=== PATIENT | female | born 1950 | race Caucasian/White ===

== ENCOUNTER 2019-09-27 16:48 | Inpatient (IN) | payer MEDICARE ==
[2019-09-27] MEDS ORDERED: LORazepam 2 MG/ML INJ IV STA (17:37)
[2019-09-27] MEDS ORDERED: SODIUM CHLORIDE 0.9% 1,000 ML IV STA ×2 (17:38)
[2019-09-27] MEDS ORDERED: SODIUM CHLORIDE 0.9% 500 ML 500 ML IV STA (17:38)
--- NOTE | 2019-09-27 17:38 | ED ---
Psych HPI - General Chief Complaint: Psychiatric Symptoms Stated Complaint: Mental health Time Seen by Provider: 09/27/19 17:14 Source: patient, RN notes reviewed, old records reviewed Mode of arrival: ambulatory - History of Present Illness Initial Comments: This is a 69-year-old female to the ER today she presents today for evaluation regards to psychiatric illness. Family concerned about patient's ability to care for self increased weight loss decreased appetite. Patient no medical history takes no medications. No drugs or alcohol abuse per family. Patient is very paranoid feelings believes that was coming to get her at all times. MD Complaint: altered mental status -: week(s) Associated Psychiatric Symptoms: racing thoughts, auditory hallucinations, visual hallucinations, delusions Quality: constant Improves With: none Worsens With: none Associated Symptoms: denies other symptoms Treatments Prior to Arrival: placed on mental health hold - Related Data Allergies Allergy/AdvReac Type Severity Reaction Status Date / Time No Known Allergies Allergy Verified 09/27/19 18:10 Review of Systems ROS Statement: Those systems with pertinent positive or pertinent negative responses have been documented in the HPI. ROS Other: All systems not noted in ROS Statement are negative. Past Medical History Past Medical History: No Reported History History of Any Multi-Drug Resistant Organisms: None Reported Additional Past Surgical History / Comment(s): head surgery Past Psychological History: Unable to Obtain Smoking Status: Former smoker Past Alcohol Use History: None Reported Past Drug Use History: None Reported General Exam Limitations: altered mental status General appearance: alert, in no apparent distress Head exam: Present: atraumatic, normocephalic, normal inspection Eye exam: Present: normal appearance, PERRL, EOMI. Absent: scleral icterus, conjunctival injection, periorbital swelling ENT exam: Present: normal exam, mucous membranes moist Neck exam: Present: normal inspection. Absent: tenderness, meningismus, lymphadenopathy Respiratory exam: Present: normal lung sounds bilaterally. Absent: respiratory distress, wheezes, rales, rhonchi, stridor Cardiovascular Exam: Present: normal rhythm, tachycardia, normal heart sounds. Absent: systolic murmur, diastolic murmur, rubs, gallop, clicks GI/Abdominal exam: Present: soft, normal bowel sounds. Absent: distended, tenderness, guarding, rebound, rigid Extremities exam: Present: normal inspection, full ROM, normal capillary refill. Absent: tenderness, pedal edema, joint swelling, calf tenderness Back exam: Present: normal inspection Neurological exam: Present: alert, oriented X3, CN II-XII intact Psychiatric exam: Present: normal affect, normal mood Skin exam: Present: warm, dry, intact, normal color. Absent: rash Course Vital Signs 09/27/19 09/27/19 09/27/19 16:59 18:00 21:35 Temperature 98.9 F 98.1 F Pulse Rate 126 H 83 Respiratory 18 18 Rate Blood Pressure 146/97 169/82 O2 Sat by Pulse 97 95 Oximetry - Reevaluation(s) Reevaluation #1: 09/27/19 17:37 Medical records reviewed Reevaluation #2: 09/27/19 21:41 She was made medically clear for psychiatric evaluation Medical Decision Making - Medical Decision Making 69-year-old female DF for evaluation patient with significant delusions and paranoia will admit for psychiatric evaluation and management - Lab Data Result diagrams: 09/27/19 18:03 09/27/19 18:03 Lab Results 09/27/19 09/27/19 09/27/19 Range/Units 18:03 18:03 18:03 WBC 9.6 (3.8-10.6) k/uL RBC 4.54 (3.80-5.40) m/uL Hgb 13.4 (11.4-16.0) gm/dL Hct 40.5 (34.0-46.0) % MCV 89.3 (80.0-100.0) fL MCH 29.4 (25.0-35.0) pg MCHC 33.0 (31.0-37.0) g/dL RDW 13.0 (11.5-15.5) % Plt Count 293 (150-450) k/uL Neutrophils % 80 % Lymphocytes % 14 % Monocytes % 4 % Eosinophils % 0 % Basophils % 1 % Neutrophils # 7.7 (1.3-7.7) k/uL Lymphocytes # 1.3 (1.0-4.8) k/uL Monocytes # 0.4 (0-1.0) k/uL Eosinophils # 0.0 (0-0.7) k/uL Basophils # 0.1 (0-0.2) k/uL Sodium 136 L (137-145) mmol/L Potassium 4.5 (3.5-5.1) mmol/L Chloride 103 (98-107) mmol/L Carbon Dioxide 22 (22-30) mmol/L Anion Gap 11 mmol/L BUN 10 (7-17) mg/dL Creatinine 0.85 (0.52-1.04) mg/dL Est GFR (CKD-EPI)AfAm 81 (>60 ml/min/1.73 sqM) Est GFR (CKD-EPI)NonAf 70 (>60 ml/min/1.73 sqM) Glucose 113 H (74-99) mg/dL Calcium 9.5 (8.4-10.2) mg/dL Phosphorus 3.1 (2.5-4.5) mg/dL Magnesium 1.9 (1.6-2.3) mg/dL Total Bilirubin 0.5 (0.2-1.3) mg/dL AST 26 (14-36) U/L ALT 19 (4-34) U/L Alkaline Phosphatase 85 (38-126) U/L Total Protein 6.9 (6.3-8.2) g/dL Albumin 4.0 (3.5-5.0) g/dL TSH 1.140 (0.465-4.680) mIU/L Urine Color Urine Appearance (Clear) Urine pH (5.0-8.0) Ur Specific [place] (1.001-1.035) Urine Protein (Negative) Urine Glucose (UA) (Negative) Urine Ketones (Negative) Urine Blood (Negative) Urine Nitrite (Negative) Urine Bilirubin (Negative) Urine Urobilinogen (<2.0) mg/dL Ur Leukocyte Esterase (Negative) Urine RBC (0-5) /hpf Urine WBC (0-5) /hpf Ur Squamous Epith Cells (0-4) /hpf Hyaline Casts (0-2) /lpf Urine Mucus (None) /hpf Salicylates <1.0 mg/dL Urine Opiates Screen (NotDetected) Ur Oxycodone Screen (NotDetected) Urine Methadone Screen (NotDetected) Ur Propoxyphene Screen (NotDetected) Acetaminophen <10.0 ug/mL Ur Barbiturates Screen (NotDetected) U Tricyclic Antidepress (NotDetected) Ur Phencyclidine Scrn (NotDetected) Ur Amphetamines Screen (NotDetected) U Methamphetamines Scrn (NotDetected) U Benzodiazepines Scrn (NotDetected) Urine Cocaine Screen (NotDetected) U Marijuana (THC) Screen (NotDetected) Serum Alcohol <10 mg/dL 09/27/19 Range/Units 19:40 WBC (3.8-10.6) k/uL RBC (3.80-5.40) m/uL Hgb (11.4-16.0) gm/dL Hct (34.0-46.0) % MCV (80.0-100.0) fL MCH (25.0-35.0) pg MCHC (31.0-37.0) g/dL RDW (11.5-15.5) % Plt Count (150-450) k/uL Neutrophils % % Lymphocytes % % Monocytes % % Eosinophils % % Basophils % % Neutrophils # (1.3-7.7) k/uL Lymphocytes # (1.0-4.8) k/uL Monocytes # (0-1.0) k/uL Eosinophils # (0-0.7) k/uL Basophils # (0-0.2) k/uL Sodium (137-145) mmol/L Potassium (3.5-5.1) mmol/L Chloride (98-107) mmol/L Carbon Dioxide (22-30) mmol/L Anion Gap mmol/L BUN (7-17) mg/dL Creatinine (0.52-1.04) mg/dL Est GFR (CKD-EPI)AfAm (>60 ml/min/1.73 sqM) Est GFR (CKD-EPI)NonAf (>60 ml/min/1.73 sqM) Glucose (74-99) mg/dL Calcium (8.4-10.2) mg/dL Phosphorus (2.5-4.5) mg/dL Magnesium (1.6-2.3) mg/dL Total Bilirubin (0.2-1.3) mg/dL AST (14-36) U/L ALT (4-34) U/L Alkaline Phosphatase (38-126) U/L Total Protein (6.3-8.2) g/dL Albumin (3.5-5.0) g/dL TSH (0.465-4.680) mIU/L Urine Color Light Yellow Urine Appearance Clear (Clear) Urine pH 6.0 (5.0-8.0) Ur Specific [place] 1.007 (1.001-1.035) Urine Protein Negative (Negative) Urine Glucose (UA) Negative (Negative) Urine Ketones 1+ H (Negative) Urine Blood Trace H (Negative) Urine Nitrite Negative (Negative) Urine Bilirubin Negative (Negative) Urine Urobilinogen <2.0 (<2.0) mg/dL Ur Leukocyte Esterase Small H (Negative) Urine RBC 2 (0-5) /hpf Urine WBC 2 (0-5) /hpf Ur Squamous Epith Cells 2 (0-4) /hpf Hyaline Casts 3 H (0-2) /lpf Urine Mucus Few H (None) /hpf Salicylates mg/dL Urine Opiates Screen Not Detected (NotDetected) Ur Oxycodone Screen Not Detected (NotDetected) Urine Methadone Screen Not Detected (NotDetected) Ur Propoxyphene Screen Not Detected (NotDetected) Acetaminophen ug/mL Ur Barbiturates Screen Not Detected (NotDetected) U Tricyclic Antidepress Not Detected (NotDetected) Ur Phencyclidine Scrn Not Detected (NotDetected) Ur Amphetamines Screen Not Detected (NotDetected) U Methamphetamines Scrn Not Detected (NotDetected) U Benzodiazepines Scrn Not Detected (NotDetected) Urine Cocaine Screen Not Detected (NotDetected) U Marijuana (THC) Screen Not Detected (NotDetected) Serum Alcohol mg/dL Disposition Clinical Impression: Psychosis, Acute psychosis Disposition: TRANSFER TO PSYCH HOSP/UNIT Condition: Fair Is patient prescribed a controlled substance at d/c from ED?: No Referrals: None,Stated [Primary Care Provider] - 1-2 days
[2019-09-27 18:18] LABS: Basophils # (A) 0.1 k/uL (0-0.2); Basophils % (A) 1 %; Eosinophils % (A) 0 %; HCT 40.5 % (34.0-46.0); HGB 13.4 gm/dL (11.4-16.0); Lymphocytes # (A) 1.3 k/uL (1.0-4.8); Lymphocytes % (A) 14 %; MCH 29.4 pg (25.0-35.0); MCV 89.3 fL (80.0-100.0); Mean Platelet Volume 7.9; Monocytes # (A) 0.4 k/uL (0-1.0); Monocytes % (A) 4 %; Neutrophils # (A) 7.7 k/uL (1.3-7.7); Neutrophils % (A) 80 %; Platelet Count 293 k/uL (150-450); RBC 4.54 m/uL (3.80-5.40); WBC 9.6 k/uL (3.8-10.6)
[2019-09-27 18:23] LABS: Acetaminophen <10.0 ug/mL; Alcohol <10 mg/dL; Magnesium 1.9 mg/dL (1.6-2.3); Phosphorus 3.1 mg/dL (2.5-4.5); Salicylate <1.0 mg/dL
[2019-09-27 20:04] LABS: Appearance,Urine Clear (Clear); Bilirubin,Urine Negative (Negative); Blood,Urine Trace (Negative); Color,Urine Light Yellow; Glucose,Urine (UA) Negative (Negative); Hyaline Casts,Urine 3 /lpf (0-2); Ketones,Urine 1+ (Negative); Leukocyte Esterase,Urine Small (Negative); Mucus,Urine Few /hpf; Nitrite,Urine Negative (Negative); Protein,Urine Negative (Negative); RBC,Urine 2 /hpf (0-5); Specific Gravity,Urine 1.007 (1.001-1.035); Squamous Epithelial Cell,Urine 2 /hpf (0-4); Urobilinogen,Urine <2.0 mg/dL (<2.0); WBC,Urine 2 /hpf (0-5)
[2019-09-27 20:14] LABS: Amphetamine Screen,Urine Not Detected (NotDetected); Barbiturate Screen,Urine Not Detected (NotDetected); Benzodiazepines Screen,Urine Not Detected (NotDetected); Cocaine Screen,Urine Not Detected (NotDetected); Methadone Screen, Urine Not Detected (NotDetected); Opiate Screen,Urine Not Detected (NotDetected); Oxycodone Screen, Urine Not Detected (NotDetected); Phencyclidine Screen,Urine Not Detected (NotDetected); Tricyclic Antidepressant,Urine Not Detected (NotDetected); Urn Cannabinoid Scrn Not Detected (NotDetected)
[2019-09-27 21:18] LABS: Calcium 9.5 mg/dL (8.4-10.2); Potassium 4.5 mmol/L (3.5-5.1); Total Bilirubin 0.5 mg/dL (0.2-1.3); Total Protein 6.9 g/dL (6.3-8.2)
[2019-09-27] MEDS ORDERED: LORazepam 1 MG TAB PO PRN (22:00)
[2019-09-27] MEDS ORDERED: ZIPRASIDONE 20 MG VIAL IM PRN (23:00)
[2019-09-28] MEDS ORDERED: MAG HYDROX/AL HYDROX/SIMETH 30 ML CUP PO PRN
[2019-09-28] MEDS ORDERED: ACETAMINOPHEN TAB 325 MG TAB PO PRN
[2019-09-28 04:50] LABS: Cholesterol 215 mg/dL (<200); HDL Cholesterol 51 mg/dL (40-60); LDL Cholesterol,Calculated 137 mg/dL (0-99); Triglycerides 137 mg/dL (<150)
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
[2019-09-28] MEDS ORDERED: MAGNESIUM HYDROXIDE 2,400 MG/10 ML CUP PO PRN (09:00)
[2019-09-28] MEDS ORDERED: LORazepam 2 MG/ML INJ IM PRN (11:52)
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
[2019-09-28] MEDS: MELATONIN 5 MG TABLET PO SCH (21:29)
--- NOTE | 2019-09-29 11:51 | P.PN ---
Progress Note - Text Progress Note Date: 09/29/19 Interval History: Patient was seen wandering the hallways and was agreeable and directable to sp felisa to record the office. Patient continues to have some improving paranoia/suspiciousness towards typewriter repairer and was fairly guarded due to during conversation. She appeared to be somewhat tired this morning and states that she did not sleep well last night. She states that she is continuing to feel "bad" when she was asked about her mood. She denies having any suicidal thoughts at this time however. She states he slept around 1 hour last night. Patient does claim that the medications have helped her "think better". Patient states that she is had a poor appetite however did attempt to eat some breakfast this morning. Patient was rather concrete and had poverty of content in her speech. At this time patient denies any suicidal or homical ideations, intent or plan. Patient denies visual hallucinations however does endorse hearing "a bus this morning" when asked about auditory hallucinations and denies hearing hat copyist cars anymore. Patient denies any side effects from the medications and has been compliant with meds. Mental Status Exam: General Appearance: Patient appears to be stated age is alert, mildly less suspicious/guarded. Patient appears to have poor hygiene and grooming. Wearing hospital gown. Behavior: Patient is seated without any agitated behavior. Guarded/paranoid, mildly improving. Speech: Patient's speech is fluent and nonpressured. Mood/Affect: Patient reports their mood is "bad", affect is congruent and constricted. Suicidality/Homicidality: Patient denies having any homicidal or suicidal ideation intent or plan Perceptions: Patient denies any visual hallucinations, admits to mild auditory hallucinations of "hearing a bus" Though content/process: Poverty of content/speech, guarded/evasive which is mildly improving. Memory and concentration: AOX3, grossly intact for the purposes of this session Judgment and insight: Poor Assessment Schizoaffective disorder, depressive type Plan: -Patient continues to meet criteria for inpatient psychiatric admission for symptom stabilization and safety. Patient has not signed adult voluntary form and medication consent. Awaiting for court date, patient did not defer this morning to treatment. -Medications: Increased Prolixin to 2.5 mg twice a day for psychosis. Continue with melatonin 5 mg nightly for sleep. Started Remeron 15 mg daily at bedtime for sleep/mood/appetite. -When necessary Ativan and Geodon for agitation/aggression. -Internal Medicine following. Gonorrhea/chlamydia and Trichomonas labs ordered and pending. will review EKG today. -NRT - not needed as patient does not smoke -SW on board for discharge planning. Encourage patient to participate in groups to work on coping skills. Daughter currently has guardianship hearing which is pending. awaiting court date for inpatient/outpatient treatment.
[2019-09-29] MEDS: MIRTAZAPINE 15 MG TAB PO SCH (21:14)
[2019-09-29] MEDS: MELATONIN 5 MG TABLET PO SCH (21:14)
--- NOTE | 2019-09-30 15:20 | P.PN ---
Progress Note - Text Progress Note Date: 09/30/19 Clinical Problems: Schizoaffective disorder depressed type Interim history: Reviewed the medical record and interviewed the patient. We reviewed the circumstances that led to this hospitalization. She now acknowledges that she was "confused". She denies feeling paranoid, suspicious or experiencing auditory hallucinations. She feels depressed but denied suicidal ideation, plan or intent. She perseverated about her teeth expressing concern that she may have her lower teeth extracted and will "not being able to chew." She denied side effects to Prolixin. Mental status exam: She presented as a casually groomed elderly woman with very poor dentition. She had multiple missing lower teeth. She made eye contact and appeared to attend to the interview. She had no prominent physical modalities. She had a flat facial expression. She is alert and oriented to person, place and time. She showed psychomotor retardation but no abnormal movements. Her speech was spontaneous, slow and slightly dysarthric. Her affect was flat and not reactive. She denied suicidal ideation, wishes or homicidal ideation. She feels depressed but not hopeless, helpless or worthless. She ruminated about her teeth but did not express ideas reference clear paranoid ideation or delusional thoughts. Her thinking was concrete and associations were goal- directed. She denied current hallucinations did not appear to be responding to internal stimuli. We completed the [facility] Orientation Memory and Concentration test. Her total weighted error score was 6; total weighted error score greater than 10 is consistent with dementia. She knew the month and the year. She is able to register the memory phrase "Erwin Jennings, [address] [place] [address]." She estimates that time correctly (within 1 hour actual time). She is able to count backwards 21 but made several errors when attempting to name the months of the year backwards (beginning with July). She missed one element of the memory phrase. Assessment: She showed positive and negative symptoms of her illness. Plan: Continue current treatment and treatment plan. Encourage participation in therapeutic groups and activities.
[2019-09-30] MEDS: MIRTAZAPINE 15 MG TAB PO SCH (21:15)
[2019-09-30] MEDS: MELATONIN 5 MG TABLET PO SCH (21:15)
[2019-10-01 14:27] LABS: C. trachomatis,PCR Negative (Neg,Equiv); Chlamydia trachomatis Source Urine; N. gonorrhoeae,PCR Negative (Neg,Equiv); Neisseria Source Urine
--- NOTE | 2019-10-01 16:45 | P.PN ---
Progress Note - Text Progress Note Date: 10/01/19 Clinical Problems: Schizoaffective disorder depressed type Interim history: She complained of not sleeping "at all" last night despite taking both Remeron and melatonin. Her complaint is not consistent with report by nursing that she slept 6 hours last night. She alleged "noises" keep her from sleeping similar to the noise of the furnace that kept her from sleeping at home. She denied experiencing auditory hallucinations. She denied feeling depressed or having thoughts of or suicide. According to nursing record she slept 6 hours last night. Mental status exam: She was casually dressed and groomed. She made eye contact and attended to the interview. She had a blunted but bright facial expression. Her thinking was concrete. She denied hallucinations and did not appear to be responding to internal stimuli. Assessment: She is moderately improve from admission. Plan: Continue treatment planning. Encourage participation in therapeutic groups and activities.
[2019-10-01] MEDS: MELATONIN 5 MG TABLET PO SCH (21:44)
[2019-10-01] MEDS: MIRTAZAPINE 15 MG TAB PO SCH (21:44)
--- NOTE | 2019-10-02 16:43 | PN ---
PROGRESS NOTE DATE OF SERVICE: 10/02/2019 CHIEF COMPLAINT: The patient was paranoid. She was hearing voices and noises in her head. She was drinking peroxide. She had not been eating or drinking fluids. INTERVAL HISTORY: The patient has been doing fair. She continues to have significant problems. She had a quiet evening last night. She had not been attending many groups, though yesterday she attended two groups and today she has attended two groups already. She said she slept poorly last night, though staff observed her to be sleeping a reasonable amount of the night. She says that she gets bothered by noises she hears, it is not clear whether or not some of the noises may be the hallucinations that she has been experiencing. In regards to her history, she notes that symptoms first started up for her around age 44. At that point, she was living in [place]. She had a psychiatric hospitalization in 1994 and another one in 2007. She said that going back to 1994, the thing that bothered her the most was feeling that people berated her. She said it is something she has struggled with her whole life. She states that she does not identify any periods in the past of having hallucinations or delusional thoughts prior to age of 44. In regards to her current situation, she said that she was under stress around the holiday, in part related to grandchildren visiting from [place], they are young adults. She said their visit seemed to have set off a lot of stress and she was aware that she was yelling at them. Since then, she continued to have experience of hearing noises, one noise that is persistent is hearing a "copy editor car." She has experiences where she believes someone is looking in the window of her house. She said that when she would use the telephone, she had the experience that someone was able to listen in on the phone calls. She can acknowledge that much of this is internal stimuli and not reality. 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 She said she worked at [employer] for about ten years in the [facility]. She says one of her limitations is problems she has with weakness in her legs and pain in her back. She says that limits her as far as doing physical activity. She does not feel that the medications have been helping her, though she does not report any clear side effects or problems. MENTAL STATUS EXAMINATION: The patient sat without restlessness. Eye contact was fair. Psychomotor activity was slowed. She answered questions with brief responses. She talked in a monotone voice. Her answers were short one or two-word responses. There were a few times that she described some things in more detail. Her affect was flat. Her mood depressed. She seemed moderately distressed. She continues to report auditory hallucinations. Cognition was clear. ASSESSMENT: I will continue the current diagnosis and treatment plan. Will continue to engage the patient in individual and group therapeutic activities. I will increase the patient's Prolixin to 10 mg at bedtime. She will continue Remeron 15 mg at bedtime. It is noted that there was a suggestion she has had a history of a diagnosis of schizophrenia; however, the best I am able to tell from her history is that she had not had any acute psychiatric issues prior to age 44, which would generally be beyond the age of onset for schizophrenia. I encouraged the patient to get involved in some physical activity, namely encouraged her to walk from her room to the dining area and back one time every hour. We will continue to focus on stabilization and discharge planning. MMODL / IJN: [id number] /
[2019-10-02] MEDS: MELATONIN 5 MG TABLET PO SCH (21:25)
[2019-10-02] MEDS: MIRTAZAPINE 15 MG TAB PO SCH (21:25)
--- NOTE | 2019-10-03 11:50 | PN ---
PROGRESS NOTE DATE OF SERVICE: 10/03/2019 CHIEF COMPLAINT: The patient was paranoid. She was hearing voices and noises in her head. She was drinking peroxide. She had not been eating or drinking fluids. INTERVAL HISTORY: Patient has been doing fair. She had a quiet evening last night. She has been attending groups though mostly she sits quietly and does not say anything at all. Staff noted last evening that at times she seemed a little more responsive and would initiate saying hi to staff and might show a slight smile. The patient said she slept fairly well last night, which was a plus for her. She said one issue she had was that there was not any noise she was hearing which seemed to be unusual because she had gotten adjusted to hearing noise quite a bit, which may be environmental or may be more related to internal stimuli. Today, she has been up she comes out in the day area. She continues to go to groups. She mostly has a quiet manner. She walks slowly around the unit. She will respond appropriately to staff. When I talked to her she did answer some questions appropriately. When I asked her about groups, she said that she does not talk in group because she does not know what to say. I encouraged her to try to make some comments in group, even if it was that she did know what to say and that if she voiced that she might find that staff or other patients help her communicate a little bit more. She tolerates her psychotropic medications. MENTAL STATUS: Patient sat with a little bit a restlessness. She answered questions with brief responses. Her thoughts were clear. Her affect was blunted. Her mood was reserved. She seems somewhat distressed though overall perhaps a little calmer than yesterday and showing a little more positive emotional response. ASSESSMENT: I will continue the current diagnosis and treatment plan. I will increase Prolixin to 5 mg in the morning, 10 mg at bedtime the increased dose may be helping her both in terms of some of her mood issues as well as sleep. She may be little less anxious overall. She may have underlying distress that is more significant than is easily seen on the outside. I encouraged the patient to talk in groups even if it is to ask help with what to talk about. We will continue to focus on stabilization and discharge planning. MMODL / IJN: [id number] /
[2019-10-03] MEDS: MELATONIN 5 MG TABLET PO SCH (21:40)
[2019-10-03] MEDS: MIRTAZAPINE 15 MG TAB PO SCH (21:40)
--- NOTE | 2019-10-04 10:04 | P.PN ---
Progress Note - Text Progress Note Date: 10/04/19 Interval History: Patient was seen sitting in on group this morning and was agreeable and direct able to speak to law writer in the office. Patient continues to be improving with regards to paranoia towards others and appears to have improved hygiene. Patient states that she just showered us morning. She states that she has been eating more regularly. She states that she slept about 6 hours last night and 12 hours the night before. Patient claims that she feels as last night she didn't get enough sleep. Patient claims that she does feel that the Prolixin is helping her with her thoughts and also the voices and sounds. She states that she does feel some stiffness in her muscles in her legs and admitted to a mild tremor. Patient does claim that the medications have helped her "think better" and spoke about wanting to be discharged and was agreeable to sign a deferment with her respiratory care faculty as she does not want to go to court. Patient was rather concrete and had poverty of content in her speech which appears to be chronic. At this time patient denies any suicidal or homical ideations, intent or plan. Patient denies visual or auditory hallucinations however. Mental Status Exam: General Appearance: Patient appears to be stated age is alert, less suspicious/guarded. Patient appears to have improving hygiene and grooming. Wearing hospital gown. Behavior: Patient is seated without any agitated behavior. More cooperative. Speech: Patient's speech is fluent and nonpressured. Mood/Affect: Patient reports their mood is "ok", affect is congruent and constricted. Suicidality/Homicidality: Patient denies having any homicidal or suicidal ideation intent or plan Perceptions: Patient denies any visual hallucinations or auditory hallucinations. Though content/process: Poverty of content/speech, which appears to be chronic. Patient is logical and non-bizarre. Memory and concentration: AOX3, grossly intact for the purposes of this session Judgment and insight: Mildly improving. Assessment: Schizoaffective disorder, depressive type Plan: -Patient continues to meet criteria for inpatient psychiatric admission for symptom stabilization and safety. Patient has not signed adult voluntary form and medication consent. Court hearing is on 10/11/2019. -Medications: Decreased Prolixin to 7.5 mg nightly +5 mg daily for psychosis as patient may be having signs of mild EPS, we'll continue to monitor. Continue with melatonin 5 mg nightly for sleep. Increased Remeron 30 mg daily at bedtime for sleep/mood/appetite. -When necessary Ativan and Geodon for agitation/aggression. -Internal Medicine following -NRT - not needed as patient does not smoke -SW on board for discharge planning. Encourage patient to participate in groups to work on coping skills. Patient is willing to sign a deferment for treatment and may be suitable for discharge tomorrow. formula room worker to follow-up with daughter for further discharge planning/coordination.
[2019-10-04] MEDS ORDERED: MIRTAZAPINE 15 MG TAB PO SCH (21:00)
[2019-10-04] MEDS: MELATONIN 5 MG TABLET PO SCH (22:06)
[2019-10-05 07:25] VITALS: BP 136/67; PULSE 86; RESP 14; TEMP 98.1
--- NOTE | 2019-10-05 10:10 | P.DS ---
Providers Date of admission: 09/27/19 21:45 Expected date of discharge: 10/05/19 Attending physician: Ozzy Chacon MD Consults: 09/27/19 21:57 Consult Physician Routine Consulting Provider: Adams Fernandez Consult Reason/Comments: H & P and medical care Do you want consulting provider notified?: Yes Primary care physician: Stated None - Discharge Diagnosis(es) (1) Schizoaffective disorder, depressive type Current Visit: Yes Status: Acute Priority: High Hospital Course: Admission HPI: Patient is a 69-year-old female currently lives with her daughter in a house and has 3 kids and collects Social Security disability. Patient presented to the hospital as she was brought in by her family for psychiatric concerns. As per petition stated by daughter "paranoid, hearing voices, drinking peroxide, not eating or drinking". Patient has apparently a history of schizophrenia and has previous psychiatric hospitalizations. Patient was admitted to mental health for psychosis. Patient was seen by group underwriter today in the office and patient appears to be suspicious/paranoid and has significant thought blocking and disorganized thoughts. She spoke about running down the street thinking that concrete spreader were out to get her. She did not explain why she believes the concrete spreader were after her. She claims that she does not hear voices however does hear cop examiner cars. She states that she has been having difficulties at home and states that she is feeling overwhelmed and "tired" when asked about her mood. She states that she drank peroxide yesterday claims that she was having suicidal thoughts. She states that she has poor sleep and poor appetite. She claims that she has been having these symptoms since 1996 and states that they have been "on and off". Patient denies any homicidal ideations intent or plan however does state that she has some suicidal ideations with no plan. At this time patient denies any visual hallucinations and states that she has auditory hallucinations of hearing cop examiner cars. Patient denies any flight of ideas racing thoughts and inc reased in goal directed behavior. Patient admits to not using any drugs or substances and states that she quit cigarettes in 2018 and denies any alcohol use. Hospital course: Upon admission to the unit patient was initially paranoid, psychotic and depressed. Patient was however directable to commence treatment including taking her medications however refused to sign voluntary or [address] however patient improved gradually and became less paranoid and more organized/less psychotic and agreed to sign deferral today. Patient got along well with other patients on the unit and followed unit protocol. Patient was compliant with the medications and denied any side effects throughout hospital course. Patient was started on Prolixin and titrated up to a dose of 5 mg every morning +7.5 mg daily at bedtime for psychosis. Patient was also started on Remeron and titrated up to a dose of 30 mg daily at bedtime for sleep/mood/appetite. Melatonin 5 mg nightly for sleep was also added. Patient spoke of her stressors and engaged in therapy both group and individual as best as she could. Patient was also seen by medical team for history and physical exam. Throughout the course of the hospitalization patient gradually improved with regards to mood, psychosis, paranoia, sleep and improved with regards to insight and judgment. On the day of discharge patient denied any suicidal or homicidal ideations intent or plan denied any auditory or visual hallucinations. Patient endorsed wanting to live for her health and family. The patient denied any access to guns or weapons. Patient denied any paranoia and did not endorse any delusions. Patient does not have a significant history of substance abuse however was counseled on abstaining from all substances including alcohol and marijuana. Patient was also counseled on the medications and need for regular compliance and was encouraged to follow-up with their outpatient appointment for mental health and also for primary care. Prior to discharge a family meeting will be arranged by social work instructor to answer any questions and ensure safety upon discharge. Mental status exam: General Appearance: Patient appears to be stated age is alert, directable, and cooperative. Patient is in no acute distress and has improved hygiene and grooming Behavior: Patient is calmly seated without any agitated behavior. Speech: Patient's speech is fluent and nonpressured. Mood/Affect: Patient reports their mood is "good", affect is congruent and constricted. Suicidality/Homicidality: Patient denies having any suicidal or homicidal ideation intent or plan. Perceptions: Patient denies any auditory or visual hallucinations. Though content/process: There is no evidence of any delusional thought content and thought process is concrete, and logical. Memory and concentration: AOX3, grossly intact for the purposes of this session. Can spell "WORLD" backwards correctly. Judgment and insight: improved, with guarded prognosis. Impression: Schizoaffective disorder, depressive type Plan: -Continue with discharge today as patient has improved and stabilized psychiatrically and is not currently an imminent threat to herself and/or others. -Continue medications: Prolixin 5 mg every morning +7.5 mg daily at bedtime for psychosis. Continue with Remeron 30 mg nightly for sleep/mood/appetite. Continue with melatonin 5 mg nightly for sleep. -Patient was counseled on the need for medication compliance and appropriate follow-up at mental health and also primary care for medical issues. Patient verbalized understanding and agreed. -Social work to arrange for and conduct family meeting to ensure safety upon discharge and answer any questions/concerns. Social work also to arrange for patients follow up appointments for psychiatric care along with follow up with primary care provider. -Patient counseled on abstaining from recreational drugs and marijuana and alcohol. Was informed/educated on the adverse effects on their physical and mental health. Patient verbally agreed and understood. -Patient was instructed to return to the hospital or seek immediate medical care if their psychiatric or medical symptoms do worsen or reoccur. Allergies Allergy/AdvReac Type Severity Reaction Status Date / Time No Known Allergies Allergy Verified 09/27/19 23:06 Laboratory Results WBC 9.6 k/uL (3.8-10.6) 09/27/19 18: RBC 4.54 m/uL (3.80-5.40) 09/27/19 18:03 Hgb 13.4 gm/dL (11.4-16.0) 09/27/19 18:03 Hct 40.5 % (34.0-46.0) 09/27/19 18:03 MCV 89.3 fL (80.0-100.0) 09/27/19 18:03 MCH 29.4 pg (25.0-35.0) 09/27/19 18: MCHC 33.0 g/dL (31.0-37.0) 09/27/19 18:03 RDW 13.0 % (11.5-15.5) 09/27/19 18:03 Plt Count 293 k/uL (150-450) 09/27/19 18:03 Neutrophils % 80 % 09/27/19 18:03 Lymphocytes % 14 % 09/27/19 18:03 Monocytes % 4 % 09/27/19 18:03 Eosinophils % 0 % 09/27/19 18:03 Basophils % 1 % 09/27/19 18:03 Neutrophils # 7.7 k/uL (1.3-7.7) 09/27/19 18:03 Lymphocytes # 1.3 k/uL (1.0-4.8) 09/27/19 18:03 Monocytes # 0.4 k/uL (0-1.0) 09/27/19 18:03 Eosinophils # 0.0 k/uL (0-0.7) 09/27/19 18:03 Basophils # 0.1 k/uL (0-0.2) 09/27/19 18:03 Sodium 136 mmol/L (137-145) L 09/27/19 18:03 Potassium 4.5 mmol/L (3.5-5.1) 09/27/19 18:03 Chloride 103 mmol/L (98-107) 09/27/19 18:03 Carbon Dioxide 22 mmol/L (22-30) 09/27/19 18:03 Anion Gap 11 mmol/L 09/27/19 18:03 BUN 10 mg/dL (7-17) 09/27/19 18:03 Creatinine 0.85 mg/dL (0.52-1.04) 09/27/19 18:03 Est GFR (CKD-EPI)AfAm 81 (>60 ml/min/1.73 sqM) 09/27/19 18:03 Est GFR (CKD-EPI)NonAf 70 (>60 ml/min/1.73 sqM) 09/27/19 18:03 Glucose 113 mg/dL (74-99) H 09/27/19 18:[address] Glu mg/dL 126 09/27/19 18:03 Hemoglobin A1c 6.0 % (4.0-6.0) 09/27/19 18:03 Calcium 9.5 mg/dL (8.4-10.2) 09/27/19 18:03 Phosphorus 3.1 mg/dL (2.5-4.5) 09/27/19 18:03 Magnesium 1.9 mg/dL (1.6-2.3) 09/27/19 18:03 Total Bilirubin 0.5 mg/dL (0.2-1.3) 09/27/19 18:03 AST 26 U/L (14-36) 09/27/19 18:03 ALT 19 U/L (4-34) 09/27/19 18:03 Alkaline Phosphatase 85 U/L (38-126) 09/27/19 18:03 Total Protein 6.9 g/dL (6.3-8.2) 09/27/19 18:03 Albumin 4.0 g/dL (3.5-5.0) 09/27/19 18:03 Triglycerides 137 mg/dL (<150) 09/27/19 18:03 Cholesterol 215 mg/dL (<200) H 09/27/19 18:03 LDL Cholesterol, Calc 137 mg/dL (0-99) H 09/27/19 18:03 HDL Cholesterol 51 mg/dL (40-60) 09/27/19 18:03 TSH 1.140 mIU/L (0.465-4.680) 09/27/19 18:03 Urine Color Light Yellow 09/27/19 19:40 Urine Appearance Clear (Clear) 09/27/19 19:40 Urine pH 6.0 (5.0-8.0) 09/27/19 19:40 Ur Specific [place] 1.007 (1.001-1.035) 09/27/19 19:40 Urine Protein Negative (Negative) 09/27/19 19:40 Urine Glucose (UA) Negative (Negative) 09/27/19 19:40 Urine Ketones 1+ (Negative) H 09/27/19 19:40 Urine Blood Trace (Negative) H 09/27/19 19:40 Urine Nitrite Negative (Negative) 09/27/19 19:40 Urine Bilirubin Negative (Negative) 09/27/19 19:40 Urine Urobilinogen <2.0 mg/dL (<2.0) 09/27/19 19:40 Ur Leukocyte Esterase Small (Negative) H 09/27/19 19:40 Urine RBC 2 /hpf (0-5) 09/27/19 19:40 Urine WBC 2 /hpf (0-5) 09/27/19 19:40 Ur Squamous Epith Cells 2 /hpf (0-4) 09/27/19 19:40 Hyaline Casts 3 /lpf (0-2) H 09/27/19 19:40 Urine Mucus Few /hpf (None) H 09/27/19 19:40 Salicylates <1.0 mg/dL 09/27/19 18:03 Urine Opiates Screen Not Detected (NotDetected) 09/27/19 19:40 Ur Oxycodone Screen Not Detected (NotDetected) 09/27/19 19:40 Urine Methadone Screen Not Detected (NotDetected) 09/27/19 19:40 Ur Propoxyphene Screen Not Detected (NotDetected) 09/27/19 19:40 Acetaminophen <10.0 ug/mL 09/27/19 18:03 Ur Barbiturates Screen Not Detected (NotDetected) 09/27/19 19:40 U Tricyclic Antidepress Not Detected (NotDetected) 09/27/19 19:40 Ur Phencyclidine Scrn Not Detected (NotDetected) 09/27/19 19:40 Ur Amphetamines Screen Not Detected (NotDetected) 09/27/19 19:40 U Methamphetamines Scrn Not Detected (NotDetected) 09/27/19 19:40 U Benzodiazepines Scrn Not Detected (NotDetected) 09/27/19 19:40 Urine Cocaine Screen Not Detected (NotDetected) 09/27/19 19:40 U Marijuana (THC) Screen Not Detected (NotDetected) 09/27/19 19:40 Serum Alcohol <10 mg/dL 09/27/19 18:03 Chlamydia Source Urine 09/30/19 13:36 Chlamydia DNA (PCR) Negative (Neg,Equiv) 09/30/19 13:36 N. gonorrhoeae Source Urine 09/30/19 13:36 N.gonorrhoeae DNA Probe Negative (Neg,Equiv) 09/30/19 13:36 Vital Signs Temp 98.1 F 10/05/19 07:24 Pulse 86 10/05/19 07:24 Resp 14 10/05/19 07:24 BP 136/67 10/05/19 07:24 Pulse Ox 94 L 10/02/19 06:48 Patient Condition at Discharge: Stable Plan - Discharge Summary Discharge Rx Participant: No New Discharge Prescriptions: New Melatonin 5 mg PO HS 28 Days tablet fluPHENAZine [Prolixin] 5 mg PO DAILY 28 Days tab fluPHENAZine [Prolixin 5MG] 7.5 mg PO HS 28 Days tablet Mirtazapine [Remeron] 30 mg PO HS 28 Days tab Discharge Medication List Melatonin 5 mg PO HS 28 Days tablet 10/05/19 [Rx] Mirtazapine [Remeron] 30 mg PO HS 28 Days tab 10/05/19 [Rx] fluPHENAZine [Prolixin 5MG] 7.5 mg PO HS 28 Days tablet 10/05/19 [Rx] fluPHENAZine [Prolixin] 5 mg PO DAILY 28 Days tab 10/05/19 [Rx] Follow up Appointment(s)/Referral(s): [facility] [NON-STAFF] - 1 Week Patient Instructions/Handouts: Schizoaffective Disorder (DC) Activity/Diet/Wound Care/Special Instructions: Activity and diet as tolerated. Avoid the use of street drugs and alcohol. Take all medications as prescribed. When you are in need of refills on your medications please contact your medical provider and/or outpatient psychiatrist to have this done. Please go to scheduled outpatient appointment for aftercare treatment. If symptoms return or become worse, call the crisis line at and/or go to the nearest emergency room for evaluation. Discharge Disposition: HOME SELF-CARE
[2019-10-05 14:17] VITALS: BMI 27.3
== END 2019-10-05 16:16 | disposition home or self-care (01) | DRG 885 ==
LOC: EC 16:48 → 3MHU 21:45
PROVIDERS: ADMIT Psychiatry & Neurology Psychiatry; ATTEND Psychiatry & Neurology Psychiatry
DX: F25.1 Schizoaffective disorder, depressive type (principal); R45.851 Suicidal ideations; M54.9 Dorsalgia, unspecified; R53.1 Weakness; R25.1 Tremor, unspecified; Z87.891 Personal history of nicotine dependence; Z91.5 Personal history of self-harm
CPT/HCPCS: 36415; 80053; 80061; 80306; 80320; 80329; 81001; 82075; 83036; 83520; 83735; 84100; 84443; 85025; 87491; 87591; 93005; 96361; 96374; 99285

== ENCOUNTER 2019-10-17 11:15 | Emergency (ER) | payer MEDICARE ==
[2019-10-17 11:39] VITALS: TEMP 98.1
[2019-10-17 12:47] LABS: Appearance,Urine Cloudy (Clear); Bacteria,Urine Rare /hpf; Bilirubin,Urine Negative (Negative); Blood,Urine Small (Negative); Color,Urine Yellow; Glucose,Urine (UA) Negative (Negative); Ketones,Urine Negative (Negative); Leukocyte Esterase,Urine Large (Negative); Mucus,Urine Rare /hpf; Nitrite,Urine Negative (Negative); PH, Urine 5.5 (5.0-8.0); Protein,Urine Negative (Negative); RBC,Urine 5 /hpf (0-5); Specific Gravity,Urine 1.015 (1.001-1.035); Squamous Epithelial Cell,Urine 6 /hpf (0-4); Urobilinogen,Urine <2.0 mg/dL (<2.0); WBC,Urine 23 /hpf (0-5)
--- NOTE | 2019-10-17 13:29 | ED ---
General Adult HPI - General Chief complaint: Recheck/Abnormal Lab/Rx Stated complaint: Medication evaluation Time Seen by Provider: 10/17/19 11:35 Source: patient, family, RN notes reviewed, old records reviewed Mode of arrival: ambulatory Limitations: no limitations - History of Present Illness Initial comments: This is a 69-year-old female who is brought into the emergency department because she feels extremely tired and sleepy all day long. Patient states she also was walking really slow since she started her new medications. Patient states the new medications are Remeron melatonin and Prolixin. Patient states ever since then she sleeps all day and has a very slow walk. Patient denies any other symptoms. Patient denies any delusions or hallucinations. Patient states all of her psychiatric issues in the past have resolved. Patient denies any chest pain difficulty breathing shortness of breath. Patient denies any abdominal pain. Patient has any nausea vomiting. Patient was concerned about a urinary tract infection because she felt like she was going often. - Related Data Home Medications Medication Instructions Recorded Confirmed fluPHENAZine HCl 2.5 mg PO HS 10/17/19 10/17/19 fluPHENAZine [Prolixin] 5 mg PO BID 10/17/19 10/17/19 Previous Rx's Medication Instructions Recorded Melatonin 5 mg PO HS 28 Days tablet 10/05/19 Mirtazapine [Remeron] 30 mg PO HS 28 Days tab 10/05/19 Allergies Allergy/AdvReac Type Severity Reaction Status Date / Time No Known Allergies Allergy Verified 10/17/19 11:39 Review of Systems ROS Statement: Those systems with pertinent positive or pertinent negative responses have been documented in the HPI. ROS Other: All systems not noted in ROS Statement are negative. Past Medical History Past Medical History: No Reported History History of Any Multi-Drug Resistant Organisms: None Reported Past Surgical History: Tubal Ligation Additional Past Surgical History / Comment(s): head surgery-tumor removed, Past Psychological History: Depression, Schizoaffective Disorder Smoking Status: Former smoker Past Alcohol Use History: None Reported Past Drug Use History: None Reported - Past Family History Mother History Unknown: Yes General Exam - General Exam Comments Initial Comments: GENERAL: Patient is well-developed and well-nourished. Patient is nontoxic and well- hydrated and is in no acute distress. ENT: Neck is soft and supple. No significant lymphadenopathy is noted. Oropharynx is clear. Moist mucous membranes. Neck has full range of motion without eliciting any pain. EYES: The sclera were anicteric and conjunctiva were pink and moist. Extraocular movements were intact and pupils were equal round and reactive to light. Eyelids were unremarkable. PULMONARY: Unlabored respirations. Good breath sounds bilaterally. No audible rales rhonchi or wheezing was noted. CARDIOVASCULAR: There is a regular rate and rhythm without any murmurs gallops or rubs. ABDOMEN: Soft and nontender with normal bowel sounds. SKIN: Skin is clear with no lesions or rashes and otherwise unremarkable. NEUROLOGIC: Patient is alert and oriented x3. Cranial nerves II through XII are grossly intact. Motor and sensory are also intact. Normal speech, volume and content. Symmetrical smile. MUSCULOSKELETAL: Normal extremities with adequate strength and full range of motion. LYMPHATICS: No significant lymphadenopathy is noted PSYCHIATRIC: Normal psychiatric evaluation. Limitations: no limitations Course Vital Signs 10/17/19 11:31 Temperature 98.1 F Pulse Rate 84 Respiratory 20 Rate Blood Pressure 159/90 O2 Sat by Pulse 97 Oximetry Medical Decision Making - Lab Data Lab Results 10/17/19 10/17/19 Range/Units 12:37 13:20 Urine Color Yellow Light Yellow Urine Appearance Cloudy H Cloudy H (Clear) Urine pH 5.5 5.5 (5.0-8.0) Ur Specific [place] 1.015 1.015 (1.001-1.035) Urine Protein Negative Negative (Negative) Urine Glucose (UA) Negative Negative (Negative) Urine Ketones Negative Trace H (Negative) Urine Blood Small H Small H (Negative) Urine Nitrite Negative Negative (Negative) Urine Bilirubin Negative Negative (Negative) Urine Urobilinogen <2.0 <2.0 (<2.0) mg/dL Ur Leukocyte Esterase Large H Large H (Negative) Urine RBC 5 6 H (0-5) /hpf Urine WBC 23 H 35 H (0-5) /hpf Ur Squamous Epith Cells 6 H 10 H (0-4) /hpf Urine Bacteria Rare H Rare H (None) /hpf Urine Mucus Rare H Many H (None) /hpf Disposition Clinical Impression: Side effect of drug Disposition: HOME SELF-CARE Additional Instructions: Patient stopped taking her Remeron per the psychiatrist. Is patient prescribed a controlled substance at d/c from ED?: No Referrals: None,Stated [Primary Care Provider] - 1-2 days Time of Disposition: 14:11
[2019-10-17 14:01] LABS: Appearance,Urine Cloudy (Clear); Bacteria,Urine Rare /hpf; Bilirubin,Urine Negative (Negative); Blood,Urine Small (Negative); Color,Urine Light Yellow; Glucose,Urine (UA) Negative (Negative); Ketones,Urine Trace (Negative); Leukocyte Esterase,Urine Large (Negative); Mucus,Urine Many /hpf; Nitrite,Urine Negative (Negative); PH, Urine 5.5 (5.0-8.0); Protein,Urine Negative (Negative); RBC,Urine 6 /hpf (0-5); Specific Gravity,Urine 1.015 (1.001-1.035); Squamous Epithelial Cell,Urine 10 /hpf (0-4); Urobilinogen,Urine <2.0 mg/dL (<2.0); WBC,Urine 35 /hpf (0-5)
[2019-10-17 14:21] VITALS: BP 148/80; PULSE 80; RESP 18
== END 2019-10-17 14:15 | disposition home or self-care (01) ==
LOC: EC 11:15
DX: R53.83 Other fatigue (principal); T50.905A Adverse effect of unspecified drugs, medicaments and biological substances, initial encounter; F32.9 Major depressive disorder, single episode, unspecified; F25.9 Schizoaffective disorder, unspecified; Z79.899 Other long term (current) drug therapy; Z87.891 Personal history of nicotine dependence
CPT/HCPCS: 81001; 87086; 99283

== ENCOUNTER → 2020-12-25 | Outpatient (CLI) | payer MEDICARE ==
--- NOTE | 2020-12-25 14:57 | XR ---
EXAMINATION TYPE: XR chest 2V DATE OF EXAM: 12/25/2020 COMPARISON: NONE HISTORY: Shortness of breath TECHNIQUE: Frontal and lateral views of the chest are obtained. FINDINGS: Scattered senescent parenchymal changes noted. Hyperinflation compatible with COPD. No evidence for infiltrate. No evidence for atelectasis. Heart size is stable. Mediastinal structures are stable and grossly unremarkable. No evidence for hilar prominence. Degenerative changes dorsal spine. IMPRESSION: 1. No evidence for acute pulmonary disease.
== END | disposition home or self-care (01) ==
LOC: RADXRMAIN 12:41
PROVIDERS: ATTEND Nurse Practitioner Family
DX: R06.02 Shortness of breath (principal)
CPT/HCPCS: 71046

== ENCOUNTER 2021-02-15 05:53 | Inpatient (IN) | payer MEDICARE ==
--- NOTE | 2021-02-15 06:51 | ED ---
Female Urogenital HPI <Rohan Nagel - Last Filed: 02/15/21 09:51> - General Source: patient, family Mode of arrival: ambulatory Limitations: no limitations - History of Present Illness MD Complaint: dysuria -: days(s) (7) Radiation: non-radiating, LLQ, RLQ Quality: dull Consistency: constant Improves with: none Worsens with: movement Associated Symptoms: loss of appetite, dysuria, weakness <Damaris Goff - Last Filed: 02/15/21 10:05> - General Chief complaint: Urogenital Stated complaint: UTI Time Seen by Provider: 02/15/21 06:28 - History of Present Illness Initial comments: 70-year-old female brought in by her daughter for acute mental status changes that occurred earlier today. Patient states her mother walked out of their house with her pajamas on not knowing where she was going stating that someone was going to harm her. Daughter states she was put on an antibiotic earlier this week for UTI Macrobid from her primary care physician. Patient still having some abdominal discomfort and painful urination. Daughter states she is not eating or drinking well. No recorded fevers. Daughter states she had this 15 years ago and was admitted for UTI in the past. Patient was put on Lexapro and trazodone about [address] Patient [address] Dr[address] Sanders psychiatrist. Patient denies any shortness breath or chest pain no headache. Daughter are patient denies any injury. Patient has history of acute psychosis in the past. (Damaris Goff) - Related Data Home Medications Medication Instructions Recorded Confirmed fluPHENAZine HCl 2.5 mg PO HS 10/17/19 10/17/19 fluPHENAZine [Prolixin] 5 mg PO BID 10/17/19 10/17/19 Previous Rx's Medication Instructions Recorded Melatonin 5 mg PO HS 28 Days tablet 10/05/19 Mirtazapine [Remeron] 30 mg PO HS 28 Days tab 10/05/19 Allergies Allergy/AdvReac Type Severity Reaction Status Date / Time No Known Allergies Allergy Verified 02/15/21 06:01 Review of Systems ROS Other: All systems not noted in ROS Statement are negative. <Rohan Nagel - Last Filed: 02/15/21 09:51> ROS Other: All systems not noted in ROS Statement are negative. Constitutional: Reports: weakness. Denies: fever, chills Cardiovascular: Denies: chest pain, palpitations Endocrine: Reports: fatigue Genitourinary: Reports: urgency, dysuria, frequency Neurological: Reports: weakness, confusion Psychiatric: Reports: depression, visual hallucinations (in past), suicidal thoughts <Damaris Goff - Last Filed: 02/15/21 10:05> ROS Statement: Those systems with pertinent positive or pertinent negative responses have been documented in the HPI. Past Medical History Past Medical History: Hyperlipidemia, Hypertension History of Any Multi-Drug Resistant Organisms: None Reported Past Surgical History: Tubal Ligation Additional Past Surgical History / Comment(s): head surgery-tumor removed, Past Psychological History: Anxiety, Depression Smoking Status: Former smoker Past Alcohol Use History: None Reported Past Drug Use History: None Reported - Past Family History Mother History Unknown: Yes <Damaris Goff - Last Filed: 02/15/21 10:05> General Exam Limitations: no limitations, altered mental status General appearance: alert, lethargic Head exam: Present: atraumatic, normocephalic, normal inspection Eye exam: Present: normal appearance, PERRL, EOMI. Absent: scleral icterus, conjunctival injection, periorbital swelling ENT exam: Present: normal exam. Absent: mucous membranes moist (dry mouth) Neck exam: Present: normal inspection. Absent: tenderness, meningismus, lymphadenopathy Respiratory exam: Present: normal lung sounds bilaterally. Absent: respiratory distress, wheezes, rales, rhonchi, stridor Cardiovascular Exam: Present: regular rate, normal rhythm, normal heart sounds. Absent: systolic murmur, diastolic murmur, rubs, gallop, clicks GI/Abdominal exam: Present: soft, tenderness (suprapubic, b/l lower), normal bowel sounds. Absent: distended, guarding, rebound, rigid Back exam: Present: normal inspection Neurological exam: Present: alert, CN II-XII intact. Absent: oriented X3 (pt not sure where she is or time), normal gait Psychiatric exam: Present: other (sleepy). Absent: normal affect, normal mood Skin exam: Present: warm, dry, intact, normal color. Absent: rash <Damaris Goff - Last Filed: 02/15/21 10:05> Course Vital Signs 02/15/21 02/15/2102/15/21 06:01 06:19 07:08 Temperature 98.4 F 98.4 F 100.2 F H Pulse Rate 93 91 Respiratory 16 18 Rate Blood Pressure 135/69 120/79 O2 Sat by Pulse 94 L 94 L Oximetry 02/15/21 08:00 Temperature 98 F Pulse Rate 81 Respiratory 18 Rate Blood Pressure 129/86 O2 Sat by Pulse 100 Oximetry Medical Decision Making - Lab Data Result diagrams: 02/15/21 07:11 02/15/21 07:11 <Rohan Nagel - Last Filed: 02/15/21 09:51> - Lab Data Result diagrams: 02/15/21 07:11 02/15/21 07:11 <Damaris Goff - Last Filed: 02/15/21 10:05> - Medical Decision Making Patient reevaluated by myself, Dr. Nagel. Patient resting comfortably in bed. Family states patient has been progressively altered over the past week. Patient had outpatient urinalysis concerning for infection and was started on Macrobid. Patient has had some hallucinations. Patient did have similar symptoms just over a year ago also associated with urinary tract infection. Patient and family updated. Case was discussed with Dr. Ragsdale, [facility], who will [facility]. He does request adding azithromycin. (Rohan Nagel) reviewed chest xray: possible develping infiltrate with wbc count 12.3, will order ceftrixaone, lactic acid, blood cultures pt more alert after rechecking on her, pt will be admitted to dr. ragsdale (Damaris Goff) - Lab Data Lab Results 02/15/21 02/15/21 02/15/21 Range/Units 06:33 06:46 07:11 WBC 12.8 H (3.8-10.6) k/uL RBC 4.29 (3.80-5.40) m/uL Hgb 13.0 (11.4-16.0) gm/dL Hct 36.8 (34.0-46.0) % MCV 85.6 (80.0-100.0) fL MCH 30.2 (25.0-35.0) pg MCHC 35.3 (31.0-37.0) g/dL RDW 13.1 (11.5-15.5) % Plt Count 285 (150-450) k/uL MPV 7.4 Neutrophils % 84 % Lymphocytes % 11 % Monocytes % 4 % Eosinophils % 0 % Basophils % 0 % Neutrophils # 10.7 H (1.3-7.7) k/uL Lymphocytes # 1.4 (1.0-4.8) k/uL Monocytes # 0.6 (0-1.0) k/uL Eosinophils # 0.0 (0-0.7) k/uL Basophils # 0.0 (0-0.2) k/uL Sodium (137-145) mmol/L Potassium (3.5-5.1) mmol/L Chloride (98-107) mmol/L Carbon Dioxide (22-30) mmol/L Anion Gap mmol/L BUN (7-17) mg/dL Creatinine (0.52-1.04) mg/dL Est GFR (CKD-EPI)AfAm (>60 ml/min/1.73 sqM) Est GFR (CKD-EPI)NonAf (>60 ml/min/1.73 sqM) Glucose (74-99) mg/dL Plasma Lactic Acid Luis [place]ipe (0.7-2.0) mmol/L Calcium (8.4-10.2) mg/dL Total Bilirubin (0.2-1.3) mg/dL AST (14-36) U/L ALT (4-34) U/L Alkaline Phosphatase (38-126) U/L NT-Pro-B Natriuret Pep pg/mL Total Protein (6.3-8.2) g/dL Albumin (3.5-5.0) g/dL Urine Color Yellow Urine Appearance Cloudy H (Clear) Urine pH 6.0 (5.0-8.0) Ur Specific [place] 1.019 (1.001-1.035) Urine Protein Negative (Negative) Urine Glucose (UA) Negative (Negative) Urine Ketones Negative (Negative) Urine Blood Small H (Negative) Urine Nitrite Negative (Negative) Urine Bilirubin Negative (Negative) Urine Urobilinogen <2.0 (<2.0) mg/dL Ur Leukocyte Esterase Moderate H (Negative) Urine RBC 3 (0-5) /hpf Urine WBC 17 H (0-5) /hpf Ur Squamous Epith Cells 6 H (0-4) /hpf Urine Bacteria Rare H (None) /hpf Urine Mucus Rare H (None) /hpf Salicylates mg/dL Urine Opiates Screen Not Detected (NotDetected) Ur Oxycodone Screen Not Detected (NotDetected) Urine Methadone Screen Not Detected (NotDetected) Ur Propoxyphene Screen Not Detected (NotDetected) Acetaminophen ug/mL Ur Barbiturates Screen Not Detected (NotDetected) U Tricyclic Antidepress Not Detected (NotDetected) Ur Phencyclidine Scrn Not Detected (NotDetected) Ur Amphetamines Screen Not Detected (NotDetected) U Methamphetamines Scrn Not Detected (NotDetected) U Benzodiazepines Scrn Not Detected (NotDetected) Urine Cocaine Screen Not Detected (NotDetected) U Marijuana (THC) Screen Not Detected (NotDetected) Coronavirus (PCR) (Not Detectd) 02/15/21 02/15/21 02/15/21 Range/Units 07:11 07:11 08:03 WBC (3.8-10.6) k/uL RBC (3.80-5.40) m/uL Hgb (11.4-16.0) gm/dL Hct (34.0-46.0) % MCV (80.0-100.0) fL MCH (25.0-35.0) pg MCHC (31.0-37.0) g/dL RDW (11.5-15.5) % Plt Count (150-450) k/uL MPV Neutrophils % % Lymphocytes % % Monocytes % % Eosinophils % % Basophils % % Neutrophils # (1.3-7.7) k/uL Lymphocytes # (1.0-4.8) k/uL Monocytes # (0-1.0) k/uL Eosinophils # (0-0.7) k/uL Basophils # (0-0.2) k/uL Sodium 139 (137-145) mmol/L Potassium 3.3 L (3.5-5.1) mmol/L Chloride 98 (98-107) mmol/L Carbon Dioxide 30 (22-30) mmol/L Anion Gap 11 mmol/L BUN 26 H (7-17) mg/dL Creatinine 1.05 H (0.52-1.04) mg/dL Est GFR (CKD-EPI)AfAm 62 (>60 ml/min/1.73 sqM) Est GFR (CKD-EPI)NonAf 54 (>60 ml/min/1.73 sqM) Glucose 143 H (74-99) mg/dL Plasma Lactic Acid [place] (0.7-2.0) mmol/L Calcium 9.9 (8.4-10.2) mg/dL Total Bilirubin 0.6 (0.2-1.3) mg/dL AST 34 (14-36) U/L ALT 21 (4-34) U/L Alkaline Phosphatase 73 (38-126) U/L NT-Pro-B Natriuret Pep 110 pg/mL Total Protein 7.2 (6.3-8.2) g/dL Albumin 4.4 (3.5-5.0) g/dL Urine Color Urine Appearance (Clear) Urine pH (5.0-8.0) Ur Specific [place] (1.001-1.035) Urine Protein (Negative) Urine Glucose (UA) (Negative) Urine Ketones (Negative) Urine Blood (Negative) Urine Nitrite (Negative) Urine Bilirubin (Negative) Urine Urobilinogen (<2.0) mg/dL Ur Leukocyte Esterase (Negative) Urine RBC (0-5) /hpf Urine WBC (0-5) /hpf Ur Squamous Epith Cells (0-4) /hpf Urine Bacteria (None) /hpf Urine Mucus (None) /hpf Salicylates <1.0 mg/dL Urine Opiates Screen (NotDetected) Ur Oxycodone Screen (NotDetected) Urine Methadone Screen (NotDetected) Ur Propoxyphene Screen (NotDetected) Acetaminophen <10.0 ug/mL Ur Barbiturates Screen (NotDetected) U Tricyclic Antidepress (NotDetected) Ur Phencyclidine Scrn (NotDetected) Ur Amphetamines Screen (NotDetected) U Methamphetamines Scrn (NotDetected) U Benzodiazepines Scrn (NotDetected) Urine Cocaine Screen (NotDetected) U Marijuana (THC) Screen (NotDetected) Coronavirus (PCR) Not Detected (Not Detectd) 02/15/21 Range/Units 08:03 WBC (3.8-10.6) k/uL RBC (3.80-5.40) m/uL Hgb (11.4-16.0) gm/dL Hct (34.0-46.0) % MCV (80.0-100.0) fL MCH (25.0-35.0) pg MCHC (31.0-37.0) g/dL RDW (11.5-15.5) % Plt Count (150-450) k/uL MPV Neutrophils % % Lymphocytes % % Monocytes % % Eosinophils % % Basophils % % Neutrophils # (1.3-7.7) k/uL Lymphocytes # (1.0-4.8) k/uL Monocytes # (0-1.0) k/uL Eosinophils # (0-0.7) k/uL Basophils # (0-0.2) k/uL Sodium (137-145) mmol/L Potassium (3.5-5.1) mmol/L Chloride (98-107) mmol/L Carbon Dioxide (22-30) mmol/L Anion Gap mmol/L BUN (7-17) mg/dL Creatinine (0.52-1.04) mg/dL Est GFR (CKD-EPI)AfAm (>60 ml/min/1.73 sqM) Est GFR (CKD-EPI)NonAf (>60 ml/min/1.73 sqM) Glucose (74-99) mg/dL Plasma Lactic Acid [place] 2.7 H* (0.7-2.0) mmol/L Calcium (8.4-10.2) mg/dL Total Bilirubin (0.2-1.3) mg/dL AST (14-36) U/L ALT (4-34) U/L Alkaline Phosphatase (38-126) U/L NT-Pro-B Natriuret Pep pg/mL Total Protein (6.3-8.2) g/dL Albumin (3.5-5.0) g/dL Urine Color Urine Appearance (Clear) Urine pH (5.0-8.0) Ur Specific [place] (1.001-1.035) Urine Protein (Negative) Urine Glucose (UA) (Negative) Urine Ketones (Negative) Urine Blood (Negative) Urine Nitrite (Negative) Urine Bilirubin (Negative) Urine Urobilinogen (<2.0) mg/dL Ur Leukocyte Esterase (Negative) Urine RBC (0-5) /hpf Urine WBC (0-5) /hpf Ur Squamous Epith Cells (0-4) /hpf Urine Bacteria (None) /hpf Urine Mucus (None) /hpf Salicylates mg/dL Urine Opiates Screen (NotDetected) Ur Oxycodone Screen (NotDetected) Urine Methadone Screen (NotDetected) Ur Propoxyphene Screen (NotDetected) Acetaminophen ug/mL Ur Barbiturates Screen (NotDetected) U Tricyclic Antidepress (NotDetected) Ur Phencyclidine Scrn (NotDetected) Ur Amphetamines Screen (NotDetected) U Methamphetamines Scrn (NotDetected) U Benzodiazepines Scrn (NotDetected) Urine Cocaine Screen (NotDetected) U Marijuana (THC) Screen (NotDetected) Coronavirus (PCR) (Not Detectd) Disposition <Rohan Nagel - Last Filed: 02/15/21 09:51> Is patient prescribed a controlled substance at d/c from ED?: No When asked, does pt state using other controlled substances?: No Time of Disposition: 10:04 <Damaris Goff - Last Filed: 02/15/21 10:05> Clinical Impression: Pneumonia, UTI (urinary tract infection), Mental status alteration Disposition: ADMITTED IP TO THIS HOSP Condition: Fair Instructions (If sedation given, give patient instructions): Urinary Tract Infection in Women (ED), Pneumonia (ED) Referrals: [facility] [Primary Care Provider] - 1-2 days
[2021-02-15] MEDS: SODIUM CHLORIDE 0.9% 1,000 ML IV SCH ×2 (07:07→20:03)
[2021-02-15] MEDS ORDERED: ACETAMINOPHEN TAB 325 MG TAB PO STA (07:11)
[2021-02-15 07:22] LABS: Basophils % (A) 0 %; Eosinophils % (A) 0 %; HCT 36.8 % (34.0-46.0); Lymphocytes # (A) 1.4 k/uL (1.0-4.8); Lymphocytes % (A) 11 %; MCH 30.2 pg (25.0-35.0); MCHC 35.3 g/dL (31.0-37.0); MCV 85.6 fL (80.0-100.0); Mean Platelet Volume 7.4; Monocytes # (A) 0.6 k/uL (0-1.0); Monocytes % (A) 4 %; Neutrophils # (A) 10.7 k/uL (1.3-7.7); Neutrophils % (A) 84 %; Platelet Count 285 k/uL (150-450); RBC 4.29 m/uL (3.80-5.40); RDW 13.1 % (11.5-15.5); WBC 12.8 k/uL (3.8-10.6)
--- NOTE | 2021-02-15 07:27 | XR ---
EXAMINATION TYPE: XR chest 1V portable DATE OF EXAM: 02/15/2021 HISTORY: Shortness of breath. COMPARISON: 12/25/2020 TECHNIQUE: Single view of the chest is submitted. FINDINGS: Demonstrated are scattered senescent parenchymal change. Increased density right infrahilar region may reflect developing infiltrate. Correlate clinically. The heart is stable. Hilar and mediastinal structures are within normal limits. Degenerative changes are seen of the dorsal spine. IMPRESSION: 1. Increased density right infrahilar region may reflect developing infiltrate. Correlate clinically .
[2021-02-15 07:38] LABS: ALT 21 U/L (4-34); AST 34 U/L (14-36); Acetaminophen <10.0 ug/mL; African American GFR (CKD) 62 (>60 ml/min/1.73 sqM); Albumin 4.4 g/dL (3.5-5.0); Alkaline Phosphatase 73 U/L (38-126); Anion Gap 11 mmol/L; Blood Urea Nitrogen 26 mg/dL (7-17); Calcium 9.9 mg/dL (8.4-10.2); Carbon Dioxide 30 mmol/L (22-30); Chloride 98 mmol/L (98-107); Glucose 143 mg/dL (74-99); Non-African American GFR(CKD) 54 (>60 ml/min/1.73 sqM); Potassium 3.3 mmol/L (3.5-5.1); Salicylate <1.0 mg/dL; Sodium 139 mmol/L (137-145); Total Bilirubin 0.6 mg/dL (0.2-1.3); Total Protein 7.2 g/dL (6.3-8.2)
[2021-02-15 07:45] LABS: Appearance,Urine Cloudy (Clear); Bacteria,Urine Rare /hpf; Bilirubin,Urine Negative (Negative); Blood,Urine Small (Negative); Color,Urine Yellow; Glucose,Urine (UA) Negative (Negative); Ketones,Urine Negative (Negative); Leukocyte Esterase,Urine Moderate (Negative); Mucus,Urine Rare /hpf; Nitrite,Urine Negative (Negative); Protein,Urine Negative (Negative); RBC,Urine 3 /hpf (0-5); Specific Gravity,Urine 1.019 (1.001-1.035); Squamous Epithelial Cell,Urine 6 /hpf (0-4); Urobilinogen,Urine <2.0 mg/dL (<2.0); WBC,Urine 17 /hpf (0-5)
[2021-02-15 07:46] LABS: Amphetamine Screen,Urine Not Detected (NotDetected); Barbiturate Screen,Urine Not Detected (NotDetected); Benzodiazepines Screen,Urine Not Detected (NotDetected); Cocaine Screen,Urine Not Detected (NotDetected); Methadone Screen, Urine Not Detected (NotDetected); Opiate Screen,Urine Not Detected (NotDetected); Oxycodone Screen, Urine Not Detected (NotDetected); Phencyclidine Screen,Urine Not Detected (NotDetected); Tricyclic Antidepressant,Urine Not Detected (NotDetected); Urn Cannabinoid Scrn Not Detected (NotDetected)
--- NOTE | 2021-02-15 08:13 | CT ---
EXAMINATION TYPE: CT brain wo con DATE OF EXAM: 02/15/2021 COMPARISON: None HISTORY: UTI, Mental status changes CT DLP: 1106.[address] of the brain was performed. The ventricles, basal cisterns and sulci overlying the cerebral convexities demonstrate mild enlargem ent. There is no evidence for intracranial hemorrhage or sulcal effacement. There is decreased attenuation about the periventricular white matter and deep white matter of both c erebral hemispheres, compatible with chronic small vessel ischemia. Differential diagnosis does inclu de demyelination. No mass effects are seen.No midline shift. Osseous calvarium is intact. Opacification left sphenoid sinus. If symptoms persist consider MRI. IMPRESSION: 1. Age related atrophic and chronic small vessel ischemic change without acute intracranial process s een at this time.
[2021-02-15] MEDS ORDERED: ALBUTEROL NEBULIZED 2.5 MG/3 ML INHALATION PRN (10:44)
[2021-02-15] MEDS ORDERED: PNEUMONIA PROTOCOL UTILIZED 1 EACH MISC PO PRN (10:44)
[2021-02-15] MEDS ORDERED: AZITHROMYCIN 500 MG in SODIUM CHLORIDE 0.9% 250 ML IVPB STA (10:44)
[2021-02-15] MEDS ORDERED: ALBUTEROL HFA INHALER INHALATION PRN (11:46)
--- NOTE | 2021-02-15 11:59 | P.HPIM ---
History of Present Illness H&P Date: 02/15/21 Chief Complaint: Change in mental status History of present illness This is a 70-year-old female patient of the [facility] with past medical history of hyperlipidemia, hypertension, anxiety, depression, previously seen due to acute psychosis related to UTI in September 2019. Patient was brought in by her daughter related to acute mental status change that occurred earlier this morning. Patient was found to be walking outside in her pajamas and not knowing where she was. When attempted to return to the home patient states that the home was going to blow up. Patient was recently treated for a urinary tract infection on Wednesday with Macrobid. Patient has history of acute psychosis related to UTI in the past. Patient does report some abdominal discomfort and painful urination. states that she has not been eating or drinking well. Documented fevers. Patient sees Dr. Murphy psychiatrist in outpatient setting. At this time patient is found resting comfortably in bed and able to answer minimal questions appropriately. Daughter is at the bedside and answered majority of the questions. Patient denies any pain or discomfort at this time. He is not in any acute distress. Patient denies any shortness breath or chest pain. Reports that over the past week patient has been withdrawn related to the of the peds. She was most recently seen by psychiatry where they changed her medications due to weight gain. Review Of Systems: Unable to obtain due to mental status. Patient able to answer minimal questions appropriately. Alert to self and place only. Social history: Patient lives with daughter. She is , she quit smoking 3 years ago she was a one half to a pack day smoker for 35 years. Denies EtOH and illicit or recreational drug use. Denies uses a CPAP machine, O2, came and her walker. Family history: she has one daughter who is healthy and a son who committed suicide, she is one of 9 children her sisters related to brain CA and liver CA, one related to Medications of dementia, remaining 6 siblings healthy except for one with prostate CA. Mother passed 369 from pancreatic CA, father from MVA at 66. Physical examination General Appearance: This is a 70-year-old patient alert to self Alert, cooperative, no distress, appears stated age. Neck HEENT: Supple, no lymphadenopathy, no thyroid enlargement, no carotid bruits. Lungs: Clear to auscultation without crackles or wheezes no rhonchi, no deformity. Chest Wall: Chest wall normal expansion with deep inspiration no tenderness and no deformity was found on exam, no costochondral pain or discomfort. Heart: Regular rate and rhythm, S1, S2 normal, no murmur, rub or gallop. Back: Symmetric, no curvature, ROM normal, no CVA tenderness. Abdomen: Soft, non-tender, no rebound or rigidity, no hepatosplenomegaly. Extremities: Extremities normal, atraumatic, no cyanosis or edema. Pulses: 2+ and symmetric. Skin: Skin color, texture, tugor normal, no rashes or lesions. Neurologic: Alert oriented x2 cranial nerves II through XII intact, no motor deficit, no abnormal balance or gait Assessment and plan 1. Sepsis related to UTI, bronchitis probable pneumonia. Continue with hydration, repeat CBC and lactate acid, Rocephin 2 g daily, azithromycin 500 mg by mouth daily 2. Acute psychosis related to urinary tract infection. Recent change to medications. Patient was changed from Prozac to Lexapro and fluoxetine to trazodone. As noted above. Consult psychiatric 3. Hyperlipidemia atorvastatin 20 mg by mouth at bedtime 4. Hypertension, stable. 5. Depression and anxiety. Continue with Lexapro and trazodone. Dose will be decreased to 50 mg 6. DVT prophylaxis, heparin subcu 5000 units every 12 hours 7. GI prophylaxis, Protonix 40 mg by mouth CODE STATUS: Full code Patient will be admitted and minimal 2 nights day Impression and plan of care have been directed as dictated by the signing physician. Helena Emery nurse practitioner acting as scribe for signing physician. Past Medical History Past Medical History: Hyperlipidemia, Hypertension History of Any Multi-Drug Resistant Organisms: None Reported Past Surgical History: Tubal Ligation Additional Past Surgical History / Comment(s): head surgery-tumor removed, Past Psychological History: Anxiety, Depression Smoking Status: Former smoker Past Alcohol Use History: None Reported Past Drug Use History: None Reported - Past Family History Mother History Unknown: Yes Medications and Allergies Home Medications Medication Instructions Recorded Confirmed Type Acetaminophen [Tylenol Arthritis] 650 mg PO Q8H PRN 02/15/21 02/15/21 History Albuterol Inhaler [Ventolin Hfa 1 puff INHALATION RT-Q4H PRN 02/15/21 02/15/21 History Inhaler] Atorvastatin Calcium [Lipitor] 20 mg PO HS 02/15/21 02/15/21 History Escitalopram [Lexapro] 10 mg PO HS 02/15/21 02/15/21 History Nitrofurantoin Monohyd/M-Cryst 100 mg PO BID 02/15/21 02/15/21 History [Macrobid] traZODone HCL 100 mg PO HS 02/15/21 02/15/21 History Allergies Allergy/AdvReac Type Severity Reaction Status Date / Time No Known Allergies Allergy Verified 02/15/21 11:05 Physical Exam Vitals: Vital Signs Temp Pulse Resp BP Pulse Ox 02/15/21 11:00 99.2 F 78 18 136/69 100 02/15/21 08:00 98 F 81 18 129/86 100 02/15/21 07:08 100.2 F H 02/15/21 06:19 98.4 F 91 18 120/79 94 L 02/15/21 06:01 98.4 F 93 16 135/69 94 L Intake and Output 02/14/21 02/15/21 02/15/21 22:59 06:59 14:59 Other: Weight 85.275 kg Results CBC & Chem 7: 02/15/21 07:11 02/15/21 07:11 Labs: Abnormal Lab Results - Last 24 Hours (Table) 02/15/21 02/15/21 02/15/21 Range/Units 06:33 07:11 07:11 WBC 12.8 H (3.8-10.6) k/uL Neutrophils # 10.7 H (1.3-7.7) k/uL Potassium 3.3 L (3.5-5.1) mmol/L BUN 26 H (7-17) mg/dL Creatinine 1.05 H (0.52-1.04) mg/dL Glucose 143 H (74-99) mg/dL Plasma Lactic Acid [place] (0.7-2.0) mmol/L Urine Appearance Cloudy H (Clear) Urine Blood Small H (Negative) Ur Leukocyte Esterase Moderate H (Negative) Urine WBC 17 H (0-5) /hpf Ur Squamous Epith Cells 6 H (0-4) /hpf Urine Bacteria Rare H (None) /hpf Urine Mucus Rare H (None) /hpf 02/15/21 Range/Units 08:03 WBC (3.8-10.6) k/uL Neutrophils # (1.3-7.7) k/uL Potassium (3.5-5.1) mmol/L BUN (7-17) mg/dL Creatinine (0.52-1.04) mg/dL Glucose (74-99) mg/dL Plasma Lactic Acid [place] 2.7 H* (0.7-2.0) mmol/L Urine Appearance (Clear) Urine Blood (Negative) Ur Leukocyte Esterase (Negative) Urine WBC (0-5) /hpf Ur Squamous Epith Cells (0-4) /hpf Urine Bacteria (None) /hpf Urine Mucus (None) /hpf
[2021-02-15] MEDS: traZODone HCL 50 MG TAB PO SCH (20:02)
[2021-02-15] MEDS: HEPARIN SODIUM,PORCINE/PF 5,000 UNIT/0.5 ML SYRINGE SQ SCH (20:03)
[2021-02-15] MEDS: ATORVASTATIN 20 MG TAB PO SCH (20:03)
[2021-02-15] MEDS: ESCITALOPRAM 10 MG TAB PO SCH (20:03)
[2021-02-16] MEDS: SODIUM CHLORIDE 0.9% 1,000 ML IV SCH ×2 (07:20→22:34)
[2021-02-16] MEDS: HEPARIN SODIUM,PORCINE/PF 5,000 UNIT/0.5 ML SYRINGE SQ SCH ×2 (07:20→20:38)
[2021-02-16] MEDS ORDERED: PANTOPRAZOLE 40 MG TABLET PO SCH (07:30)
[2021-02-16] MEDS ORDERED: AZITHROMYCIN 500 MG TAB PO SCH (09:00)
[2021-02-16] MEDS ORDERED: AZITHROMYCIN 500 MG in SODIUM CHLORIDE 0.9% 250 ML IVPB SCH (09:15)
--- NOTE | 2021-02-16 10:52 | P.PN ---
Subjective Progress Note Date: 02/16/21 History of present illness This is a 70-year-old female patient of the the [facility] with past medical history of hyperlipidemia, hypertension, anxiety, depression, previously seen due to acute psychosis related to UTI in September 2019. Patient was brought in by her daughter related to acute mental status change that occurred earlier this morning. Patient was found to be walking outside in her pajamas and not knowing where she was. When attempted to return to the home patient states that the home was going to blow up. Patient was recently treated for a urinary tract inf ection on Wednesday with Macrobid. Patient has history of acute psychosis related to UTI in the past. Patient does report some abdominal discomfort and painful urination. states that she has not been eating or drinking well. Documented fevers. Patient sees Dr. Murphy psychiatrist in outpatient setting. At this time patient is found resting comfortably in bed and able to answer minimal questions appropriately. Daughter is at the bedside and answered majority of the questions. Patient denies any pain or discomfort at this time. He is not in any acute distress. Patient denies any shortness breath or chest pain. Reports that over the past week patient has been withdrawn related to the of the peds. She was most recently seen by psychiatry where they changed her medications due to weight gain. 02/16: Continues to have increased confusion and combativeness. she is yelling and threatening staff. Patient is refusing oral medications. Patient is showing signs of paranoia. Unable to answer questions appropriately. Continues to have pain and tenderness to the abdomen. A bladder scan will be ordered. Patient has not been seen by psych at this time. Patient remains afebrile. Pulse rate 100, respirations 19, blood pressure 136/95, pulse ox 96% on room air. Review Of Systems: Unable to obtain due to mental status. Patient able to answer minimal questions appropriately. Alert to self and place only. Physical examination General Appearance: This is a 70-year-old patient alert to self disoriented, combative, paranoid, mild distress, appears stated age. Neck HEENT: Supple, no lymphadenopathy, no thyroid enlargement, no carotid bruits. Lungs: Clear to auscultation without crackles or wheezes no rhonchi, no def ormity. Chest Wall: Chest wall normal expansion with deep inspiration no tenderness and no deformity was found on exam, no costochondral pain or discomfort. Heart: Regular rate and rhythm, S1, S2 normal, no murmur, rub or gallop. Back: Symmetric, no curvature, ROM normal, no CVA tenderness. Abdomen: Soft, non-tender, no rebound or rigidity, no hepatosplenomegaly. Extremities: Extremities normal, atraumatic, no cyanosis or edema. Pulses: 2+ and symmetric. Skin: Skin color, texture, tugor normal, no rashes or lesions. Neurologic: Alert oriented x1 cranial nerves II through XII intact, no motor d eficit, no abnormal balance or gait Assessment and plan 1. Sepsis related to UTI, bronchitis probable pneumonia. Continue with hydration, repeat CBC and lactate acid, Rocephin 2 g daily, azithromycin 500 mg IV push. Patient is refusing oral medications was changed to IV push. 2. Acute psychosis related to urinary tract infection. Recent change to medications. Patient was changed from Prozac to Lexapro and fluoxetine to trazodone. As noted above. Consult psychiatric 3. Hyperlipidemia atorvastatin 20 mg by mouth at bedtime 4. Hypertension, stable. 5. Depression and anxiety. Continue with Lexapro and trazodone. Dose will be decreased to 50 mg 6. DVT prophylaxis, heparin subcu 5000 units every 12 hours 7. GI prophylaxis, Protonix 40 mg IV CODE STATUS: Full code Patient will be admitted and minimal 2 nights day Impression and plan of care have been directed as dictated by the signing physician. Helena Emery nurse practitioner acting as scribe for signing physician. Objective - Vital Signs Vital signs: Vital Signs Temp 98.2 F 02/16/21 10:05 Pulse 101 H 02/16/21 10:05 Resp 19 02/16/21 10:05 BP 136/95 02/16/21 10:05 Pulse Ox 96 02/16/21 10:05 Intake & Output 02/15/21 02/16/21 02/16/21 18:59 06:59 18:59 Intake Total 240 Balance 240 Weight 85.275 kg Intake: Oral 240 Other: # Voids 1 4 # Bowel Movements 0 - Labs CBC & Chem 7: 02/15/21 07:11 02/15/21 07:11 Labs: Microbiology - Last 24 Hours (Table) 02/15/21 08:03 Blood Culture - Preliminary Blood No Growth after 24 hours 02/15/21 06:33 Urine Culture - Preliminary Urine,Voided
[2021-02-16] MEDS ORDERED: OLANZapine 5 MG TAB PO PRN (16:05)
[2021-02-16] MEDS ORDERED: OLANZapine 10 MG VIAL IM PRN (16:05)
[2021-02-16] MEDS ORDERED: LORazepam 1 MG TAB PO PRN (16:05)
[2021-02-16] MEDS ORDERED: LORazepam 2 MG/ML INJ IM PRN (16:05)
[2021-02-16] MEDS: ESCITALOPRAM 10 MG TAB PO SCH (20:38)
[2021-02-16] MEDS: traZODone HCL 50 MG TAB PO SCH (20:38)
[2021-02-16] MEDS: ATORVASTATIN 20 MG TAB PO SCH (20:38)
[2021-02-17] MEDS ORDERED: ENALAPRILAT 1.25 MG/ML 1 ML VIAL IVP PRN (08:04)
[2021-02-17] MEDS: HEPARIN SODIUM,PORCINE/PF 5,000 UNIT/0.5 ML SYRINGE SQ SCH ×2 (08:16→20:30)
[2021-02-17] MEDS: PANTOPRAZOLE 40 MG/10 ML VIAL IVP SCH (08:16)
[2021-02-17] MEDS ORDERED: AZITHROMYCIN 500 MG in SODIUM CHLORIDE 0.9% 250 ML IVPB SCH (09:00)
[2021-02-17 10:25] LABS: ALT 22 U/L (4-34); AST 39 U/L (14-36); African American GFR (CKD) >90 (>60 ml/min/1.73 sqM); Albumin 3.5 g/dL (3.5-5.0); Albumin/Globulin Ratio 1.3; Alkaline Phosphatase 74 U/L (38-126); Anion Gap 8 mmol/L; Blood Urea Nitrogen 12 mg/dL (7-17); Calcium 8.4 mg/dL (8.4-10.2); Carbon Dioxide 30 mmol/L (22-30); Chloride 103 mmol/L (98-107); Globulin 2.6 g/dL; Glucose 94 mg/dL (74-99); Non-African American GFR(CKD) 81 (>60 ml/min/1.73 sqM); Potassium 2.9 mmol/L (3.5-5.1); Sodium 141 mmol/L (137-145); Total Bilirubin 0.4 mg/dL (0.2-1.3); Total Protein 6.1 g/dL (6.3-8.2)
[2021-02-17 10:26] LABS: Basophils % (A) 0 %; Eosinophils % (A) 0 %; HCT 33.8 % (34.0-46.0); HGB 11.5 gm/dL (11.4-16.0); Lymphocytes # (A) 1.6 k/uL (1.0-4.8); Lymphocytes % (A) 19 %; MCH 29.6 pg (25.0-35.0); MCV 87.1 fL (80.0-100.0); Mean Platelet Volume 7.4; Monocytes # (A) 0.5 k/uL (0-1.0); Monocytes % (A) 6 %; Neutrophils # (A) 6.3 k/uL (1.3-7.7); Neutrophils % (A) 74 %; Platelet Count 214 k/uL (150-450); RBC 3.88 m/uL (3.80-5.40); RDW 13.5 % (11.5-15.5); WBC 8.6 k/uL (3.8-10.6)
[2021-02-17] MEDS ORDERED: Potassium Replacement Protocol 1 EACH MISC MISCELLANE PRN (10:37)
--- NOTE | 2021-02-17 10:47 | P.PN ---
Subjective Progress Note Date: 02/17/21 History of present illness This is a 70-year-old female patient of the [facility] with past medical history of hyperlipidemia, hypertension, anxiety, depression, previously seen due to acute psychosis related to UTI in September 2019. Patient was brought in by her daughter related to acute mental status change that occurred earlier this morning. Patient was found to be walking outside in her pajamas and not knowing where she was. When attempted to return to the home patient states that the home was going to blow up. Patient was recently treated for a urinary tract in counts include [facility] beds at the [facility] on Wednesday with Macrobid. Patient has history of acute psychosis related to UTI in the past. Patient does report some abdominal discomfort and painful urination. states that she has not been eating or drinking well. Documented fevers. Patient sees Dr. Murphy psychiatrist in outpatient setting. At this time patient is found resting comfortably in bed and able to answer minimal questions appropriately. Daughter is at the bedside and answered majority of the questions. Patient denies any pain or discomfort at this time. He is not in any acute distress. Patient denies any shortness breath or chest pain. Reports that over the past week patient has been withdrawn related to the of the peds. She was most recently seen by psychiatry where they changed her medications due to weight gain. 02/16: Continues to have increased confusion and combativeness. she is yelling and threatening staff. Patient is refusing oral medications. Patient is showing signs of paranoia. Unable to answer questions appropriately. Continues to have pain and tenderness to the abdomen. A bladder scan will be ordered. Patient has not been seen by psych at this time. Patient remains afebrile. Pulse rate 100, respirations 19, blood pressure 136/95, pulse ox 96% on room air. 02/17: Patient is refusing to eat and refusing to take medications. Patient has been afebrile, heart rate 102, blood pressure 177/70, pulse ox 97% on room air. IV Vasotec added for blood pressure control. Urine culture was finalized with skin or genital naif. Patient was previously on Macrodantin. Azithromycin will be discontinued. Patient will be continued on ceftriaxone only. Blood culture no growth after 24 hours. Repeat blood work reveals Sodium 141, potassium 2.9, chloride 103, CO2 30, BUN 12, Creatinine 0.75. WBC 8.6, hgb 11.5, platelet count 214. Potassium will be replaced by IV 60 mEq as patient will not take oral medications. Psychiatry has added Zyprexa, lorazepam IM or by mouth for agitation. Patient's daughter has stayed over night at the bedside. No improvement of mental status. Patient is argumentative and not cooperating with staff. Daughter gives history the patient had a brain tumor many years ago and was recently to have a follow-up which she did not do. She is in agreement to have neurology consult regarding this. Anticipate need for IP psychiatric service. Review Of Systems: Unable to obtain due to mental status. Patient able to answer minimal questions appropriately. Alert to self and place only. Physical examination General Appearance: This is a 70-year-old patient alert to self disoriented, combative, paranoid, mild distress, appears stated age. Neck HEENT: Supple, no lymphadenopathy, no thyroid enlargement, no carotid bruits. Lungs: Clear to auscultation without crackles or wheezes no rhonchi, no deformity. Chest Wall: Chest wall normal expansion with deep inspiration no tenderness and no deformity was found on exam, no costochondral pain or discomfort. Heart: Regular rate and rhythm, S1, S2 normal, no murmur, rub or gallop. Back: Symmetric, no curvature, ROM normal, no CVA tenderness. Abdomen: Soft, non-tender, no rebound or rigidity, no hepatosplenomegaly. Flowers catheter in place draining dark alexander urine. Extremities: Extremities normal, atraumatic, no cyanosis or edema. Pulses: 2+ and symmetric. Skin: Skin color, texture, tugor normal, no rashes or lesions. Neurologic: Alert oriented x1 cranial nerves II through XII intact, no motor deficit, no abnormal balance or gait Assessment and plan 1. Sepsis related to UTI, bronchitis probable pneumonia. Continue with hydration, Rocephin 2 g daily. Patient is refusing oral medications was changed to IV push. 2. Acute psychosis related to most likely change in psychiatric medications. Doubt that behavior is related to urinary tract infection. Recent change to psychiatric medications by her psychiatrist, Dr. Deleon. Patient was changed from Prozac to Lexapro and fluoxetine to trazodone. As noted above. Consult psychiatric. Zyprexa and Ativan as needed for agitation been added by psychiatry. Daughter is staying at the bedside. 3. Hyperlipidemia atorvastatin 20 mg by mouth at bedtime 4. Hypertension, stable. Add Vasotec 1.25 mg IV push every 6 hours as needed for systolic blood pressure greater than 160. 5. Depression and anxiety. Continue with Lexapro and trazodone. Dose will be decreased to 50 mg 6. DVT prophylaxis, heparin subcu 5000 units every 12 hours 7. GI prophylaxis, Protonix 40 mg IV 8. History of brain tumor. Daughter states the patient was to follow up recently but did not do this. Neurology consult added. 9. Hypokalemia. Potassium 60 mEq IV piggyback. CODE STATUS: NO code Discharge Plan TBD. Patient will require inpatient psychiatric services. Impression and plan of care have been directed as dictated by the signing physician. Marlen Flores nurse practitioner acting as scribe for signing physician. Objective - Vital Signs Vital signs: Vital Signs Temp 98.6 F 02/17/21 05:18 Pulse 102 H 02/17/21 05:18 Resp 15 02/17/21 05:18 BP 177/70 02/17/21 05:18 Pulse Ox 97 02/17/21 05:18 Intake & Output 02/16/21 02/17/21 02/17/21 18:59 06:59 18:59 Intake Total 650 240 Output Total 900 600 Balance -250 -360 Intake: Intake, IV Titration 650 Amount Sodium Chloride 0.9% 1, 600 000 ml @ 75 mls/hr IV . [id number] JEFRY Rx#:[id number] cefTRIAXone 2 gm In 50 Sodium Chloride 0.9% 50 ml @ 100 mls/hr IVPB Q24HR JEFRY Rx#:[id number] Oral 240 Output: Urine 900 600 - Labs CBC & Chem 7: 02/17/21 09:54 02/17/21 09:54 Labs: Microbiology - Last 24 Hours (Table) 02/15/21 06:33 Urine Culture - Final Urine,Voided 02/15/21 10:59 Blood Culture - Preliminary Blood No Growth after 24 hours 02/15/21 08:03 Blood Culture - Preliminary Blood No Growth after 24 hours
[2021-02-17] MEDS: POTASSIUM CHLORIDE 10 MEQ in WATER FOR INJECTION 1 100ML.BAG IVPB SCH ×5 (10:59→23:33)
--- NOTE | 2021-02-17 13:30 | P.CNNES ---
History of Present Illness Consult date: 02/17/21 Requesting physician: Marlen Flores Reason for Consult: encephalopathy/psychosis. Hx of brain mass History of Present Illness: This is a 70-year-old woman with medical history of recent UTI, hypertension, hyperlipidemia, anxiety, depression who presented emergency department on 02/15/2021 by the daughter for altered mental status. Some of the history is obtained by the patient's daughter (Fartun) who is at bedside. She stated that the the patient had recent urinary tract infection about a week ago and was started on antibiotic (Macrobid) by her PCP. She said this past Wednesday morning the patient was acting confused. She stated that she let the dog out and the front which is usually that is not the way they do it. Then she walked out of her house wearing her B [place] was stated the house is going to explode. The daughter went in her call and brought her back. She called 911 and from there she brought her to the hospital. Since being in the hospital the patient has been having fluctuation of agitation and psychosis. She denies of focal weakness, difficulty getting her words out. Daughter denies of patient having any seizure like activity. She denies history of seizure in the past. She denies of alcohol use, tobacco use or illicit drug use. Currently the patient is having her lunch. per the ED note, patient continues to have abdominal pain and painful urination. Patient's home medications per EMR: Lexapro, Lipitor 20 mg daily at bedtime, trazodone 100 mg daily at bedtime, Macrobid, albuterol. Of note in the past she was told by her Primary care physician that she has a ?growth over the middle/right frontal s/p resection in and was told she had another grown over the left parietal and needed resected but has not. This was not described as a tumor or was on external surface to brain. It was described as "goose egg". She was not seen by neurosurgeon or neurologist for t his. She does not have seizures. Some other workup in the hospital consisted of: Initial vital signs: Blood pressure of 135/69, heart rate of 93, respiratory of 16, temperature of 98.4 Fahrenheit oral and pulse ox of 94% at room air. A shunt had a T-max of 100.2 on presentation but that has resolved and she's been afebrile. CT of the head is reported as age-related atrophic and chronic small vessel ischemic changes without acute intracranial process seen at this time. Initial white blood cell 12.8 and it's the slightly neutrophilic but the repeated white blood cell is 8.6 thousand which is considered within normal limits otherwise the rest of the CBC with differential is within normal limits. Initial potassium 3.3 which is a mildly low but then the repeat is 2.9 which is lower at. Initial creatinine is 1.057 elevated but the repeated is 0.75 which is within normal limits at. Serum glucose is 143 which is unremarkable. Plasma lactic acid venous 2.7 which is elevated that. AST is 34, ALTs 21, sodium is 139, calcium is 9.9 which are within normal limits. Urinalysis is cloudy, the nitrite was negative, leukocyte esterase was moderate, urine white blood cells 17 and urine bacteria is rare which seems suggestive of urinary tract infection. Review of Systems Review of system: The 12 point system was reviewed and apparent positive and negative per HPI. Past Medical History Past Medical History: Hyperlipidemia, Hypertension History of Any Multi-Drug Resistant Organisms: None Reported Past Surgical History: Tubal Ligation Additional Past Surgical History / Comment(s): head surgery-tumor removed, Past Psychological History: Anxiety, Depression Smoking Status: Former smoker Past Alcohol Use History: None Reported Past Drug Use History: None Reported - Past Family History Mother History Unknown: Yes Family Medical History: Cancer Medications and Allergies Home Medications Medication Instructions Recorded Confirmed Type Acetaminophen [Tylenol Arthritis] 650 mg PO Q8H PRN 02/15/21 02/15/21 History Albuterol Inhaler [Ventolin Hfa 1 puff INHALATION RT-Q4H PRN 02/15/21 02/15/21 History Inhaler] Atorvastatin Calcium [Lipitor] 20 mg PO HS 02/15/21 02/15/21 History Escitalopram [Lexapro] 10 mg PO HS 02/15/21 02/15/21 History Nitrofurantoin Monohyd/M-Cryst 100 mg PO BID 02/15/21 02/15/21 History [Macrobid] traZODone HCL 100 mg PO HS 02/15/21 02/15/21 History hydroCHLOROthiazide 25 mg PO DAILY 02/17/21 02/17/21 History Allergies Allergy/AdvReac Type Severity Reaction Status Date / Time No Known Allergies Allergy Verified 02/15/21 11:05 Physical Examination - Vital Signs Vital Signs: Vital Signs Temp Pulse Resp BP Pulse Ox 02/17/21 05:18 98.6 F 102 H 15 177/70 97 02/16/21 14:00 116 H 20 176/83 95 Intake and Output 02/16/21 02/17/21 02/17/21 22:59 06:59 14:59 Intake Total 240 Output Total 600 Balance 240 -600 Intake: Oral 240 Output: Urine 600 Other: Voiding Method Indwelling Catheter GENERAL: The patient is lying in bed and is not in acute distress. HENT: Normocephalic, atraumatic. No growth felt on palpation of head. Could not appreciate any scar on her head. CHEST: The heart rate is regular rate rhythm. No murmurs to auscultation. No carotid bruit bilaterally. LUNG: Clear to auscultation bilaterally no wheezing noted throughout. Not labored breathing. ABDOMEN/GI: Bowel sounds present in all 4 quadrants. No tenderness to palpation throughout. NEUROLOGICAL: Higher mental function: The patient is slighlty drowsy but awakeable to voice. Oriented to self. She stated she is in the hospital but did not know name. She stated the year is 2000 but upon correcting her and repeating again she correctly stated the year. She stated the month is July. She is able to name objects (pen, watch and cup). She is folllowing commands. No aphasia and no neglect. Cranial nerves: The pupils are round, equal and reactive to light. Visual killian are full to confrontation throughout. Extraocular movement is intact no nystagmus is noted. Facial sensation is normal to touch throughout. The facial strength is normal throughout. Hearing is mildly decreased l bilaterally to hand rub. Tongue is midline and moved [id number] without any difficulty. No dysarthria is noted. Shoulder shrug is normal bilaterally. Motor: Gait is deferred. The strength is moving all extremities above gravity (upper > lower --having pain in lowers because of her lying position). Normal tone and bulk. Cerebellum: Normal finger to nose bilaterally. Sensation: Sensation is normal to touch throughout. Reflexes (right/left): 2+ throughout. Plantars is downgoing over the right but baseline left is upgoing (not sure if she had surgery to her toe). Results Urine toxicology screen is nondetected that. Acetaminophen is less than 10.0, salicylates is less than 1.0 Cox virus PCR was not detected - Laboratory Findings CBC and BMP: 02/17/21 09:54 02/17/21 09:54 Abnormal Lab Findings: Abnormal Labs 02/15/21 02/15/21 02/15/21 06:33 07:11 07:11 WBC 12.8 H Hct Neutrophils # 10.7 H Potassium 3.3 L BUN 26 H Creatinine 1.05 H Glucose 143 H Plasma Lactic Acid Luis Felipe AST Total Protein Urine Appearance Cloudy H Urine Blood Small H Ur Leukocyte Esterase Moderate H Urine WBC 17 H Ur Squamous Epith Cells 6 H Urine Bacteria Rare H Urine Mucus Rare H 02/15/21 02/17/21 02/17/21 08:03 09:54 09:54 WBC Hct 33.8 L Neutrophils # Potassium 2.9 L BUN Creatinine Glucose Plasma Lactic Acid Luis Felipe 2.7 H* AST 39 H Total Protein 6.1 L Urine Appearance Urine Blood Ur Leukocyte Esterase Urine WBC Ur Squamous Epith Cells Urine Bacteria Urine Mucus Assessment and Plan Assessment: * Delerium Seems septic encephalopathy (UTI). Also component of metabolic encephalopathy (KAREN) * Altered mental status: due to above---mentation improving. * ?growth over the exterior middle/right frontal s/p resection in and another grown over the left parietal and needed resected but has not followed up (this was performed by PCP and not neurosurgeon) She was not told she has brain tumor. * Acute urinary tract infection * Acute Hypokalemia * Acute kidney injury--resolved * History of hypertension * Hyperlipidemia * Anxiety and depression Plan: CT of the head is reported as age-related atrophic and chronic small vessel ischemic changes without acute intracranial process seen at this time. AST is 34, ALTs 21, sodium is 139, calcium is 9.9 which are within normal limits. I ordered MRI of the brain with and without. Ordered a routine EEG. Will not start the patient on antiepileptic drug unless there is epileptiform discharges or seizure on the EEG. Ordered TSH, vitamin B12, folate. Alcohol level was ordered and is pending. Patient is on Ativan 2 mg every you as 6 hours when necessary for agitation ordered by the primary team. Rather recommend Seroquel 25mg qhs and if needed can go up to 1 tab bid. Recommend avoiding benzos/opiates or narcotic that would affect the patient's neurological exam if possible. Psychiatry team is consulted. The plan is discussed with the patient's daughter (Fartun) who is at bedside. Thank you for the consultation. Dr. Portillo will take over neurology service tomorrow AM. Yousif Roberson M.D. Neuro-hospitalist Time with Patient: Greater than 30
--- NOTE | 2021-02-17 13:36 | P.CN ---
Psychiatric Consult - . Consult date: 02/17/21 Consult:: 02/17/21 13:11 IDENTIFYING DATA: Patient is a 70-year-old female currently lives with her daughter in a house and has 3 kids and collects Social Security disability. HPI: Patient presented to the hospital initially on February 15 for dysuria weakness loss in appetite. According to ER report patient also was having acute mental status changes. Patient was recently put on Macrobid earlier for a UTI. She was also placed on Lexapro and trazodone by her primary psychiatrist. Patient has been increasingly more confused in the hospital and was also noted by nurse to be combative and refusing care and medications and also exhibiting paranoia thinking that people were poisoning her meds. She was seen today eating lunch on her bed and was agreeable to speak to technical writer and editor. She is fairly irritable and initially resistant to speak to technical writer and editor. She complained about the nursing staff how they were telling her that she stinks and that she needs a bath and also to take medications. She claims that she does not trust the staff in the hospital. She claims that she is having poor sleep. She states that she has fair appetite. She claims that her mood is irritable. She is denying any auditory hallucinations or visual hallucinations at this time. Patient denies any flight of ideas racing thoughts and increased in goal directed behavior. Patient admits to not using any drugs or substances and states that she quit cigarettes in 2017 and denies any alcohol use. PAST PSYCHIATRIC HISTORY: Patient states that she has a history of schizoaffective disorder. Patient was last psychiatrically hospitalized on the mental health unit in the hospital on 09/2019 for schizoaffective disorder. Her outpatient psychiatrist is dr. Sanders and she is on lexapro ad trazodone. PMH: Hypertension and hyperlipidemia ALLERGIES: as per EMR CHEMICAL DEPENDENCY HISTORY: as per HPI FAMILY PSYCHIATRIC/SUBSTANCE USE HISTORY: denies SOCIAL HISTORY: Patient was born and raised in states that she was born and raised near [place] and moved to [place] and currently lives with her daughter. She states that she has 3 kids and collects Social Security disability. She states that she has 11th grade education. MENTAL STATUS EXAM: General Appearance: Patient appears to be stated age is alert, suspicious/guarded. Patient appears to have poor hygiene and grooming. Wearing hospital gown. Behavior: Patient is seated without any agitated behavior. Guarded/paranoid. Speech: Patient's speech is fluent and nonpressured. Mood/Affect: Patient reports their mood is "brannon", affect is congruent and irritable Suicidality/Homicidality: Patient denies having any homicidal ideation intent or plan or any suicidal ideations intent or plan. Perceptions: Patient denies any visual hallucinations or auditory hallucinations Though content/process: Endorsing paranoia. Illogical at times. Memory and concentration: AOX2-3, grossly intact for the purposes of this session. Can spell "WORLD" backwards Judgment and insight: Poor IMPRESSIONS: Schizoaffective disorder, depressive type PLAN: -At this time patient DOES NOT meet criteria for inpatient psychiatric admission however will continue following patient and if she is continuing to resist taking medications and resist care and becoming more aggressive than will consider transferring to inpatient psychiatry. -Delirium precautions recommended with patient including - avoiding use of narcotics and DIRECTOR OF DIGITAL MARKETING sedatives, limit anticholinergic medications when possible, frequent re-orientation, minimize use of restraints, open window shades during the day and close them at night -Would recommend the following medication changes/additions: Started Prolixin 2.5 mg twice a day for aggression/psychosis, Remeron 30 mg daily at bedtime for mood/anxiety/insomnia, continue with Lexapro 10 mg daily for mood. zyprexa prn for agitation. d/c ativan -Cannot leave AMA at this time. Patient will need a petition and certification if attempting to leave AMA. -Communicated plan to patient's nurse -Will continue to follow along -Please contact with any questions. 02/17/21 13:38
[2021-02-17] MEDS: SODIUM CHLORIDE 0.9% 1,000 ML IV SCH (13:44)
[2021-02-17] MEDS: ATORVASTATIN 20 MG TAB PO SCH (20:22)
[2021-02-17] MEDS: ESCITALOPRAM 10 MG TAB PO SCH (20:23)
[2021-02-17] MEDS ORDERED: MIRTAZAPINE 15 MG TAB PO SCH (21:00)
--- NOTE | 2021-02-17 23:52 | MR ---
EXAMINATION TYPE: MR brain wo/w con DATE OF EXAM: 02/17/2021 COMPARISON: None HISTORY: Confusion, mental status changes, evaluate for possible brain mass. CONTRAST: Standard multiplanar, multisequence MRI departmental protocol utilizing 8.5 mL intravenous Gadavist g adolinium contrast. There is cerebral atrophy. There is no mass effect nor midline shift. There is no sign of intracrania l hemorrhage. Diffusion images show no evidence of an acute infarct. There is mild thinning of the co rpus callosum. The T2 and FLAIR images show no evidence of any significant white matter disease. Ther e are a few tiny scattered white matter high signal foci measuring up to 3 mm at the mcgovern-white matte r junction of both parietal and temporal lobes. Total number is less than 10. Sella turcica is normal. The contrast images show normal enhancement of the venous sinuses. There is significant enhancement s een in the left side sphenoid sinus consistent with inflammatory disease. There is no pathologic enha ncement within the brain. IMPRESSION: Mild cerebral atrophy. Minimal white matter changes could relate to some microvascular ischemia. No e vidence of cortical infarct. Left side sphenoid sinusitis.
[2021-02-18] MEDS: POTASSIUM CHLORIDE 10 MEQ in WATER FOR INJECTION 1 100ML.BAG IVPB SCH (08:00)
[2021-02-18] MEDS: PANTOPRAZOLE 40 MG/10 ML VIAL IVP SCH (08:29)
[2021-02-18] MEDS: HEPARIN SODIUM,PORCINE/PF 5,000 UNIT/0.5 ML SYRINGE SQ SCH ×2 (08:29→21:56)
[2021-02-18] MEDS: SODIUM CHLORIDE 0.9% 1,000 ML IV SCH ×2 (08:31→15:31)
[2021-02-18 12:32] LABS: Folate, Serum 11.6 ng/mL
--- NOTE | 2021-02-18 12:54 | P.PN ---
Progress Note - Text Progress Note Date: 02/18/21 Interval History: Patient was seen today for psychiatric follow-up. Patients nurse claims that sarahi martin is more cooperative however has been lethargic. Patient was initially apparently refusing her medications however took her medications this morning. She was started on Prolixin and Remeron last night. She appears to be less irritable and is denying any depression or anxiety today. Her daughter was at her side and was concerned about patient's lethargy. Patient did appear to be mildly diaphoretic however was able to answer all questions. She did also appeared to be fairly sleepy during the interview. She was alert and oriented 2 however did not know today's date. She claims that she did not sleep well last night however the nurse taking care of her states that she slept fairly. At this time patient denies any suicidal or homical ideations, intent or plan. Patient denies any auditory, visual hallucinations and denies any paranoia or delusions. Patient denies any side effects from the medications and has been compliant with meds. Mental Status Exam: General Appearance: Patient appears to be stated age is more directable and lethargic today. Patient appears to have improving hygiene and grooming. Wearing hospital gown. Behavior: Patient is seated without any agitated behavior. Speech: Patient's speech is fluent and nonpressured. Mood/Affect: Patient reports their mood is "ok", affect is congruent Suicidality/Homicidality: Patient denies having any homicidal ideation intent or plan or any suicidal ideations intent or plan. Perceptions: Patient denies any visual hallucinations or auditory hallucinations Though content/process: Not endorsing any paranoia today. Logical. Sheridan. Memory and concentration: AOX2-3, grossly intact for the purposes of this session Judgment and insight: Poor IMPRESSIONS: Schizoaffective disorder, depressive type PLAN: -At this time patient DOES NOT meet criteria for inpatient psychiatric admission however will continue following patient and if she is continuing to resist taking medications and resist care and becoming more aggressive than will consider transferring to inpatient psychiatry. -Possible that patient is sedated due to infection or medical illness vs. medications. -Delirium precautions recommended with patient including - avoiding use of narcotics and CABINETMAKER HELPER sedatives, limit anticholinergic medications when possible, frequent re-orientation, minimize use of restraints, open window shades during the day and close them at night -Would recommend the following medication changes/additions: decreased Prolixin 2 mg twice a day for aggression/psychosis, d/c remeron and replaced with melatonin 5mg qhs, continue with Lexapro 10 mg daily for mood. zyprexa prn for agitation. -Cannot leave AMA at this time. Patient will need a petition and certification if attempting to leave AMA. -Communicated plan to patient's nurse -Will continue to follow along -Please contact with any questions.
[2021-02-18] MEDS ORDERED: OLANZapine 10 MG VIAL IM PRN (13:44)
--- NOTE | 2021-02-18 13:57 | P.PN ---
Subjective Progress Note Date: 02/18/21 History of present illness This is a 70-year-old female patient of [facility] with past medical history of hyperlipidemia, hypertension, anxiety, depression, previously seen due to acute psychosis related to UTI in September 2019. Patient was brought in by her daughter related to acute mental status change that occurred earlier this morning. Patient was found to be walking outside in her pajamas and not knowing where she was. When attempted to return to the home patient states that the home was going to blow up. Patient was recently treated for a urinary tract in [facility] on Wednesday with Macrobid. Patient has history of acute psychosis related to UTI in the past. Patient does report some abdominal discomfort and painful urination. states that she has not been eating or drinking well. Documented fevers. Patient sees Dr. Murphy psychiatrist in outpatient setting. At this time patient is found resting comfortably in bed and able to answer minimal questions appropriately. Daughter is at the bedside and answered majority of the questions. Patient denies any pain or discomfort at this time. He is not in any acute distress. Patient denies any shortness breath or chest pain. Reports that over the past week patient has been withdrawn related to the of the peds. She was most recently seen by psychiatry where they changed her medications due to weight gain. 02/16: Continues to have increased confusion and combativeness. she is yelling and threatening staff. Patient is refusing oral medications. Patient is showing signs of paranoia. Unable to answer questions appropriately. Continues to have pain and tenderness to the abdomen. A bladder scan will be ordered. Patient has not been seen by psych at this time. Patient remains afebrile. Pulse rate 100, respirations 19, blood pressure 136/95, pulse ox 96% on room air. 02/17: Patient is refusing to eat and refusing to take medications. Patient has been afebrile, heart rate 102, blood pressure 177/70, pulse ox 97% on room air. IV Vasotec added for blood pressure control. Urine culture was finalized with skin or genital naif. Patient was previously on Macrodantin. Azithromycin will be discontinued. Patient will be continued on ceftriaxone only. Blood culture no growth after 24 hours. Repeat blood work reveals Sodium 141, potassium 2.9, chloride 103, CO2 30, BUN 12, Creatinine 0.75. WBC 8.6, hgb 11.5, platelet count 214. Potassium will be replaced by IV 60 mEq as patient will not take oral medications. Psychiatry has added Zyprexa, lorazepam IM or by mouth for agitation. Patient's daughter has stayed over night at the bedside. No improvement of mental status. Patient is argumentative and not cooperating with staff. Daughter gives history the patient had a brain tumor many years ago and was recently to have a follow-up which she did not do. She is in agreement to have neurology consult regarding this. Anticipate need for IP psychiatric service. 02/18: MRI of the brain reveals mild cerebral atrophy. Minimal white matter c hanges could relate to some microvascular ischemia. No evidence of cortical infarct. Left side sphenoid sinusitis. Patient has been seen by neurology. Patient has been seen by psychiatry and she does not meet criteria for inpatient psychiatric admission but will continue to follow. The following medication changes were made: Started Prolixin 2.5 mg twice a day for aggression/psychosis, Remeron 30 mg daily at bedtime for mood/anxiety/insomnia, continue with Lexapro 10 mg daily for mood. zyprexa prn for agitation. d/c ativan. Patient cannot leave AMA. According to the patient's nurse, patient was able to take her morning medications with quite a bit of coaxing. She refused subcu heparin. She is receiving IV medications as well. She is refusing all food and oral intake. Patient has been afebrile, heart rate 85, blood pressure 171/92 before medications and 158/87 following morning medications. Pulse ox 97% on room air. Repeat potassium 3.5. Blood culture no growth at 72 hours 2 specimens. Review Of Systems: Unable to obtain due to mental status. Physical examination General Appearance: This is a 70-year-old patient alert to self disoriented, no acute distress. Neck HEENT: Supple, no lymphadenopathy, no thyroid enlargement, no carotid bruits. Lungs: Clear to auscultation without crackles or wheezes no rhonchi, no deformity. Chest Wall: Chest wall normal expansion with deep inspiration no tenderness and no deformity was found on exam, no costochondral pain or discomfort. Heart: Regular rate and rhythm, S1, S2 normal, no murmur, rub or gallop. Back: Symmetric, no curvature, ROM normal, no CVA tenderness. Abdomen: Soft, non-tender, no rebound or rigidity, no hepatosplenomegaly. Flowers catheter in place draining pale alexander urine. Extremities: Extremities normal, atraumatic, no cyanosis or edema. Pulses: 2+ and symmetric. Skin: Skin color, texture, tugor normal, no rashes or lesions. Neurologic: Alert oriented to person and place cranial nerves II through XII intact, no motor deficit, no abnormal balance or gait Assessment and plan 1. Sepsis related to UTI, bronchitis probable pneumonia. Continue with hydration, Rocephin 2 g daily. 2. Acute psychosis related to most likely change in psychiatric medications. Doubt that behavior is related to urinary tract infection. Recent change to psychiatric medications by her psychiatrist, Dr. Deleon. Patient was changed from Prozac to Lexapro and fluoxetine to trazodone. As noted above. Consultation with psychiatry appreciated. Started Prolixin 2.5 mg twice a day for aggression/psychosis, Remeron 30 mg daily at bedtime for mood/anxiety/insomnia, continue with Lexapro 10 mg daily for mood. zyprexa prn for agitation. d/c ativan. 3. Hyperlipidemia atorvastatin 20 mg by mouth at bedtime 4. Hypertension, stable. Add Vasotec 1.25 mg IV push every 6 hours as needed for systolic blood pressure greater than 160. 5. Recurrent depression and generalized anxiety disorder. Continue as in #2 6. DVT prophylaxis, heparin subcu 5000 units every 12 hours 7. GI prophylaxis, Protonix 40 mg IV 8. History of brain tumor. Neurology consult appreciated 9. Hypokalemia. Stable. CODE STATUS: NO code Discharge Plan TBD. Patient will require inpatient psychiatric services. Impression and plan of care have been directed as dictated by the signing physician. Marlen Flores nurse practitioner acting as scribe for signing physician. Objective - Vital Signs Vital signs: Vital Signs Temp 98.5 F 02/17/21 18:59 Pulse 85 02/18/21 08:35 Resp 20 02/18/21 08:35 BP 171/92 02/18/21 08:35 Pulse Ox 97 02/18/21 08:35 Intake & Output 02/17/21 02/18/21 02/18/21 18:59 06:59 18:59 Intake Total 850 Output Total 600 550 Balance 250 -550 Intake: Intake, IV Titration 850 Amount Azithromycin 500 mg In 250 Sodium Chloride 0.9% 250 ml @ 250 mls/hr IVPB DAILY [facility] Rx#:[id number] Potassium Chloride 10 meq 300 In Water For Injection 1 100ml.bag @ 100 mls/hr IVPB Q1HR [facility] Rx#: [id number] Sodium Chloride 0.9% 1, 300 000 ml @ 75 mls/hr IV . [id number] [facility] Rx#:[id number] Output: Urine 600 550 Other: Voiding Method Indwelling Catheter Indwelling Catheter # Bowel Movements 1 - Labs CBC & Chem 7: 02/17/21 09:54 02/18/21 08:29 Labs: Abnormal Lab Results - Last 24 Hours (Table) 02/17/21 02/17/21 Range/Units 09:54 09:54 Hct 33.8 L (34.0-46.0) % Potassium 2.9 L (3.5-5.1) mmol/L AST 39 H (14-36) U/L Total Protein 6.1 L (6.3-8.2) g/dL Microbiology - Last 24 Hours (Table) 02/15/21 08:03 Blood Culture - Preliminary Blood No Growth after 72 hours 02/15/21 10:59 Blood Culture - Preliminary Blood No Growth after 48 hours
--- NOTE | 2021-02-18 15:38 | EEG ---
ELECTROENCEPHALOGRAM REPORT DATE OF SERVICE: 02/18/2021 PREAMBLE: This is a 70-year-old female with mental status changes, UTI. Patient has history of psychosis and is uncooperative. EEG FINDINGS: This is a 21 channel routine EEG recorded in a patient utilizing 10/20 international system with referential and bipolar montages. The background consists of moderately well-developed and regulated mixed frequencies of low frequency in 6-7 hertz theta, intermixed with some low-voltage fast frequency beta and some alpha activity. The background noise seems to be minimally reactive to eye opening and closing. Photic stimulation was not performed due to agitation. Hyperventilation was also not performed because of noncooperation. Different stages of sleep were not seen. No focal or generalized epileptiform activity was seen. IMPRESSION: This is an abnormal EEG due to background slowing and disorganization, and also due to presence of mixed slow and fast frequency activity. This is suggestive of mild generalized cerebral dysfunction as can be seen with encephalopathy of vascular, metabolic, or degenerative causes, or may be related to medication effect. Clinical correlation is recommended. No epileptiform activity was seen. MMODL / IJN: [id number] / [facility] CENTERDarron
[2021-02-18] MEDS: ESCITALOPRAM 10 MG TAB PO SCH (21:54)
[2021-02-18] MEDS: MELATONIN 5 MG TABLET PO SCH (21:55)
[2021-02-18] MEDS: ATORVASTATIN 20 MG TAB PO SCH (21:58)
[2021-02-18] MEDS ORDERED: CYANOCOBALAMIN 1,000 MCG/ML 1 ML VIAL IM ONE (22:00)
--- NOTE | 2021-02-18 22:04 | P.PN ---
Subjective Progress Note Date: 02/18/21 Patient was seen for a follow-up. Patient initially seen by Dr. Yousif Roberson. Please refer to his note for details. Patient is a 70-year-old female admitted with altered mental status. Patient has reported history of questionable brain tumor diagnosed in . For further clarification, MRI and EEG were performed, which was recommended to follow up. Patient at this time laying in the bed, moaning "back is killing". Patient states her arms or swollen and has a "burning ass". Objective - Vital Signs Vital signs: Vital Signs Temp 98.6 F 02/18/21 18:42 Pulse 91 02/18/21 18:42 Resp 16 02/18/21 18:42 BP 148/84 02/18/21 18:42 Pulse Ox 93 L 02/18/21 18:42 Intake & Output 02/18/21 02/18/21 02/19/21 06:59 18:59 06:59 Output Total 550 650 Balance -550 -650 Output: Urine 550 650 Other: Voiding Method Indwelling Catheter Indwelling Catheter # Bowel Movements 1 - Exam On examination patient is alert and awake, but appears to be in pain, morning. Patient did not cooperate with examination. Her speech and language functions appears normal. Detailed cognitive function testing deferred. Her pupils are round and reacting, visual killian appears full. Face is symmetric. Hearing is mildly decreased. Patient is moving upper extremities, has diffusely decreased effort and giveaway weakness in her arms. Patient did wiggle her feet. Patient is complaining of significant pain, therefore did not cooperate. Normal tone and bulk. Reflexes are symmetric. - Labs CBC & Chem 7: 02/17/21 09:54 02/18/21 08:29 Labs: Microbiology - Last 24 Hours (Table) 02/15/21 10:59 Blood Culture - Preliminary Blood No Growth after 72 hours 02/15/21 08:03 Blood Culture - Preliminary Blood No Growth after 72 hours Assessment and Plan Assessment: * Possible Delerium, possibly septic encephalopathy (UTI). Also component of metabolic encephalopathy (KAREN). * Altered mental status: due to above--- with possible psychiatric diagnosis superimposed. * Reported history of ?growth over the exterior middle/right frontal s/p resection in and another grown over the left parietal and needed resected but has not followed up (this was performed by PCP and not neurosurgeon) She was not told she has brain tumor. MRI of the brain negative. * Acute urinary tract infection * Acute Hypokalemia * Acute kidney injury--resolved * History of hypertension * Hyperlipidemia * Anxiety and depression Plan: MRI of the brain with and without contrast revealed mild cerebral atrophy. Minimal white matter changes, could relate to some microvascular ischemia. No evidence of cortical infarct. Left sphenoid sinusitis. EEG was performed today, which was abnormal due to background slowing and disorganization, with presence of mixed slow and fast frequency activity. This is suggestive of mild generalized cerebral dysfunction as can be seen with encephalopathy of vascular, metabolic or degenerative causes, or medication effect. No epileptiform activity was seen. No indication for antiepileptic medication based upon above test results. CT of the head is reported as age-related atrophic and chronic small vessel ischemic changes without acute intracranial process seen at this time. AST is 34, ALTs 21, sodium is 139, calcium is 9.9 which are within normal limits. TSH 1.2, vitamin B12 440, folate 11.6. We will give B12 injection x1, and start folic acid 1 mg daily. Patient is on Ativan 2 mg every you as 6 hours when necessary for agitation ordered by the primary team. Rather recommend Seroquel 25mg qhs and if needed can go up to 1 tab bid. Psychiatry also has seen the patient, diagnosed with schizoaffective disorder, depressive type. Psychiatry have decreased Prolixin 2 mg twice a day, discontinued Remeron and started melatonin 5 mg. Patient will be continued on Lexapro 10 mg for mood and Zyprexa as needed for agitation. If the back pain continues, consider x-ray of the lumbar spine, or perhaps orthopedic spine eval. we will follow patient sporadically.
[2021-02-19] MEDS: SODIUM CHLORIDE 0.9% 1,000 ML IV SCH ×2 (05:37→16:09)
[2021-02-19] MEDS: HEPARIN SODIUM,PORCINE/PF 5,000 UNIT/0.5 ML SYRINGE SQ SCH ×2 (09:13→22:41)
[2021-02-19] MEDS: PANTOPRAZOLE 40 MG TABLET PO SCH (09:13)
[2021-02-19] MEDS: FOLIC ACID 1 MG TAB PO SCH (09:13)
[2021-02-19] MEDS: ACETAMINOPHEN TAB 325 MG TAB PO PRN (09:35)
[2021-02-19] MEDS: hydroCHLOROthiazide 25 MG TAB PO SCH (11:59)
--- NOTE | 2021-02-19 12:25 | P.PN ---
Subjective Progress Note Date: 02/19/21 History of present illness This is a 70-year-old female patient of the [facility] with past medical history of hyperlipidemia, hypertension, anxiety, depression, previously seen due to acute psychosis related to UTI in September 2019. Patient was brought in by her daughter related to acute mental status change that occurred earlier this morning. Patient was found to be walking outside in her pajamas and not knowing where she was. When attempted to return to the home patient states that the home was going to blow up. Patient was recently treated for a urinary tract in [facility] on Wednesday with Macrobid. Patient has history of acute psychosis related to UTI in the past. Patient does report some abdominal discomfort and painful urination. states that she has not been eating or drinking well. Documented fevers. Patient sees Dr. Murphy psychiatrist in outpatient setting. At this time patient is found resting comfortably in bed and able to answer minimal questions appropriately. Daughter is at the bedside and answered majority of the questions. Patient denies any pain or discomfort at this time. He is not in any acute distress. Patient denies any shortness breath or chest pain. Reports that over the past week patient has been withdrawn related to the of the peds. She was most recently seen by psychiatry where they changed her medications due to weight gain. 02/16: Continues to have increased confusion and combativeness. she is yelling and threatening staff. Patient is refusing oral medications. Patient is showing signs of paranoia. Unable to answer questions appropriately. Continues to have pain and tenderness to the abdomen. A bladder scan will be ordered. Patient has not been seen by psych at this time. Patient remains afebrile. Pulse rate 100, respirations 19, blood pressure 136/95, pulse ox 96% on room air. 02/17: Patient is refusing to eat and refusing to take medications. Patient has been afebrile, heart rate 102, blood pressure 177/70, pulse ox 97% on room air. IV Vasotec added for blood pressure control. Urine culture was finalized with skin or genital naif. Patient was previously on Macrodantin. Azithromycin will be discontinued. Patient will be continued on ceftriaxone only. Blood culture no growth after 24 hours. Repeat blood work reveals Sodium 141, potassium 2.9, chloride 103, CO2 30, BUN 12, Creatinine 0.75. WBC 8.6, hgb 11.5, platelet count 214. Potassium will be replaced by IV 60 mEq as patient will not take oral medications. Psychiatry has added Zyprexa, lorazepam IM or by mouth for agitation. Patient's daughter has stayed over night at the bedside. No improvement of mental status. Patient is argumentative and not cooperating with staff. Daughter gives history the patient had a brain tumor many years ago and was recently to have a follow-up which she did not do. She is in agreement to have neurology consult regarding this. Anticipate need for IP psychiatric service. 02/18: MRI of the brain reveals mild cerebral atrophy. Minimal white matter c hanges could relate to some microvascular ischemia. No evidence of cortical infarct. Left side sphenoid sinusitis. Patient has been seen by neurology. Patient has been seen by psychiatry and she does not meet criteria for inpatient psychiatric admission but will continue to follow. The following medication changes were made: Started Prolixin 2.5 mg twice a day for aggression/psychosis, Remeron 30 mg daily at bedtime for mood/anxiety/insomnia, continue with Lexapro 10 mg daily for mood. zyprexa prn for agitation. d/c ativan. Patient cannot leave AMA. According to the patient's nurse, patient was able to take her morning medications with quite a bit of coaxing. She refused subcu heparin. She is receiving IV medications as well. She is refusing all food and oral intake. Patient has been afebrile, heart rate 85, blood pressure 171/92 before medications and 158/87 following morning medications. Pulse ox 97% on room air. Repeat potassium 3.5. Blood culture no growth at 72 hours 2 specimens. 02/19: EEG was abnormal due to background slowing and disorganization with presence of mixed slow and fast frequency activity, suggestive mild generalized cerebral dysfunction seen in encephalopathy of vascular, metabolic or degenerative causes her medication effect. No epileptiform activity was seen. Neurology is recommended that lumbar spine x-ray orthopedic evaluation of back pain continues. Dr. Portillo is ordered a B12 injection and started folate acid 1 mg daily. Patient's behavior is more appropriate today. She did a pudding with her medications this morning. Blood pressure is on the high side and hydrochlorothiazide will be resumed. Patient was up and pivoted to the commode chair this morning with physical therapy. She still has Flowers catheter in place which we will discontinue tomorrow. Patient has been afebrile, heart rate 89, blood pressure 171/84, pulse ox 93% on room air. CK level from yesterday is 504. Review Of Systems: Constitutional: No fever, no chills, no night sweats. No weight change. Noted weakness, Noted fatigue Noted lethargy. Noted daytime sleepiness. EENT: No headache. No blurred vision or double vision, no loss of vision. No loss of Hearing, no ringing in the ears, no dizziness. No nasal drainage or congestion. No epistaxis. No sore throat. Lungs: No shortness of breath, cough, no sputum production. No wheezing. Cardiovascular: No chest pain, no lower extremity edema. No palpitations. No p aroxysmal nocturnal dyspnea. No orthopnea. No lightheadedness or dizziness. No syncopal episodes. Abdominal: No abdominal pain. No nausea, vomiting. No diarrhea. No constipation. No bloody or tarry stools.. No loss of appetite. Genitourinary: No dysuria, increased frequency, urgency. Noted urinary retention. Musculoskeletal: No myalgias. Noted muscle weakness, Noted gait dysfunction, no frequent falls. No back pain. No neck pain. Integumentary: No wounds, no lesions. No rash or pruritus. Neurologic: No aphasia. No facial droop. Noted change in mentation. No head injury. No headache. No paralysis. No paresthesia. Psychiatric: No depression. No anxiety. Noted mood swings. Endocrine: No abnormal blood sugars. . Physical examination General Appearance: This is a 70-year-old patient no acute distress. Neck HEENT: Supple, no lymphadenopathy, no thyroid enlargement, no carotid bruits. Lungs: Clear to auscultation without crackles or wheezes no rhonchi, no deformity. Chest Wall: Chest wall normal expansion with deep inspiration no tenderness and no deformity was found on exam, no costochondral pain or discomfort. Heart: Regular rate and rhythm, S1, S2 normal, no murmur, rub or gallop. Back: Symmetric, no curvature, ROM normal, no CVA tenderness. Abdomen: Soft, non-tender, no rebound or rigidity, no hepatosplenomegaly. Flowers catheter in place draining pale alexander urine. Extremities: Extremities normal, atraumatic, no cyanosis or edema. Pulses: 2+ and symmetric. Skin: Skin color, texture, tugor normal, no rashes or lesions. Neurologic: Alert oriented to person and place cranial nerves II through XII intact, no motor deficit Assessment and plan 1. Sepsis related to UTI, bronchitis probable pneumonia. Continue with hydration, Rocephin 2 g daily. 2. Acute psychosis related to most likely change in psychiatric medications. Doubt that behavior is related to urinary tract infection. Recent change to psy chiatric medications by her psychiatrist, Dr. Deleon. Patient was changed from Prozac to Lexapro and fluoxetine to trazodone. As noted above. Consultation with psychiatry appreciated. Started Prolixin 2.5 mg twice a day for aggression/psychosis, Remeron 30 mg daily at bedtime for mood/anxiety/insomnia, continue with Lexapro 10 mg daily for mood. zyprexa prn for agitation. d/c ativan. 3. Hyperlipidemia atorvastatin 20 mg by mouth at bedtime 4. Hypertension, stable. Add Vasotec 1.25 mg IV push every 6 hours as needed for systolic blood pressure greater than 160. 5. Recurrent depression and generalized anxiety disorder. Continue as in #2 6. DVT prophylaxis, heparin subcu 5000 units every 12 hours 7. GI prophylaxis, Protonix 40 mg IV 8. History of brain tumor. Neurology consult appreciated 9. Hypokalemia. Stable. CODE STATUS: NO code Discharge Plan TBD. Patient will require inpatient psychiatric services. Social work is following. Impression and plan of care have been directed as dictated by the signing physician. Marlen Flores nurse practitioner acting as scribe for signing physician. Objective - Vital Signs Vital signs: Vital Signs Temp 98.9 F 02/19/21 08:00 Pulse 89 02/19/21 08:00 Resp 16 02/19/21 08:00 BP 171/84 02/19/21 08:00 Pulse Ox 93 L 02/19/21 08:00 Intake & Output 02/18/21 02/19/21 02/19/21 18:59 06:59 18:59 Intake Total 50 Output Total 650 625 Balance -650 -575 Intake: Intake, IV Titration 50 Amount cefTRIAXone 2 gm In 50 Sodium Chloride 0.9% 50 ml @ 100 mls/hr IVPB Q24HR [facility] Rx#:[id number] Output: Urine 650 625 Other: Voiding Method Indwelling Catheter Indwelling Catheter # Bowel Movements 1 1 - Labs CBC & Chem 7: 02/17/21 09:54 02/18/21 08:29 Labs: Abnormal Lab Results - Last 24 Hours (Table) 02/18/21 Range/Units 08:29 Creatine Kinase 504 H (26-186) U/L Microbiology - Last 24 Hours (Table) 02/15/21 10:59 Blood Culture - Preliminary Blood No Growth after 72 hours 02/15/21 08:03 Blood Culture - Preliminary Blood No Growth after 72 hours
--- NOTE | 2021-02-19 14:11 | P.PN ---
Progress Note - Text Progress Note Date: 02/19/21 Interval History: Patient was seen today for psychiatric follow-up. Patients nurse claims that sarahi martin is more awake today and more cooperative and has been taking her medications. Patient was seen at the bedside and appeared to be more awake and less sedated today. She continues to complain of ongoing pain in her arms and her legs. She appears to be somewhat feeling weak and complained of not getting sufficient care. She is denying any depression today or any anxiety. She was not noted to have any behavioral disturbances last night. She claims that she did not sleep well last night however patient nurse states that she did. She was alert and oriented 3 today. At this time patient denies any suicidal or homical ideations, intent or plan. Patient denies any auditory, visual hallucinations and denies any paranoia or delusions. Patient denies any side effects from the medications and has been compliant with meds. Mental Status Exam: General Appearance: Patient appears to be stated age is more directable and appears to be more awake today. Patient appears to have improving hygiene and grooming. Wearing hospital gown. Behavior: Patient is seated without any agitated behavior. Speech: Patient's speech is fluent and nonpressured. Mood/Affect: Patient reports their mood is "ok", affect is congruent and constricted Suicidality/Homicidality: Patient denies having any homicidal ideation intent or plan or any suicidal ideations intent or plan. Perceptions: Patient denies any visual hallucinations or auditory hallucinations Though content/process: Not endorsing any paranoia today. Logical. [place]. Memory and concentration: AOX3, grossly intact for the purposes of this session Judgment and insight: Poor, improving mildly IMPRESSIONS: Schizoaffective disorder, depressive type PLAN: -At this time patient DOES NOT meet criteria for inpatient psychiatric admission. -Possible that patient is sedated due to infection or medical illness and unlikely from psychotropic medications. -Delirium precautions recommended with patient including - avoiding use of narcotics and [employer] sedatives, limit anticholinergic medications when possible, frequent re-orientation, minimize use of restraints, open window shades during the day and close them at night -Would recommend the following medication changes/additions: Prolixin 2 mg twice a day for aggression/psychosis, increase melatonin 10 mg qhs, continue with Lexapro 10 mg daily for mood. zyprexa prn for agitation. -Communicated plan to patient's nurse and social service assistant -At this time psychiatry will sign off -Please contact with any questions.
[2021-02-19] MEDS: ESCITALOPRAM 10 MG TAB PO SCH (22:42)
[2021-02-19] MEDS: ATORVASTATIN 20 MG TAB PO SCH (22:42)
[2021-02-19] MEDS: MELATONIN 5 MG TABLET PO SCH (22:42)
[2021-02-20] MEDS: HEPARIN SODIUM,PORCINE/PF 5,000 UNIT/0.5 ML SYRINGE SQ SCH ×2 (10:01→22:00)
[2021-02-20] MEDS: FOLIC ACID 1 MG TAB PO SCH (10:01)
[2021-02-20] MEDS: hydroCHLOROthiazide 25 MG TAB PO SCH (10:01)
[2021-02-20] MEDS: PANTOPRAZOLE 40 MG TABLET PO SCH (10:01)
[2021-02-20] MEDS: SODIUM CHLORIDE 0.9% 1,000 ML IV SCH ×2 (12:33→22:24)
--- NOTE | 2021-02-20 12:56 | P.PN ---
Subjective Progress Note Date: 02/20/21 History of present illness This is a 70-year-old female patient of the [facility] with past medical history of hyperlipidemia, hypertension, anxiety, depression, previously seen due to acute psychosis related to UTI in September 2019. Patient was brought in by her daughter related to acute mental status change that occurred earlier this morning. Patient was found to be walking outside in her pajamas and not knowing where she was. When attempted to return to the home patient states that the home was going to blow up. Patient was recently treated for a urinary tract in [facility] on Wednesday with Macrobid. Patient has history of acute psychosis related to UTI in the past. Patient does report some abdominal discomfort and painful urination. states that she has not been eating or drinking well. Documented fevers. Patient sees Dr. Murphy psychiatrist in outpatient setting. At this time patient is found resting comfortably in bed and able to answer minimal questions appropriately. Daughter is at the bedside and answered majority of the questions. Patient denies any pain or discomfort at this time. He is not in any acute distress. Patient denies any shortness breath or chest pain. Reports that over the past week patient has been withdrawn related to the of the peds. She was most recently seen by psychiatry where they changed her medications due to weight gain. 02/16: Continues to have increased confusion and combativeness. she is yelling and threatening staff. Patient is refusing oral medications. Patient is showing signs of paranoia. Unable to answer questions appropriately. Continues to have pain and tenderness to the abdomen. A bladder scan will be ordered. Patient has not been seen by psych at this time. Patient remains afebrile. Pulse rate 100, respirations 19, blood pressure 136/95, pulse ox 96% on room air. 02/17: Patient is refusing to eat and refusing to take medications. Patient has been afebrile, heart rate 102, blood pressure 177/70, pulse ox 97% on room air. IV Vasotec added for blood pressure control. Urine culture was finalized with skin or genital naif. Patient was previously on Macrodantin. Azithromycin will be discontinued. Patient will be continued on ceftriaxone only. Blood culture no growth after 24 hours. Repeat blood work reveals Sodium 141, potassium 2.9, chloride 103, CO2 30, BUN 12, Creatinine 0.75. WBC 8.6, hgb 11.5, platelet count 214. Potassium will be replaced by IV 60 mEq as patient will not take oral medications. Psychiatry has added Zyprexa, lorazepam IM or by mouth for agitation. Patient's daughter has stayed over night at the bedside. No improvement of mental status. Patient is argumentative and not cooperating with staff. Daughter gives history the patient had a brain tumor many years ago and was recently to have a follow-up which she did not do. She is in agreement to have neurology consult regarding this. Anticipate need for IP psychiatric service. 02/18: MRI of the brain reveals mild cerebral atrophy. Minimal white matter c hanges could relate to some microvascular ischemia. No evidence of cortical infarct. Left side sphenoid sinusitis. Patient has been seen by neurology. Patient has been seen by psychiatry and she does not meet criteria for inpatient psychiatric admission but will continue to follow. The following medication changes were made: Started Prolixin 2.5 mg twice a day for aggression/psychosis, Remeron 30 mg daily at bedtime for mood/anxiety/insomnia, continue with Lexapro 10 mg daily for mood. zyprexa prn for agitation. d/c ativan. Patient cannot leave AMA. According to the patient's nurse, patient was able to take her morning medications with quite a bit of coaxing. She refused subcu heparin. She is receiving IV medications as well. She is refusing all food and oral intake. Patient has been afebrile, heart rate 85, blood pressure 171/92 before medications and 158/87 following morning medications. Pulse ox 97% on room air. Repeat potassium 3.5. Blood culture no growth at 72 hours 2 specimens. 02/19: EEG was abnormal due to background slowing and disorganization with presence of mixed slow and fast frequency activity, suggestive mild generalized cerebral dysfunction seen in encephalopathy of vascular, metabolic or degenerative causes her medication effect. No epileptiform activity was seen. Neurology is recommended that lumbar spine x-ray orthopedic evaluation of back pain continues. Dr. Portillo is ordered a B12 injection and started folate acid 1 mg daily. Patient's behavior is more appropriate today. She did a pudding with her medications this morning. Blood pressure is on the high side and hydrochlorothiazide will be resumed. Patient was up and pivoted to the commode chair this morning with physical therapy. She still has Flowers catheter in place which we will discontinue tomorrow. Patient has been afebrile, heart rate 89, blood pressure 171/84, pulse ox 93% on room air. CK level from yesterday is 504. 02/20: Patient is more interactive now from yesterday but is refusing to take her medications this morning. She is continued on IV fluids at 75 mL/h and IV antibiotics. Flowers catheter will be discontinued today. Await further recommendations from psychiatry. Social work is following for discharge planning most likely to subacute rehab tomorrow. Review Of Systems: Constitutional: No fever, no chills, no night sweats. No weight change. Noted weakness, Noted fatigue Noted lethargy. Noted daytime sleepiness. EENT: No headache. No blurred vision or double vision, no loss of vision. No loss of Hearing, no ringing in the ears, no dizziness. No nasal drainage or congestion. No epistaxis. No sore throat. Lungs: No shortness of breath, cough, no sputum production. No wheezing. Cardiovascular: No chest pain, no lower extremity edema. No palpitations. No paroxysmal nocturnal dyspnea. No orthopnea. No lightheadedness or dizziness. No syncopal episodes. Abdominal: No abdominal pain. No nausea, vomiting. No diarrhea. No constipation. No bloody or tarry stools.. No loss of appetite. Genitourinary: No dysuria, increased frequency, urgency. Noted urinary retention. Musculoskeletal: No myalgias. Noted muscle weakness, Noted gait dysfunction, no frequent falls. No back pain. No neck pain. Integumentary: No wounds, no lesions. No rash or pruritus. Neurologic: No aphasia. No facial droop. Noted change in mentation. No head injury. No headache. No paralysis. No paresthesia. Psychiatric: No depression. No anxiety. Noted mood swings. Endocrine: No abnormal blood sugars. Physical examination General Appearance: This is a 70-year-old patient no acute distress. Neck HEENT: Supple, no lymphadenopathy, no thyroid enlargement, no carotid bruits. Lungs: Clear to auscultation without crackles or wheezes no rhonchi, no deformity. Chest Wall: Chest wall normal expansion with deep inspiration no tenderness and no deformity was found on exam, no costochondral pain or discomfort. Heart: Regular rate and rhythm, S1, S2 normal, no murmur, rub or gallop. Back: Symmetric, no curvature, ROM normal, no CVA tenderness. Abdomen: Soft, non-tender, no rebound or rigidity, no hepatosplenomegaly. Flowers catheter in place draining pale alexander urine. Extremities: Extremities normal, atraumatic, no cyanosis or edema. Pulses: 2+ and symmetric. Skin: Skin color, texture, tugor normal, no rashes or lesions. Neurologic: Alert oriented 3 cranial nerves II through XII intact, no motor deficit Assessment and plan 1. Sepsis related to UTI, bronchitis probable pneumonia. Continue with hydration, Rocephin 2 g daily completed. 2. Acute psychosis related to most likely change in psychiatric medications. Doubt that behavior is related to urinary tract infection. Recent change to psychiatric medications by her psychiatrist, Dr. Deleon. Patient was changed from Prozac to Lexapro and fluoxetine to trazodone. As noted above. Consultation with psychiatry appreciated. Continue Prolixin 2 mg twice a day for aggression/psychosis, Lexapro 10 mg at bedtime, melatonin 5 mg at bedtime, Zyprexa 2.5 mg IM 3 times daily as needed. 3. Hyperlipidemia atorvastatin 20 mg by mouth at bedtime 4. Hypertension, stable. Add Vasotec 1.25 mg IV push every 6 hours as needed for systolic blood pressure greater than 160. 5. Recurrent depression and generalized anxiety disorder. Continue as in #2 6. DVT prophylaxis, heparin subcu 5000 units every 12 hours 7. GI prophylaxis, Protonix 40 mg IV 8. History of brain tumor. Neurology consult appreciated 9. Hypokalemia. Stable. 10. Urinary retention requiring Flowers catheter. Discontinue Flowers catheter today. CODE STATUS: NO code Discharge Plan [facility] on Wednesday. Social work is following. Impression and plan of care have been directed as dictated by the signing physician. Marlen Flores nurse practitioner acting as scribe for signing physician. Objective - Vital Signs Vital signs: Vital Signs Temp 98.7 F 02/20/21 07:54 Pulse 83 02/20/21 07:54 Resp 16 02/20/21 07:54 BP 161/89 02/20/21 07:54 Pulse Ox 96 02/20/21 07:54 Intake & Output 02/19/21 02/20/21 02/20/21 18:59 06:59 18:59 Intake Total 900 Output Total 1000 800 Balance -1000 100 Intake: Intake, IV Titration 900 Amount Sodium Chloride 0.9% 1, 900 000 ml @ 75 mls/hr IV . [id number] [facility] Rx#:[id number] Output: Urine 1000 800 Other: Voiding Method Indwelling Catheter Indwelling Catheter # Bowel Movements 1 - Labs CBC & Chem 7: 02/17/21 09:54 02/18/21 08:29 Labs: Abnormal Lab Results - Last 24 Hours (Table) 02/17/21 Range/Units 09:54 RBC Folate 877 H (280 - 791) ng/mL Microbiology - Last 24 Hours (Table) 02/15/21 10:59 Blood Culture - Preliminary Blood No Growth after 96 hours 02/15/21 08:03 Blood Culture - Preliminary Blood No Growth after 96 hours
[2021-02-20] MEDS ORDERED: ESCITALOPRAM 10 MG TAB PO STA (13:17)
[2021-02-20 14:18] LABS: Anion Gap 7.5 mmol/L (4.00-12.00); BUN/Creat Ratio 12.5 Ratio (12.00-20.00); Calcium 8.8 mg/dL (8.7-10.3); Carbon Dioxide 29.5 mmol/L (21.6-31.8); Non-African American GFR(CKD) 74.2 (60.0-200.0); Potassium 3.7 mmol/L (3.5-5.5)
--- NOTE | 2021-02-20 15:26 | P.PN ---
Progress Note - Text Progress Note Date: 02/20/21 Interval History: Patient was seen today for psychiatric follow-up. Patients nurse claims that sarahi martin was endorsing passive suicidal thoughts earlier today to the [facility] staff member who is screening patient for admission. Patient was seen by check writer salesperson today sitting in her chair beside her bed and continues to appear to be drowsy and have a depressed affect. She claims that she is having suicidal thoughts today and did not describe a plan. She claims that she has no reason to live any longer" wish I wouldn't wake up". She was complaining of her medical illness and being in the hospital and also pain. She claims that she is still having difficulties with sleep. She states that her appetite has improved. She was not noted to have any behavioral disturbances last night. She was alert and oriented 3 today. At this time patient denies any homical ideations, intent or plan. Patient denies any auditory, visual hallucinations and denies any paranoia or delusions. Patient denies any side effects from the medications and has been compliant with meds. Mental Status Exam: General Appearance: Patient appears to be stated age is lethargic, directable. concrete and constricted. Patient appears to have improving hygiene and grooming. Wearing hospital gown. Behavior: Patient is seated without any agitated behavior. Speech: Patient's speech is fluent and nonpressured. Monotone. Mood/Affect: Patient reports their mood is "depressed", affect is congruent and constricted Suicidality/Homicidality: Patient denies having any homicidal ideation intent. She claims that she does have suicidal thoughts however no plan. Perceptions: Patient denies any visual hallucinations or auditory hallucinations Though content/process: Not endorsing any paranoia today. Logical. Coulter. Memory and concentration: AOX3, grossly intact for the purposes of this session Judgment and insight: Poor IMPRESSIONS: Schizoaffective disorder, depressive type PLAN: -At this time patient DOES meet criteria for inpatient geriatric psych admission. -Start 1:1 sitter. Suicide precautions initiated. -Delirium precautions recommended with patient including - avoiding use of narcotics and COMBO WELDER sedatives, limit anticholinergic medications when possible, frequent re-orientation, minimize use of restraints, open window shades during the day and close them at night -Would recommend the following medication changes/additions: Discontinue Prolixin and replaced with Abilify 2.5 mg daily for mood adjunct/psychosis, increase melatonin 10 mg qhs, increase Lexapro 20 mg daily for mood. zyprexa prn for agitation. -Communicated plan to patient's nurse -Psychiatry will continue to follow along -Please contact with any questions.
[2021-02-20] MEDS: ARIPiprazole 5 MG TAB PO SCH (16:33)
[2021-02-20] MEDS: MELATONIN 5 MG TABLET PO SCH (22:02)
[2021-02-20] MEDS: ATORVASTATIN 20 MG TAB PO SCH (22:03)
[2021-02-21] MEDS: NITROFURANTOIN MONOHYD/M-CRYST 100 MG CAP PO SCH ×3 (08:15→20:25)
[2021-02-21] MEDS: PANTOPRAZOLE 40 MG TABLET PO SCH (08:41)
[2021-02-21] MEDS: FOLIC ACID 1 MG TAB PO SCH (08:41)
[2021-02-21] MEDS: hydroCHLOROthiazide 25 MG TAB PO SCH (08:41)
[2021-02-21] MEDS: ARIPiprazole 5 MG TAB PO SCH (08:41)
[2021-02-21] MEDS: ESCITALOPRAM 20 MG TAB PO SCH (08:41)
[2021-02-21] MEDS: HEPARIN SODIUM,PORCINE/PF 5,000 UNIT/0.5 ML SYRINGE SQ SCH ×2 (08:42→20:26)
[2021-02-21] MEDS: SODIUM CHLORIDE 0.9% 1,000 ML IV SCH ×2 (08:42→20:26)
--- NOTE | 2021-02-21 12:20 | P.DS ---
Providers Date of admission: 02/15/21 09:50 Expected date of discharge: 02/25/21 Attending physician: Erwin Bowman Consults: 02/16/21 09:09 Consult Physician Urgent Consulting Provider: Ozzy Chacon Consult Reason/Comments: aggressive pyschosis Do you want consulting provider notified?: Already Contacted 02/17/21 10:41 Consult Physician Routine Consulting Provider: Alejandro Portillo Consult Reason/Comments: encephalopathy/psychosis, hx brain tumor, Do you want consulting provider notified?: Yes Primary care physician: [facility] Course: History of present illness This is a 70-year-old female [facility] with past medical history of hyperlipidemia, hypertension, anxiety, depression, previously seen d ue to acute psychosis related to UTI in September 2019. Patient was brought in by her daughter related to acute mental status change that occurred earlier this morning. Patient was found to be walking outside in her pajamas and not knowing where she was. When attempted to return to the home patient states that the home was going to blow up. Patient was recently treated for a urinary tract infection on Wednesday with Macrobid. Patient has history of acute psychosis related to UTI in the past. Patient does report some abdominal discomfort and painful urination. states that she has not been eating or drinking well. Documented fevers. Patient sees Dr. Murphy psychiatrist in outpatient setting. At this time patient is found resting comfortably in bed and able to answer minimal questions appropriately. Daughter is at the bedside and answered majority of the questions. Patient denies any pain or discomfort at this time. He is not in any acute distress. Patient denies any shortness breath or chest pain. Reports that over the past week patient has been withdrawn related to the of the peds. She was most recently seen by psychiatry where they changed her medications due to weight gain. 02/16: Continues to have increased confusion and combativeness. she is yelling and threatening staff. Patient is refusing oral medications. Patient is showing signs of paranoia. Unable to answer questions appropriately. Continues to have pain and tenderness to the abdomen. A bladder scan will be ordered. Patient has not been seen by psych at this time. Patient remains afebrile. Pulse rate 100, respirations 19, blood pressure 136/95, pulse ox 96% on room air. 02/17: Patient is refusing to eat and refusing to take medications. Patient has been afebrile, heart rate 102, blood pressure 177/70, pulse ox 97% on room air. IV Vasotec added for blood pressure control. Urine culture was finalized with skin or genital naif. Patient was previously on Macrodantin. Azithromycin will be discontinued. Patient will be continued on ceftriaxone only. Blood culture no growth after 24 hours. Repeat blood work reveals Sodium 141, potassium 2.9, chloride 103, CO2 30, BUN 12, Creatinine 0.75. WBC 8.6, hgb 11.5, platelet count 214. Potassium will be replaced by IV 60 mEq as patient will not take oral medications. Psychiatry has added Zyprexa, lorazepam IM or by mouth for a gitation. Patient's daughter has stayed over night at the bedside. No improvement of mental status. Patient is argumentative and not cooperating with staff. Daughter gives history the patient had a brain tumor many years ago and was recently to have a follow-up which she did not do. She is in agreement to have neurology consult regarding this. Anticipate need for IP psychiatric service. 02/18: MRI of the brain reveals mild cerebral atrophy. Minimal white matter changes could relate to some microvascular ischemia. No evidence of cortical infarct. Left side sphenoid sinusitis. Patient has been seen by neurology. Patient has been seen by psychiatry and she does not meet criteria for inpatient psychiatric admission but will continue to follow. The following medication changes were made: Started Prolixin 2.5 mg twice a day for aggression/psychosis, Remeron 30 mg daily at bedtime for mood/anxiety/insomnia, continue with Lexapro 10 mg daily for mood. zyprexa prn for agitation. d/c ativan. Patient cannot leave AMA. According to the patient's nurse, patient was able to take her morning medications with quite a bit of coaxing. She refused subcu heparin. She is receiving IV medications as well. She is refusing all food and oral intake. Patient has been afebrile, heart rate 85, blood pressure 171/92 before medications and 158/87 following morning medications. Pulse ox 97% on room air. Repeat potassium 3.5. Blood culture no growth at 72 hours 2 specimens. 02/19: EEG was abnormal due to background slowing and disorganization with presence of mixed slow and fast frequency activity, suggestive mild generalized cerebral dysfunction seen in encephalopathy of vascular, metabolic or degenerative causes her medication effect. No epileptiform activity was seen. Neurology is recommended that lumbar spine x-ray orthopedic evaluation of back pain continues. Dr. Portillo is ordered a B12 injection and started folate acid 1 mg daily. Patient's behavior is more appropriate today. She did a pudding with her medications this morning. Blood pressure is on the high side and hydrochlorothiazide will be resumed. Patient was up and pivoted to the commode chair this morning with physical therapy. She still has Flowers catheter in place which we will discontinue tomorrow. Patient has been afebrile, heart rate 89, blood pressure 171/84, pulse ox 93% on room air. CK level from yesterday is 504. 02/20: Patient is more interactive now from yesterday but is refusing to take her medications this morning. She is continued on IV fluids at 75 mL/h and IV antibiotics. Flowers catheter will be discontinued today. Await further recommendations from psychiatry. Social work is following for discharge planning most likely to subacute rehab tomorrow. 02/21: Yesterday, with patient was being assessed for subacute rehab, patient started saying that she was suicidal and psychiatric services came back to see the patient and deemed that she is now requiring inpatient geriatric psych services. Social work is working closely for discharge planning with her daughter will complete the addition. Dr. Bowman completed physician certification. Patient has voided yesterday after Flowers was removed but this morning she is retaining again a Flowers will be replaced. Patient has been afebrile, heart rate 85, blood pressure 162/92, pulse ox 92% on room air. Chemistry panel from yesterday revealed normal electrolytes, BUN 10 and creatinine 0.8. Blood sugar 133. CK 376. Patient will be discharge to inpatient psych service once arrangements are completed. 02/22, slow waiting for inpatient psych services, for final discharge disposition, sitter at 60 sitter at bedside, patient complaining off muscle aches all over, no fever no chills, patient has not slept either, we have started her on cyclobenzaprine 10 mg at bedtime, and ibuprofen 600 mg now with 400 mg every 6 hours when necessary she maintains on methylphenidate 10 mg twice a day for psychomotor sluggishness, and Abilify 2.5 mg daily, Lexapro 20 mg as per psych recommendation. 02/23, patient is still no medical floor, awaiting still final disposition, patient still has a 60 sitter at bedside, she is still not sleeping, has muscle aches all over, CPK slightly to be elevated, she has buttock pain no back pain, she does not get out of bed either, has psychomotor retardation, from severe depression, nothing makes her happy, she also complains of burning pain towards her feet, we will start 300 mg of gabapentin at at bedtime, and melatonin 10 mg at bedtime in conjunction with cyclobenzaprine 02/24: Patient still has a withdrawn like personality, still sad, still not sleeping, gabapentin was started for neuropathic pain in the feet, serum copper to be added for eval, as well as heavy metals, if able, to be done. Patient is still waiting for psychiatric bed, 60 sitter one-on-one is still maintained, psychiatry has increased Abilify to 5 mg, Cymbalta started at 30 mg, Lexapro was discontinued. 02/25: Patient has a sitter at the bedside. Psychiatry continues to recommend inpatient psychiatric services. Patient to continue Abilify 5 mg daily, melatonin 10 mg at bedtime, increase Cymbalta to 60 mg daily, continue Zyprexa for agitation. Patient was started on Ritalin which is being discontinued. Patient has been afebrile, heart rate 47-93, blood pressure 152/84, pulse ox 93% on room air. Social work is working on discharge planning. DISCHARGE DIAGNOSES 1. Sepsis related to UTI, bronchitis probable pneumonia. 2. Acute psychosis related to most likely change in psychiatric medications with schizoaffective disorder. 3. Hyperlipidemia 4. Hypertension, stable. 5. Recurrent depression and generalized anxiety disorder. 6. DVT prophylaxis. 7. GI prophylaxis. 8. History of brain tumor, no acute tumor. 9. Hypokalemia. Stable. 10. Urinary retention requiring Flowers catheter. Discharge Plan Inpatient psychiatric service once arrangements are completed. Social work is following. Impression and plan of care have been directed as dictated by the signing physician. Marlen Flores nurse practitioner acting as scribe for signing physician. Patient Condition at Discharge: Stable Plan - Discharge Summary Discharge Rx Participant: Yes New Discharge Prescriptions: New ARIPiprazole [Abilify] 2.5 mg PO DAILY tab Folic Acid 1 mg PO DAILY tab Escitalopram [Lexapro] 20 mg PO DAILY tab Melatonin 10 mg PO HS tablet Continue Atorvastatin Calcium [Lipitor] 20 mg PO HS Albuterol Inhaler [Ventolin Hfa Inhaler] 1 puff INHALATION RT-Q4H PRN PRN Reason: Shortness Of Breath hydroCHLOROthiazide 25 mg PO DAILY Acetaminophen [Tylenol Arthritis] 650 mg PO Q8H PRN PRN Reason: Pain Discontinued traZODone HCL 100 mg PO HS Escitalopram [Lexapro] 10 mg PO HS Nitrofurantoin Monohyd/M-Cryst [Macrobid] 100 mg PO BID Discharge Medication List Acetaminophen [Tylenol Arthritis] 650 mg PO Q8H PRN 02/15/21 [History] Albuterol Inhaler [Ventolin Hfa Inhaler] 1 puff INHALATION RT-Q4H PRN 02/15/21 [History] Atorvastatin Calcium [Lipitor] 20 mg PO HS 02/15/21 [History] hydroCHLOROthiazide 25 mg PO DAILY 02/17/21 [History] ARIPiprazole [Abilify] 2.5 mg PO DAILY tab 02/21/21 [Rx] Escitalopram [Lexapro] 20 mg PO DAILY tab 02/21/21 [Rx] Folic Acid 1 mg PO DAILY tab 02/21/21 [Rx] Melatonin 10 mg PO HS tablet 02/21/21 [Rx] Follow up Appointment(s)/Ref[facility] - 1 Week (after discharge from psych facility) Patient Instructions/Handouts: Urinary Tract Infection in Women (ED), Pneumonia (ED) Discharge/Stand Alone Forms: Help In The Home Discharge Disposition: TRANSFER TO PSYCH HOSP/UNIT
--- NOTE | 2021-02-21 12:27 | P.PN ---
Subjective Progress Note Date: 02/21/21 History of present illness This is a 70-year-old female patient of the [facility] with past medical history of hyperlipidemia, hypertension, anxiety, depression, previously seen due to acute psychosis related to UTI in September 2019. Patient was brought in by her daughter related to acute mental status change that occurred earlier this morning. Patient was found to be walking outside in her pajamas and not knowing where she was. When attempted to return to the home patient states that the home was going to blow up. Patient was recently treated for a urinary tract in [facility] on Wednesday with Macrobid. Patient has history of acute psychosis related to UTI in the past. Patient does report some abdominal discomfort and painful urination. states that she has not been eating or drinking well. Documented fevers. Patient sees Dr. Murphy psychiatrist in outpatient setting. At this time patient is found resting comfortably in bed and able to answer minimal questions appropriately. Daughter is at the bedside and answered majority of the questions. Patient denies any pain or discomfort at this time. He is not in any acute distress. Patient denies any shortness breath or chest pain. Reports that over the past week patient has been withdrawn related to the of the peds. She was most recently seen by psychiatry where they changed her medications due to weight gain. 02/16: Continues to have increased confusion and combativeness. she is yelling and threatening staff. Patient is refusing oral medications. Patient is showing signs of paranoia. Unable to answer questions appropriately. Continues to have pain and tenderness to the abdomen. A bladder scan will be ordered. Patient has not been seen by psych at this time. Patient remains afebrile. Pulse rate 100, respirations 19, blood pressure 136/95, pulse ox 96% on room air. 02/17: Patient is refusing to eat and refusing to take medications. Patient has been afebrile, heart rate 102, blood pressure 177/70, pulse ox 97% on room air. IV Vasotec added for blood pressure control. Urine culture was finalized with skin or genital naif. Patient was previously on Macrodantin. Azithromycin will be discontinued. Patient will be continued on ceftriaxone only. Blood culture no growth after 24 hours. Repeat blood work reveals Sodium 141, potassium 2.9, chloride 103, CO2 30, BUN 12, Creatinine 0.75. WBC 8.6, hgb 11.5, platelet count 214. Potassium will be replaced by IV 60 mEq as patient will not take oral medications. Psychiatry has added Zyprexa, lorazepam IM or by mouth for agitation. Patient's daughter has stayed over night at the bedside. No improvement of mental status. Patient is argumentative and not cooperating with staff. Daughter gives history the patient had a brain tumor many years ago and was recently to have a follow-up which she did not do. She is in agreement to have neurology consult regarding this. Anticipate need for IP psychiatric service. 02/18: MRI of the brain reveals mild cerebral atrophy. Minimal white matter c hanges could relate to some microvascular ischemia. No evidence of cortical infarct. Left side sphenoid sinusitis. Patient has been seen by neurology. Patient has been seen by psychiatry and she does not meet criteria for inpatient psychiatric admission but will continue to follow. The following medication changes were made: Started Prolixin 2.5 mg twice a day for aggression/psychosis, Remeron 30 mg daily at bedtime for mood/anxiety/insomnia, continue with Lexapro 10 mg daily for mood. zyprexa prn for agitation. d/c ativan. Patient cannot leave AMA. According to the patient's nurse, patient was able to take her morning medications with quite a bit of coaxing. She refused subcu heparin. She is receiving IV medications as well. She is refusing all food and oral intake. Patient has been afebrile, heart rate 85, blood pressure 171/92 before medications and 158/87 following morning medications. Pulse ox 97% on room air. Repeat potassium 3.5. Blood culture no growth at 72 hours 2 specimens. 02/19: EEG was abnormal due to background slowing and disorganization with presence of mixed slow and fast frequency activity, suggestive mild generalized cerebral dysfunction seen in encephalopathy of vascular, metabolic or degenerative causes her medication effect. No epileptiform activity was seen. Neurology is recommended that lumbar spine x-ray orthopedic evaluation of back pain continues. Dr. Portillo is ordered a B12 injection and started folate acid 1 mg daily. Patient's behavior is more appropriate today. She did a pudding with her medications this morning. Blood pressure is on the high side and hydrochlorothiazide will be resumed. Patient was up and pivoted to the commode chair this morning with physical therapy. She still has Fontanez catheter in place which we will discontinue tomorrow. Patient has been afebrile, heart rate 89, blood pressure 171/84, pulse ox 93% on room air. CK level from yesterday is 504. 02/20: Patient is more interactive now from yesterday but is refusing to take her medications this morning. She is continued on IV fluids at 75 mL/h and IV antibiotics. Fontanez catheter will be discontinued today. Await further recommendations from psychiatry. Social work is following for discharge planning most likely to subacute rehab tomorrow. 02/21: Yesterday, with patient was being assessed for subacute rehab, patient started saying that she was suicidal and psychiatric services came back to see the patient and deemed that she is now requiring inpatient geriatric psych services. Social work is working closely for discharge planning with her daughter will complete the addition. Dr. Bowman completed physician certification. Patient has voided yesterday after Fontanez was removed but this morning she is retaining again a Fontanez will be replaced. Patient has been afebrile, heart rate 85, blood pressure 162/92, pulse ox 92% on room air. Chemistry panel from yesterday revealed normal electrolytes, BUN 10 and creatinine 0.8. Blood sugar 133. CK 376. Patient will be discharge to inpatient psych service once arrangements are completed. Review Of Systems: Constitutional: No fever, no chills, no night sweats. No weight change. Noted weakness, Noted fatigue Noted lethargy. Noted daytime sleepiness. EENT: No headache. No blurred vision or double vision, no loss of vision. No loss of Hearing, no ringing in the ears, no dizziness. No nasal drainage or congestion. No epistaxis. No sore throat. Lungs: No shortness of breath, cough, no sputum production. No wheezing. Cardiovascular: No chest pain, no lower extremity edema. No palpitations. No paroxysmal nocturnal dyspnea. No orthopnea. No lightheadedness or dizziness. No syncopal episodes. Abdominal: No abdominal pain. No nausea, vomiting. No diarrhea. No constipation. No bloody or tarry stools.. No loss of appetite. Genitourinary: No dysuria, increased frequency, urgency. Noted urinary retention. Musculoskeletal: No myalgias. Noted muscle weakness, Noted gait dysfunction, no frequent falls. No back pain. No neck pain. Integumentary: No wounds, no lesions. No rash or pruritus. Neurologic: No aphasia. No facial droop. Noted change in mentation. No head injury. No headache. No paralysis. No paresthesia. Psychiatric: No depression. No anxiety. Noted mood swings. Endocrine: No abnormal blood sugars. Physical examination General Appearance: This is a 70-year-old patient no acute distress. Neck HEENT: Supple, no lymphadenopathy, no thyroid enlargement, no carotid bruits. Lungs: Clear to auscultation without crackles or wheezes no rhonchi, no deformity. Chest Wall: Chest wall normal expansion with deep inspiration no tenderness and no deformity was found on exam, no costochondral pain or discomfort. Heart: Regular rate and rhythm, S1, S2 normal, no murmur, rub or gallop. Back: Symmetric, no curvature, ROM normal, no CVA tenderness. Abdomen: Soft, non-tender, no rebound or rigidity, no hepatosplenomegaly. Fontanez catheter in place draining pale alexander urine. Extremities: Extremities normal, atraumatic, no cyanosis or edema. Pulses: 2+ and symmetric. Skin: Skin color, texture, tugor normal, no rashes or lesions. Neurologic: Alert oriented 3 cranial nerves II through XII intact, no motor deficit Assessment and plan 1. Sepsis related to UTI, bronchitis probable pneumonia. Continue with hydration, Rocephin 2 g daily completed. 2. Acute psychosis related to most likely change in psychiatric medications, now patient having suicidal thoughts. Doubt that behavior is related to urinary tract infection. Recent change to psychiatric medications by her psychiatrist, Dr. Deleon. Patient was changed from Prozac to Lexapro and fluoxetine to trazo done. As noted above. Consultation with psychiatry appreciated. Continue Prolixin 2 mg twice a day for aggression/psychosis, Lexapro 10 mg at bedtime, melatonin 5 mg at bedtime, Zyprexa 2.5 mg IM 3 times daily as needed. She requires inpatient psychiatric services 3. Hyperlipidemia atorvastatin 20 mg by mouth at bedtime 4. Hypertension, stable. Add Vasotec 1.25 mg IV push every 6 hours as needed for systolic blood pressure greater than 160. 5. Recurrent depression and generalized anxiety disorder. Continue as in #2 6. DVT prophylaxis, heparin subcu 5000 units every 12 hours 7. GI prophylaxis, Protonix 40 mg IV 8. History of brain tumor. Neurology consult appreciated 9. Hypokalemia. Stable. 10. Urinary retention requiring Fontanez catheter. Resume fontanez. CODE STATUS: NO code Discharge Plan Inpatient psychiatric services. Impression and plan of care have been directed as dictated by the signing physician. Marlen Flores nurse practitioner acting as scribe for signing physician. Objective - Vital Signs Vital signs: Vital Signs Temp 99.1 F 02/21/21 08:00 Pulse 85 02/21/21 08:00 Resp 16 02/21/21 08:00 BP 162/92 02/21/21 08:00 Pulse Ox 92 L 02/21/21 08:00 Intake & Output 02/20/21 02/21/21 02/21/21 18:59 06:59 18:59 Intake Total 900 Balance 900 Intake: Intake, IV Titration 900 Amount Sodium Chloride 0.9% 1, 900 000 ml @ 75 mls/hr IV . [id number] [facility] Rx#:[id number] Other: Voiding Method Indwelling Catheter Indwelling Catheter # Voids 1 - Labs CBC & Chem 7: 02/17/21 09:54 02/20/21 05:25 Labs: Abnormal Lab Results - Last 24 Hours (Table) 02/20/21 Range/Units 05:25 Glucose 133 H (70-110) mg/dL Creatine Kinase 376 H (26-186) U/L Microbiology - Last 24 Hours (Table) 02/15/21 10:59 Blood Culture - Preliminary Blood No Growth after 120 hours 02/15/21 08:03 Blood Culture - Preliminary Blood No Growth after 120 hours
[2021-02-21 13:46] VITALS: BMI 34.4
[2021-02-21] MEDS ORDERED: METHYLPHENIDATE HCL 10 MG TAB PO ONE (15:00)
[2021-02-21] MEDS: ACETAMINOPHEN TAB 325 MG TAB PO PRN (16:29)
[2021-02-21] MEDS: ATORVASTATIN 20 MG TAB PO SCH (20:25)
[2021-02-21] MEDS: MELATONIN 5 MG TABLET PO SCH (20:26)
--- NOTE | 2021-02-21 21:22 | CONS ---
CONSULTATION DATE OF SERVICE: 02/21/2021 PURPOSE FOR CONSULTATION: Evaluate for suicidality. INTERVAL HISTORY: I refer the reader to Dr. Chacon consultation note of 02/17 and his followup notes for details. It is noted that the patient had been set up to be referred for subacute rehabilitation, though it was noted that yesterday the patient made statements saying that she was suicidal. She was seen again yesterday by Dr. Chacon who indicated that she requires a petition and certification and apparently would require a referral for psychiatric inpatient care. Dr. Chacon increased Lexapro to 20 mg a day and switched the patient from Prolixin to Abilify 2.5 mg a day. She also has prescribed Zyprexa 2.5 mg 3 times a day p.r.n. When I talked to the patient she was lying in bed and barely got a word out. She was awake. At times she seemed to drift off in her attention. She responded appropriately to questions though she said very little and mostly responded with one-word responses. She did make a comment about her legs being weak and then she lifted her legs up a little while she was lying in bed apparently to demonstrate the issue she was having. She did not respond directly to questions regarding concerns for her making statements about "I have no reason to live any longer, wish I wouldn't wake up." ASSESSMENT: The patient continues to show depressive symptoms relating to an apparent underlying diagnosis of schizoaffective disorder. One-to-one staffing has been initiated for suicide precautions. I will continue her current medications including Lexapro 20 mg a day and Abilify 2.5 mg a day. I will add Ritalin as an augmentation to her antidepressant therapy. She will receive a 10 mg dose today and then tomorrow will begin 10 mg in the morning and 10 mg after lunch. The indication for Ritalin is to augment her antidepressant. The benefits of Ritalin include that it has few side effects, has a very short half-life if there are any difficulties with the medication and also that patients tend to show fairly rapid response in terms of treatment of depression with Ritalin. The dose may need to be titrated up though I would continue on a 10 mg twice a day dosing for the next two days. I will be out of the hospital during the weekend, though if she continues in the hospital until Wednesday I will follow up. If there are issues needed to be addressed psychiatrically through the weakened, please contact the Psychiatric Unit for further consultation. MMODL / IJN: [id number] /
[2021-02-22] MEDS: HEPARIN SODIUM,PORCINE/PF 5,000 UNIT/0.5 ML SYRINGE SQ SCH ×2 (08:11→20:49)
[2021-02-22] MEDS: METHYLPHENIDATE HCL 10 MG TAB PO SCH ×2 (08:11→13:43)
[2021-02-22] MEDS: PANTOPRAZOLE 40 MG TABLET PO SCH (08:11)
[2021-02-22] MEDS: NITROFURANTOIN MONOHYD/M-CRYST 100 MG CAP PO SCH ×2 (08:11→20:49)
[2021-02-22] MEDS: hydroCHLOROthiazide 25 MG TAB PO SCH (08:11)
[2021-02-22] MEDS: FOLIC ACID 1 MG TAB PO SCH (08:11)
[2021-02-22] MEDS: ESCITALOPRAM 20 MG TAB PO SCH (08:11)
[2021-02-22] MEDS: ARIPiprazole 5 MG TAB PO SCH (09:37)
[2021-02-22] MEDS: SODIUM CHLORIDE 0.9% 1,000 ML IV SCH ×2 (13:14→20:50)
[2021-02-22] MEDS ORDERED: IBUPROFEN 800 MG TAB PO STA (13:17)
--- NOTE | 2021-02-22 14:55 | P.PN ---
Subjective Progress Note Date: 02/22/21 History of present illness This is a 70-year-old female patient of the [facility] with past medical history of hyperlipidemia, hypertension, anxiety, depression, previously seen due to acute psychosis related to UTI in September 2019. Patient was brought in by her daughter related to acute mental status change that occurred earlier this morning. Patient was found to be walking outside in her pajanms and not knowing where she was. When attempted to return to the home patient states that the home was going to blow up. Patient was recently treated for a urinary tract i nfection on Wednesday with Macrobid. Patient has history of acute psychosis related to UTI in the past. Patient does report some abdominal discomfort and painful urination. states that she has not been eating or drinking well. Documented fevers. Patient sees Dr. Murphy psychiatrist in outpatient setting. At this time patient is found resting comfortably in bed and able to answer minimal questions appropriately. Daughter is at the bedside and answered majority of the questions. Patient denies any pain or discomfort at this time. He is not in any acute distress. Patient denies any shortness breath or chest pain. Reports that over the past week patient has been withdrawn related to the of the peds. She was most recently seen by psychiatry where they changed her medications due to weight gain. 02/16: Continues to have increased confusion and combativeness. she is yelling a nd threatening staff. Patient is refusing oral medications. Patient is showing signs of paranoia. Unable to answer questions appropriately. Continues to have pain and tenderness to the abdomen. A bladder scan will be ordered. Patient has not been seen by psych at this time. Patient remains afebrile. Pulse rate 100, respirations 19, blood pressure 136/95, pulse ox 96% on room air. 02/17: Patient is refusing to eat and refusing to take medications. Patient has been afebrile, heart rate 102, blood pressure 177/70, pulse ox 97% on room air. IV Vasotec added for blood pressure control. Urine culture was finalized with skin or genital naif. Patient was previously on Macrodantin. Azithromycin will be discontinued. Patient will be continued on ceftriaxone only. Blood culture no growth after 24 hours. Repeat blood work reveals Sodium 141, potassium 2.9, chloride 103, CO2 30, BUN 12, Creatinine 0.75. WBC 8.6, hgb 11.5, platelet count 214. Potassium will be replaced by IV 60 mEq as patient will not take oral medications. Psychiatry has added Zyprexa, lorazepam IM or by mouth for agitation. Patient's daughter has stayed over night at the bedside. No improvement of mental status. Patient is argumentative and not cooperating with staff. Daughter gives history the patient had a brain tumor many years ago and was recently to have a follow-up which she did not do. She is in agreement to have neurology consult regarding this. Anticipate need for IP psychiatric service. 02/18: MRI of the brain reveals mild cerebral atrophy. Minimal white matter changes could relate to some microvascular ischemia. No evidence of cortical infarct. Left side sphenoid sinusitis. Patient has been seen by neurology. Patient has been seen by psychiatry and she does not meet criteria for inpatient psychiatric admission but will continue to follow. The following medication changes were made: Started Prolixin 2.5 mg twice a day for aggression/psychosis, Remeron 30 mg daily at bedtime for mood/anxiety/insomnia, continue with Lexapro 10 mg daily for mood. zyprexa prn for agitation. d/c ativan. Patient cannot leave AMA. According to the patient's nurse, patient was able to take her morning medications with quite a bit of coaxing. She refused subcu heparin. She is receiving IV medications as well. She is refusing all food and oral intake. Patient has been afebrile, heart rate 85, blood pressure 171/92 before medications and 158/87 following morning medications. Pulse ox 97% on room air. Repeat potassium 3.5. Blood culture no growth at 72 hours 2 specimens. 02/19: EEG was abnormal due to background slowing and disorganization with presence of mixed slow and fast frequency activity, suggestive mild generalized cerebral dysfunction seen in encephalopathy of vascular, metabolic or degenerative causes her medication effect. No epileptiform activity was seen. Neurology is recommended that lumbar spine x-ray orthopedic evaluation of back pain continues. Dr. Portillo is ordered a B12 injection and started folate acid 1 mg daily. Patient's behavior is more appropriate today. She did a pudding with her medications this morning. Blood pressure is on the high side and hydrochlorothiazide will be resumed. Patient was up and pivoted to the commode chair this morning with physical therapy. She still has Fontanez catheter in place which we will discontinue tomorrow. Patient has been afebrile, heart rate 89, blood pressure 171/84, pulse ox 93% on room air. CK level from yesterday is 504. 02/20: Patient is more interactive now from yesterday but is refusing to take her medications this morning. She is continued on IV fluids at 75 mL/h and IV antibiotics. Fontanez catheter will be discontinued today. Await further recommendations from psychiatry. Social work is following for discharge planning most likely to subacute rehab tomorrow. 02/21: Yesterday, with patient was being assessed for subacute rehab, patient started saying that she was suicidal and psychiatric services came back to see the patient and deemed that she is now requiring inpatient geriatric psych services. Social work is working closely for discharge planning with her daughter will complete the addition. Dr. Bowman completed physician certification. Patient has voided yesterday after Fontanez was removed but this morning she is retaining again a Fontanez will be replaced. Patient has been afebrile, heart rate 85, blood pressure 162/92, pulse ox 92% on room air. Chemistry panel from yesterday revealed normal electrolytes, BUN 10 and creatinine 0.8. Blood sugar 133. CK 376. Patient will be discharge to inpatient psych service once arrangements are completed. 02/22, slow waiting for inpatient psych services, for final discharge disposition, sitter at 60 sitter at bedside, patient complaining off muscle aches all over, no fever no chills, patient has not slept either, we have started her on cyclobenzaprine 10 mg at bedtime, and ibuprofen 600 mg now with 400 mg every 6 hours when necessary she maintains on methylphenidate 10 mg twice a day for psy chomotor sluggishness, and Abilify 2.5 mg daily, Lexapro 20 mg as per psych recommendation. Review Of Systems: Constitutional: No fever, no chills, no night sweats. No weight change. Noted weakness, Noted fatigue Noted lethargy. Noted daytime sleepiness. EENT: No headache. No blurred vision or double vision, no loss of vision. No loss of Hearing, no ringing in the ears, no dizziness. No nasal drainage or congestion. No epistaxis. No sore throat. Lungs: No shortness of breath, cough, no sputum production. No wheezing. Cardiovascular: No chest pain, no lower extremity edema. No palpitations. No paroxysmal nocturnal dyspnea. No orthopnea. No lightheadedness or dizziness. No syncopal episodes. Abdominal: No abdominal pain. No nausea, vomiting. No diarrhea. No constipation. No bloody or tarry stools.. No loss of appetite. Genitourinary: No dysuria, increased frequency, urgency. Noted urinary retention. Musculoskeletal: No myalgias. Noted muscle weakness, Noted gait dysfunction, no frequent falls. No back pain. No neck pain. Integumentary: No wounds, no lesions. No rash or pruritus. Neurologic: No aphasia. No facial droop. Noted change in mentation. No head injury. No headache. No paralysis. No paresthesia. Psychiatric: No depression. No anxiety. Noted mood swings. Endocrine: No abnormal blood sugars. Objective - Vital Signs Vital signs: Vital Signs Temp 99.5 F 02/22/21 14:04 Pulse 93 02/22/21 14:04 Resp 18 02/22/21 07:38 BP 128/81 02/22/21 14:04 Pulse Ox 91 L 02/22/21 14:04 Intake & Output 02/21/21 02/22/21 02/22/21 18:59 06:59 18:59 Intake Total 240 Output Total 2600 900 900 Balance -2600 -660 -900 Weight 85.275 kg Intake: Oral 240 Output: Urine 2600 900 900 Uretheral (Fontanez) 800 Other: Voiding Method Indwelling Catheter Indwelling Catheter Indwelling Catheter - Constitutional General appearance: Present: cooperative, no acute distress - EENT Eyes: Present: EOMI, PERRLA, dentition normal, normal appearance ENT: Present: NA/AT, normal oropharynx - Neck Neck: Present: normal ROM - Respiratory Respiratory: bilateral: CTA, negative: diminished, dullness - Cardiovascular Rhythm: regular Heart sounds: normal: S1, S2 Abnormal Heart Sounds: Absent: systolic murmur, diastolic murmur, rub, S3 Ga llop, S4 Gallop, click, other - Gastrointestinal General gastrointestinal: Present: normal bowel sounds - Neurologic Neurologic: Present: CNII-XII intact - Musculoskeletal Musculoskeletal: Present: gait normal - Psychiatric Psychiatric: Present: A&O x's 3, appropriate affect - Labs CBC & Chem 7: 02/17/21 09:54 07/01/21 05:25 Labs: Microbiology - Last 24 Hours (Table) 02/15/21 10:59 Blood Culture - Final Blood No Growth after 144 hours Assessment and Plan Plan: 1. Sepsis related to UTI, bronchitis probable pneumonia. Continue with oral hydration, Rocephin 2 g daily completed. 2. Acute psychosis related to most likely change in psychiatric medications, now patient having suicidal thoughts. Doubt that behavior is related to urinary tract infection. Recent change to psychiatric medications by her psychiatrist, Dr. Deleon. Patient was changed from Prozac to Lexapro and fluoxetine to trazodone. As noted above. Consultation with psychiatry appreciated. Continue Prolixin 2 mg twice a day for aggression/psychosis, Lexapro 10 mg at bedtime, melatonin 5 mg at bedtime, Zyprexa 2.5 mg IM 3 times daily as needed. She requires inpatient psychiatric services 3. Hyperlipidemia atorvastatin 20 mg by mouth at bedtime 4. Hypertension, stable. Add Vasotec 1.25 mg IV push every 6 hours as needed for systolic blood pressure greater than 160. 5. Recurrent depression and generalized anxiety disorder. Continue as in #2 6. DVT prophylaxis, heparin subcu 5000 units every 12 hours 7. GI prophylaxis, Protonix 40 mg IV 8. History of brain tumor. Neurology consult appreciated 9. Hypokalemia. Stable. 10. Urinary retention requiring Fontanez catheter. Resume fontanez. 11. Musculoskeletal pain, suspect fibromyalgia, has insomnia, start melatonin 6 mg no better, we have initiated cyclobenzaprine 10 mg at this time, and ibuprofen 400 mg every 6 hours when necessary CODE STATUS: NO code Discharge Plan Inpatient psychiatric services.
[2021-02-22] MEDS: ATORVASTATIN 20 MG TAB PO SCH (20:49)
[2021-02-22] MEDS: MELATONIN 5 MG TABLET PO SCH (20:49)
[2021-02-22] MEDS: CYCLOBENZAPRINE 10 MG TAB PO SCH (20:49)
[2021-02-23] MEDS: PANTOPRAZOLE 40 MG TABLET PO SCH (08:00)
[2021-02-23] MEDS: ESCITALOPRAM 20 MG TAB PO SCH (08:00)
[2021-02-23] MEDS: METHYLPHENIDATE HCL 10 MG TAB PO SCH ×2 (08:00→12:25)
[2021-02-23] MEDS: NITROFURANTOIN MONOHYD/M-CRYST 100 MG CAP PO SCH ×2 (08:00→20:18)
[2021-02-23] MEDS: hydroCHLOROthiazide 25 MG TAB PO SCH (08:00)
[2021-02-23] MEDS: ARIPiprazole 5 MG TAB PO SCH (08:00)
[2021-02-23] MEDS: FOLIC ACID 1 MG TAB PO SCH (08:00)
[2021-02-23] MEDS: HEPARIN SODIUM,PORCINE/PF 5,000 UNIT/0.5 ML SYRINGE SQ SCH ×2 (08:01→20:18)
--- NOTE | 2021-02-23 15:32 | P.PN ---
Subjective Progress Note Date: 02/23/21 History of present illness This is a 70-year-old female patient of the [facility] with past medical history of hyperlipidemia, hypertension, anxiety, depression, previously seen due to acute psychosis related to UTI in September 2019. Patient was brought in by her daughter related to acute mental status change that occurred earlier this morning. Patient was found to be walking outside in her pajanvs and not knowing where she was. When attempted to return to the home patient states that the home was going to blow up. Patient was recently treated for a urinary tract i nfection on Wednesday with Macrobid. Patient has history of acute psychosis related to UTI in the past. Patient does report some abdominal discomfort and painful urination. states that she has not been eating or drinking well. Documented fevers. Patient sees Dr. Murphy psychiatrist in outpatient setting. At this time patient is found resting comfortably in bed and able to answer minimal questions appropriately. Daughter is at the bedside and answered majority of the questions. Patient denies any pain or discomfort at this time. He is not in any acute distress. Patient denies any shortness breath or chest pain. Reports that over the past week patient has been withdrawn related to the of the peds. She was most recently seen by psychiatry where they changed her medications due to weight gain. 02/16: Continues to have increased confusion and combativeness. she is yelling a nd threatening staff. Patient is refusing oral medications. Patient is showing signs of paranoia. Unable to answer questions appropriately. Continues to have pain and tenderness to the abdomen. A bladder scan will be ordered. Patient has not been seen by psych at this time. Patient remains afebrile. Pulse rate 100, respirations 19, blood pressure 136/95, pulse ox 96% on room air. 02/17: Patient is refusing to eat and refusing to take medications. Patient has been afebrile, heart rate 102, blood pressure 177/70, pulse ox 97% on room air. IV Vasotec added for blood pressure control. Urine culture was finalized with skin or genital naif. Patient was previously on Macrodantin. Azithromycin will be discontinued. Patient will be continued on ceftriaxone only. Blood culture no growth after 24 hours. Repeat blood work reveals Sodium 141, potassium 2.9, chloride 103, CO2 30, BUN 12, Creatinine 0.75. WBC 8.6, hgb 11.5, platelet count 214. Potassium will be replaced by IV 60 mEq as patient will not take oral medications. Psychiatry has added Zyprexa, lorazepam IM or by mouth for agitation. Patient's daughter has stayed over night at the bedside. No improvement of mental status. Patient is argumentative and not cooperating with staff. Daughter gives history the patient had a brain tumor many years ago and was recently to have a follow-up which she did not do. She is in agreement to have neurology consult regarding this. Anticipate need for IP psychiatric service. 02/18: MRI of the brain reveals mild cerebral atrophy. Minimal white matter changes could relate to some microvascular ischemia. No evidence of cortical infarct. Left side sphenoid sinusitis. Patient has been seen by neurology. Patient has been seen by psychiatry and she does not meet criteria for inpatient psychiatric admission but will continue to follow. The following medication changes were made: Started Prolixin 2.5 mg twice a day for aggression/psychosis, Remeron 30 mg daily at bedtime for mood/anxiety/insomnia, continue with Lexapro 10 mg daily for mood. zyprexa prn for agitation. d/c ativan. Patient cannot leave AMA. According to the patient's nurse, patient was able to take her morning medications with quite a bit of coaxing. She refused subcu heparin. She is receiving IV medications as well. She is refusing all food and oral intake. Patient has been afebrile, heart rate 85, blood pressure 171/92 before medications and 158/87 following morning medications. Pulse ox 97% on room air. Repeat potassium 3.5. Blood culture no growth at 72 hours 2 specimens. 02/19: EEG was abnormal due to background slowing and disorganization with presence of mixed slow and fast frequency activity, suggestive mild generalized cerebral dysfunction seen in encephalopathy of vascular, metabolic or degenerative causes her medication effect. No epileptiform activity was seen. Neurology is recommended that lumbar spine x-ray orthopedic evaluation of back pain continues. Dr. Portillo is ordered a B12 injection and started folate acid 1 mg daily. Patient's behavior is more appropriate today. She did a pudding with her medications this morning. Blood pressure is on the high side and hydrochlorothiazide will be resumed. Patient was up and pivoted to the commode chair this morning with physical therapy. She still has Fontanez catheter in place which we will discontinue tomorrow. Patient has been afebrile, heart rate 89, blood pressure 171/84, pulse ox 93% on room air. CK level from yesterday is 504. 02/20: Patient is more interactive now from yesterday but is refusing to take her medications this morning. She is continued on IV fluids at 75 mL/h and IV antibiotics. Fontanez catheter will be discontinued today. Await further recommendations from psychiatry. Social work is following for discharge planning most likely to subacute rehab tomorrow. 02/21: Yesterday, with patient was being assessed for subacute rehab, patient started saying that she was suicidal and psychiatric services came back to see the patient and deemed that she is now requiring inpatient geriatric psych services. Social work is working closely for discharge planning with her daughter will complete the addition. Dr. Bowman completed physician certification. Patient has voided yesterday after Fontanez was removed but this morning she is retaining again a Fontanez will be replaced. Patient has been afebrile, heart rate 85, blood pressure 162/92, pulse ox 92% on room air. Chemistry panel from yesterday revealed normal electrolytes, BUN 10 and creatinine 0.8. Blood sugar 133. CK 376. Patient will be discharge to inpatient psych service once arrangements are completed. 02/22, slow waiting for inpatient psych services, for final discharge disposition, sitter at 60 sitter at bedside, patient complaining off muscle aches all over, no fever no chills, patient has not slept either, we have started her on cyclobenzaprine 10 mg at bedtime, and ibuprofen 600 mg now with 400 mg every 6 hours when necessary she maintains on methylphenidate 10 mg twice a day for psy chomotor sluggishness, and Abilify 2.5 mg daily, Lexapro 20 mg as per psych recommendation. 02/23, patient is still no medical floor, awaiting still final disposition, patient still has a 60 sitter at bedside, she is still not sleeping, has muscle aches all over, CPK slightly to be elevated, she has buttock pain no back pain, she does not get out of bed either, has psychomotor retardation, from severe depression, nothing makes her happy, she also complains of burning pain towards her feet, we will start 300 mg of gabapentin at at bedtime, and melatonin 10 mg at bedtime in conjunction with cyclobenzaprine Review Of Systems: Constitutional: No fever, no chills, no night sweats. No weight change. Noted weakness, Noted fatigue Noted lethargy. Noted daytime sleepiness. EENT: No headache. No blurred vision or double vision, no loss of vision. No loss of Hearing, no ringing in the ears, no dizziness. No nasal drainage or congestion. No epistaxis. No sore throat. Lungs: No shortness of breath, cough, no sputum production. No wheezing. Cardiovascular: No chest pain, no lower extremity edema. No palpitations. No paroxysmal nocturnal dyspnea. No orthopnea. No lightheadedness or dizziness. No syncopal episodes. Abdominal: No abdominal pain. No nausea, vomiting. No diarrhea. No constipation. No bloody or tarry stools.. No loss of appetite. Genitourinary: No dysuria, increased frequency, urgency. Noted urinary retention. Musculoskeletal: No myalgias. Noted muscle weakness, Noted gait dysfunction, no frequent falls. No back pain. No neck pain. Integumentary: No wounds, no lesions. No rash or pruritus. Neurologic: No aphasia. No facial droop. Noted change in mentation. No head injury. No headache. No paralysis. No paresthesia. Psychiatric: No depression. No anxiety. Noted mood swings. Endocrine: No abnormal blood sugars. Objective - Vital Signs Vital signs: Vital Signs Temp 98.9 F 02/23/21 13:35 Pulse 81 02/23/21 13:35 Resp 18 02/23/21 13:35 BP 130/81 02/23/21 13:35 Pulse Ox 92 L 02/23/21 13:35 Intake & Output 02/22/21 02/23/21 02/23/21 18:59 06:59 18:59 Intake Total 1440 Output Total 1250 1075 300 Balance -1250 365 -300 Intake: Intake, IV Titration 900 Amount Sodium Chloride 0.9% 1, 900 000 ml @ 75 mls/hr IV . [id number] [facility] Rx#:[id number] Oral 540 Output: Urine 1250 1075 300 Other: Voiding Method Indwelling Catheter Indwelling Catheter Indwelling Catheter # Voids 3 3 # Bowel Movements 3 3 - Constitutional General appearance: Present: cooperative, no acute distress - EENT Eyes: Present: anicteric sclerae, EOMI - Neck Neck: Present: normal ROM - Respiratory Respiratory: bilateral: CTA, negative: diminished, dullness - Cardiovascular Rhythm: regular Heart sounds: normal: S1, S2 Abnormal Heart Sounds: Absent: systolic murmur, diastolic murmur, rub, S3 Gallop, S4 Gallop, click, other - Gastrointestinal General gastrointestinal: Present: normal bowel sounds, soft - Integumentary Integumentary: Present: normal - Neurologic Neurologic: Present: CNII-XII intact - Musculoskeletal Musculoskeletal: Present: generalized weakness - Psychiatric Psychiatric: Present: A&O x's 3 - Labs CBC & Chem 7: 02/17/21 09:54 02/20/21 05:25 Assessment and Plan Plan: 1. Sepsis related to UTI, bronchitis probable pneumonia. Continue with oral hydration, Rocephin 2 g daily completed. 2. Acute psychosis related to most likely change in psychiatric medications, now patient having suicidal thoughts. Doubt that behavior is related to urinary tract infection. Recent change to psychiatric medications by her psychiatrist, Dr. Deleon. Patient was changed from Prozac to Lexapro and fluoxetine to trazodone. As noted above. Consultation with psychiatry appreciated. Continue Prolixin 2 mg twice a day for aggression/psychosis, Lexapro 10 mg at bedtime, melatonin 5 mg at bedtime, Zyprexa 2.5 mg IM 3 times daily as needed. She requires inpatient psychiatric services 3. Hyperlipidemia atorvastatin 20 mg by mouth at bedtime 4. Hypertension, stable. Add Vasotec 1.25 mg IV push every 6 hours as needed for systolic blood pressure greater than 160. 5. Recurrent depression and generalized anxiety disorder. Continue as in #2 6. DVT prophylaxis, heparin subcu 5000 units every 12 hours 7. GI prophylaxis, Protonix 40 mg IV 8. History of brain tumor. Neurology consult appreciated 9. Hypokalemia. Stable. 10. Urinary retention requiring Fontanez catheter. Resume fontanez. 11. Musculoskeletal pain, suspect fibromyalgia, has insomnia, start melatonin 6 mg no better, cont cyclobenzaprine 10 mg at this time, and ibuprofen 400 mg every 6 hours when necessary started gabapentin 300 mg at bedtime 02/23/2021 12. Anemia noted, check for iron, B12 is not optimized, start B12 CODE STATUS: NO code Discharge Plan Inpatient psychiatric services.
[2021-02-23] MEDS: SODIUM CHLORIDE 0.9% 1,000 ML IV SCH ×2 (15:43→20:20)
[2021-02-23] MEDS: CYANOCOBALAMIN 500 MCG TAB PO SCH (16:53)
[2021-02-23] MEDS: MELATONIN 5 MG TABLET PO SCH (20:18)
[2021-02-23] MEDS: GABAPENTIN 300 MG CAP PO SCH (20:18)
[2021-02-23] MEDS: ATORVASTATIN 20 MG TAB PO SCH (20:18)
[2021-02-23] MEDS: CYCLOBENZAPRINE 10 MG TAB PO SCH (20:18)
[2021-02-24] MEDS: METHYLPHENIDATE HCL 10 MG TAB PO SCH ×2 (08:09→12:28)
[2021-02-24] MEDS: PANTOPRAZOLE 40 MG TABLET PO SCH (08:09)
[2021-02-24] MEDS: CYANOCOBALAMIN 500 MCG TAB PO SCH (08:09)
[2021-02-24] MEDS: hydroCHLOROthiazide 25 MG TAB PO SCH (08:09)
[2021-02-24] MEDS: ESCITALOPRAM 20 MG TAB PO SCH (08:09)
[2021-02-24] MEDS: ARIPiprazole 5 MG TAB PO SCH (08:09)
[2021-02-24] MEDS: FOLIC ACID 1 MG TAB PO SCH (08:09)
[2021-02-24] MEDS: HEPARIN SODIUM,PORCINE/PF 5,000 UNIT/0.5 ML SYRINGE SQ SCH ×3 (08:10→22:08)
[2021-02-24] MEDS: NITROFURANTOIN MONOHYD/M-CRYST 100 MG CAP PO SCH ×2 (08:10→19:40)
[2021-02-24 09:26] LABS: Basophils # (A) 0.07 X 10*3/uL (0.00-0.10); Basophils % (A) 0.6 %; Eosinophils # (A) 0.23 X 10*3/uL (0.04-0.35); HCT 37.2 % (37.2-46.3); HGB 12.1 g/dL (12.0-15.0); Lymphocytes # (A) 2.49 X 10*3/uL (0.90-5.00); Lymphocytes % (A) 21.2 %; MCH 29.2 pg (27.0-32.0); MCHC 32.5 g/dL (32.0-37.0); MCV 89.9 fL (80.0-97.0); Mean Platelet Volume 10.8 fL (9.5-12.2); Monocytes # (A) 0.81 X 10*3/uL (0.20-1.00); Monocytes % (A) 6.9 %; Neutrophils # (A) 7.97 X 10*3/uL (1.80-7.70); Neutrophils % (A) 67.8 %; Platelet Count 308 X 10*3/uL (140-440); RBC 4.14 X 10*6/uL (4.10-5.20); RDW 13.1 % (11.5-14.5); WBC 11.75 X 10*3/uL (4.50-10.00)
[2021-02-24 09:42] LABS: % Iron Saturation 14.98 (12.00-45.00); African American GFR (CKD) 65.6 (60.0-200.0); Anion Gap 13.1 mmol/L (4.00-12.00); Carbon Dioxide 28.9 mmol/L (21.6-31.8); Non-African American GFR(CKD) 56.6 (60.0-200.0); Potassium 4.1 mmol/L (3.5-5.5)
--- NOTE | 2021-02-24 13:42 | P.PN ---
Progress Note - Text Progress Note Date: 02/24/21 Interval History: Patient was seen today for psychiatric follow-up regarding patient's condition. Patient's nurse claims that patient has had a flat affect and continues to require assistance with going to the bathroom and also a lot of encouragement to take her medications. She continues to await a medical psychiatric bed. Patient today had a flat affect and spoke in a soft tone of voice. She continues to claim that she is feeling "terrible" and spoke about her pain in her feet and also depression. She continues to endorse mild passive suicidal thoughts however no intent today. She claims that she has not in sleeping "at all". She appears to have fairly poor insight into her condition and poor judgment. She did know today's date however does not know her location and believes that she is in "minicky". She spoke about her physical illness and also pain in her feet. She states that her appetite has improved. She was not noted to have any behavioral disturbances last night. At this time patient denies any homical ideations, intent or plan. Patient denies any auditory, visu al hallucinations and denies any paranoia or delusions. Patient denies any side effects from the medications and has been compliant with meds. Mental Status Exam: General Appearance: Patient appears to be stated age is lethargic, directable. concrete and constricted. Patient appears to have improving hygiene and grooming. Wearing hospital gown. Behavior: Patient is seated without any agitated behavior. Constricted. Speech: Patient's speech is fluent and nonpressured. Monotone. Mood/Affect: Patient reports their mood is "depressed and terrible", affect is congruent and constricted Suicidality/Homicidality: Patient denies having any homicidal ideation intent. She claims that she does have suicidal thoughts however no plan. Perceptions: Patient denies any visual hallucinations or auditory hallucinations Though content/process: Not endorsing any paranoia today. Logical. [place]. Memory and concentration: AOX3, grossly intact for the purposes of this session Judgment and insight: Poor IMPRESSIONS: Schizoaffective disorder, depressive type likely dementia PLAN: -At this time patient DOES meet criteria for inpatient geriatric/med-psych admission. -cont 1:1 sitter. Suicide precautions initiated. -Delirium precautions recommended with patient including - avoiding use of narcotics and PRINTED [employer] BOAR[employer]DER LEVELER sedatives, limit anticholinergic medications when possible, frequent re-orientation, minimize use of restraints, open window shades during the day and close them at night -Would recommend the following medication changes/additions: increase Abilify 5 mg daily for mood adjunct/psychosis, melatonin 10 mg qhs, discontinued Lexapro and will start Cymbalta today 30 mg daily for mood/anxiety/pain. zyprexa prn for agitation. Discontinued Ritalin. -Communicated plan to patient's nurse -Psychiatry will continue to follow along -Sw attempting to find a med psych bed for patient -Please contact with any questions.
[2021-02-24] MEDS ORDERED: ARIPiprazole 5 MG TAB PO ONE (13:45)
[2021-02-24] MEDS: DULoxetine HCL 30 MG CAPSULE.DR PO SCH (14:13)
[2021-02-24] MEDS: SODIUM CHLORIDE 0.9% 1,000 ML IV SCH (14:15)
--- NOTE | 2021-02-24 17:40 | P.PN ---
Subjective Progress Note Date: 02/24/21 History of present illness This is a 70-year-old female patient of the [facility] with past medical history of hyperlipidemia, hypertension, anxiety, depression, previously seen due to acute psychosis related to UTI in September 2019. Patient was brought in by her daughter related to acute mental status change that occurred earlier this morning. Patient was found to be walking outside in her pajains and not knowing where she was. When attempted to return to the home patient states that the home was going to blow up. Patient was recently treated for a urinary tract i nfection on Wednesday with Macrobid. Patient has history of acute psychosis related to UTI in the past. Patient does report some abdominal discomfort and painful urination. states that she has not been eating or drinking well. Documented fevers. Patient sees Dr. Murphy psychiatrist in outpatient setting. At this time patient is found resting comfortably in bed and able to answer minimal questions appropriately. Daughter is at the bedside and answered majority of the questions. Patient denies any pain or discomfort at this time. He is not in any acute distress. Patient denies any shortness breath or chest pain. Reports that over the past week patient has been withdrawn related to the of the peds. She was most recently seen by psychiatry where they changed her medications due to weight gain. 02/16: Continues to have increased confusion and combativeness. she is yelling a nd threatening staff. Patient is refusing oral medications. Patient is showing signs of paranoia. Unable to answer questions appropriately. Continues to have pain and tenderness to the abdomen. A bladder scan will be ordered. Patient has not been seen by psych at this time. Patient remains afebrile. Pulse rate 100, respirations 19, blood pressure 136/95, pulse ox 96% on room air. 02/17: Patient is refusing to eat and refusing to take medications. Patient has been afebrile, heart rate 102, blood pressure 177/70, pulse ox 97% on room air. IV Vasotec added for blood pressure control. Urine culture was finalized with skin or genital naif. Patient was previously on Macrodantin. Azithromycin will be discontinued. Patient will be continued on ceftriaxone only. Blood culture no growth after 24 hours. Repeat blood work reveals Sodium 141, potassium 2.9, chloride 103, CO2 30, BUN 12, Creatinine 0.75. WBC 8.6, hgb 11.5, platelet count 214. Potassium will be replaced by IV 60 mEq as patient will not take oral medications. Psychiatry has added Zyprexa, lorazepam IM or by mouth for agitation. Patient's daughter has stayed over night at the bedside. No improvement of mental status. Patient is argumentative and not cooperating with staff. Daughter gives history the patient had a brain tumor many years ago and was recently to have a follow-up which she did not do. She is in agreement to have neurology consult regarding this. Anticipate need for IP psychiatric service. 02/18: MRI of the brain reveals mild cerebral atrophy. Minimal white matter changes could relate to some microvascular ischemia. No evidence of cortical infarct. Left side sphenoid sinusitis. Patient has been seen by neurology. Patient has been seen by psychiatry and she does not meet criteria for inpatient psychiatric admission but will continue to follow. The following medication changes were made: Started Prolixin 2.5 mg twice a day for aggression/psychosis, Remeron 30 mg daily at bedtime for mood/anxiety/insomnia, continue with Lexapro 10 mg daily for mood. zyprexa prn for agitation. d/c ativan. Patient cannot leave AMA. According to the patient's nurse, patient was able to take her morning medications with quite a bit of coaxing. She refused subcu heparin. She is receiving IV medications as well. She is refusing all food and oral intake. Patient has been afebrile, heart rate 85, blood pressure 171/92 before medications and 158/87 following morning medications. Pulse ox 97% on room air. Repeat potassium 3.5. Blood culture no growth at 72 hours 2 specimens. 02/19: EEG was abnormal due to background slowing and disorganization with presence of mixed slow and fast frequency activity, suggestive mild generalized cerebral dysfunction seen in encephalopathy of vascular, metabolic or degenerative causes her medication effect. No epileptiform activity was seen. Neurology is recommended that lumbar spine x-ray orthopedic evaluation of back pain continues. Dr. Portillo is ordered a B12 injection and started folate acid 1 mg daily. Patient's behavior is more appropriate today. She did a pudding with her medications this morning. Blood pressure is on the high side and hydrochlorothiazide will be resumed. Patient was up and pivoted to the commode chair this morning with physical therapy. She still has Fontanez catheter in place which we will discontinue tomorrow. Patient has been afebrile, heart rate 89, blood pressure 171/84, pulse ox 93% on room air. CK level from yesterday is 504. 02/20: Patient is more interactive now from yesterday but is refusing to take her medications this morning. She is continued on IV fluids at 75 mL/h and IV antibiotics. Fontanez catheter will be discontinued today. Await further recommendations from psychiatry. Social work is following for discharge planning most likely to subacute rehab tomorrow. 02/21: Yesterday, with patient was being assessed for subacute rehab, patient started saying that she was suicidal and psychiatric services came back to see the patient and deemed that she is now requiring inpatient geriatric psych services. Social work is working closely for discharge planning with her daughter will complete the addition. Dr. Bowman completed physician certification. Patient has voided yesterday after Fontanez was removed but this morning she is retaining again a Fontanez will be replaced. Patient has been afebrile, heart rate 85, blood pressure 162/92, pulse ox 92% on room air. Chemistry panel from yesterday revealed normal electrolytes, BUN 10 and creatinine 0.8. Blood sugar 133. CK 376. Patient will be discharge to inpatient psych service once arrangements are completed. 02/22, slow waiting for inpatient psych services, for final discharge disposition, sitter at 60 sitter at bedside, patient complaining off muscle aches all over, no fever no chills, patient has not slept either, we have started her on cyclobenzaprine 10 mg at bedtime, and ibuprofen 600 mg now with 400 mg every 6 hours when necessary she maintains on methylphenidate 10 mg twice a day for psy chomotor sluggishness, and Abilify 2.5 mg daily, Lexapro 20 mg as per psych recommendation. 02/23, patient is still no medical floor, awaiting still final disposition, patient still has a 60 sitter at bedside, she is still not sleeping, has muscle aches all over, CPK slightly to be elevated, she has buttock pain no back pain, she does not get out of bed either, has psychomotor retardation, from severe depression, nothing makes her happy, she also complains of burning pain towards her feet, we will start 300 mg of gabapentin at at bedtime, and melatonin 10 mg at bedtime in conjunction with cyclobenzaprine 02/24: Patient still has a withdrawn like personality, still sad, still not sleeping, gabapentin was started for neuropathic pain in the feet, serum copper to be added for eval, as well as heavy metals, if able, to be done. Patient is still waiting for psychiatric bed, 60 sitter one-on-one is still maintained, psychiatry has increased Abilify to 5 mg, Cymbalta started at 30 mg, Lexapro was discontinued. Review Of Systems: Constitutional: No fever, no chills, no night sweats. No weight change. Noted weakness, Noted fatigue Noted lethargy. Noted daytime sleepiness. EENT: No headache. No blurred vision or double vision, no loss of vision. No loss of Hearing, no ringing in the ears, no dizziness. No nasal drainage or congestion. No epistaxis. No sore throat. Lungs: No shortness of breath, cough, no sputum production. No wheezing. Cardiovascular: No chest pain, no lower extremity edema. No palpitations. No paroxysmal nocturnal dyspnea. No orthopnea. No lightheadedness or dizziness. No syncopal episodes. Abdominal: No abdominal pain. No nausea, vomiting. No diarrhea. No constipation. No bloody or tarry stools.. No loss of appetite. Genitourinary: No dysuria, increased frequency, urgency. Noted urinary retention. Musculoskeletal: No myalgias. Noted muscle weakness, Noted gait dysfunction, no frequent falls. No back pain. No neck pain. Integumentary: No wounds, no lesions. No rash or pruritus. Neurologic: No aphasia. No facial droop. Noted change in mentation. No head injury. No headache. No paralysis. No paresthesia. Psychiatric: No depression. No anxiety. Noted mood swings. Endocrine: No abnormal blood sugars. Objective - Vital Signs Vital signs: Vital Signs Temp 98.7 F 02/24/21 14:00 Pulse 90 02/24/21 14:00 Resp 16 02/24/21 14:00 BP 136/84 02/24/21 14:00 Pulse Ox 92 L 02/24/21 14:00 Intake & Output 02/23/21 02/24/21 02/24/21 18:59 06:59 18:59 Intake Total 300 Output Total 300 1475 Balance -300 -1175 Intake: Oral 300 Output: Urine 300 1475 Other: Voiding Method Indwelling Catheter Indwelling Catheter Indwelling Catheter # Voids 3 # Bowel Movements 3 - Labs CBC & Chem 7: 02/24/21 05:27 02/24/21 05:27 Labs: Abnormal Lab Results - Last 24 Hours (Table) 02/24/21 02/24/21 Range/Units 05:27 05:27 WBC 11.75 H (4.50-10.00) X 10*3/uL Immature Gran # 0.18 H (0.00-0.04) X 10*3/uL Neutrophils # 7.97 H (1.80-7.70) X 10*3/uL Chloride 95 L (96-109) mmol/L Anion Gap 13.10 H (4.00-12.00) mmol/L Est GFR (CKD-EPI)NonAf 56.6 L (60.0-200.0) BUN/Creatinine Ratio 24.00 H (12.00-20.00) Ratio Glucose 134 H (70-110) mg/dL Iron 43 L (50-170) ug/dL Assessment and Plan Plan: 1. Sepsis related to UTI, urine culture, 50-100,000, genital naif, contamination, has bronchitis probable pneumonia. Continue with oral hydration, Rocephin 2 g daily completed. 2. Acute psychosis related to most likely change in psychiatric medications, now patient having suicidal thoughts. Doubt that behavior is related to urinary tract infection. Recent change to psychiatric medications by her psychiatrist, Dr. Deleon. Patient was changed from Prozac to Lexapro and fluoxetine to trazodone. As noted above. Consultation with psychiatry appreciated. Continue Prolixin 2 mg twice a day for aggression/psychosis, Lexapro 10 mg at bedtime was discontinued Cymbalta started 30 mg per psychiatry, melatonin 5 mg at bedtime, Zyprexa 2.5 mg IM 3 times daily as needed. She requires inpatient psychiatric services await bed transfers 3. Hyperlipidemia atorvastatin 20 mg by mouth at bedtime 4. Hypertension, stable. Add Vasotec 1.25 mg IV push every 6 hours as needed for systolic blood pressure greater than 160. 5. Recurrent depression and generalized anxiety disorder. Continue as in #2 6. DVT prophylaxis, heparin subcu 5000 units every 12 hours 7. GI prophylaxis, Protonix 40 mg IV 8. History of brain tumor. Neurology consult appreciated 9. Hypokalemia. Stable. 10. Urinary retention requiring Fontanez catheter. Resume fontanez. 11. Musculoskeletal pain, suspect fibromyalgia lower extremity neuralgia bilateral feet, has insomnia, start melatonin 6 mg no better, cont cyclobe nzaprine 10 mg at this time, and ibuprofen 400 mg every 6 hours when necessary started gabapentin 300 mg at bedtime 02/23/2021 check for serum copper, and is able, heavy metals screen 12. Anemia noted, check for iron, B12 is not optimized, start B12 CODE STATUS: NO code Discharge Plan Inpatient psychiatric services.
[2021-02-24] MEDS: ATORVASTATIN 20 MG TAB PO SCH (19:39)
[2021-02-24] MEDS: MELATONIN 5 MG TABLET PO SCH (19:39)
[2021-02-24] MEDS: CYCLOBENZAPRINE 10 MG TAB PO SCH (19:40)
[2021-02-24] MEDS: GABAPENTIN 300 MG CAP PO SCH (19:40)
[2021-02-25] MEDS: hydroCHLOROthiazide 25 MG TAB PO SCH (08:54)
[2021-02-25] MEDS: DULoxetine HCL 30 MG CAPSULE.DR PO SCH (08:54)
[2021-02-25] MEDS: FOLIC ACID 1 MG TAB PO SCH (08:54)
[2021-02-25] MEDS: PANTOPRAZOLE 40 MG TABLET PO SCH (08:54)
[2021-02-25] MEDS: METHYLPHENIDATE HCL 10 MG TAB PO SCH (08:54)
[2021-02-25] MEDS: CYANOCOBALAMIN 500 MCG TAB PO SCH (08:54)
[2021-02-25] MEDS: ARIPiprazole 5 MG TAB PO SCH (08:55)
[2021-02-25] MEDS: NITROFURANTOIN MONOHYD/M-CRYST 100 MG CAP PO SCH ×2 (08:55→20:20)
[2021-02-25] MEDS: SODIUM CHLORIDE 0.9% 1,000 ML IV SCH ×2 (08:55→20:23)
[2021-02-25] MEDS: HEPARIN SODIUM,PORCINE/PF 5,000 UNIT/0.5 ML SYRINGE SQ SCH ×2 (08:57→20:18)
[2021-02-25] MEDS: FERROUS SULFATE 325 MG TAB PO SCH (12:05)
--- NOTE | 2021-02-25 13:25 | P.PN ---
Progress Note - Text Progress Note Date: 02/25/21 Interval History: Patient was seen today for psychiatric follow-up regarding patient's condition. Patient's nurse claims that patient has been mildly more cooperative today and has been taking her medications. She also claimed that patient has been more talkative and improvement in her affect. Patient continues to be on a one-to-one sitter and was agreeable to speak to jingle writer today. She appeared to have a fairly constricted affect once again and states that she is still feeling depressed. She claims that she wishes to however did not specify a specific plan. She continues to await a medical psychiatric bed. She complained about various noises in the hospital at nighttime that are not allowing her to sleep. She appears to have fairly poor insight into her condition and poor judgment. She did know today's date and location however had to concentrate hard. She spoke about her physical illness and also pain in her feet once again today. She states that her appetite has improved. She was not noted to have any behavioral disturbances last night. At this time patient denies any homical ideations, intent or plan. Patient denies any auditory, visual hallucinations and denies any paranoia or delusions. Patient denies any side effects from the medications and has been compliant with meds. Mental Status Exam: General Appearance: Patient appears to be stated age is less lethargic, directable. concrete and constricted. Patient appears to have improving hygiene and grooming. Wearing hospital gown. Behavior: Patient is seated without any agitated behavior. Constricted. Speech: Patient's speech is fluent and nonpressured. Monotone. Mood/Affect: Patient reports their mood is "depressed", affect is congruent and constricted Suicidality/Homicidality: Patient denies having any homicidal ideation intent. She claims that she does have suicidal thoughts however no plan. Perceptions: Patient denies any visual hallucinations or auditory hallucinations Though content/process: Not endorsing any paranoia today. Logical. [place]. Memory and concentration: AOX3, grossly intact for the purposes of this session Judgment and insight: Poor IMPRESSIONS: Schizoaffective disorder, depressive type likely dementia PLAN: -At this time patient DOES meet criteria for inpatient geriatric/med-psych admission. -continue 1:1 sitter. Suicide precautions. -Delirium precautions recommended with patient including - avoiding use of narcotics and QUALITY AUDITOR sedatives, limit anticholinergic medications when possible, frequent re-orientation, minimize use of restraints, open window shades during the day and close them at night -Would recommend the following medication changes/additions: Abilify 5 mg daily for mood adjunct/psychosis, melatonin 10 mg qhs, increase Cymbalta 60 mg daily for mood/anxiety/pain. zyprexa prn for agitation. Discontinued Ritalin. -Communicated plan to patient's nurse -Psychiatry will continue to follow along -Sw attempting to find a [facility] psych bed for patient -Please contact with any questions.
--- NOTE | 2021-02-25 13:32 | P.PN ---
Subjective Progress Note Date: 02/25/21 History of present illness This is a 70-year-old female patient of the [facility] with past medical history of hyperlipidemia, hypertension, anxiety, depression, previously seen due to acute psychosis related to UTI in September 2019. Patient was brought in by her daughter related to acute mental status change that occurred earlier this morning. Patient was found to be walking outside in her pajamas and not knowing where she was. When attempted to return to the home patient states that the home was going to blow up. Patient was recently treated for a urinary tract in [facility] on Wednesday with Macrobid. Patient has history of acute psychosis related to UTI in the past. Patient does report some abdominal discomfort and painful urination. states that she has not been eating or drinking well. Documented fevers. Patient sees Dr. Murphy psychiatrist in outpatient setting. At this time patient is found resting comfortably in bed and able to answer minimal questions appropriately. Daughter is at the bedside and answered majority of the questions. Patient denies any pain or discomfort at this time. He is not in any acute distress. Patient denies any shortness breath or chest pain. Reports that over the past week patient has been withdrawn related to the of the peds. She was most recently seen by psychiatry where they changed her medications due to weight gain. 02/16: Continues to have increased confusion and combativeness. she is yelling and threatening staff. Patient is refusing oral medications. Patient is showing signs of paranoia. Unable to answer questions appropriately. Continues to have pain and tenderness to the abdomen. A bladder scan will be ordered. Patient has not been seen by psych at this time. Patient remains afebrile. Pulse rate 100, respirations 19, blood pressure 136/95, pulse ox 96% on room air. 02/17: Patient is refusing to eat and refusing to take medications. Patient has been afebrile, heart rate 102, blood pressure 177/70, pulse ox 97% on room air. IV Vasotec added for blood pressure control. Urine culture was finalized with skin or genital naif. Patient was previously on Macrodantin. Azithromycin will be discontinued. Patient will be continued on ceftriaxone only. Blood culture no growth after 24 hours. Repeat blood work reveals Sodium 141, potassium 2.9, chloride 103, CO2 30, BUN 12, Creatinine 0.75. WBC 8.6, hgb 11.5, platelet count 214. Potassium will be replaced by IV 60 mEq as patient will not take oral medications. Psychiatry has added Zyprexa, lorazepam IM or by mouth for agitation. Patient's daughter has stayed over night at the bedside. No improvement of mental status. Patient is argumentative and not cooperating with staff. Daughter gives history the patient had a brain tumor many years ago and was recently to have a follow-up which she did not do. She is in agreement to have neurology consult regarding this. Anticipate need for IP psychiatric service. 02/18: MRI of the brain reveals mild cerebral atrophy. Minimal white matter c hanges could relate to some microvascular ischemia. No evidence of cortical infarct. Left side sphenoid sinusitis. Patient has been seen by neurology. Patient has been seen by psychiatry and she does not meet criteria for inpatient psychiatric admission but will continue to follow. The following medication changes were made: Started Prolixin 2.5 mg twice a day for aggression/psychosis, Remeron 30 mg daily at bedtime for mood/anxiety/insomnia, continue with Lexapro 10 mg daily for mood. zyprexa prn for agitation. d/c ativan. Patient cannot leave AMA. According to the patient's nurse, patient was able to take her morning medications with quite a bit of coaxing. She refused subcu heparin. She is receiving IV medications as well. She is refusing all food and oral intake. Patient has been afebrile, heart rate 85, blood pressure 171/92 before medications and 158/87 following morning medications. Pulse ox 97% on room air. Repeat potassium 3.5. Blood culture no growth at 72 hours 2 specimens. 02/19: EEG was abnormal due to background slowing and disorganization with presence of mixed slow and fast frequency activity, suggestive mild generalized cerebral dysfunction seen in encephalopathy of vascular, metabolic or degenerative causes her medication effect. No epileptiform activity was seen. Neurology is recommended that lumbar spine x-ray orthopedic evaluation of back pain continues. Dr. Portillo is ordered a B12 injection and started folate acid 1 mg daily. Patient's behavior is more appropriate today. She did a pudding with her medications this morning. Blood pressure is on the high side and hydrochlorothiazide will be resumed. Patient was up and pivoted to the commode chair this morning with physical therapy. She still has Fontanez catheter in place which we will discontinue tomorrow. Patient has been afebrile, heart rate 89, blood pressure 171/84, pulse ox 93% on room air. CK level from yesterday is 504. 02/20: Patient is more interactive now from yesterday but is refusing to take her medications this morning. She is continued on IV fluids at 75 mL/h and IV antibiotics. Fontanez catheter will be discontinued today. Await further recommendations from psychiatry. Social work is following for discharge planning most likely to subacute rehab tomorrow. 02/21: Yesterday, with patient was being assessed for subacute rehab, patient started saying that she was suicidal and psychiatric services came back to see the patient and deemed that she is now requiring inpatient geriatric psych services. Social work is working closely for discharge planning with her daughter will complete the addition. Dr. Bowman completed physician certification. Patient has voided yesterday after Fontanez was removed but this morning she is retaining again a Fontanez will be replaced. Patient has been afebrile, heart rate 85, blood pressure 162/92, pulse ox 92% on room air. Chemistry panel from yesterday revealed normal electrolytes, BUN 10 and creatinine 0.8. Blood sugar 133. CK 376. Patient will be discharge to inpatient psych service once arrangements are completed. 02/22, slow waiting for inpatient psych services, for final discharge disposition, sitter at 60 sitter at bedside, patient complaining off muscle aches all over, no fever no chills, patient has not slept either, we have started her on cyclobenzaprine 10 mg at bedtime, and ibuprofen 600 mg now with 400 mg every 6 hours when necessary she maintains on methylphenidate 10 mg twice a day for psyc homotor sluggishness, and Abilify 2.5 mg daily, Lexapro 20 mg as per psych recommendation. 02/23, patient is still no medical floor, awaiting still final disposition, patient still has a 60 sitter at bedside, she is still not sleeping, has muscle aches all over, CPK slightly to be elevated, she has buttock pain no back pain, she does not get out of bed either, has psychomotor retardation, from severe depression, nothing makes her happy, she also complains of burning pain towards her feet, we will start 300 mg of gabapentin at at bedtime, and melatonin 10 mg at bedtime in conjunction with cyclobenzaprine 02/24: Patient still has a withdrawn like personality, still sad, still not sleeping, gabapentin was started for neuropathic pain in the feet, serum copper to be added for eval, as well as heavy metals, if able, to be done. Patient is still waiting for psychiatric bed, 60 sitter one-on-one is still maintained, psychiatry has increased Abilify to 5 mg, Cymbalta started at 30 mg, Lexapro was discontinued. 02/25: Patient has a sitter at the bedside. Psychiatry continues to recommend inpatient psychiatric services. Patient to continue Abilify 5 mg daily, melatonin 10 mg at bedtime, increase Cymbalta to 60 mg daily, continue Zyprexa for agitation. Patient was started on Ritalin which is being discontinued. Patient has been afebrile, heart rate 47-93, blood pressure 152/84, pulse ox 93% on room air. Social work is working on discharge planning. Review Of Systems: Constitutional: No fever, no chills, no night sweats. No weight change. Noted weakness, Noted fatigue Noted lethargy. Noted daytime sleepiness. EENT: No headache. No blurred vision or double vision, no loss of vision. No loss of Hearing, no ringing in the ears, no dizziness. No nasal drainage or congestion. No epistaxis. No sore throat. Lungs: No shortness of breath, cough, no sputum production. No wheezing. Cardiovascular: No chest pain, no lower extremity edema. No palpitations. No paroxysmal nocturnal dyspnea. No orthopnea. No lightheadedness or dizziness. No syncopal episodes. Abdominal: No abdominal pain. No nausea, vomiting. No diarrhea. No constipation. No bloody or tarry stools.. No loss of appetite. Genitourinary: No dysuria, increased frequency, urgency. Noted urinary retention. Musculoskeletal: No myalgias. Noted muscle weakness, Noted gait dysfunction, no frequent falls. No back pain. No neck pain. Integumentary: No wounds, no lesions. No rash or pruritus. Neurologic: No aphasia. No facial droop. Noted change in mentation. No head injury. No headache. No paralysis. No paresthesia. Psychiatric: Reports depression. Reports anxiety. Noted mood swings. Endocrine: No abnormal blood sugars. Physical examination General Appearance: This is a 70-year-old patient no acute distress. Sitter is at the bedside. Neck HEENT: Supple, no lymphadenopathy, no thyroid enlargement, no carotid bruits. Lungs: Clear to auscultation without crackles or wheezes no rhonchi, no deformity. Chest Wall: Chest wall normal expansion with deep inspiration no tenderness and no deformity was found on exam, no costochondral pain or discomfort. Heart: Regular rate and rhythm, S1, S2 normal, no murmur, rub or gallop. Back: Symmetric, no curvature, ROM normal, no CVA tenderness. Abdomen: Soft, non-tender, no rebound or rigidity, no hepatosplenomegaly. Fontanez catheter in place draining pale alexander urine. Extremities: Extremities normal, atraumatic, no cyanosis or edema. Pulses: 2+ and symmetric. Skin: Skin color, texture, tugor normal, no rashes or lesions. Neurologic: Alert oriented 3 cranial nerves II through XII intact, no motor deficit Assessment and plan 1. Sepsis related to UTI, bronchitis probable pneumonia. Continue with hydration, Rocephin 2 g daily completed. 2. Acute psychosis related to most likely change in psychiatric medications, now patient having suicidal thoughts. Doubt that behavior is related to urinary tract infection. Recent change to psychiatric medications by her psychiatrist, Dr. Deleon. Patient was changed from Prozac to Lexapro and fluoxetine to trazodone. As noted above. Consultation with psychiatry appreciated. Abilify 5 mg daily, melatonin 10 mg at bedtime, increase Cymbalta to 60 mg daily, continue Zyprexa for agitation. Patient was started on Ritalin which is being discontinued. She requires inpatient psychiatric services awaiting arrangements were completed 3. Hyperlipidemia atorvastatin 20 mg by mouth at bedtime 4. Hypertension, stable. Add Vasotec 1.25 mg IV push every 6 hours as needed for systolic blood pressure greater than 160. 5. Recurrent depression and generalized anxiety disorder. Continue as in #2 6. DVT prophylaxis, heparin subcu 5000 units every 12 hours 7. GI prophylaxis, Protonix 40 mg IV 8. History of brain tumor. Neurology consult appreciated 9. Hypokalemia. Stable. 10. Urinary retention requiring Fontanez catheter. Resume fontanez. 11. Musculoskeletal pain, suspect fibromyalgia lower extremity neuralgia bilateral feet, has insomnia, start melatonin 6 mg no better, cont cyclobenzaprine 10 mg at this time, and ibuprofen 400 mg every 6 hours when necessary started gabapentin 300 mg at bedtime 02/23/2021 check for serum copper, and is able, heavy metals screen 12. Anemia noted, check for iron, B12 is not optimized, start B12 CODE STATUS: NO code Discharge Plan Inpatient psychiatric services. Impression and plan of care have been directed as dictated by the signing physician. Marlen Flores nurse practitioner acting as scribe for signing physician. Objective - Vital Signs Vital signs: Vital Signs Temp 98.1 F 02/25/21 07:21 Pulse 93 02/25/21 07:21 Resp 18 02/25/21 07:21 BP 133/83 02/25/21 07:21 Pulse Ox 93 L 02/25/21 07:21 Intake & Output 02/24/21 02/25/21 02/25/21 18:59 06:59 18:59 Output Total 750 450 Balance -750 -450 Output: Urine 750 450 Other: Voiding Method Indwelling Catheter Indwelling Catheter # Bowel Movements 2 - Labs CBC & Chem 7: 02/24/21 05:27 02/24/21 05:27 Labs: Abnormal Lab Results - Last 24 Hours (Table) 02/24/21 Range/Units 05:27 Chloride 95 L (96-109) mmol/L Anion Gap 13.10 H (4.00-12.00) mmol/L Est GFR (CKD-EPI)NonAf 56.6 L (60.0-200.0) BUN/Creatinine Ratio 24.00 H (12.00-20.00) Ratio Glucose 134 H (70-110) mg/dL Iron 43 L (50-170) ug/dL
[2021-02-25] MEDS: MELATONIN 5 MG TABLET PO SCH (20:20)
[2021-02-25] MEDS: ATORVASTATIN 20 MG TAB PO SCH (20:20)
[2021-02-25] MEDS: CYCLOBENZAPRINE 10 MG TAB PO SCH (20:20)
[2021-02-25] MEDS: GABAPENTIN 300 MG CAP PO SCH (20:20)
[2021-02-26] MEDS: HEPARIN SODIUM,PORCINE/PF 5,000 UNIT/0.5 ML SYRINGE SQ SCH ×2 (08:17→21:17)
[2021-02-26] MEDS: DULoxetine HCL 60 MG CAPSULE.DR PO SCH (08:17)
[2021-02-26] MEDS: FOLIC ACID 1 MG TAB PO SCH (08:18)
[2021-02-26] MEDS: SODIUM CHLORIDE 0.9% 1,000 ML IV SCH ×2 (08:18→21:17)
[2021-02-26] MEDS: hydroCHLOROthiazide 25 MG TAB PO SCH (08:18)
[2021-02-26] MEDS: PANTOPRAZOLE 40 MG TABLET PO SCH (08:18)
[2021-02-26] MEDS: FERROUS SULFATE 325 MG TAB PO SCH (08:18)
[2021-02-26] MEDS: CYANOCOBALAMIN 500 MCG TAB PO SCH (08:18)
[2021-02-26] MEDS: ARIPiprazole 5 MG TAB PO SCH (08:19)
[2021-02-26] MEDS: NITROFURANTOIN MONOHYD/M-CRYST 100 MG CAP PO SCH ×2 (08:19→21:17)
[2021-02-26] MEDS: BETHANECHOL 25 MG TAB PO SCH ×3 (12:10→21:17)
[2021-02-26] MEDS: COLCHICINE 0.6 MG EACH PO SCH ×2 (12:10→21:17)
--- NOTE | 2021-02-26 16:18 | P.PN ---
Subjective Progress Note Date: 02/26/21 History of present illness This is a 70-year-old female patient of the [facility] with past medical history of hyperlipidemia, hypertension, anxiety, depression, previously seen due to acute psychosis related to UTI in September 2019. Patient was brought in by her daughter related to acute mental status change that occurred earlier this morning. Patient was found to be walking outside in her pajamas and not knowing where she was. When attempted to return to the home patient states that the home was going to blow up. Patient was recently treated for a urinary tract in [facility] on Wednesday with Macrobid. Patient has history of acute psychosis related to UTI in the past. Patient does report some abdominal discomfort and painful urination. states that she has not been eating or drinking well. Documented fevers. Patient sees Dr. Murphy psychiatrist in outpatient setting. At this time patient is found resting comfortably in bed and able to answer minimal questions appropriately. Daughter is at the bedside and answered majority of the questions. Patient denies any pain or discomfort at this time. He is not in any acute distress. Patient denies any shortness breath or chest pain. Reports that over the past week patient has been withdrawn related to the of the peds. She was most recently seen by psychiatry where they changed her medications due to weight gain. 02/16: Continues to have increased confusion and combativeness. she is yelling and threatening staff. Patient is refusing oral medications. Patient is showing signs of paranoia. Unable to answer questions appropriately. Continues to have pain and tenderness to the abdomen. A bladder scan will be ordered. Patient has not been seen by psych at this time. Patient remains afebrile. Pulse rate 100, respirations 19, blood pressure 136/95, pulse ox 96% on room air. 02/17: Patient is refusing to eat and refusing to take medications. Patient has been afebrile, heart rate 102, blood pressure 177/70, pulse ox 97% on room air. IV Vasotec added for blood pressure control. Urine culture was finalized with skin or genital naif. Patient was previously on Macrodantin. Azithromycin will be discontinued. Patient will be continued on ceftriaxone only. Blood culture no growth after 24 hours. Repeat blood work reveals Sodium 141, potassium 2.9, chloride 103, CO2 30, BUN 12, Creatinine 0.75. WBC 8.6, hgb 11.5, platelet count 214. Potassium will be replaced by IV 60 mEq as patient will not take oral medications. Psychiatry has added Zyprexa, lorazepam IM or by mouth for agitation. Patient's daughter has stayed over night at the bedside. No improvement of mental status. Patient is argumentative and not cooperating with staff. Daughter gives history the patient had a brain tumor many years ago and was recently to have a follow-up which she did not do. She is in agreement to have neurology consult regarding this. Anticipate need for IP psychiatric service. 02/18: MRI of the brain reveals mild cerebral atrophy. Minimal white matter c hanges could relate to some microvascular ischemia. No evidence of cortical infarct. Left side sphenoid sinusitis. Patient has been seen by neurology. Patient has been seen by psychiatry and she does not meet criteria for inpatient psychiatric admission but will continue to follow. The following medication changes were made: Started Prolixin 2.5 mg twice a day for aggression/psychosis, Remeron 30 mg daily at bedtime for mood/anxiety/insomnia, continue with Lexapro 10 mg daily for mood. zyprexa prn for agitation. d/c ativan. Patient cannot leave AMA. According to the patient's nurse, patient was able to take her morning medications with quite a bit of coaxing. She refused subcu heparin. She is receiving IV medications as well. She is refusing all food and oral intake. Patient has been afebrile, heart rate 85, blood pressure 171/92 before medications and 158/87 following morning medications. Pulse ox 97% on room air. Repeat potassium 3.5. Blood culture no growth at 72 hours 2 specimens. 02/19: EEG was abnormal due to background slowing and disorganization with presence of mixed slow and fast frequency activity, suggestive mild generalized cerebral dysfunction seen in encephalopathy of vascular, metabolic or degenerative causes her medication effect. No epileptiform activity was seen. Neurology is recommended that lumbar spine x-ray orthopedic evaluation of back pain continues. Dr. Portillo is ordered a B12 injection and started folate acid 1 mg daily. Patient's behavior is more appropriate today. She did a pudding with her medications this morning. Blood pressure is on the high side and hydrochlorothiazide will be resumed. Patient was up and pivoted to the commode chair this morning with physical therapy. She still has Fontanez catheter in place which we will discontinue tomorrow. Patient has been afebrile, heart rate 89, blood pressure 171/84, pulse ox 93% on room air. CK level from yesterday is 504. 02/20: Patient is more interactive now from yesterday but is refusing to take her medications this morning. She is continued on IV fluids at 75 mL/h and IV antibiotics. Fontanez catheter will be discontinued today. Await further recommendations from psychiatry. Social work is following for discharge planning most likely to subacute rehab tomorrow. 02/21: Yesterday, with patient was being assessed for subacute rehab, patient started saying that she was suicidal and psychiatric services came back to see the patient and deemed that she is now requiring inpatient geriatric psych services. Social work is working closely for discharge planning with her daughter will complete the addition. Dr. Bowman completed physician certification. Patient has voided yesterday after Fontanez was removed but this morning she is retaining again a Fontanez will be replaced. Patient has been afebrile, heart rate 85, blood pressure 162/92, pulse ox 92% on room air. Chemistry panel from yesterday revealed normal electrolytes, BUN 10 and creatinine 0.8. Blood sugar 133. CK 376. Patient will be discharge to inpatient psych service once arrangements are completed. 02/22, slow waiting for inpatient psych services, for final discharge disposition, sitter at 60 sitter at bedside, patient complaining off muscle aches all over, no fever no chills, patient has not slept either, we have started her on cyclobenzaprine 10 mg at bedtime, and ibuprofen 600 mg now with 400 mg every 6 hours when necessary she maintains on methylphenidate 10 mg twice a day for psyc homotor sluggishness, and Abilify 2.5 mg daily, Lexapro 20 mg as per psych recommendation. 02/23, patient is still no medical floor, awaiting still final disposition, patient still has a 60 sitter at bedside, she is still not sleeping, has muscle aches all over, CPK slightly to be elevated, she has buttock pain no back pain, she does not get out of bed either, has psychomotor retardation, from severe depression, nothing makes her happy, she also complains of burning pain towards her feet, we will start 300 mg of gabapentin at at bedtime, and melatonin 10 mg at bedtime in conjunction with cyclobenzaprine 02/24: Patient still has a withdrawn like personality, still sad, still not sleeping, gabapentin was started for neuropathic pain in the feet, serum copper to be added for eval, as well as heavy metals, if able, to be done. Patient is still waiting for psychiatric bed, 60 sitter one-on-one is still maintained, psychiatry has increased Abilify to 5 mg, Cymbalta started at 30 mg, Lexapro was discontinued. 02/25: Patient has a sitter at the bedside. Psychiatry continues to recommend inpatient psychiatric services. Patient to continue Abilify 5 mg daily, melatonin 10 mg at bedtime, increase Cymbalta to 60 mg daily, continue Zyprexa for agitation. Patient was started on Ritalin which is being discontinued. Patient has been afebrile, heart rate 47-93, blood pressure 152/84, pulse ox 93% on room air. Social work is working on discharge planning. 02/26: Patient continues to have sitter at the bedside. Social work is following closely for discharge planning and having difficulty finding a facility that will accept the patient. Fontanez catheter will be discontinued and colchicine and uric acid will be checked. Review Of Systems: Constitutional: No fever, no chills, no night sweats. No weight change. Noted weakness, Noted fatigue Noted lethargy. Noted daytime sleepiness. EENT: No headache. No blurred vision or double vision, no loss of vision. No loss of Hearing, no ringing in the ears, no dizziness. No nasal drainage or congestion. No epistaxis. No sore throat. Lungs: No shortness of breath, cough, no sputum production. No wheezing. Cardiovascular: No chest pain, no lower extremity edema. No palpitations. No paroxysmal nocturnal dyspnea. No orthopnea. No lightheadedness or dizziness. No syncopal episodes. Abdominal: No abdominal pain. No nausea, vomiting. No diarrhea. No constipation. No bloody or tarry stools.. No loss of appetite. Genitourinary: No dysuria, increased frequency, urgency. Noted urinary retention. Musculoskeletal: No myalgias. Noted muscle weakness, Noted gait dysfunction, no frequent falls. No back pain. No neck pain. Integumentary: No wounds, no lesions. No rash or pruritus. Neurologic: No aphasia. No facial droop. Noted change in mentation. No head injury. No headache. No paralysis. No paresthesia. Psychiatric: Reports depression. Reports anxiety. Noted mood swings. Endocrine: No abnormal blood sugars. Physical examination General Appearance: This is a 70-year-old patient no acute distress. Sitter is at the bedside. Neck HEENT: Supple, no lymphadenopathy, no thyroid enlargement, no carotid bruits. Lungs: Clear to auscultation without crackles or wheezes no rhonchi, no deformity. Chest Wall: Chest wall normal expansion with deep inspiration no tenderness and no deformity was found on exam, no costochondral pain or discomfort. Heart: Regular rate and rhythm, S1, S2 normal, no murmur, rub or gallop. Back: Symmetric, no curvature, ROM normal, no CVA tenderness. Abdomen: Soft, non-tender, no rebound or rigidity, no hepatosplenomegaly. Fontanez catheter in place draining pale alexander urine. Extremities: Extremities normal, atraumatic, no cyanosis or edema. Pulses: 2+ and symmetric. Skin: Skin color, texture, tugor normal, no rashes or lesions. Neurologic: Alert oriented 3 cranial nerves II through XII intact, no motor d eficit Assessment and plan 1. Sepsis related to UTI, bronchitis probable pneumonia. Continue with hydration, Rocephin 2 g daily completed. 2. Acute psychosis related to most likely change in psychiatric medications, now patient having suicidal thoughts. Doubt that behavior is related to urinary tract infection. Recent change to psychiatric medications by her psychiatrist, Dr. Deleon. Patient was changed from Prozac to Lexapro and fluoxetine to trazodone. As noted above. Consultation with psychiatry appreciated. Abilify 5 mg daily, melatonin 10 mg at bedtime, increase Cymbalta to 60 mg daily, continue Zyprexa for agitation. Patient was started on Ritalin which is being discontinued. She requires inpatient psychiatric services awaiting arrangements were completed 3. Hyperlipidemia atorvastatin 20 mg by mouth at bedtime 4. Hypertension, stable. Add Vasotec 1.25 mg IV push every 6 hours as needed for systolic blood pressure greater than 160. 5. Recurrent depression and generalized anxiety disorder. Continue as in #2 6. DVT prophylaxis, heparin subcu 5000 units every 12 hours 7. GI prophylaxis, Protonix 40 mg IV 8. History of brain tumor. Neurology consult appreciated 9. Hypokalemia. Stable. 10. Urinary retention requiring Fontanez catheter. Resume fontanez. 11. Musculoskeletal pain, suspect fibromyalgia lower extremity neuralgia bilateral feet, has insomnia, start melatonin 6 mg no better, cont cyclobenzaprine 10 mg at this time, and ibuprofen 400 mg every 6 hours when necessary started gabapentin 300 mg at bedtime 02/23/2021 check for serum copper, and is able, heavy metals screen 12. Anemia noted, check for iron, B12 is not optimized, start B12 13. Gout. Check uric acid, start colchicine 0.6 mg twice daily. CODE STATUS: NO code Discharge Plan Inpatient psychiatric services. Impression and plan of care have been directed as dictated by the signing physician. Marlen Flores nurse practitioner acting as scribe for signing physician. Objective - Vital Signs Vital signs: Vital Signs Temp 98.3 F 02/26/21 07:22 Pulse 98 02/26/21 07:22 Resp 17 02/26/21 07:22 BP 132/82 02/26/21 07:22 Pulse Ox 94 L 02/26/21 07:22 Intake & Output 02/25/21 02/26/21 02/26/21 18:59 06:59 18:59 Output Total 800 1250 Balance -800 -1250 Weight 85.275 kg Output: Urine 800 1250 Other: Voiding Method Indwelling Catheter Indwelling Catheter - Labs CBC & Chem 7: 02/24/21 05:27 02/24/21 05:27
[2021-02-26] MEDS: MELATONIN 5 MG TABLET PO SCH (21:16)
[2021-02-26] MEDS: GABAPENTIN 300 MG CAP PO SCH (21:16)
[2021-02-26] MEDS: CYCLOBENZAPRINE 10 MG TAB PO SCH (21:16)
[2021-02-26] MEDS: ATORVASTATIN 20 MG TAB PO SCH (21:16)
[2021-02-27] MEDS: ARIPiprazole 5 MG TAB PO SCH (08:06)
[2021-02-27] MEDS: COLCHICINE 0.6 MG EACH PO SCH ×2 (08:06→21:48)
[2021-02-27] MEDS: FOLIC ACID 1 MG TAB PO SCH (08:06)
[2021-02-27] MEDS: DULoxetine HCL 60 MG CAPSULE.DR PO SCH (08:06)
[2021-02-27] MEDS: HEPARIN SODIUM,PORCINE/PF 5,000 UNIT/0.5 ML SYRINGE SQ SCH ×2 (08:06→21:48)
[2021-02-27] MEDS: CYANOCOBALAMIN 500 MCG TAB PO SCH (08:06)
[2021-02-27] MEDS: NITROFURANTOIN MONOHYD/M-CRYST 100 MG CAP PO SCH ×2 (08:06→21:47)
[2021-02-27] MEDS: BETHANECHOL 25 MG TAB PO SCH ×3 (08:07→21:47)
[2021-02-27] MEDS: hydroCHLOROthiazide 25 MG TAB PO SCH (08:07)
[2021-02-27] MEDS: FERROUS SULFATE 325 MG TAB PO SCH (08:07)
[2021-02-27] MEDS: PANTOPRAZOLE 40 MG TABLET PO SCH (08:07)
[2021-02-27] MEDS: SENNOSIDES-DOCUSATE SODIUM 1 EACH TAB PO SCH (11:32)
--- NOTE | 2021-02-27 14:43 | P.PN ---
Subjective Progress Note Date: 02/27/21 History of present illness This is a 70-year-old female patient of the [facility] with past medical history of hyperlipidemia, hypertension, anxiety, depression, previously seen due to acute psychosis related to UTI in September 2019. Patient was brought in by her daughter related to acute mental status change that occurred earlier this morning. Patient was found to be walking outside in her pajamas and not knowing where she was. When attempted to return to the home patient states that the home was going to blow up. Patient was recently treated for a urinary tract in [facility] on Wednesday with Macrobid. Patient has history of acute psychosis related to UTI in the past. Patient does report some abdominal discomfort and painful urination. states that she has not been eating or drinking well. Documented fevers. Patient sees Dr. Murpyh psychiatrist in outpatient setting. At this time patient is found resting comfortably in bed and able to answer minimal questions appropriately. Daughter is at the bedside and answered majority of the questions. Patient denies any pain or discomfort at this time. He is not in any acute distress. Patient denies any shortness breath or chest pain. Reports that over the past week patient has been withdrawn related to the of the peds. She was most recently seen by psychiatry where they changed her medications due to weight gain. 02/16: Continues to have increased confusion and combativeness. she is yelling and threatening staff. Patient is refusing oral medications. Patient is showing signs of paranoia. Unable to answer questions appropriately. Continues to have pain and tenderness to the abdomen. A bladder scan will be ordered. Patient has not been seen by psych at this time. Patient remains afebrile. Pulse rate 100, respirations 19, blood pressure 136/95, pulse ox 96% on room air. 02/17: Patient is refusing to eat and refusing to take medications. Patient has been afebrile, heart rate 102, blood pressure 177/70, pulse ox 97% on room air. IV Vasotec added for blood pressure control. Urine culture was finalized with skin or genital naif. Patient was previously on Macrodantin. Azithromycin will be discontinued. Patient will be continued on ceftriaxone only. Blood culture no growth after 24 hours. Repeat blood work reveals Sodium 141, potassium 2.9, chloride 103, CO2 30, BUN 12, Creatinine 0.75. WBC 8.6, hgb 11.5, platelet count 214. Potassium will be replaced by IV 60 mEq as patient will not take oral medications. Psychiatry has added Zyprexa, lorazepam IM or by mouth for agitation. Patient's daughter has stayed over night at the bedside. No improvement of mental status. Patient is argumentative and not cooperating with staff. Daughter gives history the patient had a brain tumor many years ago and was recently to have a follow-up which she did not do. She is in agreement to have neurology consult regarding this. Anticipate need for IP psychiatric service. 02/18: MRI of the brain reveals mild cerebral atrophy. Minimal white matter c hanges could relate to some microvascular ischemia. No evidence of cortical infarct. Left side sphenoid sinusitis. Patient has been seen by neurology. Patient has been seen by psychiatry and she does not meet criteria for inpatient psychiatric admission but will continue to follow. The following medication changes were made: Started Prolixin 2.5 mg twice a day for aggression/psychosis, Remeron 30 mg daily at bedtime for mood/anxiety/insomnia, continue with Lexapro 10 mg daily for mood. zyprexa prn for agitation. d/c ativan. Patient cannot leave AMA. According to the patient's nurse, patient was able to take her morning medications with quite a bit of coaxing. She refused subcu heparin. She is receiving IV medications as well. She is refusing all food and oral intake. Patient has been afebrile, heart rate 85, blood pressure 171/92 before medications and 158/87 following morning medications. Pulse ox 97% on room air. Repeat potassium 3.5. Blood culture no growth at 72 hours 2 specimens. 02/19: EEG was abnormal due to background slowing and disorganization with presence of mixed slow and fast frequency activity, suggestive mild generalized cerebral dysfunction seen in encephalopathy of vascular, metabolic or degenerative causes her medication effect. No epileptiform activity was seen. Neurology is recommended that lumbar spine x-ray orthopedic evaluation of back pain continues. Dr. Portillo is ordered a B12 injection and started folate acid 1 mg daily. Patient's behavior is more appropriate today. She did a pudding with her medications this morning. Blood pressure is on the high side and hydrochlorothiazide will be resumed. Patient was up and pivoted to the commode chair this morning with physical therapy. She still has Fontanez catheter in place which we will discontinue tomorrow. Patient has been afebrile, heart rate 89, blood pressure 171/84, pulse ox 93% on room air. CK level from yesterday is 504. 02/20: Patient is more interactive now from yesterday but is refusing to take her medications this morning. She is continued on IV fluids at 75 mL/h and IV antibiotics. Fontanez catheter will be discontinued today. Await further recommendations from psychiatry. Social work is following for discharge planning most likely to subacute rehab tomorrow. 02/21: Yesterday, with patient was being assessed for subacute rehab, patient started saying that she was suicidal and psychiatric services came back to see the patient and deemed that she is now requiring inpatient geriatric psych services. Social work is working closely for discharge planning with her daughter will complete the addition. Dr. Bowman completed physician certification. Patient has voided yesterday after Fontanez was removed but this morning she is retaining again a Fontanez will be replaced. Patient has been afebrile, heart rate 85, blood pressure 162/92, pulse ox 92% on room air. Chemistry panel from yesterday revealed normal electrolytes, BUN 10 and creatinine 0.8. Blood sugar 133. CK 376. Patient will be discharge to inpatient psych service once arrangements are completed. 02/22, slow waiting for inpatient psych services, for final discharge disposition, sitter at 60 sitter at bedside, patient complaining off muscle aches all over, no fever no chills, patient has not slept either, we have started her on cyclobenzaprine 10 mg at bedtime, and ibuprofen 600 mg now with 400 mg every 6 hours when necessary she maintains on methylphenidate 10 mg twice a day for psyc homotor sluggishness, and Abilify 2.5 mg daily, Lexapro 20 mg as per psych recommendation. 02/23, patient is still no medical floor, awaiting still final disposition, patient still has a 60 sitter at bedside, she is still not sleeping, has muscle aches all over, CPK slightly to be elevated, she has buttock pain no back pain, she does not get out of bed either, has psychomotor retardation, from severe depression, nothing makes her happy, she also complains of burning pain towards her feet, we will start 300 mg of gabapentin at at bedtime, and melatonin 10 mg at bedtime in conjunction with cyclobenzaprine 02/24: Patient still has a withdrawn like personality, still sad, still not sleeping, gabapentin was started for neuropathic pain in the feet, serum copper to be added for eval, as well as heavy metals, if able, to be done. Patient is still waiting for psychiatric bed, 60 sitter one-on-one is still maintained, psychiatry has increased Abilify to 5 mg, Cymbalta started at 30 mg, Lexapro was discontinued. 02/25: Patient has a sitter at the bedside. Psychiatry continues to recommend inpatient psychiatric services. Patient to continue Abilify 5 mg daily, melatonin 10 mg at bedtime, increase Cymbalta to 60 mg daily, continue Zyprexa for agitation. Patient was started on Ritalin which is being discontinued. Patient has been afebrile, heart rate 47-93, blood pressure 152/84, pulse ox 93% on room air. Social work is working on discharge planning. 02/26: Patient continues to have sitter at the bedside. Social work is following closely for discharge planning and having difficulty finding a facility that will accept the patient. Fontanez catheter will be discontinued and colchicine and uric acid will be checked. 02/27: Patient currently verbalizes no suicidal are homicidal ideation. Social work is working with [facility] for also placement. No local areas are available for her. She's been afebrile, heart rate 92, blood pressure 132/85, pulse ox 93%. Left ankle has no pain or tenderness. Uric acid came back normal but we will continue colchicine. Review Of Systems: Constitutional: No fever, no chills, no night sweats. No weight change. Noted weakness, Noted fatigue Noted lethargy. Noted daytime sleepiness. EENT: No headache. No blurred vision or double vision, no loss of vision. No loss of Hearing, no ringing in the ears, no dizziness. No nasal drainage or congestion. No epistaxis. No sore throat. Lungs: No shortness of breath, cough, no sputum production. No wheezing. Cardiovascular: No chest pain, no lower extremity edema. No palpitations. No paroxysmal nocturnal dyspnea. No orthopnea. No lightheadedness or dizziness. No syncopal episodes. Abdominal: No abdominal pain. No nausea, vomiting. No diarrhea. No constipation. No bloody or tarry stools.. No loss of appetite. Genitourinary: No dysuria, increased frequency, urgency. Noted urinary retentio n. Musculoskeletal: No myalgias. Noted muscle weakness, Noted gait dysfunction, no frequent falls. No back pain. No neck pain. Integumentary: No wounds, no lesions. No rash or pruritus. Neurologic: No aphasia. No facial droop. Noted change in mentation. No head injury. No headache. No paralysis. No paresthesia. Psychiatric: Reports depression. Reports anxiety. Noted mood swings. Endocrine: No abnormal blood sugars. Physical examination General Appearance: This is a 70-year-old patient no acute distress. Sitter is at the bedside. Neck HEENT: Supple, no lymphadenopathy, no thyroid enlargement, no carotid bruits. Lungs: Clear to auscultation without crackles or wheezes no rhonchi, no deformity. Chest Wall: Chest wall normal expansion with deep inspiration no tenderness and no deformity was found on exam, no costochondral pain or discomfort. Heart: Regular rate and rhythm, S1, S2 normal, no murmur, rub or gallop. Back: Symmetric, no curvature, ROM normal, no CVA tenderness. Abdomen: Soft, non-tender, no rebound or rigidity, no hepatosplenomegaly. Fontanez catheter in place draining pale alexander urine. Extremities: Extremities normal, atraumatic, no cyanosis or edema. Pulses: 2+ and symmetric. Skin: Skin color, texture, tugor normal, no rashes or lesions. Neurologic: Alert oriented 3 cranial nerves II through XII intact, no motor deficit Assessment and plan 1. Sepsis related to UTI, acute bronchitis probable pneumonia. Continue with hydration, Rocephin 2 g daily completed. 2. Acute psychosis related to most likely change in psychiatric medications, now patient having suicidal thoughts. Doubt that behavior is related to urinary tract infection. Recent change to psychiatric medications by her psychiatrist, Dr. Deleon. Patient was changed from Prozac to Lexapro and fluoxetine to trazodone. As noted above. Consultation with psychiatry appreciated. Abilify 5 mg daily, melatonin 10 mg at bedtime, increase Cymbalta to 60 mg daily, continue Zyprexa for agitation. Patient was started on Ritalin which is being discontinued. She requires inpatient psychiatric services awaiting arrangements were completed 3. Hyperlipidemia atorvastatin 20 mg by mouth at bedtime 4. Hypertension, stable. Add Vasotec 1.25 mg IV push every 6 hours as needed for systolic blood pressure greater than 160. 5. Recurrent depression and generalized anxiety disorder. Continue as in #2 6. DVT prophylaxis, heparin subcu 5000 units every 12 hours 7. GI prophylaxis, Protonix 40 mg IV 8. History of brain tumor. Neurology consult appreciated 9. Hypokalemia. Stable. 10. Urinary retention requiring Fontanez catheter. Resume fontanez. 11. Musculoskeletal pain, suspect fibromyalgia lower extremity neuralgia bilateral feet, has insomnia, start melatonin 6 mg no better, cont cyclobenzaprine 10 mg at this time, and ibuprofen 400 mg every 6 hours when necessary started gabapentin 300 mg at bedtime 02/23/2021 check for serum copper, and is able, heavy metals screen 12. Anemia noted, check for iron, B12 is not optimized, start B12 13. Gout, left ankle. Continue colchicine 0.6 mg twice daily. CODE STATUS: NO code Discharge Plan Inpatient psychiatric services. Impression and plan of care have been directed as dictated by the signing physician. Marlen Flores nurse practitioner acting as scribe for signing physician. Objective - Vital Signs Vital signs: Vital Signs Temp 98.0 F 02/27/21 08:00 Pulse 92 02/27/21 08:00 Resp 17 02/27/21 08:00 BP 132/85 02/27/21 08:00 Pulse Ox 93 L 02/27/21 08:00 Intake & Output 02/26/21 02/27/21 02/27/21 18:59 06:59 18:59 Output Total 400 Balance -400 Output: Urine 400 Other: Voiding Method Indwelling Catheter Toilet # Voids 2 3 - Labs CBC & Chem 7: 02/24/21 05:27 02/24/21 05:27
[2021-02-27] MEDS: CYCLOBENZAPRINE 10 MG TAB PO SCH (21:47)
[2021-02-27] MEDS: ATORVASTATIN 20 MG TAB PO SCH (21:47)
[2021-02-27] MEDS: MELATONIN 5 MG TABLET PO SCH (21:48)
[2021-02-27] MEDS: GABAPENTIN 300 MG CAP PO SCH (21:48)
[2021-02-28] MEDS: ACETAMINOPHEN TAB 325 MG TAB PO PRN (02:09)
[2021-02-28] MEDS: DULoxetine HCL 60 MG CAPSULE.DR PO SCH (08:07)
[2021-02-28] MEDS: hydroCHLOROthiazide 25 MG TAB PO SCH (08:07)
[2021-02-28] MEDS: PANTOPRAZOLE 40 MG TABLET PO SCH (08:07)
[2021-02-28] MEDS: CYANOCOBALAMIN 500 MCG TAB PO SCH (08:07)
[2021-02-28] MEDS: SENNOSIDES-DOCUSATE SODIUM 1 EACH TAB PO SCH (08:07)
[2021-02-28] MEDS: FOLIC ACID 1 MG TAB PO SCH (08:07)
[2021-02-28] MEDS: HEPARIN SODIUM,PORCINE/PF 5,000 UNIT/0.5 ML SYRINGE SQ SCH ×2 (08:07→21:17)
[2021-02-28] MEDS: BETHANECHOL 25 MG TAB PO SCH ×3 (08:08→21:17)
[2021-02-28] MEDS: COLCHICINE 0.6 MG EACH PO SCH ×2 (08:08→21:17)
[2021-02-28] MEDS: ARIPiprazole 5 MG TAB PO SCH (08:08)
[2021-02-28] MEDS: FERROUS SULFATE 325 MG TAB PO SCH (14:12)
--- NOTE | 2021-02-28 15:17 | P.PN ---
Subjective Progress Note Date: 02/28/21 History of present illness This is a 70-year-old female patient of the [facility] with past medical history of hyperlipidemia, hypertension, anxiety, depression, previously seen due to acute psychosis related to UTI in September 2019. Patient was brought in by her daughter related to acute mental status change that occurred earlier this morning. Patient was found to be walking outside in her pajamas and not knowing where she was. When attempted to return to the home patient states that the home was going to blow up. Patient was recently treated for a urinary tract in [facility] on Wednesday with Macrobid. Patient has history of acute psychosis related to UTI in the past. Patient does report some abdominal discomfort and painful urination. states that she has not been eating or drinking well. Documented fevers. Patient sees Dr. Murphy psychiatrist in outpatient setting. At this time patient is found resting comfortably in bed and able to answer minimal questions appropriately. Daughter is at the bedside and answered majority of the questions. Patient denies any pain or discomfort at this time. He is not in any acute distress. Patient denies any shortness breath or chest pain. Reports that over the past week patient has been withdrawn related to the of the peds. She was most recently seen by psychiatry where they changed her medications due to weight gain. 02/16: Continues to have increased confusion and combativeness. she is yelling and threatening staff. Patient is refusing oral medications. Patient is showing signs of paranoia. Unable to answer questions appropriately. Continues to have pain and tenderness to the abdomen. A bladder scan will be ordered. Patient has not been seen by psych at this time. Patient remains afebrile. Pulse rate 100, respirations 19, blood pressure 136/95, pulse ox 96% on room air. 02/17: Patient is refusing to eat and refusing to take medications. Patient has been afebrile, heart rate 102, blood pressure 177/70, pulse ox 97% on room air. IV Vasotec added for blood pressure control. Urine culture was finalized with skin or genital naif. Patient was previously on Macrodantin. Azithromycin will be discontinued. Patient will be continued on ceftriaxone only. Blood culture no growth after 24 hours. Repeat blood work reveals Sodium 141, potassium 2.9, chloride 103, CO2 30, BUN 12, Creatinine 0.75. WBC 8.6, hgb 11.5, platelet count 214. Potassium will be replaced by IV 60 mEq as patient will not take oral medications. Psychiatry has added Zyprexa, lorazepam IM or by mouth for agitation. Patient's daughter has stayed over night at the bedside. No improvement of mental status. Patient is argumentative and not cooperating with staff. Daughter gives history the patient had a brain tumor many years ago and was recently to have a follow-up which she did not do. She is in agreement to have neurology consult regarding this. Anticipate need for IP psychiatric service. 02/18: MRI of the brain reveals mild cerebral atrophy. Minimal white matter c hanges could relate to some microvascular ischemia. No evidence of cortical infarct. Left side sphenoid sinusitis. Patient has been seen by neurology. Patient has been seen by psychiatry and she does not meet criteria for inpatient psychiatric admission but will continue to follow. The following medication changes were made: Started Prolixin 2.5 mg twice a day for aggression/psychosis, Remeron 30 mg daily at bedtime for mood/anxiety/insomnia, continue with Lexapro 10 mg daily for mood. zyprexa prn for agitation. d/c ativan. Patient cannot leave AMA. According to the patient's nurse, patient was able to take her morning medications with quite a bit of coaxing. She refused subcu heparin. She is receiving IV medications as well. She is refusing all food and oral intake. Patient has been afebrile, heart rate 85, blood pressure 171/92 before medications and 158/87 following morning medications. Pulse ox 97% on room air. Repeat potassium 3.5. Blood culture no growth at 72 hours 2 specimens. 02/19: EEG was abnormal due to background slowing and disorganization with presence of mixed slow and fast frequency activity, suggestive mild generalized cerebral dysfunction seen in encephalopathy of vascular, metabolic or degenerative causes her medication effect. No epileptiform activity was seen. Neurology is recommended that lumbar spine x-ray orthopedic evaluation of back pain continues. Dr. Portillo is ordered a B12 injection and started folate acid 1 mg daily. Patient's behavior is more appropriate today. She did a pudding with her medications this morning. Blood pressure is on the high side and hydrochlorothiazide will be resumed. Patient was up and pivoted to the commode chair this morning with physical therapy. She still has Flowers catheter in place which we will discontinue tomorrow. Patient has been afebrile, heart rate 89, blood pressure 171/84, pulse ox 93% on room air. CK level from yesterday is 504. 02/20: Patient is more interactive now from yesterday but is refusing to take her medications this morning. She is continued on IV fluids at 75 mL/h and IV antibiotics. Flowers catheter will be discontinued today. Await further recommendations from psychiatry. Social work is following for discharge planning most likely to subacute rehab tomorrow. 02/21: Yesterday, with patient was being assessed for subacute rehab, patient started saying that she was suicidal and psychiatric services came back to see the patient and deemed that she is now requiring inpatient geriatric psych services. Social work is working closely for discharge planning with her daughter will complete the addition. Dr. Bowman completed physician certification. Patient has voided yesterday after Flowers was removed but this morning she is retaining again a Flowers will be replaced. Patient has been afebrile, heart rate 85, blood pressure 162/92, pulse ox 92% on room air. Chemistry panel from yesterday revealed normal electrolytes, BUN 10 and creatinine 0.8. Blood sugar 133. CK 376. Patient will be discharge to inpatient psych service once arrangements are completed. 02/22, slow waiting for inpatient psych services, for final discharge disposition, sitter at 60 sitter at bedside, patient complaining off muscle aches all over, no fever no chills, patient has not slept either, we have started her on cyclobenzaprine 10 mg at bedtime, and ibuprofen 600 mg now with 400 mg every 6 hours when necessary she maintains on methylphenidate 10 mg twice a day for psyc homotor sluggishness, and Abilify 2.5 mg daily, Lexapro 20 mg as per psych recommendation. 02/23, patient is still no medical floor, awaiting still final disposition, patient still has a 60 sitter at bedside, she is still not sleeping, has muscle aches all over, CPK slightly to be elevated, she has buttock pain no back pain, she does not get out of bed either, has psychomotor retardation, from severe depression, nothing makes her happy, she also complains of burning pain towards her feet, we will start 300 mg of gabapentin at at bedtime, and melatonin 10 mg at bedtime in conjunction with cyclobenzaprine 02/24: Patient still has a withdrawn like personality, still sad, still not sleeping, gabapentin was started for neuropathic pain in the feet, serum copper to be added for eval, as well as heavy metals, if able, to be done. Patient is still waiting for psychiatric bed, 60 sitter one-on-one is still maintained, psychiatry has increased Abilify to 5 mg, Cymbalta started at 30 mg, Lexapro was discontinued. 02/25: Patient has a sitter at the bedside. Psychiatry continues to recommend inpatient psychiatric services. Patient to continue Abilify 5 mg daily, melatonin 10 mg at bedtime, increase Cymbalta to 60 mg daily, continue Zyprexa for agitation. Patient was started on Ritalin which is being discontinued. Patient has been afebrile, heart rate 47-93, blood pressure 152/84, pulse ox 93% on room air. Social work is working on discharge planning. 02/26: Patient continues to have sitter at the bedside. Social work is following closely for discharge planning and having difficulty finding a facility that will accept the patient. Flowers catheter will be discontinued and colchicine and uric acid will be checked. 02/27: Patient currently verbalizes no suicidal are homicidal ideation. Social work is working with [facility] for also placement. No local areas are available for her. She's been afebrile, heart rate 92, blood pressure 132/85, pulse ox 93%. Left ankle has no pain or tenderness. Uric acid came back normal but we will continue colchicine. 02/28: Psychiatry has been reconsulted to evaluate patient for need for inpatient psychiatry services. If patient does not need inpatient psychiatry services, this may open up option for subacute rehab. Flowers catheter has been out and patient is urinating on her own. Patient is working with physical therapy but the findings are rehab but is cooperative. Patient has been afebrile, heart rate 87, blood pressure 118/75, pulse ox 94% on room air. Patient will be discharged once arrangements are completed. Review Of Systems: Constitutional: No fever, no chills, no night sweats. No weight change. Noted weakness, Noted fatigue Noted lethargy. Noted daytime sleepiness. EENT: No headache. No blurred vision or double vision, no loss of vision. No loss of Hearing, no ringing in the ears, no dizziness. No nasal drainage or con gestion. No epistaxis. No sore throat. Lungs: No shortness of breath, cough, no sputum production. No wheezing. Cardiovascular: No chest pain, no lower extremity edema. No palpitations. No paroxysmal nocturnal dyspnea. No orthopnea. No lightheadedness or dizziness. No syncopal episodes. Abdominal: No abdominal pain. No nausea, vomiting. No diarrhea. No constipation. No bloody or tarry stools.. No loss of appetite. Genitourinary: No dysuria, increased frequency, urgency. Noted urinary retention, resolved. Musculoskeletal: No myalgias. Noted muscle weakness, Noted gait dysfunction, no frequent falls. No back pain. No neck pain. Integumentary: No wounds, no lesions. No rash or pruritus. Neurologic: No aphasia. No facial droop. Noted change in mentation. No head injury. No headache. No paralysis. No paresthesia. Psychiatric: Reports depression. Reports anxiety. Noted mood swings. Endocrine: No abnormal blood sugars. Physical examination General Appearance: This is a 70-year-old patient no acute distress. Sitter is at the bedside. Patient is working with physical therapy. Neck HEENT: Supple, no lymphadenopathy, no thyroid enlargement, no carotid bruits. Lungs: Clear to auscultation without crackles or wheezes no rhonchi, no deformity. Chest Wall: Chest wall normal expansion with deep inspiration no tenderness and no deformity was found on exam, no costochondral pain or discomfort. Heart: Regular rate and rhythm, S1, S2 normal, no murmur, rub or gallop. Back: Symmetric, no curvature, ROM normal, no CVA tenderness. Abdomen: Soft, non-tender, no rebound or rigidity, no hepatosplenomegaly. Extremities: Extremities normal, atraumatic, no cyanosis or edema. Pulses: 2+ and symmetric. Skin: Skin color, texture, tugor normal, no rashes or lesions. Neurologic: Alert oriented 3 cranial nerves II through XII intact, no motor deficit Assessment and plan 1. Sepsis related to UTI, acute bronchitis probable pneumonia. Completed course of antibiotics. 2. Acute psychosis related to most likely change in psychiatric medications, patient denies suicidal thoughts. Continue Abilify 5 mg daily, melatonin 10 mg at bedtime, increase Cymbalta to 60 mg daily, continue Zyprexa for agitation. Patient was started on Ritalin which is being discontinued. She requires inpatient psychiatric services awaiting arrangements were completed 3. Hyperlipidemia atorvastatin 20 mg by mouth at bedtime 4. Hypertension, stable. Add Vasotec 1.25 mg IV push every 6 hours as needed for systolic blood pressure greater than 160. 5. Recurrent depression and generalized anxiety disorder. Continue as in #2 6. DVT prophylaxis, heparin subcu 5000 units every 12 hours 7. GI prophylaxis, Protonix 40 mg IV 8. History of brain tumor. Neurology consult appreciated 9. Hypokalemia. Stable. 10. Urinary retention requiring Flowers catheter. Flowers has been discontinued, continue Urecholine 50 mg 3 times daily. 11. Musculoskeletal pain, suspect fibromyalgia lower extremity neuralgia bilateral feet, has insomnia, start melatonin 6 mg no better, cont cyclobenzaprine 10 mg at this time, and ibuprofen 400 mg every 6 hours when necessary started gabapentin 300 mg at bedtime 02/23/2021 check for serum copper , and is able, heavy metals screen 12. Anemia noted, check for iron, B12 is not optimized, start B12 13. Gout, left ankle. Continue colchicine 0.6 mg twice daily. CODE STATUS: NO code Discharge Plan Inpatient psychiatric services or subacute rehab. Awaiting psychiatric reevaluation. Impression and plan of care have been directed as dictated by the signing physician. Marlen Flores nurse practitioner acting as scribe for signing physician. Objective - Vital Signs Vital signs: Vital Signs Temp 98.4 F 02/28/21 07:43 Pulse 87 02/28/21 07:43 Resp 17 02/28/21 07:43 BP 118/75 02/28/21 07:43 Pulse Ox 94 L 02/28/21 07:43 Intake & Output 02/27/21 02/28/21 02/28/21 18:59 06:59 18:59 Other: Voiding Method Toilet # Voids 3 4 # Bowel Movements 2 4 - Labs CBC & Chem 7: 02/24/21 05:27 02/24/21 05:27
[2021-02-28 17:14] LABS: Arsenic Whole Blood <3 mcg/L (< 23); Mercury Whole Blood <2 mcg/L (< 11)
[2021-02-28] MEDS: MELATONIN 5 MG TABLET PO SCH (21:17)
[2021-02-28] MEDS: CYCLOBENZAPRINE 10 MG TAB PO SCH (21:17)
[2021-02-28] MEDS: ATORVASTATIN 20 MG TAB PO SCH (21:17)
[2021-02-28] MEDS: GABAPENTIN 300 MG CAP PO SCH (21:17)
[2021-02-28] MEDS ORDERED: BENZOCAINE 20% HEMORRHOIDAL OINT 28GM RECTAL PRN (23:00)
[2021-03-01] MEDS: DULoxetine HCL 60 MG CAPSULE.DR PO SCH (08:15)
[2021-03-01] MEDS: hydroCHLOROthiazide 25 MG TAB PO SCH (08:15)
[2021-03-01] MEDS: PANTOPRAZOLE 40 MG TABLET PO SCH (08:15)
[2021-03-01] MEDS: FOLIC ACID 1 MG TAB PO SCH (08:15)
[2021-03-01] MEDS: SENNOSIDES-DOCUSATE SODIUM 1 EACH TAB PO SCH (08:15)
[2021-03-01] MEDS: CYANOCOBALAMIN 500 MCG TAB PO SCH (08:15)
[2021-03-01] MEDS: ARIPiprazole 5 MG TAB PO SCH (08:16)
[2021-03-01] MEDS: BETHANECHOL 25 MG TAB PO SCH ×3 (08:16→23:02)
[2021-03-01] MEDS: COLCHICINE 0.6 MG EACH PO SCH ×2 (08:16→23:02)
[2021-03-01] MEDS: HEPARIN SODIUM,PORCINE/PF 5,000 UNIT/0.5 ML SYRINGE SQ SCH ×2 (08:16→22:40)
--- NOTE | 2021-03-01 08:16 | PN ---
PROGRESS NOTE DATE OF SERVICE: 02/28/2021. PURPOSE FOR CONSULTATION: Evaluate for suicidality. INTERVAL HISTORY: The patient has been doing fair. Note that Dr. Chacon had seen her during this past week. She has been started on Cymbalta and Abilify. She has not had problems with the start of medications. When I saw her today, she said that she was in a better mood. She also noted a better outlook. She said that she feels she is gaining some strength and has been up and out of bed. When I saw her on the , she was saying that she could not stand, especially because of weakness in her left leg that seems to be clearing. The patient has been cooperative with care. When I talked to her today, she was not reporting any thoughts of suicide or self-harm. She says that she has a better outlook. I talked about the possibility that she might require a referral for extended care. The patient said that she would be comfortable with that plan if that was what is recommended. She noted that anxiety was less. She says that she has been talking with her daughter who lives in the community. Her daughter does seem to be a positive support for her. She tolerates her psychotropic medications. She did not say a lot today though she did respond to questions appropriately. Her thoughts were clear and coherent. Overall, she was much more responsive in the interview than my previous contacts. She smiled a little. Her affect was still somewhat constricted though quite a bit better than previously. She appears to be making some progress in her treatment. She is not showing any issues of thought disorder. ASSESSMENT: I will continue the diagnosis and treatment plan as recommended by Dr. Chacon, as she does seem to be showing some response to her psychotropic medications. At this point, there is not an indication for any need to change her medications. Typically she would continue on Cymbalta 60 mg a day for 3-4 weeks for early signs of improvement. If she does not make enough progress after that period of time, then it would be appropriate to consider titrating up further. It is reasonable to continue the Abilify at current dosing. TSH is normal. The patient is not showing any indications of thoughts of harm or having any suicidal ideation. She is not needing a sitter. She would be appropriate for a referral to an ECF. Dr. Chacon will be back in the hospital next week and I would suggest re- contacting Psychiatry if there are further issues that need to be addressed. At this point, the patient appears to be stable and receiving adequate treatment in anticipation of discharge and referral for rehabilitation and intervention. [place] / [place]: [id number] /
[2021-03-01] MEDS: FERROUS SULFATE 325 MG TAB PO SCH (12:35)
--- NOTE | 2021-03-01 12:54 | P.PN ---
Subjective Progress Note Date: 03/01/21 History of present illness This is a 70-year-old female patient of the [facility] with past medical history of hyperlipidemia, hypertension, anxiety, depression, previously seen due to acute psychosis related to UTI in September 2019. Patient was brought in by her daughter related to acute mental status change that occurred earlier this morning. Patient was found to be walking outside in her pajamis and not knowing where she was. When attempted to return to the home patient states that the home was going to blow up. Patient was recently treated for a urinary tract inf ection on Wednesday with Macrobid. Patient has history of acute psychosis related to UTI in the past. Patient does report some abdominal discomfort and painful urination. states that she has not been eating or drinking well. Documented fevers. Patient sees Dr. Murphy psychiatrist in outpatient setting. At this time patient is found resting comfortably in bed and able to answer minimal questions appropriately. Daughter is at the bedside and answered majority of the questions. Patient denies any pain or discomfort at this time. He is not in any acute distress. Patient denies any shortness breath or chest pain. Reports that over the past week patient has been withdrawn related to the of the peds. She was most recently seen by psychiatry where they changed her medications due to weight gain. 02/16: Continues to have increased confusion and combativeness. she is yelling and threatening staff. Patient is refusing oral medications. Patient is showing signs of paranoia. Unable to answer questions appropriately. Continues to have pain and tenderness to the abdomen. A bladder scan will be ordered. Patient has not been seen by psych at this time. Patient remains afebrile. Pulse rate 100, respirations 19, blood pressure 136/95, pulse ox 96% on room air. 02/17: Patient is refusing to eat and refusing to take medications. Patient has been afebrile, heart rate 102, blood pressure 177/70, pulse ox 97% on room air. IV Vasotec added for blood pressure control. Urine culture was finalized with skin or genital naif. Patient was previously on Macrodantin. Azithromycin will be discontinued. Patient will be continued on ceftriaxone only. Blood culture no growth after 24 hours. Repeat blood work reveals Sodium 141, potassium 2.9, chloride 103, CO2 30, BUN 12, Creatinine 0.75. WBC 8.6, hgb 11.5, platelet count 214. Potassium will be replaced by IV 60 mEq as patient will not take oral medications. Psychiatry has added Zyprexa, lorazepam IM or by mouth for agitation. Patient's daughter has stayed over night at the bedside. No improvement of mental status. Patient is argumentative and not cooperating with staff. Daughter gives history the patient had a brain tumor many years ago and was recently to have a follow-up which she did not do. She is in agreement to have neurology consult regarding this. Anticipate need for IP psychiatric service. 02/18: MRI of the brain reveals mild cerebral atrophy. Minimal white matter ch anges could relate to some microvascular ischemia. No evidence of cortical infarct. Left side sphenoid sinusitis. Patient has been seen by neurology. Patient has been seen by psychiatry and she does not meet criteria for inpatient psychiatric admission but will continue to follow. The following medication changes were made: Started Prolixin 2.5 mg twice a day for aggression/psychosis, Remeron 30 mg daily at bedtime for mood/anxiety/insomnia, continue with Lexapro 10 mg daily for mood. zyprexa prn for agitation. d/c ativan. Patient cannot leave AMA. According to the patient's nurse, patient was able to take her morning medications with quite a bit of coaxing. She refused subcu heparin. She is receiving IV medications as well. She is refusing all food and oral intake. Patient has been afebrile, heart rate 85, blood pressure 171/92 before medications and 158/87 following morning medications. Pulse ox 97% on room air. Repeat potassium 3.5. Blood culture no growth at 72 hours 2 specimens. 02/19: EEG was abnormal due to background slowing and disorganization with presence of mixed slow and fast frequency activity, suggestive mild generalized cerebral dysfunction seen in encephalopathy of vascular, metabolic or degenerative causes her medication effect. No epileptiform activity was seen. Neurology is recommended that lumbar spine x-ray orthopedic evaluation of back pain continues. Dr. Portillo is ordered a B12 injection and started folate acid 1 mg daily. Patient's behavior is more appropriate today. She did a pudding with her medications this morning. Blood pressure is on the high side and hydrochlorothiazide will be resumed. Patient was up and pivoted to the commode chair this morning with physical therapy. She still has Flowers catheter in place which we will discontinue tomorrow. Patient has been afebrile, heart rate 89, blood pressure 171/84, pulse ox 93% on room air. CK level from yesterday is 504. 02/20: Patient is more interactive now from yesterday but is refusing to take her medications this morning. She is continued on IV fluids at 75 mL/h and IV antibiotics. Flowers catheter will be discontinued today. Await further recommendations from psychiatry. Social work is following for discharge planning most likely to subacute rehab tomorrow. 02/21: Yesterday, with patient was being assessed for subacute rehab, patient started saying that she was suicidal and psychiatric services came back to see the patient and deemed that she is now requiring inpatient geriatric psych services. Social work is working closely for discharge planning with her daughter will complete the addition. Dr. Bowman completed physician certification. Patient has voided yesterday after Flowers was removed but this morning she is retaining again a Flowers will be replaced. Patient has been afebrile, heart rate 85, blood pressure 162/92, pulse ox 92% on room air. Chemistry panel from yesterday revealed normal electrolytes, BUN 10 and creatinine 0.8. Blood sugar 133. CK 376. Patient will be discharge to inpatient psych service once arrangements are completed. 02/22, slow waiting for inpatient psych services, for final discharge disposition, sitter at 60 sitter at bedside, patient complaining off muscle aches all over, no fever no chills, patient has not slept either, we have started her on cyclobenzaprine 10 mg at bedtime, and ibuprofen 600 mg now with 400 mg every 6 hours when necessary she maintains on methylphenidate 10 mg twice a day for psychomotor sluggishness, and Abilify 2.5 mg daily, Lexapro 20 mg as per psych recommendation. 02/23, patient is still no medical floor, awaiting still final disposition, patient still has a 60 sitter at bedside, she is still not sleeping, has muscle aches all over, CPK slightly to be elevated, she has buttock pain no back pain, she does not get out of bed either, has psychomotor retardation, from severe depression, nothing makes her happy, she also complains of burning pain towards her feet, we will start 300 mg of gabapentin at at bedtime, and melatonin 10 mg at bedtime in conjunction with cyclobenzaprine 02/24: Patient still has a withdrawn like personality, still sad, still not sleeping, gabapentin was started for neuropathic pain in the feet, serum copper to be added for eval, as well as heavy metals, if able, to be done. Patient is still waiting for psychiatric bed, 60 sitter one-on-one is still maintained, psychiatry has increased Abilify to 5 mg, Cymbalta started at 30 mg, Lexapro was discontinued. 02/25: Patient has a sitter at the bedside. Psychiatry continues to recommend inpatient psychiatric services. Patient to continue Abilify 5 mg daily, melatonin 10 mg at bedtime, increase Cymbalta to 60 mg daily, continue Zyprexa for agitation. Patient was started on Ritalin which is being discontinued. Patient has been afebrile, heart rate 47-93, blood pressure 152/84, pulse ox 93% on room air. Social work is working on discharge planning. 02/26: Patient continues to have sitter at the bedside. Social work is following closely for discharge planning and having difficulty finding a facility that will accept the patient. Flowers catheter will be discontinued and colchicine and uric acid will be checked. 02/27: Patient currently verbalizes no suicidal are homicidal ideation. Social work is working with [facility] for also placement. No local areas are available for her. She's been afebrile, heart rate 92, blood pressure 132/85, pulse ox 93%. Left ankle has no pain or tenderness. Uric acid came back normal but we will continue colchicine. 02/28: Psychiatry has been reconsulted to evaluate patient for need for inpatient psychiatry services. If patient does not need inpatient psychiatry services, this may open up option for subacute rehab. Flowers catheter has been out and patient is urinating on her own. Patient is working with physical therapy but the findings are rehab but is cooperative. Patient has been afebrile, heart rate 87, blood pressure 118/75, pulse ox 94% on room air. Patient will be discharged once arrangements are completed. 03/01: Psychiatry reconsult stated patient would be able to go to a subacute rehab. Patient is on resting, doing better in no acute distress. Patient did have some shortness of breath with activity and chest x-ray ordered. Patient denies any pain or shortness of breath without activity. Patient has no complaints or concerns at this time. Patient remains afebrile, heart rate 94, respirations 18, blood pressure 117/77 pulse ox 92% on room air. Review Of Systems: Constitutional: No fever, no chills, no night sweats. No weight change. Noted weakness, Noted fatigue Noted lethargy. Noted daytime sleepiness. EENT: No headache. No blurred vision or double vision, no loss of vision. No loss of Hearing, no ringing in the ears, no dizziness. No nasal drainage or congestion. No epistaxis. No sore throat. Lungs: No shortness of breath, cough, no sputum production. No wheezing. Cardiovascular: No chest pain, no lower extremity edema. No palpitations. No paroxysmal nocturnal dyspnea. No orthopnea. No lightheadedness or dizziness. No syncopal episodes. Abdominal: No abdominal pain. No nausea, vomiting. No diarrhea. No constipation. No bloody or tarry stools.. No loss of appetite. Genitourinary: No dysuria, increased frequency, urgency. Noted urinary retention, resolved. Musculoskeletal: No myalgias. Noted muscle weakness, Noted gait dysfunction, no frequent falls. No back pain. No neck pain. Integumentary: No wounds, no lesions. No rash or pruritus. Neurologic: No aphasia. No facial droop. Noted change in mentation. No head injury. No headache. No paralysis. No paresthesia. Psychiatric: Reports depression. Reports anxiety. Noted mood swings. Endocrine: No abnormal blood sugars. Physical examination General Appearance: This is a 70-year-old patient no acute distress. Patient is working with physical therapy. Neck HEENT: Supple, no lymphadenopathy, no thyroid enlargement, no carotid bruits. Lungs: Clear to auscultation without crackles or wheezes no rhonchi, no deformity. Chest Wall: Chest wall normal expansion with deep inspiration no tenderness and no deformity was found on exam, no costochondral pain or discomfort. Heart: Regular rate and rhythm, S1, S2 normal, no murmur, rub or gallop. Back: Symmetric, no curvature, ROM normal, no CVA tenderness. Abdomen: Soft, non-tender, no rebound or rigidity, no hepatosplenomegaly. Extremities: Extremities normal, atraumatic, no cyanosis or edema. Pulses: 2+ and symmetric. Skin: Skin color, texture, tugor normal, no rashes or lesions. Neurologic: Alert oriented 3 cranial nerves II through XII intact, no motor deficit Assessment and plan 1. Sepsis related to UTI, acute bronchitis probable pneumonia. Completed course of antibiotics. 2. Acute psychosis related to most likely change in psychiatric medications, patient denies suicidal thoughts. Continue Abilify 5 mg daily, melatonin 10 mg at bedtime, increase Cymbalta to 60 mg daily, continue Zyprexa for agitation. Patient was started on Ritalin which is being discontinued. She requires inpatient psychiatric services awaiting arrangements were completed 3. Hyperlipidemia atorvastatin 20 mg by mouth at bedtime 4. Hypertension, stable. Add Vasotec 1.25 mg IV push every 6 hours as needed for systolic blood pressure greater than 160. 5. Recurrent depression and generalized anxiety disorder. Continue as in #2 6. DVT prophylaxis, heparin subcu 5000 units every 12 hours 7. GI prophylaxis, Protonix 40 mg IV 8. History of brain tumor. Neurology consult appreciated 9. Hypokalemia. Stable. 10. Urinary retention requiring Flowers catheter. Flowers has been discontinued, continue Urecholine 50 mg 3 times daily. 11. Musculoskeletal pain, suspect fibromyalgia lower extremity neuralgia bilateral feet, has insomnia, start melatonin 6 mg no better, cont cyclobenzaprine 10 mg at this time, and ibuprofen 400 mg every 6 hours when necessary started gabapentin 300 mg at bedtime 02/23/2021 check for serum copper, and is able, heavy metals screen 12. Anemia noted, check for iron, B12 is not optimized, start B12 13. Gout, left ankle. Continue colchicine 0.6 mg twice daily. CODE STATUS: NO code Discharge Plan Inpatient psychiatric services or subacute rehab. Psychiatric reevaluation states patient may go to subacute rehab. Impression and plan of care have been directed as dictated by the signing physician. Helena Emery nurse practitioner acting as scribe for signing physician. Objective - Vital Signs Vital signs: Vital Signs Temp 98.2 F 03/01/21 07:55 Pulse 94 03/01/21 07:55 Resp 18 03/01/21 07:55 BP 117/77 03/01/21 07:55 Pulse Ox 92 L 03/01/21 07:55 Intake & Output 02/28/21 03/01/21 03/01/21 18:59 06:59 18:59 Other: Voiding Method Toilet # Voids 2 3 # Bowel Movements 1 - Labs CBC & Chem 7: 02/24/21 05:27 02/24/21 05:27
--- NOTE | 2021-03-01 13:40 | XR ---
EXAMINATION TYPE: XR chest 2V DATE OF EXAM: 03/01/2021 COMPARISON: 02/15/2021 HISTORY: Shortness of breath TECHNIQUE: Frontal and lateral views of the chest are obtained. FINDINGS AND IMPRESSION: Bibasilar subsegmental atelectasis. No focal airspace disease, pneumothorax or pleural effusion. Mild prominence of the cardiac silhouette. No acute osseous abnormality.
[2021-03-01] MEDS: MELATONIN 5 MG TABLET PO SCH (22:37)
[2021-03-01] MEDS: GABAPENTIN 300 MG CAP PO SCH (22:38)
[2021-03-01] MEDS: IBUPROFEN 400 MG TAB PO PRN (22:38)
[2021-03-01] MEDS: CYCLOBENZAPRINE 10 MG TAB PO SCH (22:38)
[2021-03-01] MEDS: ATORVASTATIN 20 MG TAB PO SCH (22:39)
[2021-03-02] MEDS: HEPARIN SODIUM,PORCINE/PF 5,000 UNIT/0.5 ML SYRINGE SQ SCH ×2 (08:15→22:16)
[2021-03-02] MEDS: COLCHICINE 0.6 MG EACH PO SCH ×2 (08:16→21:40)
[2021-03-02] MEDS: hydroCHLOROthiazide 25 MG TAB PO SCH (08:16)
[2021-03-02] MEDS: BETHANECHOL 25 MG TAB PO SCH ×3 (08:16→21:39)
[2021-03-02] MEDS: SENNOSIDES-DOCUSATE SODIUM 1 EACH TAB PO SCH (08:16)
[2021-03-02] MEDS: FOLIC ACID 1 MG TAB PO SCH (08:16)
[2021-03-02] MEDS: CYANOCOBALAMIN 500 MCG TAB PO SCH (08:16)
[2021-03-02] MEDS: DULoxetine HCL 60 MG CAPSULE.DR PO SCH (08:16)
[2021-03-02] MEDS: PANTOPRAZOLE 40 MG TABLET PO SCH (08:16)
[2021-03-02] MEDS: ARIPiprazole 5 MG TAB PO SCH (08:17)
--- NOTE | 2021-03-02 12:22 | P.PN ---
Subjective Progress Note Date: 03/02/21 History of present illness This is a 70-year-old female patient of [facility] with past medical history of hyperlipidemia, hypertension, anxiety, depression, previously seen due to acute psychosis related to UTI in September 2019. Patient was brought in by her daughter related to acute mental status change that occurred earlier this morning. Patient was found to be walking outside in her pajawis and not knowing where she was. When attempted to return to the home patient states that the home was going to blow up. Patient was recently treated for a urinary tract inf ection on Wednesday with Macrobid. Patient has history of acute psychosis related to UTI in the past. Patient does report some abdominal discomfort and painful urination. states that she has not been eating or drinking well. Documented fevers. Patient sees Dr. Murphy psychiatrist in outpatient setting. At this time patient is found resting comfortably in bed and able to answer minimal questions appropriately. Daughter is at the bedside and answered majority of the questions. Patient denies any pain or discomfort at this time. He is not in any acute distress. Patient denies any shortness breath or chest pain. Reports that over the past week patient has been withdrawn related to the of the peds. She was most recently seen by psychiatry where they changed her medications due to weight gain. 02/16: Continues to have increased confusion and combativeness. she is yelling and threatening staff. Patient is refusing oral medications. Patient is showing signs of paranoia. Unable to answer questions appropriately. Continues to have pain and tenderness to the abdomen. A bladder scan will be ordered. Patient has not been seen by psych at this time. Patient remains afebrile. Pulse rate 100, respirations 19, blood pressure 136/95, pulse ox 96% on room air. 02/17: Patient is refusing to eat and refusing to take medications. Patient has been afebrile, heart rate 102, blood pressure 177/70, pulse ox 97% on room air. IV Vasotec added for blood pressure control. Urine culture was finalized with skin or genital naif. Patient was previously on Macrodantin. Azithromycin will be discontinued. Patient will be continued on ceftriaxone only. Blood culture no growth after 24 hours. Repeat blood work reveals Sodium 141, potassium 2.9, chloride 103, CO2 30, BUN 12, Creatinine 0.75. WBC 8.6, hgb 11.5, platelet count 214. Potassium will be replaced by IV 60 mEq as patient will not take oral medications. Psychiatry has added Zyprexa, lorazepam IM or by mouth for agitation. Patient's daughter has stayed over night at the bedside. No improvement of mental status. Patient is argumentative and not cooperating with staff. Daughter gives history the patient had a brain tumor many years ago and was recently to have a follow-up which she did not do. She is in agreement to have neurology consult regarding this. Anticipate need for IP psychiatric service. 02/18: MRI of the brain reveals mild cerebral atrophy. Minimal white matter ch anges could relate to some microvascular ischemia. No evidence of cortical infarct. Left side sphenoid sinusitis. Patient has been seen by neurology. Patient has been seen by psychiatry and she does not meet criteria for inpatient psychiatric admission but will continue to follow. The following medication changes were made: Started Prolixin 2.5 mg twice a day for aggression/psychosis, Remeron 30 mg daily at bedtime for mood/anxiety/insomnia, continue with Lexapro 10 mg daily for mood. zyprexa prn for agitation. d/c ativan. Patient cannot leave AMA. According to the patient's nurse, patient was able to take her morning medications with quite a bit of coaxing. She refused subcu heparin. She is receiving IV medications as well. She is refusing all food and oral intake. Patient has been afebrile, heart rate 85, blood pressure 171/92 before medications and 158/87 following morning medications. Pulse ox 97% on room air. Repeat potassium 3.5. Blood culture no growth at 72 hours 2 specimens. 02/19: EEG was abnormal due to background slowing and disorganization with presence of mixed slow and fast frequency activity, suggestive mild generalized cerebral dysfunction seen in encephalopathy of vascular, metabolic or degenerative causes her medication effect. No epileptiform activity was seen. Neurology is recommended that lumbar spine x-ray orthopedic evaluation of back pain continues. Dr. Portillo is ordered a B12 injection and started folate acid 1 mg daily. Patient's behavior is more appropriate today. She did a pudding with her medications this morning. Blood pressure is on the high side and hydrochlorothiazide will be resumed. Patient was up and pivoted to the commode chair this morning with physical therapy. She still has Flowers catheter in place which we will discontinue tomorrow. Patient has been afebrile, heart rate 89, blood pressure 171/84, pulse ox 93% on room air. CK level from yesterday is 504. 02/20: Patient is more interactive now from yesterday but is refusing to take her medications this morning. She is continued on IV fluids at 75 mL/h and IV antibiotics. Flowers catheter will be discontinued today. Await further recommendations from psychiatry. Social work is following for discharge planning most likely to subacute rehab tomorrow. 02/21: Yesterday, with patient was being assessed for subacute rehab, patient started saying that she was suicidal and psychiatric services came back to see the patient and deemed that she is now requiring inpatient geriatric psych services. Social work is working closely for discharge planning with her daughter will complete the addition. Dr. Bowman completed physician certification. Patient has voided yesterday after Flowers was removed but this morning she is retaining again a Flowers will be replaced. Patient has been afebrile, heart rate 85, blood pressure 162/92, pulse ox 92% on room air. Chemistry panel from yesterday revealed normal electrolytes, BUN 10 and creatinine 0.8. Blood sugar 133. CK 376. Patient will be discharge to inpatient psych service once arrangements are completed. 02/22, slow waiting for inpatient psych services, for final discharge disposition, sitter at 60 sitter at bedside, patient complaining off muscle aches all over, no fever no chills, patient has not slept either, we have started her on cyclobenzaprine 10 mg at bedtime, and ibuprofen 600 mg now with 400 mg every 6 hours when necessary she maintains on methylphenidate 10 mg twice a day for psychomotor sluggishness, and Abilify 2.5 mg daily, Lexapro 20 mg as per psych recommendation. 02/23, patient is still no medical floor, awaiting still final disposition, patient still has a 60 sitter at bedside, she is still not sleeping, has muscle aches all over, CPK slightly to be elevated, she has buttock pain no back pain, she does not get out of bed either, has psychomotor retardation, from severe depression, nothing makes her happy, she also complains of burning pain towards her feet, we will start 300 mg of gabapentin at at bedtime, and melatonin 10 mg at bedtime in conjunction with cyclobenzaprine 02/24: Patient still has a withdrawn like personality, still sad, still not sleeping, gabapentin was started for neuropathic pain in the feet, serum copper to be added for eval, as well as heavy metals, if able, to be done. Patient is still waiting for psychiatric bed, 60 sitter one-on-one is still maintained, psychiatry has increased Abilify to 5 mg, Cymbalta started at 30 mg, Lexapro was discontinued. 02/25: Patient has a sitter at the bedside. Psychiatry continues to recommend inpatient psychiatric services. Patient to continue Abilify 5 mg daily, melatonin 10 mg at bedtime, increase Cymbalta to 60 mg daily, continue Zyprexa for agitation. Patient was started on Ritalin which is being discontinued. Patient has been afebrile, heart rate 47-93, blood pressure 152/84, pulse ox 93% on room air. Social work is working on discharge planning. 02/26: Patient continues to have sitter at the bedside. Social work is following closely for discharge planning and having difficulty finding a facility that will accept the patient. Flowers catheter will be discontinued and colchicine and uric acid will be checked. 02/27: Patient currently verbalizes no suicidal are homicidal ideation. Social work is working with [facility] for also placement. No local areas are available for her. She's been afebrile, heart rate 92, blood pressure 132/85, pulse ox 93%. Left ankle has no pain or tenderness. Uric acid came back normal but we will continue colchicine. 02/28: Psychiatry has been reconsulted to evaluate patient for need for inpatient psychiatry services. If patient does not need inpatient psychiatry services, this may open up option for subacute rehab. Flowers catheter has been out and patient is urinating on her own. Patient is working with physical therapy but the findings are rehab but is cooperative. Patient has been afebrile, heart rate 87, blood pressure 118/75, pulse ox 94% on room air. Patient will be discharged once arrangements are completed. 03/01: Psychiatry reconsult stated patient would be able to go to a subacute rehab. Patient is on resting, doing better in no acute distress. Patient did have some shortness of breath with activity and chest x-ray ordered. Patient denies any pain or shortness of breath without activity. Patient has no complaints or concerns at this time. Patient remains afebrile, heart rate 94, respirations 18, blood pressure 117/77 pulse ox 92% on room air. 03/02: Patient noted to have urinary retention via bladder scan at 800 mL. Patient will be straight cathed and encouraged to sit up on the commode. We will hold off on a indwelling catheter at this time. Patient continues have a flat affect answered questions appropriately however minimal communication. Patient denies any complaints or concerns at this time. She remains afebrile, heart rate 94, respirations 16, blood pressure 120/72, pulse ox 93% on room air. Review Of Systems: Constitutional: No fever, no chills, no night sweats. No weight change. Noted weakness, Noted fatigue Noted lethargy. Noted daytime sleepiness. EENT: No headache. No blurred vision or double vision, no loss of vision. No loss of Hearing, no ringing in the ears, no dizziness. No nasal drainage or congestion. No epistaxis. No sore throat. Lungs: No shortness of breath, cough, no sputum production. No wheezing. Cardiovascular: No chest pain, no lower extremity edema. No palpitations. No paroxysmal nocturnal dyspnea. No orthopnea. No lightheadedness or dizziness. No syncopal episodes. Abdominal: No abdominal pain. No nausea, vomiting. No diarrhea. No constipation. No bloody or tarry stools.. No loss of appetite. Genitourinary: No dysuria, increased frequency, urgency. Noted urinary retention, resolved. Musculoskeletal: No myalgias. Noted muscle weakness, Noted gait dysfunction, no frequent falls. No back pain. No neck pain. Integumentary: No wounds, no lesions. No rash or pruritus. Neurologic: No aphasia. No facial droop. Noted change in mentation. No head injury. No headache. No paralysis. No paresthesia. Psychiatric: Reports depression. Reports anxiety. Noted mood swings. Endocrine: No abnormal blood sugars. Physical examination General Appearance: This is a 70-year-old patient no acute distress. Patient is working with physical therapy. Neck HEENT: Supple, no lymphadenopathy, no thyroid enlargement, no carotid bruits. Lungs: Clear to auscultation without crackles or wheezes no rhonchi, no deformity. Chest Wall: Chest wall normal expansion with deep inspiration no tenderness and no deformity was found on exam, no costochondral pain or discomfort. Heart: Regular rate and rhythm, S1, S2 normal, no murmur, rub or gallop. Back: Symmetric, no curvature, ROM normal, no CVA tenderness. Abdomen: Soft, non-tender, no rebound or rigidity, no hepatosplenomegaly. Extremities: Extremities normal, atraumatic, no cyanosis or edema. Pulses: 2+ and symmetric. Skin: Skin color, texture, tugor normal, no rashes or lesions. Neurologic: Alert oriented 3 cranial nerves II through XII intact, no motor deficit Assessment and plan 1. Sepsis related to UTI, acute bronchitis probable pneumonia. Completed course of antibiotics. 2. Acute psychosis related to most likely change in psychiatric medications, patient denies suicidal thoughts. Continue Abilify 5 mg daily, melatonin 10 mg at bedtime, increase Cymbalta to 60 mg daily, continue Zyprexa for agitation. Patient was started on Ritalin which is being discontinued. She requires inpatient psychiatric services awaiting arrangements were completed 3. Hyperlipidemia atorvastatin 20 mg by mouth at bedtime 4. Hypertension, stable. Add Vasotec 1.25 mg IV push every 6 hours as needed for systolic blood pressure greater than 160. 5. Recurrent depression and generalized anxiety disorder. Continue as in #2 6. DVT prophylaxis, heparin subcu 5000 units every 12 hours 7. GI prophylaxis, Protonix 40 mg IV 8. History of brain tumor. Neurology consult appreciated 9. Hypokalemia. Stable. 10. Urinary retention requiring Flowers catheter. Flowers has been discontinued, continue Urecholine 50 mg 3 times daily. 11. Musculoskeletal pain, suspect fibromyalgia lower extremity neuralgia bilateral feet, has insomnia, start melatonin 6 mg no better, cont cyclobenzaprine 10 mg at this time, and ibuprofen 400 mg every 6 hours when necessary started gabapentin 300 mg at bedtime 02/23/2021 check for serum copper, and is able, heavy metals screen 12. Anemia noted, check for iron, B12 is not optimized, start B12 13. Gout, left ankle. Continue colchicine 0.6 mg twice daily. 10. Urinary retention, continue to bladder scan straight cath as needed. Encouraged patient to start on commode to help empty bladder. CODE STATUS: NO code Discharge Plan Inpatient psychiatric services or subacute rehab. Psychiatric reevaluation states patient may go to subacute rehab. Impression and plan of care have been directed as dictated by the signing physician. Helena Emery nurse practitioner acting as scribe for signing physician. Objective - Vital Signs Vital signs: Vital Signs Temp 97.5 F L 03/02/21 08:00 Pulse 94 03/02/21 08:00 Resp 16 03/02/21 08:00 BP 120/72 03/02/21 08:00 Pulse Ox 93 L 03/02/21 08:00 Intake & Output 03/01/21 03/02/21 03/02/21 18:59 06:59 18:59 Intake Total 300 Output Total 200 Balance 300 -200 Intake: Oral 300 Output: Urine 200 Other: Voiding Method Diaper # Voids 3 - Labs CBC & Chem 7: 02/24/21 05:27 02/24/21 05:27
[2021-03-02] MEDS: TAMSULOSIN 0.4 MG CAP.ER.24H PO SCH (15:57)
[2021-03-02] MEDS: FERROUS SULFATE 325 MG TAB PO SCH (15:57)
[2021-03-02] MEDS: ATORVASTATIN 20 MG TAB PO SCH (21:38)
[2021-03-02] MEDS: CYCLOBENZAPRINE 10 MG TAB PO SCH (21:38)
[2021-03-02] MEDS: MELATONIN 5 MG TABLET PO SCH (21:39)
[2021-03-02] MEDS: IBUPROFEN 400 MG TAB PO PRN (21:39)
[2021-03-02] MEDS: GABAPENTIN 300 MG CAP PO SCH (21:39)
[2021-03-03] MEDS: SENNOSIDES-DOCUSATE SODIUM 1 EACH TAB PO SCH (09:29)
[2021-03-03] MEDS: DULoxetine HCL 60 MG CAPSULE.DR PO SCH (09:33)
[2021-03-03] MEDS: FOLIC ACID 1 MG TAB PO SCH (09:33)
[2021-03-03] MEDS: COLCHICINE 0.6 MG EACH PO SCH (09:33)
[2021-03-03] MEDS: HEPARIN SODIUM,PORCINE/PF 5,000 UNIT/0.5 ML SYRINGE SQ SCH ×2 (09:33→21:09)
[2021-03-03] MEDS: PANTOPRAZOLE 40 MG TABLET PO SCH (09:33)
[2021-03-03] MEDS: TAMSULOSIN 0.4 MG CAP.ER.24H PO SCH (09:33)
[2021-03-03] MEDS: BETHANECHOL 25 MG TAB PO SCH ×3 (09:34→21:24)
[2021-03-03] MEDS: ARIPiprazole 5 MG TAB PO SCH (09:34)
[2021-03-03] MEDS: CYANOCOBALAMIN 500 MCG TAB PO SCH (09:34)
[2021-03-03] MEDS: hydroCHLOROthiazide 25 MG TAB PO SCH (09:34)
--- NOTE | 2021-03-03 09:52 | P.DS ---
Providers Date of admission: 02/15/21 09:50 Expected date of discharge: 03/04/21 Attending physician: Erwin Bowman Consults: 02/16/21 09:09 Consult Physician Urgent Consulting Provider: Ozzy Chacon Consult Reason/Comments: aggressive pyschosis Do you want consulting provider notified?: Already Contacted 02/17/21 10:41 Consult Physician Routine Consulting Provider: Alejandro Portillo Consult Reason/Comments: encephalopathy/psychosis, hx brain tumor, Do you want consulting provider notified?: Yes 02/28/21 08:14 Consult Physician Routine Consulting Provider: Kishore Dye Consult Reason/Comments: depression Do you want consulting provider notified?: Yes Primary care physician: [facility] Course: History of present illness This is a 70-year-old female [facility] the [facility] with past medical history of hyperlipidemia, hypertension, anxiety, depression, previously seen due to acute psychosis related to UTI in September 2019. Patient was brought in by her daughter related to acute mental status change that occurred earlier this morning. Patient was found to be walking outside in her pajadcs and not knowing where she was. When attempted to return to the home patient states that the home was going to blow up. Patient was recently treated for a urinary tract infection on Wednesday with Macrobid. Patient has history of acute psychosis related to UTI in the past. Patient does report some abdominal discomfort and painful urination. states that she has not been eating or drinking well. Documented fevers. Patient sees Dr. Murphy psychiatrist in outpatient setting. At this time patient is found resting comfortably in bed and able to answer minimal questions appropriately. Daughter is at the bedside and answered majority of the questions. Patient denies any pain or discomfort at this time. He is not in any acute distress. Patient denies any shortness breath or chest pain. Reports that over the past week patient has been withdrawn related to the of the peds. She was most recently seen by psychiatry where they changed her medications due to weight gain. 02/16: Continues to have increased confusion and combativeness. she is yelling and threatening staff. Patient is refusing oral medications. Patient is showing signs of paranoia. Unable to answer questions appropriately. Continues to have pain and tenderness to the abdomen. A bladder scan will be ordered. Patient has not been seen by psych at this time. Patient remains afebrile. Pulse rate 100, respirations 19, blood pressure 136/95, pulse ox 96% on room air. 02/17: Patient is refusing to eat and refusing to take medications. Patient has been afebrile, heart rate 102, blood pressure 177/70, pulse ox 97% on room air. IV Vasotec added for blood pressure control. Urine culture was finalized with skin or genital naif. Patient was previously on Macrodantin. Azithromycin will be discontinued. Patient will be continued on ceftriaxone only. Blood culture no growth after 24 hours. Repeat blood work reveals Sodium 141, potassium 2.9, chloride 103, CO2 30, BUN 12, Creatinine 0.75. WBC 8.6, hgb 11.5, platelet count 214. Potassium will be replaced by IV 60 mEq as patient will not take oral medications. Psychiatry has added Zyprexa, lorazepam IM or by mouth for agitation. Patient's daughter has stayed over night at the bedside. No improvement of mental status. Patient is argumentative and not cooperating with staff. Daughter gives history the patient had a brain tumor many years ago and was recently to have a follow-up which she did not do. She is in agreement to have neurology consult regarding this. Anticipate need for IP psychiatric service. 02/18: MRI of the brain reveals mild cerebral atrophy. Minimal white matter changes could relate to some microvascular ischemia. No evidence of cortical infarct. Left side sphenoid sinusitis. Patient has been seen by neurology. Patient has been seen by psychiatry and she does not meet criteria for inpatient psychiatric admission but will continue to follow. The following medication changes were made: Started Prolixin 2.5 mg twice a day for aggression/psychosis, Remeron 30 mg daily at bedtime for mood/anxiety/insomnia, continue with Lexapro 10 mg daily for mood. zyprexa prn for agitation. d/c ativan. Patient cannot leave AMA. According to the patient's nurse, patient was able to take her morning medications with quite a bit of coaxing. She refused subcu heparin. She is receiving IV medications as well. She is refusing all food and oral intake. Patient has been afebrile, heart rate 85, blood pressure 171/92 before medications and 158/87 following morning medications. Pulse ox 97% on room air. Repeat potassium 3.5. Blood culture no growth at 72 hours 2 specimens. 02/19: EEG was abnormal due to background slowing and disorganization with presence of mixed slow and fast frequency activity, suggestive mild generalized cerebral dysfunction seen in encephalopathy of vascular, metabolic or degenerative causes her medication effect. No epileptiform activity was seen. Neurology is recommended that lumbar spine x-ray orthopedic evaluation of back pain continues. Dr. Portillo is ordered a B12 injection and started folate acid 1 mg daily. Patient's behavior is more appropriate today. She did a pudding with her medications this morning. Blood pressure is on the high side and hydrochlorothiazide will be resumed. Patient was up and pivoted to the commode chair this morning with physical therapy. She still has Flowers catheter in place which we will discontinue tomorrow. Patient has been afebrile, heart rate 89, blood pressure 171/84, pulse ox 93% on room air. CK level from yesterday is 504. 02/20: Patient is more interactive now from yesterday but is refusing to take her medications this morning. She is continued on IV fluids at 75 mL/h and IV antibiotics. Flowers catheter will be discontinued today. Await further recommendations from psychiatry. Social work is following for discharge planning most likely to subacute rehab tomorrow. 02/21: Yesterday, with patient was being assessed for subacute rehab, patient started saying that she was suicidal and psychiatric services came back to see the patient and deemed that she is now requiring inpatient geriatric psych s ervices. Social work is working closely for discharge planning with her daughter will complete the addition. Dr. Bowman completed physician certification. Patient has voided yesterday after Flowers was removed but this morning she is retaining again a Flowers will be replaced. Patient has been afebrile, heart rate 85, blood pressure 162/92, pulse ox 92% on room air. Chemistry panel from yesterday revealed normal electrolytes, BUN 10 and creatinine 0.8. Blood sugar 133. CK 376. Patient will be discharge to inpatient psych service once arrangements are completed. 02/22, slow waiting for inpatient psych services, for final discharge disposition, sitter at 60 sitter at bedside, patient complaining off muscle aches all over, no fever no chills, patient has not slept either, we have started her on cyclobenzaprine 10 mg at bedtime, and ibuprofen 600 mg now with 400 mg every 6 hours when necessary she maintains on methylphenidate 10 mg twice a day for psychomotor sluggishness, and Abilify 2.5 mg daily, Lexapro 20 mg as per psych recommendation. 02/23, patient is still no medical floor, awaiting still final disposition, patient still has a 60 sitter at bedside, she is still not sleeping, has muscle aches all over, CPK slightly to be elevated, she has buttock pain no back pain, she does not get out of bed either, has psychomotor retardation, from severe depression, nothing makes her happy, she also complains of burning pain towards her feet, we will start 300 mg of gabapentin at at bedtime, and melatonin 10 mg at bedtime in conjunction with cyclobenzaprine 02/24: Patient still has a withdrawn like personality, still sad, still not sleeping, gabapentin was started for neuropathic pain in the feet, serum copper to be added for eval, as well as heavy metals, if able, to be done. Patient is still waiting for psychiatric bed, 60 sitter one-on-one is still maintained, psychiatry has increased Abilify to 5 mg, Cymbalta started at 30 mg, Lexapro was discontinued. 02/25: Patient has a sitter at the bedside. Psychiatry continues to recommend inpatient psychiatric services. Patient to continue Abilify 5 mg daily, melatonin 10 mg at bedtime, increase Cymbalta to 60 mg daily, continue Zyprexa for agitation. Patient was started on Ritalin which is being discontinued. Patient has been afebrile, heart rate 47-93, blood pressure 152/84, pulse ox 93% on room air. Social work is working on discharge planning. 02/26: Patient continues to have sitter at the bedside. Social work is following closely for discharge planning and having difficulty finding a facility that will accept the patient. Flowers catheter will be discontinued and colchicine and uric acid will be checked. 02/27: Patient currently verbalizes no suicidal are homicidal ideation. Social meliza saravia is [facility] also [facility]. No local areas are available for her. She's been afebrile, heart rate 92, blood pressure 132/85, pulse ox 93%. Left ankle has no pain or tenderness. Uric acid came back normal but we will continue colchicine. 02/28: Psychiatry has been reconsulted to evaluate patient for need for inpatient psychiatry services. If patient does not need inpatient psychiatry services, this may open up option for subacute rehab. Flowers catheter has been out and patient is urinating on her own. Patient is working with physical therapy but the findings are rehab but is cooperative. Patient has been afebrile, heart rate 87, blood pressure 118/75, pulse ox 94% on room air. Patient will be discharged once arrangements are completed. 03/01: Psychiatry reconsult stated patient would be able to go to a subacute rehab. Patient is on resting, doing better in no acute distress. Patient did have some shortness of breath with activity and chest x-ray ordered. Patient denies any pain or shortness of breath without activity. Patient has no complaints or concerns at this time. Patient remains afebrile, heart rate 94, respirations 18, blood pressure 117/77 pulse ox 92% on room air. 03/02: Patient noted to have urinary retention via bladder scan at 800 mL. Patient will be straight cathed and encouraged to sit up on the commode. We will hold off on a indwelling catheter at this time. Patient continues have a flat affect answered questions appropriately however minimal communication. Patient denies any complaints or concerns at this time. She remains afebrile, heart rate 94, respirations 16, blood pressure 120/72, pulse ox 93% on room air. 03/03: Patient has been reevaluated by psychiatry and deemed not to meet criteria for inpatient psych admission and can work with physical therapy once she is discharged to regain her strength. Continue delirium precautions. The following medications are recommended Abilify 5 mg daily for mood adjunct/psychosis, melatonin 10 mg qhs, Cymbalta 60 mg daily for mood/anxiety/pain. added remeron 15mg qhs for insomnia/mood. cont zyprexa prn for agitation. It appears that patient no longer needs a sitter and is no longer requiring inpatient psychiatric services. Social work will be starting process for longterm discharge. Today, patient is complaining of frequent bowel movements but her nurse states that is only a small amount and she was on stool softeners due to constipation. Patient is also complaining of frequent urination. Patient has had straight cath 2 and on next occurrence, will require Flowers catheter to be replaced. Repeat chest x-ray reveals bibasilar subsegmental atelectasis. No focal airspace disease, pneumothorax or pleural effusion. Mild prominence of cardiac silhouette. No acute osseous abnormality. Repeat blood work reveals WBC 8.3, hemoglobin 11.6, platelet count 335. Sed rate is 54. Sodium 128, potassium 4.0, chloride 86, CO2 34, BUN 24 and c reatinine 0.85. Blood sugar 137. Total bilirubin 0.3, AST 56, ALT 57, alkaline phosphatase 80. C-reactive protein 1.3. CAT scan of the abdomen ordered to rule out colitis. Patient will be started on IV fluids. Brood Station Manager is following and now the discharge plan will be to return home with homecare. 03/04: Patient has been reevaluated by psychiatry and recommended the following: Abilify 5 mg daily for mood adjunct/psychosis, melatonin 10 mg qhs, increase Cymbalta 90 mg daily for mood/anxiety/pain. remeron 15mg qhs for insomnia/mood. cont zyprexa prn for agitation. Again today, patient does not meet criteria for inpatient psychiatric services. Discharge plan has now changed to subacute rehab and [facility] has been chosen. [facility] has accepted the patient. Patient has required Flowers catheter replacement due to urinary retention. Repeat blood work today reveals sodium 130, potassium 4.0, chloride 91, CO2 34, BUN 15 and creatinine 0.8. CAT scan of the abdomen and pelvis without contrast revealed no evidence of colitis. Small gallstones at the dependent gallbladder. Probable cyst in the right lobe of the liver. Patient has been afebrile, heart rate 89, blood pressure 141/75. Patient will be discharged to [facility] today in stable condition. DISCHARGE DIAGNOSES 1. Sepsis related to UTI, acute bronchitis, pneumonia has been ruled out. 2. Acute psychosis related to most likely change in psychiatric medications with schizoaffective disorder. 3. Hyperlipidemia 4. Hypertension, stable. 5. Recurrent depression and generalized anxiety disorder. 6. History of brain tumor, no acute tumor. 7. Hypokalemia. Stable. 8. Urinary retention requiring Flowers catheter. 9. Musculoskeletal pain, suspect fibromyalgia lower extremity neuralgia bilateral feet 10. Gout has been ruled out and colchicine discontinued due to diarrhea. 11. Hyponatremia. 12. Self-reported diarrhea. CAT scan of the abdomen ruled out colitis. Discharge Plan [facility] for subacute rehab Impression and plan of care have been directed as dictated by the signing physician. Marlen Flores nurse practitioner acting as scribe for signing physician. Patient Condition at Discharge: Stable Plan - Discharge Summary Discharge Rx Participant: Yes New Discharge Prescriptions: New ARIPiprazole [Abilify] 2.5 mg PO DAILY tab Folic Acid 1 mg PO DAILY tab DULoxetine HCL [Cymbalta] 90 mg PO DAILY capsule. Cyclobenzaprine [Flexeril] 10 mg PO HS tab Bethanechol [Urecholine] 50 mg PO TID tab Cyanocobalamin [Vitamin B-12] 500 mcg PO DAILY tab Melatonin 10 mg PO HS tablet Tamsulosin [Flomax] 0.4 mg PO PC-BRKFST cap.er.24h Ferrous Sulfate [Iron (65 MG Elemental)] 325 mg PO W/LUNCH tab Gabapentin [Neurontin] 300 mg PO HS #3 cap Mirtazapine [Remeron] 15 mg PO HS tab Continue Atorvastatin Calcium [Lipitor] 20 mg PO HS Albuterol Inhaler [Ventolin Hfa Inhaler] 1 puff INHALATION RT-Q4H PRN PRN Reason: Shortness Of Breath hydroCHLOROthiazide 25 mg PO DAILY Acetaminophen [Tylenol Arthritis] 650 mg PO Q8H PRN PRN Reason: Pain Discontinued traZODone HCL 100 mg PO HS Escitalopram [Lexapro] 10 mg PO HS Nitrofurantoin Monohyd/M-Cryst [Macrobid] 100 mg PO BID Discharge Medication List Acetaminophen [Tylenol Arthritis] 650 mg PO Q8H PRN 02/15/21 [History] Albuterol Inhaler [Ventolin Hfa Inhaler] 1 puff INHALATION RT-Q4H PRN 02/15/21 [History] Atorvastatin Calcium [Lipitor] 20 mg PO HS 02/15/21 [History] hydroCHLOROthiazide 25 mg PO DAILY 02/17/21 [History] ARIPiprazole [Abilify] 2.5 mg PO DAILY tab 02/21/21 [Rx] Folic Acid 1 mg PO DAILY tab 02/21/21 [Rx] Melatonin 10 mg PO HS tablet 02/21/21 [Rx] Bethanechol [Urecholine] 50 mg PO TID tab 03/04/21 [Rx] Cyanocobalamin [Vitamin B-12] 500 mcg PO DAILY tab 03/04/21 [Rx] Cyclobenzaprine [Flexeril] 10 mg PO HS tab 03/04/21 [Rx] DULoxetine HCL [Cymbalta] 90 mg PO DAILY capsule. 03/04/21 [Rx] Ferrous Sulfate [Iron (65 MG Elemental)] 325 mg PO W/LUNCH tab 03/04/21 [Rx] Gabapentin [Neurontin] 300 mg PO HS #3 cap 03/04/21 [Rx] Mirtazapine [Remeron] 15 mg PO HS tab 03/04/21 [Rx] Tamsulosin [Flomax] 0.4 mg PO PC-BRKFST cap.er.24h 03/04/21 [Rx] Follow up Appointment(s)/Referral(s): [facility], [NON-STAFF] - As Needed [facility] [Primary Care Provider] - 1 Week (after discharge from psych facility) Patient Instructions/Handouts: Pneumonia (ED), Urinary Tract Infection in Women (ED) Discharge/Stand Alone Forms: Help In The Home Discharge Disposition: TRANSFER TO SNF/ECF
[2021-03-03 10:34] LABS: HCT 33.8 % (34.0-46.0); HGB 11.6 gm/dL (11.4-16.0); MCH 29.8 pg (25.0-35.0); MCHC 34.4 g/dL (31.0-37.0); MCV 86.7 fL (80.0-100.0); Mean Platelet Volume 7.5; Platelet Count 335 k/uL (150-450); RDW 13.9 % (11.5-15.5); WBC 8.3 k/uL (3.8-10.6)
[2021-03-03 10:46] LABS: ALT 57 U/L (4-34); AST 56 U/L (14-36); African American GFR (CKD) 80 (>60 ml/min/1.73 sqM); Albumin 4.2 g/dL (3.5-5.0); Albumin/Globulin Ratio 1.6; Alkaline Phosphatase 80 U/L (38-126); Anion Gap 8 mmol/L; Blood Urea Nitrogen 24 mg/dL (7-17); C Reactive Protein 1.3 mg/dL (<1.0); Calcium 9.4 mg/dL (8.4-10.2); Carbon Dioxide 34 mmol/L (22-30); Chloride 86 mmol/L (98-107); Globulin 2.7 g/dL; Glucose 137 mg/dL (74-99); Non-African American GFR(CKD) 69 (>60 ml/min/1.73 sqM); Sodium 128 mmol/L (137-145); Total Bilirubin 0.3 mg/dL (0.2-1.3); Total Protein 6.9 g/dL (6.3-8.2)
[2021-03-03 11:42] LABS: Erythrocyte Sedimentation Rate 54 mm/hr (0-20)
--- NOTE | 2021-03-03 13:28 | P.PN ---
Progress Note - Text Progress Note Date: 03/03/21 Interval History: Patient was seen today for psychiatric follow-up regarding patient's condition. Patient has been off of a one-to-one sitter for several days now since Wednesday. According to patient's nurse she has improved significantly since last week in terms of her affect and is more cooperative at this point taking her medications and is not endorsing any suicidal thoughts. Nurse also claims that patient has been working with physical therapy regularly and does not meet criteria to go to rehab and will be discharged home once she is medically cleared. Patient daughter states that her mother has been doing better however has talked about her sister who has not come to visit her frequently and believes that sometimes she is around. Patient has been taking her medications and was agreeable to speak with life insurance underwriter today at the bedside. She appears to be more alert today however continues to have a constricted affect. She states that her mood has been improving mildly and states that she has a continued difficulty falling asleep. She claims that she is not having any anxiety today. She complained about various noises in the hospital at nighttime that are not allowing her to sleep. She did know today's date and location however had to concentrate hard. She spoke about her physical illness and also pain in her feet once again today. She states that her appetite has improved. She was not noted to have any behavioral disturbances last night. At this time patient denies any homical or suicidal ideations, intent or plan. Patient denies any auditory, visual hallucinations and denies any paranoia or delusions. Patient denies any side effects from the medications and has been compliant with meds. Mental Status Exam: General Appearance: Patient appears to be stated age is more awake today, directable. concrete and constricted. Patient appears to have improving hygiene and grooming. Wearing hospital gown. Behavior: Patient is seated without any agitated behavior. Constricted. Speech: Patient's speech is fluent and nonpressured. Mood/Affect: Patient reports their mood is "a bit better", affect is congruent and constricted Suicidality/Homicidality: Patient denies having any homicidal ideation intent. She is denying any suicidal thoughts. Perceptions: Patient denies any visual hallucinations or auditory hallucinations Though content/process: Not endorsing any paranoia today. Logical. [place]. Somatically preoccupied Memory and concentration: AOX3, grossly intact for the purposes of this session Judgment and insight: Chronic report, improving mildly. IMPRESSIONS: Schizoaffective disorder, depressive type likely underlying dementia PLAN: -At this time patient DOES NOT meet criteria for inpatient psych admission and can work with physical therapy once she is discharged to regain her strength. She apparently is not medically cleared. -Delirium precautions recommended with patient including - avoiding use of narcotics and [place] sedatives, limit anticholinergic medications when possible, frequent re-orientation, minimize use of restraints, open window shades during the day and close them at night -Would recommend the following medication changes/additions: Abilify 5 mg daily for mood adjunct/psychosis, melatonin 10 mg qhs, Cymbalta 60 mg daily for mood/anxiety/pain. added remeron 15mg qhs for insomnia/mood. cont zyprexa prn for agitation. -Communicated plan to patient's nurse and patients daughter -Psychiatry will continue to follow along tomorrow and likely discharge after that -Please contact with any questions.
--- NOTE | 2021-03-03 15:54 | P.PN ---
Subjective Progress Note Date: 03/03/21 History of present illness This is a 70-year-old female patient of the [facility] with past medical history of hyperlipidemia, hypertension, anxiety, depression, previously seen due to acute psychosis related to UTI in September 2019. Patient was brought in by her daughter related to acute mental status change that occurred earlier this morning. Patient was found to be walking outside in her pajamas and not knowing where she was. When attempted to return to the home patient states that the home was going to blow up. Patient was recently treated for a urinary tract in [facility] on Wednesday with Macrobid. Patient has history of acute psychosis related to UTI in the past. Patient does report some abdominal discomfort and painful urination. states that she has not been eating or drinking well. Documented fevers. Patient sees Dr. Murphy psychiatrist in outpatient setting. At this time patient is found resting comfortably in bed and able to answer minimal questions appropriately. Daughter is at the bedside and answered majority of the questions. Patient denies any pain or discomfort at this time. He is not in any acute distress. Patient denies any shortness breath or chest pain. Reports that over the past week patient has been withdrawn related to the of the peds. She was most recently seen by psychiatry where they changed her medications due to weight gain. 02/16: Continues to have increased confusion and combativeness. she is yelling and threatening staff. Patient is refusing oral medications. Patient is showing signs of paranoia. Unable to answer questions appropriately. Continues to have pain and tenderness to the abdomen. A bladder scan will be ordered. Patient has not been seen by psych at this time. Patient remains afebrile. Pulse rate 100, respirations 19, blood pressure 136/95, pulse ox 96% on room air. 02/17: Patient is refusing to eat and refusing to take medications. Patient has been afebrile, heart rate 102, blood pressure 177/70, pulse ox 97% on room air. IV Vasotec added for blood pressure control. Urine culture was finalized with skin or genital naif. Patient was previously on Macrodantin. Azithromycin will be discontinued. Patient will be continued on ceftriaxone only. Blood culture no growth after 24 hours. Repeat blood work reveals Sodium 141, potassium 2.9, chloride 103, CO2 30, BUN 12, Creatinine 0.75. WBC 8.6, hgb 11.5, platelet count 214. Potassium will be replaced by IV 60 mEq as patient will not take oral medications. Psychiatry has added Zyprexa, lorazepam IM or by mouth for agitation. Patient's daughter has stayed over night at the bedside. No improvement of mental status. Patient is argumentative and not cooperating with staff. Daughter gives history the patient had a brain tumor many years ago and was recently to have a follow-up which she did not do. She is in agreement to have neurology consult regarding this. Anticipate need for IP psychiatric service. 02/18: MRI of the brain reveals mild cerebral atrophy. Minimal white matter c hanges could relate to some microvascular ischemia. No evidence of cortical infarct. Left side sphenoid sinusitis. Patient has been seen by neurology. Patient has been seen by psychiatry and she does not meet criteria for inpatient psychiatric admission but will continue to follow. The following medication changes were made: Started Prolixin 2.5 mg twice a day for aggression/psychosis, Remeron 30 mg daily at bedtime for mood/anxiety/insomnia, continue with Lexapro 10 mg daily for mood. zyprexa prn for agitation. d/c ativan. Patient cannot leave AMA. According to the patient's nurse, patient was able to take her morning medications with quite a bit of coaxing. She refused subcu heparin. She is receiving IV medications as well. She is refusing all food and oral intake. Patient has been afebrile, heart rate 85, blood pressure 171/92 before medications and 158/87 following morning medications. Pulse ox 97% on room air. Repeat potassium 3.5. Blood culture no growth at 72 hours 2 specimens. 02/19: EEG was abnormal due to background slowing and disorganization with presence of mixed slow and fast frequency activity, suggestive mild generalized cerebral dysfunction seen in encephalopathy of vascular, metabolic or degenerative causes her medication effect. No epileptiform activity was seen. Neurology is recommended that lumbar spine x-ray orthopedic evaluation of back pain continues. Dr. Portillo is ordered a B12 injection and started folate acid 1 mg daily. Patient's behavior is more appropriate today. She did a pudding with her medications this morning. Blood pressure is on the high side and hydrochlorothiazide will be resumed. Patient was up and pivoted to the commode chair this morning with physical therapy. She still has Flowers catheter in place which we will discontinue tomorrow. Patient has been afebrile, heart rate 89, blood pressure 171/84, pulse ox 93% on room air. CK level from yesterday is 504. 02/20: Patient is more interactive now from yesterday but is refusing to take her medications this morning. She is continued on IV fluids at 75 mL/h and IV antibiotics. Flowers catheter will be discontinued today. Await further recommendations from psychiatry. Social work is following for discharge planning most likely to subacute rehab tomorrow. 02/21: Yesterday, with patient was being assessed for subacute rehab, patient started saying that she was suicidal and psychiatric services came back to see the patient and deemed that she is now requiring inpatient geriatric psych services. Social work is working closely for discharge planning with her daughter will complete the addition. Dr. Bowman completed physician certification. Patient has voided yesterday after Flowers was removed but this morning she is retaining again a Flowers will be replaced. Patient has been afebrile, heart rate 85, blood pressure 162/92, pulse ox 92% on room air. Chemistry panel from yesterday revealed normal electrolytes, BUN 10 and creatinine 0.8. Blood sugar 133. CK 376. Patient will be discharge to inpatient psych service once arrangements are completed. 02/22, slow waiting for inpatient psych services, for final discharge disposition, sitter at 60 sitter at bedside, patient complaining off muscle aches all over, no fever no chills, patient has not slept either, we have started her on cyclobenzaprine 10 mg at bedtime, and ibuprofen 600 mg now with 400 mg every 6 hours when necessary she maintains on methylphenidate 10 mg twice a day for psyc homotor sluggishness, and Abilify 2.5 mg daily, Lexapro 20 mg as per psych recommendation. 02/23, patient is still no medical floor, awaiting still final disposition, patient still has a 60 sitter at bedside, she is still not sleeping, has muscle aches all over, CPK slightly to be elevated, she has buttock pain no back pain, she does not get out of bed either, has psychomotor retardation, from severe depression, nothing makes her happy, she also complains of burning pain towards her feet, we will start 300 mg of gabapentin at at bedtime, and melatonin 10 mg at bedtime in conjunction with cyclobenzaprine 02/24: Patient still has a withdrawn like personality, still sad, still not sleeping, gabapentin was started for neuropathic pain in the feet, serum copper to be added for eval, as well as heavy metals, if able, to be done. Patient is still waiting for psychiatric bed, 60 sitter one-on-one is still maintained, psychiatry has increased Abilify to 5 mg, Cymbalta started at 30 mg, Lexapro was discontinued. 02/25: Patient has a sitter at the bedside. Psychiatry continues to recommend inpatient psychiatric services. Patient to continue Abilify 5 mg daily, melatonin 10 mg at bedtime, increase Cymbalta to 60 mg daily, continue Zyprexa for agitation. Patient was started on Ritalin which is being discontinued. Patient has been afebrile, heart rate 47-93, blood pressure 152/84, pulse ox 93% on room air. Social work is working on discharge planning. 02/26: Patient continues to have sitter at the bedside. Social work is following closely for discharge planning and having difficulty finding a facility that will accept the patient. Flowers catheter will be discontinued and colchicine and uric acid will be checked. 02/27: Patient currently verbalizes no suicidal are homicidal ideation. Social work is working with [facility] for also placement. No local areas are available for her. She's been afebrile, heart rate 92, blood pressure 132/85, pulse ox 93%. Left ankle has no pain or tenderness. Uric acid came back normal but we will continue colchicine. 02/28: Psychiatry has been reconsulted to evaluate patient for need for inpatient psychiatry services. If patient does not need inpatient psychiatry services, this may open up option for subacute rehab. Flowers catheter has been out and patient is urinating on her own. Patient is working with physical therapy but the findings are rehab but is cooperative. Patient has been afebrile, heart rate 87, blood pressure 118/75, pulse ox 94% on room air. Patient will be discharged once arrangements are completed. 03/01: Psychiatry reconsult stated patient would be able to go to a subacute rehab. Patient is on resting, doing better in no acute distress. Patient did have some shortness of breath with activity and chest x-ray ordered. Patient denies any pain or shortness of breath without activity. Patient has no complaints or concerns at this time. Patient remains afebrile, heart rate 94, respirations 18, blood pressure 117/77 pulse ox 92% on room air. 03/02: Patient noted to have urinary retention via bladder scan at 800 mL. Patient will be straight cathed and encouraged to sit up on the commode. We will hold off on a indwelling catheter at this time. Patient continues have a flat affect answered questions appropriately however minimal communication. Patient denies any complaints or concerns at this time. She remains afebrile, heart rate 94, respirations 16, blood pressure 120/72, pulse ox 93% on room air. 03/03: Patient has been reevaluated by psychiatry and deemed not to meet criteria for inpatient psych admission and can work with physical therapy once she is discharged to regain her strength. Continue delirium precautions. The following medications are recommended Abilify 5 mg daily for mood adjunct/psychosis, melatonin 10 mg qhs, Cymbalta 60 mg daily for mood/anxiety/pain. added remeron 15mg qhs for insomnia/mood. cont zyprexa prn for agitation. It appears that patient no longer needs a sitter and is no longer requiring inpatient psychiatric services. Social work will be starting process for skilled nursing discharge. Today, patient is complaining of frequent bowel movements but her nurse states that is only a small amount and she was on stool softeners due to constipation. Patient is also complaining of frequent urination. Patient has had straight cath 2 and on next occurrence, will require Flowers catheter to be replaced. Repeat chest x-ray reveals bibasilar subsegmental atelectasis. No focal airspace disease, pneumothorax or pleural effusion. Mild prominence of cardiac silhouette. No acute osseous abnormality. Repeat blood work reveals WBC 8.3, hemoglobin 11.6, platelet count 335. Sed rate is 54. Sodium 128, potassium 4.0, chloride 86, CO2 34, BUN 24 and creatinine 0.85. Blood sugar 137. Total bilirubin 0.3, AST 56, ALT 57, alkaline phosphatase 80. C-reactive protein 1.3. CAT scan of the abdomen ordered to rule out colitis. Patient will be started on IV fluids. Process Mold Technician is following and now the discharge plan will be to return home with homecare. Review Of Systems: Constitutional: No fever, no chills, no night sweats. No weight change. Noted weakness, Noted fatigue Noted lethargy. Noted daytime sleepiness. EENT: No headache. No blurred vision or double vision, no loss of vision. No loss of Hearing, no ringing in the ears, no dizziness. No nasal drainage or congestion. No epistaxis. No sore throat. Lungs: No shortness of breath, cough, no sputum production. No wheezing. Cardiovascular: No chest pain, no lower extremity edema. No palpitations. No paroxysmal nocturnal dyspnea. No orthopnea. No lightheadedness or dizziness. No syncopal episodes. Abdominal: No abdominal pain. No nausea, vomiting. Reports diarrhea. No constipation. No bloody or tarry stools.. No loss of appetite. Genitourinary: No dysuria, increased frequency, urgency. Noted urinary retention, resolved. Musculoskeletal: No myalgias. Noted muscle weakness, Noted gait dysfunction, no frequent falls. No back pain. No neck pain. Integumentary: No wounds, no lesions. No rash or pruritus. Neurologic: No aphasia. No facial droop. Noted change in mentation. No head injury. No headache. No paralysis. No paresthesia. Psychiatric: Reports depression. Reports anxiety. Noted mood swings. Endocrine: No abnormal blood sugars. Physical examination General Appearance: This is a 70-year-old patient no acute distress. Sitter is at the bedside. Yesterday Neck HEENT: Supple, no lymphadenopathy, no thyroid enlargement, no carotid bruits. Lungs: Clear to auscultation without crackles or wheezes no rhonchi, no deformity. Chest Wall: Chest wall normal expansion with deep inspiration no tenderness and no deformity was found on exam, no costochondral pain or discomfort. Heart: Regular rate and rhythm, S1, S2 normal, no murmur, rub or gallop. Back: Symmetric, no curvature, ROM normal, no CVA tenderness. Abdomen: Soft, non-tender, no rebound or rigidity, no hepatosplenomegaly. Extremities: Extremities normal, atraumatic, no cyanosis or edema. Pulses: 2+ and symmetric. Skin: Skin color, texture, tugor normal, no rashes or lesions. Neurologic: Alert oriented 3 cranial nerves II through XII intact, no motor deficit Assessment and plan 1. Sepsis related to UTI, acute bronchitis probable pneumonia. Completed course of antibiotics. 2. Acute psychosis related to most likely change in psychiatric medications, patient denies suicidal thoughts. Continue Abilify 5 mg daily, melatonin 10 mg at bedtime, increase Cymbalta to 60 mg daily, continue Zyprexa for agitation. Patient was started on Ritalin which is being discontinued. She requires inpatient psychiatric services awaiting arrangements were completed 3. Hyperlipidemia atorvastatin 20 mg by mouth at bedtime 4. Hypertension, stable. Add Vasotec 1.25 mg IV push every 6 hours as needed for systolic blood pressure greater than 160. 5. Recurrent depression and generalized anxiety disorder. Continue as in #2 6. DVT prophylaxis, heparin subcu 5000 units every 12 hours 7. GI prophylaxis, Protonix 40 mg IV 8. History of brain tumor. Neurology consult appreciated 9. Hypokalemia. Stable. 10. Urinary retention requiring Flowers catheter. Flowers has been discontinued, continue Urecholine 50 mg 3 times daily. 11. Musculoskeletal pain, suspect fibromyalgia lower extremity neuralgia bilateral feet, has insomnia, start melatonin 6 mg no better, cont cyclobenzaprine 10 mg at this time, and ibuprofen 400 mg every 6 hours when necessary started gabapentin 300 mg at bedtime 02/23/2021 check for serum copper, and is able, heavy metals screen 12. Anemia noted, check for iron, B12 is not optimized, start B12 13. Gout, left ankle. Continue colchicine 0.6 mg twice daily. 14. Hyponatremia. Start IV fluids or 0.9 normal saline at 75 mL per hour. 15. Self-reported diarrhea. CAT scan of the abdomen rule out colitis. CODE STATUS: NO code Discharge Plan Home with homecare. Impression and plan of care have been directed as dictated by the signing physician. Marlen Flores nurse practitioner acting as scribe for signing physician. Objective - Vital Signs Vital signs: Vital Signs Temp 98.4 F 03/03/21 07:15 Pulse 91 03/03/21 07:15 Resp 16 03/03/21 07:15 BP 112/75 03/03/21 07:15 Pulse Ox 96 03/03/21 07:15 Intake & Output 03/02/21 03/03/21 03/03/21 18:59 06:59 18:59 Intake Total 400 Output Total 950 1350 Balance -950 -950 Intake: Oral 400 Output: Urine 850 1350 Straight 1350 Post Void Residual 100 Other: Voiding Method Diaper # Voids 3 # Bowel Movements 1 - Labs CBC & Chem 7: 03/03/21 10:07 03/03/21 10:07
[2021-03-03] MEDS ORDERED: SODIUM CHLORIDE 0.9% 1,000 ML IV SCH (16:00)
[2021-03-03] MEDS: IOPAMIDOL CONTRAST (ORAL USE) VIAL PO PRN ×2 (16:07→17:08)
[2021-03-03] MEDS: FERROUS SULFATE 325 MG TAB PO SCH (16:56)
--- NOTE | 2021-03-03 18:27 | CT ---
EXAMINATION TYPE: CT abdomen pelvis wo con DATE OF EXAM: 03/03/2021 COMPARISON: None HISTORY: abdominal pain, colitis CT DLP: 584.4 mGycm Automated exposure control for dose reduction was used. Images obtained from the diaphragm to the floor the pelvis with oral contrast. The lung bases are clear. There is no pleural effusion. Gallbladder is intact. There is small calcifi cations in the dependent gallbladder. There is 2.5 Cresencio rounded low-density area in the anterior ri ght lobe of the liver that could be a cyst. The bile ducts are not dilated. Spleen appears normal. Th ere is no pancreatic mass. Stomach is intact. There is no adrenal mass. Kidneys have normal size. There is no hydronephrosis. Ureters are not dilat ed. There is no retroperitoneal adenopathy. Bladder is almost empty. There is Flowers catheter in the u rinary bladder. There is no free fluid in the pelvis. Uterus is anteverted. There is no mesenteric edema. There is no ascites or free air. There is no bowel obstruction. I see n o intestinal wall thickening. The lumbar vertebra have normal spacing and alignment. Posterior elements are intact. There is no com pression fracture. Bony pelvis is intact. The hip joints are intact. There is apparent appendectomy w ith appendiceal stump. IMPRESSION: No evidence of colitis. Small gallstones at the dependent gallbladder. There is probably a cyst in the right lobe of the live r.
[2021-03-03] MEDS ORDERED: MIRTAZAPINE 15 MG TAB PO SCH (21:00)
[2021-03-03] MEDS: ATORVASTATIN 20 MG TAB PO SCH (21:05)
[2021-03-03] MEDS: CYCLOBENZAPRINE 10 MG TAB PO SCH (21:06)
[2021-03-03] MEDS: GABAPENTIN 300 MG CAP PO SCH (21:07)
[2021-03-03] MEDS: MELATONIN 5 MG TABLET PO SCH (21:09)
[2021-03-04] MEDS: PANTOPRAZOLE 40 MG TABLET PO SCH (08:12)
[2021-03-04] MEDS: TAMSULOSIN 0.4 MG CAP.ER.24H PO SCH (08:13)
[2021-03-04 09:37] LABS: Anion Gap 4.4 mmol/L (4.00-12.00); BUN/Creat Ratio 18.75 Ratio (12.00-20.00); Calcium 8.8 mg/dL (8.7-10.3); Carbon Dioxide 34.6 mmol/L (21.6-31.8); Non-African American GFR(CKD) 74.2 (60.0-200.0)
[2021-03-04] MEDS: FERROUS SULFATE 325 MG TAB PO SCH (11:34)
[2021-03-04] MEDS: DULoxetine HCL 60 MG CAPSULE.DR PO SCH (11:35)
[2021-03-04] MEDS: HEPARIN SODIUM,PORCINE/PF 5,000 UNIT/0.5 ML SYRINGE SQ SCH (11:35)
[2021-03-04] MEDS: hydroCHLOROthiazide 25 MG TAB PO SCH (11:35)
[2021-03-04] MEDS: FOLIC ACID 1 MG TAB PO SCH (11:36)
[2021-03-04] MEDS: BETHANECHOL 25 MG TAB PO SCH (11:36)
[2021-03-04] MEDS: CYANOCOBALAMIN 500 MCG TAB PO SCH (11:36)
[2021-03-04] MEDS: ARIPiprazole 5 MG TAB PO SCH (11:37)
[2021-03-04 12:21] VITALS: BP 141/75; PULSE 89; RESP 18; TEMP 97.7
--- NOTE | 2021-03-04 12:39 | P.PN ---
Progress Note - Text Progress Note Date: 03/04/21 Interval History: Patient was seen today for psychiatric follow-up regarding patient's condition. Patient has been taking her medications as prescribed. She was agreeable to speak with chief underwriter today at the bedside. She appears to be more alert today however continues to have a constricted affect. She states that her mood has been improving mildly however continues to be preoccupied with her pain and discomfort. She was noted to be walking earlier with physical therapy. She claims that she is not having any anxiety today. She complained about various noises in the hospital at nighttime that are not allowing her to sleep. She did know today's date and location. She states that her appetite has improved. She was not noted to have any behavioral disturbances last night. At this time patient denies any homical or suicidal ideations, intent or plan. Patient denies any auditory, visual hallucinations and denies any paranoia or delusions. Patient denies any side effects from the medications and has been compliant with meds. Mental Status Exam: General Appearance: Patient appears to be stated age is more awake today, directable. concrete and constricted. Patient appears to have improving hygiene and grooming. Wearing hospital gown. Behavior: Patient is seated without any agitated behavior. Constricted. Speech: Patient's speech is fluent and nonpressured. Mood/Affect: Patient reports their mood is "ok", affect is incongruent and constricted Suicidality/Homicidality: Patient denies having any homicidal ideation intent. She is denying any suicidal thoughts. Perceptions: Patient denies any visual hallucinations or auditory hallucinations Though content/process: Not endorsing any paranoia today. Logical. [place]. Somatically preoccupied Memory and concentration: AOX3, grossly intact for the purposes of this session Judgment and insight: Chronic report, improving mildly. IMPRESSIONS: Schizoaffective disorder, depressive type likely underlying dementia PLAN: -At this time patient DOES NOT meet criteria for inpatient psych admission and can work with physical therapy once she is discharged to regain her strength. She apparently is not medically cleared. -Delirium precautions recommended with patient including - avoiding use of narcotics and INSTRUMENTS SALES REPRESENTATIVE sedatives, limit anticholinergic medications when possible, frequent re-orientation, minimize use of restraints, open window shades during the day and close them at night -Would recommend the following medication changes/additions: Abilify 5 mg daily for mood adjunct/psychosis, melatonin 10 mg qhs, increase Cymbalta 90 mg daily for mood/anxiety/pain. remeron 15mg qhs for insomnia/mood. cont zyprexa prn for agitation. -At this time psychiatry will sign off. Patient is to be discharged today to [facility] for rehab. -Please contact with any questions.
[2021-03-04] MEDS ORDERED: DULoxetine HCL 30 MG CAPSULE.DR PO ONE (12:45)
--- NOTE | 2021-03-04 16:17 | P.PN ---
Subjective Progress Note Date: 03/04/21 Patient was seen for a follow-up. Patient initially seen by Dr. Yousif Roberson. Please refer to his note for details. Patient is a 70-year-old female admitted with altered mental status. Patient has reported history of questionable brain tumor diagnosed in . For further clarification, MRI and EEG were performed. Patient was planned to be discharged about a week ago, but she expressed suicidal ideation therefore ended up staying longer. At present patient is ready for discharge. Patient's daughter was also present. Patient looks much more comfortable. Objective - Vital Signs Vital signs: Vital Signs Temp 97.7 F 03/04/21 12:18 Pulse 89 03/04/21 12:18 Resp 18 03/04/21 12:18 BP 141/75 03/04/21 12:18 Pulse Ox 99 03/04/21 12:18 Intake & Output 03/03/21 03/04/21 03/04/21 18:59 06:59 18:59 Intake Total 560 1980 700 Output Total 1400 2800 1100 Balance -840 -820 -400 Intake: Intake, IV Titration 900 Amount Sodium Chloride 0.9% 1, 900 000 ml @ 75 mls/hr IV . [id number] Rx#:[id number] Oral 560 1080 700 Output: Urine 1400 2800 1100 Straight 700 Other: Voiding Method Indwelling Catheter Indwelling Catheter # Voids 1 - Exam On examination patient is alert and awake. Her speech and language functions appears normal. Detailed cognitive function testing deferred. Her pupils are round and reacting, visual killian appears full. Face is symmetric. Hearing is mildly decreased. Patient's strength in the upper extremities are normal. Bilateral ankles are normal. Hip flexion appears normal. Normal tone and bulk. Reflexes are symmetric. Patient walking with mild assist. - Labs CBC & Chem 7: 03/03/21 10:07 03/04/21 06:53 Labs: Abnormal Lab Results - Last 24 Hours (Table) 03/04/21 Range/Units 06:53 Sodium 130 L (135-145) mmol/L Chloride 91 L (96-109) mmol/L Carbon Dioxide 34.6 H (21.6-31.8) mmol/L Assessment and Plan Assessment: * Possible Delerium, possibly septic encephalopathy (UTI). Also component of metabolic encephalopathy (KAREN). Now resolved. * Altered mental status: due to above--- with possible psychiatric diagnosis superimposed. * Reported history of ?growth over the exterior middle/right frontal s/p resection in and another grown over the left parietal and needed resected but has not followed up (this was performed by PCP and not neurosurgeon) She was not told she has brain tumor. MRI of the brain n egative. * Acute urinary tract infection * Acute Hypokalemia * Acute kidney injury--resolved * History of hypertension * Hyperlipidemia * Anxiety and depression Plan: MRI of the brain with and without contrast revealed mild cerebral atrophy. Minimal white matter changes, could relate to some microvascular ischemia. No evidence of cortical infarct. Left sphenoid sinusitis. EEG was performed today, which was abnormal due to background slowing and disorganization, with presence of mixed slow and fast frequency activity. This is suggestive of mild generalized cerebral dysfunction as can be seen with encephalopathy of vascular, metabolic or degenerative causes, or medication effect. No epileptiform activity was seen. No indication for antiepileptic medication based upon above test results. CT of the head is reported as age-related atrophic and chronic small vessel ischemic changes without acute intracranial process seen at this time. AST is 34, ALTs 21, sodium is 139, calcium is 9.9 which are within normal limits. TSH 1.2, vitamin B12 440, folate 11.6. We will give B12 injection x1, and start folic acid 1 mg daily. Patient's daughter was concerned about memory issues. She was recommended to have patient follow-up with neurologist as an outpatient, once all of her medical conditions have resolved, to evaluate for underlying cognitive impairment.
[2021-03-05] MEDS ORDERED: DULoxetine HCL 30 MG CAPSULE.DR PO SCH (09:00)
== END 2021-03-04 14:03 | DRG 871 ==
LOC: EC 05:53 → 4SSUR 09:50 → EEVIPCON 09:50 → 4SSUR 11:41
PROVIDERS: ADMIT Internal Medicine Geriatric Medicine; ATTEND Internal Medicine Geriatric Medicine
DX: A41.9 Sepsis, unspecified organism (principal); G93.41 Metabolic encephalopathy; N39.0 Urinary tract infection, site not specified; N17.9 Acute kidney failure, unspecified; R45.851 Suicidal ideations; F33.9 Major depressive disorder, recurrent, unspecified; E87.1 Hypo-osmolality and hyponatremia; J98.11 Atelectasis; E78.5 Hyperlipidemia, unspecified; I10 Essential (primary) hypertension; Z87.891 Personal history of nicotine dependence; Z87.440 Personal history of urinary (tract) infections; Z80.8 Family history of malignant neoplasm of other organs or systems; Z80.0 Family history of malignant neoplasm of digestive organs; E87.6 Hypokalemia; F25.1 Schizoaffective disorder, depressive type; F03.90 Unspecified dementia, unspecified severity, without behavioral disturbance, psychotic disturbance, mood disturbance, and anxiety; J32.3 Chronic sphenoidal sinusitis; F41.1 Generalized anxiety disorder; D64.9 Anemia, unspecified; M10.9 Gout, unspecified; R33.9 Retention of urine, unspecified; R19.7 Diarrhea, unspecified; J20.9 Acute bronchitis, unspecified; G47.00 Insomnia, unspecified; K59.00 Constipation, unspecified; K76.89 Other specified diseases of liver; K80.20 Calculus of gallbladder without cholecystitis without obstruction; Z79.899 Other long term (current) drug therapy
CPT/HCPCS: 36415; 70450; 70553; 71045; 71046; 74176; 80048; 80053; 80143; 80179; 80306; 81001; 82175; 82525; 82550; 82570; 82607; 82746; 82747; 83540; 83550; 83605; 83655; 83825; 83880; 84132; 84443; 84550; 85025; 85027; 85652; 86140; 87040; 87086; 87635; 93005; 95816; 96365; 96366; 99285

== ENCOUNTER → 2021-04-08 | Outpatient (CLI) | payer MEDICARE ==
--- NOTE | 2021-04-08 12:48 | BD ---
EXAMINATION TYPE: Axial Bone Density DATE OF EXAM: 04/08/2021 COMPARISON: NONE CLINICAL HISTORY: Postmenopausal female. Height: 62 Weight: 165.0 FRAX RISK QUESTIONS: Alcohol (3 or more units per day): NO Family History (Parent hip fracture): no Glucocorticoids (More than 3mos): no (Ex: prednisone, prednisolone, methylprednisolone, dexamethasone, and hydrocortisone). History of Fracture in Adulthood: no Secondary Osteoporosis: 1. Type 1 Diabetes: no 2. Hyperthyroidism: no 3. Menopause before 45: no 4. Malnutrition: no 5. Chronic liver disease: no Rheumatoid Arthritis: no Current Tobacco Use: no RISK FACTORS HISTORY OF: Surgery to Spine/Hip(right/left)/Wrist (right/left): no Family History of Osteoporosis: no Active: no Diet low in dairy products/other sources of calcium: yes Postmenopausal woman: age 44 Lost more than 2 inches in height since high school: no MEDICATIONS: tamsulosin, folic acid, atorvastatin, cyclobenzaprine, hctz Additional History: pt is in poor health EXAM MEASUREMENTS: Bone mineral densitometry was performed using the [employer] System. Bone mineral density as measured about the Lumbar spine is: ----- L1-L4(G/cm2): 1.037 T Score Values are as follows: ----- L2: -1.6 ----- L3: -1.0 ----- L4: -0.5 ----- L1-L4: -1.2 Bone mineral density : baseline Bone mineral density about the R hip (g/cm2): 0.694 Bone mineral density about the L hip (g/cm2): 0.727 T Score values are as follows: -----R Neck: -2.5 -----L Neck: -2.2 -----R Total: -2.1 -----L Total: -1.9 Bone mineral density : baseline IMPRESSION: Osteopenia (T Score between -2.5 and -1). There is slightly increased risk of fracture and the patient may be considered for treatment. Re-Screen 2-5 years. NOTE: T-SCORE=SD OF THE YOUNG ADULT MEAN.
--- NOTE | 2021-04-09 10:34 | MM ---
Reason for exam: screening (asymptomatic). Baseline mammogram. History: Patient is postmenopausal. Family history of breast cancer in maternal grandmother. Physical Findings: Nurse did not find any significant physical abnormalities on exam. MG Screening Mammo w CAD Bilateral CC and MLO view(s) were taken. The breast tissue is heterogeneously dense. This may lower the sensitivity of mammography. There is no discrete abnormality. No significant changes when compared with prior studies. ASSESSMENT: Negative, BI-RAD 1 RECOMMENDATION: Routine screening mammogram of both breasts in 1 year.
== END | disposition home or self-care (01) ==
LOC: RADMAMWWP 09:47
PROVIDERS: ATTEND Nurse Practitioner Family
DX: Z12.31 Encounter for screening mammogram for malignant neoplasm of breast (principal); Z13.820 Encounter for screening for osteoporosis; M85.80 Other specified disorders of bone density and structure, unspecified site; Z78.0 Asymptomatic menopausal state
CPT/HCPCS: 77067; 77080

== ENCOUNTER → 2022-04-09 | Outpatient (CLI) | payer MEDICARE, OTHER ==
--- NOTE | 2022-04-10 07:42 | MM ---
Reason for Exam: Screening (asymptomatic). Last screening mammogram was performed 12 month(s) ago. Patient History: Menarche at age 13. First Full-Term at age 20. Postmenopausal. Maternal grandmother had breast cancer. Risk Values: [place] 5 year model risk: 1.4%. NCI Lifetime model risk: 3.8%. Prior Study Comparison: 04/08/2021 Bilateral Screening Mammogram, [facility]. Tissue Density: The breast tissue is heterogeneously dense. This may lower the sensitivity of mammography. Findings: Analyzed By CAD. There is no suspicious group of microcalcifications or new suspicious mass in either breast. Overall Assessment: Negative, BI-RAD 1 Management: Screening Mammogram of both breasts in 1 year. A clinical breast exam by your physician is recommended on an annual basis and results should be correlated with mammographic findings. Electronically signed and approved by: Rj Birmingham M.D. Radiologis
== END | disposition home or self-care (01) ==
LOC: RADMAMWWP 16:05
PROVIDERS: ATTEND Obstetrics & Gynecology
DX: Z12.31 Encounter for screening mammogram for malignant neoplasm of breast (principal); Z78.0 Asymptomatic menopausal state; Z80.3 Family history of malignant neoplasm of breast
CPT/HCPCS: 77067

== ENCOUNTER → 2022-07-31 | Outpatient (CLI) | payer MEDICARE, OTHER ==
--- NOTE | 2022-07-31 12:41 | FL ---
INDICATION: Patient age:Female; 72 years old; Reason for study: Dysphagia; PHH. COMPARISON: None TECHNIQUE: Utilizing real-time video recording fluoroscopy, multiple images were obtained after admin istration of various consistencies of barium contrast. A speech pathologist was present throughout th e exam. Fluoroscopic time: 1 minute 1 second FINDINGS: Consistencies administered: Applesauce, chopped, thin, and cracker barium. During the oral phase the re is normal formation of food bolus with normal initiation of swallow with all consistencies. Premature spill: With applesauce consistency Laryngeal penetration: None identified. Piriform Retention:None identified Vallecular retention: None identified. Nasopharyngeal reflux: None Tracheal aspiration: One silent subtle single trace aspiration with thin consistency. IMPRESSION: One silent subtle single trace aspiration with thin consistency which could just be transient. Otherw ise unremarkable. Please see dedicated speech pathology report for additional information.
== END | disposition home or self-care (01) ==
LOC: RADFLMAIN 10:50
PROVIDERS: ATTEND Surgery
DX: R13.10 Dysphagia, unspecified (principal)
CPT/HCPCS: 74230

== ENCOUNTER 2022-11-26 23:27 | Emergency (ER) | payer MEDICARE, OTHER ==
[2022-11-26 23:34] VITALS: BP 139/67; PULSE 95; RESP 14; TEMP 97.7
--- NOTE | 2022-11-26 23:39 | ED ---
General Adult HPI - General Stated complaint: Fall - Altered mental Time Seen by Provider: 11/26/22 23:31 Source: EMS Mode of arrival: EMS Limitations: no limitations - History of Present Illness Initial comments: Dictation was produced using [employer] dictation software. please excuse any grammatical, word or spelling errors. Chief Complaint: 72-year-old female presents emergency Department with altered mental status after fall History of Present Illness: 72-year-old female she presents to the emergency department from home via EMS. Cyclical patient's baseline mental status is however she did reportedly fall down flight of stairs with 12 steps. There was alleged bleeding witnessed by EMS upon arrival. Unclear when patient fell she is followed about the steps by family member. Patient is slightly confused for EMS. She was given a GCS of 13. Unable to obtain secondary to patient's mental status. PHYSICAL EXAM: General Impression: Alert, not in acute distress, GCS 14 HEENT: Residual blood in the right naris, no facial instability, no facial swelling, no scalp bleeding, extra-ocular movements intact, pupils equal and reactive to light bilaterally, mucous membranes moist. Cardiovascular: Heart regular rate and rhythm Chest: Able to complete full sentences, no retractions, no tachypnea Abdomen: abdomen soft, non-tender, non-distended, no organomegaly Musculoskeletal: Pulses present and equal in all extremities, no peripheral edema Motor: no focal deficits noted Neurological: CN II-XII grossly intact, no focal motor or sensory deficits noted Skin: Intact with no visualized rashes Psych: Normal affect and mood ED course: 72-year-old female since to the emergency room after fall. She is a activated level II trauma due to fall down flight of stairs with mental status changes. Prehospital assessment was suspicious for life-threatening intracranial injury. Previous chart was reviewed by me. Patient did have psychiatric consultation in January 2021. At that time she was evaluated for mental status changes. Neurology notes from around that time shows that patient suggesting that she had altered mental status then. Nursing notes and chart review was performed EKG interpreted by me: Ventricular rate 93, sinus rhythm,. 167, QRS 114, QTc 427. No VA prolongation, no QTC prolongation, no ST or T-wave changes noted. EKG compared to 02/15/2021 showing no changes. Overall, this EKG is unremarkable Was pt. sent in by a medical professional or institution ([facility], [facility], urgent care, hospital, or [place] [facility] [place] facility...) When possible be specific @ -No Did you speak to anyone other than the patient for history (EMS, parent, family, police, friend...)? What history was obtained from this source @ -EMS Did you review nursing and triage notes (agree or disagree)? Why? @ -I reviewed and agree with nursing and triage notes Were old charts reviewed (outside hosp., previous admission, EMS record, old EKG, old radiological studies, urgent care reports/EKG's, [place] [facility] facility records)? Report findings @ -Previous charting was reviewed. Appears that patient does have some degree of baseline mental debility Differential Diagnosis (chest pain, altered mental status, abdominal pain women, abdominal pain men, vaginal bleeding, musculoskeletal, weakness, fever, dyspnea, syncope, headache, dizziness, GI bleed, back pain, seizure, CVA, palpatations, mental health)? @ -Differential Altered Mental Status: Hypoglycemia, DKA, hypercapnia, ETOH, overdose, CO poisoning, trauma, myxedema coma, HTN encephalopathy, infection, encephalitis, psychosis, intercranial hemorrhage, hepatic encephalopathy, meningitis, CVA, this is not meant to be an all-inclusive list EKG interpreted by me (3pts min.). @ -seee above X-rays interpreted by me (1pt min.). @ -No acute findings and pelvis x-ray chest x-ray. CT interpreted by me (1pt min.). @ -Computed tomography scan of the chest abdomen pelvis shows no acute processes. Computed tomography scan of the head C-spine shows no acute cervical injuries however there does appear to be intracranial bleeding and skull base fracture. U/S interpreted by me (1pt. min.). @ -None done What testing was considered but not performed or refused? (CT, X-rays, U/S, labs)? Why? @ -None What meds were considered but not given or refused? Why? @ -None Did you discuss the management of the patient with other professionals (professionals i.e. [facility], [facility], lab, RT, psych nurse, adoption social worker, pharmaceutical salesperson, teacher, seaman officer, transplant case manager)? Give summary @ -Case discussed with Dagoberto Mares for transfer. Was smoking cessation discussed for >3mins.? @ -No Was critical care preformed (if so, how long)? @ -33 minutes, yes Were there social determinants of health that impacted care today? How? (Homelessness, low income, unemployed, alcoholism, drug addiction, transportation, low edu. Level, literacy, decrease access to med. care, [facility], rehab)? @ -No Was there de-escalation of care discussed even if they declined (Discuss DNR or withdrawal of care, Hospice)? DNR status @ -No What co-morbidities impacted this encounter? (DM, HTN, Smoking, COPD, CAD, Cancer, CVA, ARF, Chemo, Hep., AIDS, mental health diagnosis, sleep apnea, morbid obesity)? @ -None Was patient admitted / discharged? Hospital course, mention meds given and route, prescriptions, significant lab abnormalities, going to OR and other pertinent info. @ -72-year-old female presents emergency Department after being found down at the bottom of a 12 step flight of stairs. Prehospital providers suggested that patient had altered mental status. Patient activated level II trauma. Computed tomography scan of the head and C-spine shows skull base fracture with intracranial bleed. Patient on any anticoagulation medications. Patient not hypertensive. Patient be transferred to outside hospital for further care and neurosurgical evaluation. Dr. Horta is accepting for ER to ER to transfer. Undiagnosed new problem with uncertain prognosis? @ -No Drug Therapy requiring intensive monitoring for toxicity (Heparin, Nitro, Insulin, Cardizem)? @ -No Were any procedures done? @ -No Diagnosis/symptom? Acute, or Chronic, or Acute on Chronic? Uncomplicated (without systemic symptoms) or Complicated (systemic symptoms)? @ -1. Acute intracranial bleed secondary to traumatic head injury Side effects of treatment? @ -No Exacerbation, Progression, or Severe Exacerbation? @ -No Poses a threat to life or bodily function? How? (Chest pain, [place], [place], pneumonia, PE, COPD, DKA, ARF, appy, cholecystitis, CVA, Diverticulitis, Homicidal, Suicidal, threat to staff... and all critical care pts) @ -yes - Related Data Home Medications Medication Instructions Recorded Confirmed Acetaminophen [Tylenol Arthritis] 650 mg PO Q8H PRN 02/15/21 02/15/21 Albuterol Inhaler [Ventolin Hfa 1 puff INHALATION RT-Q4H PRN 02/15/21 02/15/21 Inhaler] Atorvastatin Calcium [Lipitor] 20 mg PO HS 02/15/21 02/15/21 hydroCHLOROthiazide 25 mg PO DAILY 02/17/21 02/17/21 Previous Rx's Medication Instructions Recorded ARIPiprazole [Abilify] 2.5 mg PO DAILY tab 02/21/21 Folic Acid 1 mg PO DAILY tab 02/21/21 Melatonin 10 mg PO HS tablet 02/21/21 Bethanechol [Urecholine] 50 mg PO TID tab 03/04/21 Cyanocobalamin [Vitamin B-12] 500 mcg PO DAILY tab 03/04/21 Cyclobenzaprine [Flexeril] 10 mg PO HS tab 03/04/21 DULoxetine HCL [Cymbalta] 90 mg PO DAILY capsule. 03/04/21 Ferrous Sulfate [Iron (65 MG 325 mg PO W/LUNCH tab 03/04/21 Elemental)] Gabapentin [Neurontin] 300 mg PO HS #3 cap 03/04/21 Mirtazapine [Remeron] 15 mg PO HS tab 03/04/21 Tamsulosin [Flomax] 0.4 mg PO [id number] cap.er.24h 03/04/21 Allergies Allergy/AdvReac Type Severity Reaction Status Date / Time No Known Allergies Allergy Verified 02/15/21 11:05 Review of Systems ROS Statement: Those systems with pertinent positive or pertinent negative responses have been documented in the HPI. ROS Other: All systems not noted in ROS Statement are negative. Past Medical History Past Medical History: Hyperlipidemia, Hypertension History of Any Multi-Drug Resistant Organisms: None Reported Past Surgical History: Tubal Ligation Additional Past Surgical History / Comment(s): head surgery-tumor removed, Past Psychological History: Anxiety, Depression Smoking Status: Former smoker Past Alcohol Use History: None Reported Past Drug Use History: None Reported - Past Family History Mother History Unknown: Yes Family Medical History: Cancer General Exam Limitations: no limitations Course Vital Signs 11/26/22 23:27 Temperature 97.7 F Pulse Rate 95 Respiratory 14 Rate Blood Pressure 139/67 O2 Sat by Pulse 97 Oximetry Medical Decision Making - Lab Data Result diagrams: 11/26/22 23:36 Lab Results 11/26/22 11/26/22 11/26/22 Range/Units 23:30 23:35 23:36 WBC 15.2 H (3.8-10.6) k/uL RBC 3.88 (3.80-5.40) m/uL Hgb 11.9 (11.4-16.0) gm/dL Hct 34.2 (34.0-46.0) % MCV 88.2 (80.0-100.0) fL MCH 30.8 (25.0-35.0) pg MCHC 34.9 (31.0-37.0) g/dL RDW 13.3 (11.5-15.5) % Plt Count 233 (150-450) k/uL MPV 9.4 Neutrophils % 78 % Lymphocytes % 16 % Monocytes % 3 % Eosinophils % 1 % Basophils % 0 % Neutrophils # 11.9 H (1.3-7.7) k/uL Lymphocytes # 2.5 (1.0-4.8) k/uL Monocytes # 0.5 (0-1.0) k/uL Eosinophils # 0.1 (0-0.7) k/uL Basophils # 0.0 (0-0.2) k/uL PT (9.0-12.0) sec INR (<1.2) APTT (22.0-30.0) sec Troponin I (0.000-0.034) ng/mL Urine Opiates Screen (NotDetected) Ur Oxycodone Screen (NotDetected) Urine Methadone Screen (NotDetected) Ur Propoxyphene Screen (NotDetected) Ur Barbiturates Screen (NotDetected) U Tricyclic Antidepress (NotDetected) Ur Phencyclidine Scrn (NotDetected) Ur Amphetamines Screen (NotDetected) U Methamphetamines Scrn (NotDetected) U Benzodiazepines Scrn (NotDetected) Urine Cocaine Screen (NotDetected) U Marijuana (THC) Screen (NotDetected) Blood Type O Positive Blood Type Confirm O Positive Blood Type Recheck No Previous Record Bld Type Recheck Status CABO Indicated Antibody Screen NEGATIVE Spec Expiration Date 11/29/2022232911/26/22 11/26/22 11/27/22 Range/Units 23:36 23:36 00:02 WBC (3.8-10.6) k/uL RBC (3.80-5.40) m/uL Hgb (11.4-16.0) gm/dL Hct (34.0-46.0) % MCV (80.0-100.0) fL MCH (25.0-35.0) pg MCHC (31.0-37.0) g/dL RDW (11.5-15.5) % Plt Count (150-450) k/uL MPV Neutrophils % % Lymphocytes % % Monocytes % % Eosinophils % % Basophils % % Neutrophils # (1.3-7.7) k/uL Lymphocytes # (1.0-4.8) k/uL Monocytes # (0-1.0) k/uL Eosinophils # (0-0.7) k/uL Basophils # (0-0.2) k/uL PT 10.1 (9.0-12.0) sec INR 0.9 (<1.2) APTT 19.3 L (22.0-30.0) sec Troponin I <0.012 (0.000-0.034) ng/mL Urine Opiates Screen Not Detected (NotDetected) Ur Oxycodone Screen Not Detected (NotDetected) Urine Methadone Screen Not Detected (NotDetected) Ur Propoxyphene Screen Not Detected (NotDetected) Ur Barbiturates Screen Not Detected (NotDetected) U Tricyclic Antidepress Not Detected (NotDetected) Ur Phencyclidine Scrn Not Detected (NotDetected) Ur Amphetamines Screen Not Detected (NotDetected) U Methamphetamines Scrn Not Detected (NotDetected) U Benzodiazepines Scrn Not Detected (NotDetected) Urine Cocaine Screen Not Detected (NotDetected) U Marijuana (THC) Screen Not Detected (NotDetected) Blood Type Blood Type Confirm Blood Type Recheck Bld Type Recheck Status Antibody Screen Spec Expiration Date Disposition Clinical Impression: Intracranial bleed, Skull base fx Disposition: OTHER INSTITUTION NOT DEFINED Condition: Critical Referrals: None,Stated [Primary Care Provider] - 1-2 days Time of Disposition: 00:33 - Out of Hospital Transfer - Req. Specs Out of Hospital Transfer - Requested Specifics: Other Emergency Center
[2022-11-26 23:59] LABS: Basophils % (A) 0 %; Eosinophils # (A) 0.1 k/uL (0-0.7); Eosinophils % (A) 1 %; HCT 34.2 % (34.0-46.0); HGB 11.9 gm/dL (11.4-16.0); Lymphocytes # (A) 2.5 k/uL (1.0-4.8); Lymphocytes % (A) 16 %; MCH 30.8 pg (25.0-35.0); MCHC 34.9 g/dL (31.0-37.0); MCV 88.2 fL (80.0-100.0); Mean Platelet Volume 9.4; Monocytes # (A) 0.5 k/uL (0-1.0); Monocytes % (A) 3 %; Neutrophils # (A) 11.9 k/uL (1.3-7.7); Neutrophils % (A) 78 %; Platelet Count 233 k/uL (150-450); RBC 3.88 m/uL (3.80-5.40); RDW 13.3 % (11.5-15.5); WBC 15.2 k/uL (3.8-10.6)
--- NOTE | 2022-11-27 00:10 | XR ---
EXAM: XR Chest, 1 View CLINICAL HISTORY: XR Reason: trauma TECHNIQUE: Frontal view of the chest. COMPARISON: March 01, 2021 FINDINGS: Lungs: There is a 3.9 cm rounded density in the left perihilar region. Pleural space: Unremarkable. No pneumothorax. Heart: The cardiac silhouette is mildly enlarged. Mediastinum: Unremarkable. Bones/joints: Unremarkable. Vasculature: The aortic arch is mildly calcified but appears nondilated. Upper abdomen: There is no pneumoperitoneum under the diaphragm. IMPRESSION: There is a new 3.9 cm rounded density in the left perihilar region. Differential considerations include mass versus infiltrate or atelectasis. Consider CT for further characterization.
--- NOTE | 2022-11-27 00:11 | XR ---
EXAM: XR Pelvis, 1 or 2 Views CLINICAL HISTORY: XR Reason: Trauma TECHNIQUE: Frontal view of the pelvis. COMPARISON: CT from March 03, 2021 FINDINGS: Bones/joints: The proximal femurs are intact and normally positioned with respect to the acetabulum bilaterally. The pelvis appears intact. No acute fracture. No dislocation. Soft tissues: Unremarkable. Gastrointestinal tract: Moderate amount of stool throughout nondilated colon. IMPRESSION: No acute findings in the pelvis.
[2022-11-27 00:15] LABS: INR 0.9 (<1.2); Prothrombin Time 10.1 sec (9.0-12.0)
[2022-11-27 00:16] LABS: Partial Thromboplastin Time 19.3 sec (22.0-30.0)
--- NOTE | 2022-11-27 00:18 | CT ---
EXAM: CT Chest With Intravenous Contrast CLINICAL HISTORY: CT Reason: trauma TECHNIQUE: Axial computed tomography images of the chest with intravenous contrast. CTDI is 6.9 mGy and DLP is 467.7 mGy-cm. This CT exam was performed using one or more of the following dose reduction techniques: automated exposure control, adjustment of the mA and/or kV according to patient size, and/or use of iterative reconstruction technique. COMPARISON: No relevant prior studies available. FINDINGS: Lungs: Partially cavitated 3 cm nodular masslike density in the left hilar and suprahilar region. Differential considerations include neoplasm versus pneumonia and/or scarring. Consider PET/CT or biopsy for further characterization. Pleural space: Unremarkable. No pneumothorax. No significant effusion. Heart: Unremarkable. No cardiomegaly. No significant pericardial effusion. No significant coronary artery calcifications. Bones/joints: Mild multilevel degenerative changes throughout the spine. No acute fracture or destructive bone lesion is seen. No dislocation. Soft tissues: Unremarkable. Vasculature: The aortic arch is mildly calcified but nondilated. There is no aneurysm or dissection. Lymph nodes: Unremarkable. No enlarged lymph nodes. IMPRESSION: Partially cavitated 3 cm nodular masslike density in the left hilar and suprahilar region. Differential considerations include neoplasm versus pneumonia and/or scarring. Consider PET/CT or biopsy for further characterization. EXAM: CT Abdomen and Pelvis With Intravenous Contrast CLINICAL HISTORY: CT Reason: trauma TECHNIQUE: Axial computed tomography images of the abdomen and pelvis with intravenous contrast. CTDI is 7.6 mGy and DLP is 386.2 mGy-cm. This CT exam was performed using one or more of the following dose reduction techniques: automated exposure control, adjustment of the mA and/or kV according to patient size, and/or use of iterative reconstruction technique. COMPARISON: No relevant prior studies available. FINDINGS: Lung bases: Unremarkable. No mass. No consolidation. ABDOMEN: Liver: There is a 2.5 cm simple cyst in the right liver lobe. No follow-up is required. Gallbladder and bile ducts: There is a noncalcified 3 cm calculus in the gallbladder with slight gallbladder wall thickening. No surrounding inflammation is visible. The common bile duct is upper normal in diameter measuring 8-9 mm. Pancreas: Unremarkable. No mass. No ductal dilation. Spleen: Unremarkable. No splenomegaly. Adrenals: Unremarkable. No mass. Kidneys and ureters: Delayed images show normal renal contrast excretion bilaterally. No hydronephrosis. Stomach and bowel: Unremarkable. No obstruction. No mucosal thickening. PELVIS: Appendix: The appendix is normal. Bowel loops are nondilated. No acute inflammatory changes are seen involving the bowel. Bladder: Unremarkable. No mass. Reproductive: Unremarkable as visualized. ABDOMEN and PELVIS: Intraperitoneal space: Unremarkable. No free air. No significant fluid collection. Bones/joints: Mild degenerative changes in the spine. No acute fracture or subluxation. Soft tissues: Unremarkable. Vasculature: The abdominal aorta is mildly calcified but nondilated. Lymph nodes: Unremarkable. No enlarged lymph nodes. IMPRESSION: 1. There is a noncalcified 3 cm calculus in the gallbladder with slight gallbladder wall thickening. No surrounding inflammation is visible. The common bile duct is upper normal in diameter measuring 8-9 mm. 2. The appendix is normal. Bowel loops are nondilated. No acute inflammatory changes are seen involving the bowel. <MYCVCSECTION> Communications: 11/27/22 00:28 Verify Receipt Verified receipt with Saurabh in ER- Report given to Dr. Gonzales on 11/27 00:28 (-04:00)
--- NOTE | 2022-11-27 00:28 | CT ---
EXAM: CT Head Without Intravenous Contrast CLINICAL HISTORY: CT Reason: trauma TECHNIQUE: Axial computed tomography images of the head/brain without intravenous contrast. CTDI is 45.3 mGy and DLP is 1076 mGy-cm. This CT exam was performed using one or more of the following dose reduction techniques: automated exposure control, adjustment of the mA and/or kV according to patient size, and/or use of iterative reconstruction technique. COMPARISON: MRI brain from February 17, [address] from February 15, 2021 FINDINGS: Brain: There are scattered subarachnoid hemorrhages over the anterior aspects of the frontal lobes bilaterally, greatest along the floor of the middle cranial fossa. Possible 8 mm parenchymal contusion in the inferior right frontal lobe. There trace amounts of subarachnoid hemorrhage over the anterior temporal lobes bilaterally. There is a small right subdural hematoma measuring 5 mm. Mild cerebral atrophy. There is mild periventricular white matter low density consistent with chronic small vessel disease. Ventricles: Unremarkable. No ventriculomegaly. Bones/joints: Gas fluid levels in the right maxillary and sphenoid sinuses. No facial fracture is identified. Consider acute sinusitis. Soft tissues: There is a small posterior scalp hematoma. There is a nondisplaced skull base fracture involving the occipital bone. Sinuses: See above. Mastoid air cells: Unremarkable as visualized. No mastoid effusion. IMPRESSION: 1. There are scattered subarachnoid hemorrhages over the anterior aspects of the frontal lobes bilaterally, greatest along the floor of the middle cranial fossa. Possible 8 mm parenchymal contusion in the inferior right frontal lobe. There trace amounts of subarachnoid hemorrhage over the anterior temporal lobes bilaterally. There is a small right subdural hematoma measuring 5 mm. 2. There is a small posterior scalp hematoma. There is a nondisplaced skull base fracture involving the occipital bone. 3. Gas fluid levels in the right maxillary and sphenoid sinuses. No facial fracture is identified. Consider acute sinusitis. EXAM: CT Cervical Spine Without Intravenous Contrast CLINICAL HISTORY: CT Reason: trauma TECHNIQUE: Axial computed tomography images of the cervical spine without intravenous contrast. CTDI is 7.3 mGy and DLP is 182.3 mGy-cm. COMPARISON: No relevant prior studies available. FINDINGS: Vertebrae: Mild narrowing and osteophytosis at the atlantodental joint. The odontoid process is intact. No acute fracture. Soft tissues: Unremarkable. Vasculature: Mild calcification of the carotid bifurcation on the right. DISCS/SPINAL CANAL/NEURAL FORAMINA: C2-C3: Unremarkable. No significant disc disease. No stenosis. C3-C4: Mild degenerative disc disease. No stenosis. C4-C5: Mild degenerative disc disease. No stenosis. C5-C6: Mild degenerative disc disease. No stenosis. C6-C7: Mild degenerative disc disease. No stenosis. C7-T1: Mild degenerative disc disease. No stenosis. IMPRESSION: Mild to moderate multilevel degenerative disc disease throughout the cervical spine. No acute fracture or traumatic subluxation is seen. <MYCVCSECTION> Communications: 11/27/22 00:33 Call Doctor Regarding Intracranial Hemorrhage, called Dr. Gonzales on 11/27 00:33 (-04:00)
[2022-11-27 00:44] LABS: Amphetamine Screen,Urine Not Detected (NotDetected); Barbiturate Screen,Urine Not Detected (NotDetected); Benzodiazepines Screen,Urine Not Detected (NotDetected); Cocaine Screen,Urine Not Detected (NotDetected); Methadone Screen, Urine Not Detected (NotDetected); Opiate Screen,Urine Not Detected (NotDetected); Oxycodone Screen, Urine Not Detected (NotDetected); Phencyclidine Screen,Urine Not Detected (NotDetected); Tricyclic Antidepressant,Urine Not Detected (NotDetected); Urn Cannabinoid Scrn Not Detected (NotDetected)
[2022-11-27 01:33] LABS: ALT 26 U/L (4-34); AST 32 U/L (14-36); African American GFR (CKD) >90 (>60 ml/min/1.73 sqM); Alcohol <10 mg/dL; Alkaline Phosphatase 102 U/L (38-126); Anion Gap 5 mmol/L; Blood Urea Nitrogen 20 mg/dL (7-17); Calcium 8.7 mg/dL (8.4-10.2); Carbon Dioxide 27 mmol/L (22-30); Chloride 106 mmol/L (98-107); Glucose 151 mg/dL (74-99); Non-African American GFR(CKD) 81 (>60 ml/min/1.73 sqM); Potassium 3.6 mmol/L (3.5-5.1); Sodium 138 mmol/L (137-145); Total Bilirubin 0.5 mg/dL (0.2-1.3); Total Protein 6.7 g/dL (6.3-8.2)
== END 2022-11-27 02:27 | disposition other institution (70) ==
LOC: EC 23:27
DX: S02.109A Fracture of base of skull, unspecified side, initial encounter for closed fracture (principal); S06.360A Traumatic hemorrhage of cerebrum, unspecified, without loss of consciousness, initial encounter; E78.5 Hyperlipidemia, unspecified; I10 Essential (primary) hypertension; F41.9 Anxiety disorder, unspecified; F32.A Depression, unspecified; Z87.891 Personal history of nicotine dependence; Z79.899 Other long term (current) drug therapy; Z20.822 Contact with and (suspected) exposure to COVID-19; W10.9XXA Fall (on) (from) unspecified stairs and steps, initial encounter
CPT/HCPCS: 36415; 93005; 86900; 86901; 80053; 84484; 85025; 85610; 85730; 86850; 80306; 72170; 71045; 72125; 70450; 71260; 74177; 99291; G0480; Q9967; 80320; 87635

== ENCOUNTER → 2023-01-16 | Outpatient (CLI) | payer MEDICARE, OTHER ==
--- NOTE | 2023-01-16 18:12 | MR ---
EXAMINATION TYPE: MR lumbar spine wo con DATE OF EXAM: 01/16/2023 4:37 PM COMPARISON: CT 11/26/2022. CLINICAL INDICATION:Female, 72 years old with history of M54.9 DORSALGIA, UNSPECIFIED; PHH, Low back pain into kianna lower body TECHNIQUE: Multi planar, multi sequence imaging was performed utilizing: T1-weighted, T2-weighted, a nd turbo inversion recovery imaging of the lumbar spine. IV Contrast: None. FINDINGS: Alignment: The lumbar vertebral bodies have preserved heights and alignment. Cord: The conus medullaris and the distal spinal cord appear unremarkable with regards to their signa l intensity and morphology. Bones/Discs: No suspicious osseous lesions. No abnormal bony edema on inversion recovery sequences. M ultilevel disc degenerative is noted and most pronounced at the L5-S1. Intervertebral disc signal is maintained. T12-L1: No evidence of significant spinal canal stenosis or neural foraminal stenosis. L1-L2: No evidence of significant spinal canal stenosis or neural foraminal stenosis. L2-L3: No evidence of significant spinal canal stenosis or neural foraminal stenosis. L3-L4: No evidence of significant spinal canal stenosis or neural foraminal stenosis. L4-L5: Disc bulge and facet joint arthropathy without significant spinal canal stenosis and mild to m oderate bilateral neural foraminal stenosis. L5-S1: The disc is rounded posterior morphology without significant spinal canal stenosis. Facet join t arthropathy with moderate neural foraminal stenosis. No significant spinal canal or neural foraminal stenosis in the remainder of the visualized levels. Other findings: Cholelithiasis. IMPRESSION: 1. No definitive evidence of disc herniation or significant spinal canal stenosis. 2. Mild disc degeneration with associated osteoarthritic changes.
== END | disposition home or self-care (01) ==
LOC: RADMRIMAIN 14:56
PROVIDERS: ATTEND Psychiatry & Neurology Neurology
DX: M51.36 Other intervertebral disc degeneration, lumbar region (principal); M47.816 Spondylosis without myelopathy or radiculopathy, lumbar region
CPT/HCPCS: 72148

== ENCOUNTER → 2023-01-27 | Outpatient (CLI) | payer MEDICARE, OTHER ==
--- NOTE | 2023-01-27 19:40 | MR ---
EXAMINATION TYPE: MR cervical spine wo con DATE OF EXAM: 01/27/2023 INDICATION: Patient age: Female; 72 years old; Reason for study: M54.20 Neck pain. COMPARISON: None. TECHNIQUE: Multi planar, multi sequence imaging was performed utilizing: T1-weighted, T2-weighted, an d turbo inversion recovery imaging of the cervical spine. IV Contrast: None FINDINGS: Alignment: The cervical vertebral bodies have preserved heights. Alignment is within normal limits gi syeda patient positioning. Bones: Scattered Modic endplate changes with osteophytes and disc space narrowing. Multilevel degener ative disc disease is noted and most pronounced at the C5-C7 vertebral levels. Cord: The spinal cord is unremarkable with regards to their signal intensity and morphology. Discs: Multilevel disc desiccation is present. C2-C3: A disc osteophyte complex is present with mild spinal canal stenosis. No neural foraminal danny nosis. C3-C4: A disc osteophyte complex is present with moderate spinal canal stenosis. Bilateral facet and uncovertebral joint arthropathy are present with moderate to severe left and moderate right neural f oraminal stenosis. C4-C5: No significant disc pathology. The spinal canal is patent. Bilateral facet and uncovertebral joint arthropathy are present with mild bilateral neural foraminal stenosis. C5-C6: No significant disc pathology. The spinal canal is patent. Bilateral facet and uncovertebral joint arthropathy are present with moderate bilateral neural foraminal stenosis. C6-C7: No significant disc pathology. The spinal canal is patent. Bilateral facet and uncovertebral joint arthropathy are present with mild to moderate bilateral neural foraminal stenosis. C7-T1: No significant disc pathology. The spinal canal is patent. No neural foraminal stenosis. Other: Perineural cysts on the left at T2 and T2-T3 IMPRESSION: 1. No evidence for disc herniation. Moderate spinal canal stenosis at C3-C4 secondary disc osteophyte complex. 2. Multilevel disc degeneration with associated osteoarthritic changes no foraminal stenosis worse le ft C3-C4 and bilateral moderate C5-C6.
== END | disposition home or self-care (01) ==
LOC: RADMRIMAIN 17:59
PROVIDERS: ATTEND Psychiatry & Neurology Neurology
DX: M25.78 Osteophyte, vertebrae (principal); M48.02 Spinal stenosis, cervical region; M47.812 Spondylosis without myelopathy or radiculopathy, cervical region
CPT/HCPCS: 72141

== ENCOUNTER → 2023-02-26 | Outpatient (CLI) | payer MEDICARE, OTHER ==
--- NOTE | 2023-02-28 13:02 | PE ---
EXAMINATION TYPE: PET CT fusion skull to thigh DATE OF EXAM: 02/26/2023 COMPARISON: 11/26/2022 Prior PET/CT: None HISTORY: Lung cancer TECHNIQUE: Following the intravenous administration of 11 mCi of F-18 FDG, whole body images are per formed from the skull base to the midthigh. Images are reviewed on the computer in the coronal, axia l, and sagittal planes. Reconstructed rotating images are created on independent workstation and rev iewed on the computer. A localization and attenuation correction CT is performed in conjunction wit h the PET scan. DLP: 328.55 mGycm SCAN: Initial Blood glucose: 96 mg/dL Average Mediastinum SUV: 1.67 Average Liver SUV: 2.01 FINDINGS: NECK: No abnormal uptake THORAX: Within the left upper lobe is a marked focal area of increased radiotracer measuring SUV valu e of 12.4 compatible with neoplasm. This correlates with the left upper lobe mass. There appears to b e a left suprahilar lymph node with increased uptake directly adjacent with an SUV value of 5.7. No a dditional mediastinal or hilar adenopathy is identified in ABDOMEN: No abnormal uptake PELVIS: No abnormal uptake. There appears to be normal scattered bowel and ureteral activity within t he pelvis. Couple of these areas are hyperintense and somewhat focal and underlying neoplasm is not e ntirely excluded. Recommend colonoscopy for confirmation. OSSEOUS STRUCTURES: No abnormal uptake LOCALIZATION CT: There is a hypodensity within the anterior right lobe liver which is hypointense on the PET scan. Findings can be compatible with a hepatic cyst. Some subtle gravel or hyperdense debris may be within the dependent portion of the gallbladder. Some anterior urinary bladder wall thickenin g or volume averaging may be present. Additional evaluation the urinary bladder is recommended. COMPARISON: Transverse dimension on the left suprahilar lung mass appears stable within measurement e rror. Urinary bladder findings were not present previously. Gallbladder appears stable. Hepatic cyst was present previously. IMPRESSION: 1. Hyperintense radiotracer within the left upper lobe lung mass compatible with neoplasm. 2. There appears to be an adjacent left suprahilar lymph node with increased uptake suspicious for me tastatic disease. 3. No additional intrathoracic or distant metastasis identified. 4. Cholelithiasis. 5. Some mild anterior wall thickening of the urinary bladder. This could be artifact with partial vol ume averaging but appears to be a change from prior study. Additional evaluation of the urinary bladd er is recommended. 6. There are some focal areas of increased signal within the distal colon most likely normal activity . Recommend colonoscopy for confirmation. Neoplasm not excluded at this time.
== END | disposition home or self-care (01) ==
LOC: RADPETMAIN 13:57
PROVIDERS: ATTEND Internal Medicine
DX: C34.12 Malignant neoplasm of upper lobe, left bronchus or lung (principal); K80.20 Calculus of gallbladder without cholecystitis without obstruction; N32.89 Other specified disorders of bladder
CPT/HCPCS: 78815; A9552

== ENCOUNTER → 2023-03-08 | Outpatient (CLI) | payer MEDICARE, OTHER ==
--- NOTE | 2023-03-08 20:54 | MR ---
EXAMINATION TYPE: MR brain and iac wo/w con DATE OF EXAM: 03/08/2023 3:15 PM CLINICAL INDICATION:Female, 72 years old with history of H90.5; COMPARISON: 02/09/2021 TECHNIQUE: Multi planar, multi sequence imaging was performed through the brain. Specialized thin s equences were obtained through the internal auditory canals. Pre-and post gadolinium sequences were obtained. MR contrast: IV Contrast: 5.5 cc Gadavist FINDINGS: Generalized cerebral atrophy with proportional dilation to the ventricular system.. Scattered foci of high T2 signal intensity are seen within the periventricular white matter. Midline structures show no abnormality. Diffusion-weighted imaging shows no evidence of restricted diffusion. The susceptibi lity weighted images do not reveal any evidence for micro-hemorrhage. The bone marrow signal is within normal limits. Paranasal sinuses and mastoid air cells: Mild scattered paranasal sinus disease. Visualized orbits: Orbital contents are intact. After administration of gadolinium, no abnormal enhancement is seen. The internal auditory canal sequences demonstrate no significant irregularity. The 7th cranial nerve s, 8 cranial nerves, and cerebellar pontine angles appear unremarkable. After the administration vinny olinium, no abnormal enhancement is seen within the internal auditory canals. Vascular loop: None. IMPRESSION: 1. No evidence of intracranial mass nor acute/subacute CVA. 2. No evidence of internal auditory canal abnormality. 3. Nonspecific white matter changes, likely secondary to small vessel ischemic disease. 4. Mild cerebral atrophy and proportional dilation of the ventricular system.
== END | disposition home or self-care (01) ==
LOC: RADMRIMAIN 13:45
PROVIDERS: ATTEND Otolaryngology Sleep Medicine
DX: G31.9 Degenerative disease of nervous system, unspecified (principal); R90.82 White matter disease, unspecified; H90.5 Unspecified sensorineural hearing loss; I67.82 Cerebral ischemia
CPT/HCPCS: 70553; A9585

== ENCOUNTER 2023-07-14 18:09 | Emergency (ER) | payer MEDICARE, OTHER ==
--- NOTE | 2023-07-14 19:14 | CT ---
EXAMINATION TYPE: CT brain rocío jimenez con DATE OF EXAM: 07/14/2023 COMPARISON: None HISTORY: 72-year-old female Fall, hematoma to right orbit. CT DLP: 1325.1 mGycm Automated exposure control for dose reduction was used. Technique: Examination of the head was done in axial plane without intravenous contrast. Coronal and sagittal reconstructions performed. CT of the cervical spine was obtained in axial plane without intravenous injection of contrast mater ial. Coronal and sagittal reformatted images were obtained from the axial views for evaluation of f ractures, spinal alignment and canal. FINDINGS: Head: There is no evidence of acute intracranial hemorrhage, acute ischemic changes, mass, mass-effect, or extra-axial fluid collection. There is no effacement of cerebral sulci or basal subarachnoid cister ns. There is no hydrocephalus. There is no midline shift. Galvan-white matter distinction is preserv ed. Moderate bifrontal cerebral volume loss. Mild ventricular prominence likely due to central cerebral a trophy. Moderate mucosal thickening right frontal sinus. Some air fluid level left sphenoid sinus. Right mitch orbital soft tissue swelling. Underlying orbits and globes appear intact. Mastoid air cells well pneu matized. Cervical spine: No craniocervical junction unremarkable, predental space widening, or prevertebral soft tissue swelli ng. Mild to moderate spondylotic change throughout cervical spine. Degenerative disc disease greatest at C3-C4. Posterior disc bulge at this level contribute to moderate focal narrowing of the spinal canal. No acute fracture of the cervical spine. Alignment is maintained. The facet and uncovertebral joint arthropathy. Changes result in moderate to severe left and moderate right neural foraminal stenosis at C3-C4. Mild on both sides at C5-C6. Partially visualized known left suprahilar mass. Sagittal and coronal reformatted images confirm above findings. COMBINED IMPRESSION: 1. Right periorbital soft tissue swelling. No acute intracranial abnormality seen. [id number] c erebral atrophy. 2. No acute fracture or malalignment of the cervical spine. Mild to moderate spondylotic change as ab ove. 3. Possible acute left sphenoid sinusitis. 4. Known left suprahilar mass in the left lung.
--- NOTE | 2023-07-14 19:15 | XR ---
EXAMINATION TYPE: XR shoulder complete 3 views RT, XR knee complete 3 views RT DATE OF EXAM: 07/14/2023 Comparison: None Clinical History: 72-year-old female with pain after fall Findings: Right shoulder: Moderate degenerative joint space narrowing at the AC joint with capsular hypertrophy. Subacromial sp diana is preserved. No acute fracture, subluxation, or dislocation. Right knee: No knee joint effusion. Mild anterior infrapatellar soft tissue swelling. Extensor mechanism is intac t. No acute fracture, subluxation, or dislocation. Impression: 1. Right shoulder: Moderate AC joint OA. No acute osseous amount is seen. 2. Right knee: No acute osseous abnormality or underlying joint effusion seen.
--- NOTE | 2023-07-14 20:16 | XR ---
EXAMINATION TYPE: XR ribs LT w pa chest xray, 5 views DATE OF EXAM: 07/14/2023 Comparison: Head CT 02/26/2023. Previous radiograph 11/26/2022 Clinical History: 72-year-old female pain after fall Findings: Heart normal size. Aorta and pulmonary vasculature within normal limits. Hyperinflation. Focal left p erihilar mass redemonstrated. No displaced left rib fracture seen. Impression: 1. COPD with known left perihilar mass. 2. No displaced left rib fracture seen.
--- NOTE | 2023-07-14 20:18 | ED ---
Fall HPI - General Chief Complaint: Fall Stated Complaint: Fall Time Seen by Provider: 07/14/23 19:21 Source: patient, family Mode of arrival: ambulatory - History of Present Illness Initial Comments: 72-year-old female presenting for evaluation post fall. Patient fell while getting into the car onto her right side hitting her head. No loss of consciousness. No blood thinners. Patient does have bruising and swelling surrounding the right eye. She is complaining mainly of shoulder and knee pain on the right side. Her daughter is concerned for some possible rib pain. Patient denies any chest pain or difficulty breathing. No abdominal pain. No vision or hearing changes. No nausea or vomiting. No numbness, tingling, weakness. - Related Data Home Medications Medication Instructions Recorded Confirmed Acetaminophen [Tylenol Arthritis] 650 mg PO Q8H PRN 02/15/21 02/15/21 Albuterol Inhaler [Ventolin Hfa 1 puff INHALATION RT-Q4H PRN 02/15/21 02/15/21 Inhaler] Atorvastatin Calcium [Lipitor] 20 mg PO HS 02/15/21 02/15/21 hydroCHLOROthiazide 25 mg PO DAILY 02/17/21 02/17/21 Previous Rx's Medication Instructions Recorded ARIPiprazole [Abilify] 2.5 mg PO DAILY tab 02/21/21 Folic Acid 1 mg PO DAILY tab 02/21/21 Melatonin 10 mg PO HS tablet 02/21/21 Bethanechol [Urecholine] 50 mg PO TID tab 03/04/21 Cyanocobalamin [Vitamin B-12] 500 mcg PO DAILY tab 03/04/21 Cyclobenzaprine [Flexeril] 10 mg PO HS tab 03/04/21 DULoxetine HCL [Cymbalta] 90 mg PO DAILY capsule. 03/04/21 Ferrous Sulfate [Iron (65 MG 325 mg PO W/LUNCH tab 03/04/21 Elemental)] Gabapentin [Neurontin] 300 mg PO HS #3 cap 03/04/21 Mirtazapine [Remeron] 15 mg PO HS tab 03/04/21 Tamsulosin [Flomax] 0.4 mg PO PC-[id number] cap.er.24h 03/04/21 Allergies Allergy/AdvReac Type Severity Reaction Status Date / Time No Known Allergies Allergy Verified 02/15/21 11:05 Review of Systems ROS Statement: Those systems with pertinent positive or pertinent negative responses have been documented in the HPI. ROS Other: All systems not noted in ROS Statement are negative. Past Medical History Past Medical History: Cancer, Hyperlipidemia, Hypertension Additional Past Medical History / Comment(s): lung ca History of Any Multi-Drug Resistant Organisms: None Reported Past Surgical History: Tubal Ligation Additional Past Surgical History / Comment(s): head surgery-tumor removed, Past Psychological History: Anxiety, Depression Smoking Status: Former smoker Past Alcohol Use History: None Reported Past Drug Use History: None Reported - Past Family History Mother History Unknown: Yes Family Medical History: Cancer General Exam Limitations: no limitations General appearance: alert, in no apparent distress Head exam: Present: normocephalic Expanded Head exam: Present: contusion (Patient does have some bruising to the lateral portion periorbitally, R side) Eye exam: Present: PERRL, EOMI, periorbital swelling Neck exam: Present: normal inspection, full ROM Respiratory exam: Present: normal lung sounds bilaterally. Absent: respiratory distress, wheezes, rales, rhonchi, stridor Cardiovascular Exam: Present: regular rate, normal rhythm, normal heart sounds. Absent: systolic murmur, diastolic murmur, rubs, gallop, clicks Neurological exam: Present: alert, oriented X3 Expanded Speech: Present: fluid speech Cranial nerves: EOM's Intact: Normal Eye Response: (4) open spontaneously Motor Response: (6) obeys commands Verbal Response: (5) oriented Patel Total: 15 Psychiatric exam: Present: normal affect, normal mood Skin exam: Present: warm, dry Course Vital Signs 07/14/23 07/14/23 18:33 20:38 Temperature 997.9 F H 98.2 F Pulse Rate 83 100 Respiratory 16 18 Rate Blood Pressure 125/75 131/80 O2 Sat by Pulse 95 98 Oximetry Medical Decision Making - Medical Decision Making Was pt. sent in by a medical professional or institution (, PA, PRINCIPAL SYSTEM SOFTWARE ENGINEER, urgent care, hospital, or [facility]...) When possible be specific @ -No Did you speak to anyone other than the patient for history (EMS, parent, family, police, friend...)? What history was obtained from this source @ -No Did you review nursing and triage notes (agree or disagree)? Why? @ -I reviewed and agree with nursing and triage notes Were old charts reviewed (outside hosp., previous admission, EMS record, old EKG, old radiological studies, urgent care reports/EKG's, [facility] records)? Report findings @ -No old charts were reviewed Differential Diagnosis (chest pain, altered mental status, abdominal pain women, abdominal pain men, vaginal bleeding, weakness, fever, dyspnea, syncope, headache, dizziness, GI bleed, back pain, seizure, CVA, palpatations, mental health, musculoskeletal)? @ -Differential Musculoskeletal Muscular strain, contusion, ligament sprain, fracture, arthritis, septic arthritis, bursitis, cellulitis, muscle spasm, nerve compression, DVT, arterial occlusion, herpes zoster, electrolyte abnormality, tumor.... This is not meant to be in all inclusive list EKG interpreted by me (3pts min.). @ -As above X-rays interpreted by me (1pt min.). @ -Rib x-ray with chest x-ray: COPD with known left perihilar mass. No displaced left from fracture seen Right shoulder: Moderate before meals joint on the way. No acute osseous abno rmality is seen. Right knee: No acute osseous abnormality or underlying joint effusion is seen CT interpreted by me (1pt min.). @ -Brain and cervical spine CT shows right periorbital soft tissue swelling, no acute intracranial abnormality seen. Mild to moderate cerebral atrophy. No acute fracture or malalignment of the cervical spine. Mild to moderate spond ylytic changes above. Possible acute left sphenoid sinusitis. Known left suprahilar mass in the left lung. U/S interpreted by me (1pt. min.). @ -None done What testing was considered but not performed or refused? (CT, X-rays, U/S, labs)? Why? @ -None What meds were considered but not given or refused? Why? @ -None Did you discuss the management of the patient with other professionals (professionals i.e. , PA, PRINCIPAL SYSTEM SOFTWARE ENGINEER, lab, RT, psych nurse, executive secretary social welfare, financial systems manager, t eacher, aviation safety officer, caser in)? Give summary @ -No Was smoking cessation discussed for >3mins.? @ -No Was critical care preformed (if so, how long)? @ -No Were there social determinants of health that impacted care today? How? (Homelessness, low income, unemployed, alcoholism, drug addiction, transportation, low edu. Level, literacy, decrease access to med. care, halfway, rehab)? @ -No Was there de-escalation of care discussed even if they declined (Discuss DNR or withdrawal of care, Hospice)? DNR status @ -No What co-morbidities impacted this encounter? (DM, HTN, Smoking, COPD, CAD, Cancer, CVA, ARF, Chemo, Hep., AIDS, mental health diagnosis, sleep apnea, morbid obesity)? @ -None Was patient admitted / discharged? Hospital course, mention meds given and ro herrera, prescriptions, significant lab abnormalities, going to OR and other pertinent info. @ -72-year-old female presenting for evaluation post fall. Patient followed getting into the car. No loss of consciousness or blood thinners. GCS is 15. Negative CT of the brain and cervical spine. Negative x-ray of the right knee, right shoulder, right-sided ribs with PA chest x-ray. Patient and family are educated on today's findings and supportive management at home. Educated on alarms symptoms that should prompt immediate reevaluation. Follow-up with PCP. Report back to ER with any new or worsening symptoms. Discussed return parameters and answered all questions. Patient conveyed verbal understanding and agreed to the plan. I discussed this case in detail with my attending Dr. Phillips Undiagnosed new problem with uncertain prognosis? @ -No Drug Therapy requiring intensive monitoring for toxicity (Heparin, Nitro, Insulin, Cardizem)? @ -No Were any procedures done? @ -No Diagnosis/symptom? @ -Fall Acute, or Chronic, or Acute on Chronic? @ -Acute Uncomplicated (without systemic symptoms) or Complicated (systemic symptoms)? @ -Uncomplicated Side effects of treatment? @ -No Exacerbation, Progression, or Severe Exacerbation? @ -No Poses a threat to life or bodily function? How? (Chest pain, USA, MD, pneumonia, PE, COPD, DKA, ARF, appy, cholecystitis, CVA, Diverticulitis, Homicidal, Suicidal, threat to staff... and all critical care pts) @ -No Disposition Clinical Impression: Fall Disposition: HOME SELF-CARE Condition: Good Instructions (If sedation given, give patient instructions): Fall Prevention for Older Adults (ED), Head Injury (ED) Additional Instructions: Follow-up with PCP. Report back to ER with any new or worsening symptoms. Is patient prescribed a controlled substance at d/c from ED?: No Referrals: Sharon Cordero MD [Primary Care Provider] - 1-2 days Time of Disposition: 20:18
[2023-07-14 20:43] VITALS: BP 131/80; PULSE 100; RESP 18; TEMP 98.2
== END 2023-07-14 20:38 | disposition home or self-care (01) ==
LOC: EC 18:09
DX: S00.11XA Contusion of right eyelid and periocular area, initial encounter (principal); G31.9 Degenerative disease of nervous system, unspecified; M47.812 Spondylosis without myelopathy or radiculopathy, cervical region; M25.511 Pain in right shoulder; M25.561 Pain in right knee; I10 Essential (primary) hypertension; E78.5 Hyperlipidemia, unspecified; J44.9 Chronic obstructive pulmonary disease, unspecified; Z87.891 Personal history of nicotine dependence; Z79.899 Other long term (current) drug therapy; W18.30XA Fall on same level, unspecified, initial encounter
CPT/HCPCS: 70450; 72125; 99284

== ENCOUNTER → 2023-07-14 | Outpatient (CLI) | payer MEDICARE, OTHER ==
[2023-07-14 14:37] LABS: African American GFR (CKD) 79 (>60 ml/min/1.73 sqM); Blood Urea Nitrogen 20 mg/dL (7-17); Non-African American GFR(CKD) 68 (>60 ml/min/1.73 sqM)
--- NOTE | 2023-07-16 09:13 | CT ---
EXAMINATION TYPE: CT chest w con CT DLP: 202.5 mGycm, Automated exposure control for dose reduction was used. 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 Sagittal and coronal reformats were created for review. Contrast used:80 cc mL of Isovue 300 with IV Contrast (None if empty) Oral contrast used: (None if empty) FINDINGS: LUNGS/ PLEURA: The left perihilar mass is felt to be fractionally larger measuring 34 x 26 mm, previo usly 29 x 22 mm on 02/26/2023.r there is a fingerlike projection also present which may represent fluid or mass series 3 image 22 measuring 14 x 11 mm. There is suspected post obstructive atelectasis and/ or airspace disease around this lesion. Similar to prior. No evidence additional focal consolidation, pneumothorax or pleural effusion. AIRWAY: Patent and unremarkable. HEART: Size within normal limits. MEDIASTINUM: No gross evidence of adenopathy. VASCULATURE: No aortic aneurysm. Scattered atherosclerosis of the arterial vasculature. MUSCULOSKELETAL: Moderate disc degeneration changes are present throughout the thoracolumbar spine. SOFT TISSUES/LYMPH NODES: Unremarkable. LOWER NECK: No significant findings. UPPER ABDOMEN: Visualized. Few scattered simple appearing liver cyst. Fatty infiltration near the fal ciform ligament. IMPRESSION: Fractionally larger left perihilar mass compared to prior. There is a new fingerlike projection which could represent additional spread of tumor. No mediastinal lymphadenopathy or evidence of disease wi thin the neck or upper abdomen.
== END | disposition home or self-care (01) ==
LOC: RADCTMAIN 13:42
PROVIDERS: ATTEND Internal Medicine
DX: C34.12 Malignant neoplasm of upper lobe, left bronchus or lung (principal); R91.8 Other nonspecific abnormal finding of lung field
CPT/HCPCS: 82565; 84520; 71260; 36415; Q9967

== ENCOUNTER → 2023-08-13 | Outpatient (CLI) | payer MEDICARE, OTHER ==
--- NOTE | 2023-08-13 16:25 | US ---
EXAMINATION TYPE: US venous doppler duplex LE BI DATE OF EXAM: 08/13/2023 3:02 PM COMPARISON: NONE CLINICAL INDICATION: Female, 73 years old with history of M79.661 PAIN RIGHT LEG M79.662 PAIN LEFT LE G; Bilateral LE swelling SIDE PERFORMED: TECHNIQUE: The lower extremity deep venous system is examined utilizing real time linear array sonog christine with graded compression, doppler sonography and color-flow sonography. VESSELS IMAGED: Common Femoral Vein Deep Femoral Vein Greater Saphenous Vein * Femoral Vein Popliteal Vein Small Saphenous Vein * Proximal Calf Veins (* superficial vessels) Right Leg: Negative for DVT Left Leg: Negative for DVT IMPRESSION: Grayscale, color doppler, spectral doppler imaging performed of the deep veins of the lo wer extremities. There is normal flow, compressibility, vascular waveforms.
== END | disposition home or self-care (01) ==
LOC: RADUSWWP 14:42
PROVIDERS: ATTEND Family Medicine
DX: M79.661 Pain in right lower leg (principal); M79.662 Pain in left lower leg; M79.89 Other specified soft tissue disorders
CPT/HCPCS: 93970

== ENCOUNTER → 2023-11-05 | Outpatient (CLI) | payer MEDICARE, OTHER ==
[2023-11-05 11:41] LABS: African American GFR (CKD) 78 (>60 ml/min/1.73 sqM); Blood Urea Nitrogen 15 mg/dL (7-17); Non-African American GFR(CKD) 68 (>60 ml/min/1.73 sqM)
--- NOTE | 2023-11-05 12:14 | CT ---
Exam: CT Chest with contrast. Date: 11/05/2023. Comparison: 07/14/2023. History: Lung cancer. Technique: CT examination of the chest was performed following the intravenous administration of . C oronal and sagittal reformats were performed. CT dose lowering techniques were used, to include: auto mated exposure control, adjustment for patient size, and/or use of iterative reconstruction. FINDINGS: Mediastinum and Penny: There is a left suprahilar mass involving the left upper lobe with some extensi on into the left hilar region that measures approximately 4.2 x 3.7 cm and previously measured approx imately 3.9 x 2.9 cm. Subcarinal lymph node measures up to 1.5 cm in short axis diameter previously m easured up to 1.1 cm in short axis diameter. There is no additional adenopathy. Pleural and Pericardial spaces: There are no pleural or pericardial effusions. Upper Abdomen: Unchanged cystic structures within the liver. Cardiovascular: There is mild vascular calcification within the thoracic aorta without evidence of an eurysmal dilation or dissection. Pulmonary Artery: There are no central pulmonary arterial abnormalities. The examination was not per formed to evaluate for pulmonary embolism. Lung Parenchyma and Airways: Mild upper lobe predominant centrilobular emphysema. Left upper lobe and hilar mass described above. Bones: No fracture or aggressive osseous lesion. IMPRESSION: 1. Slight increase in size of the lung cancer in the left upper lobe and perihilar region. 2. Slight increase in size of the subcarinal lymph node. 3. Mild emphysema.
== END | disposition home or self-care (01) ==
LOC: RADCTMAIN 11:05
PROVIDERS: ATTEND Internal Medicine
DX: C34.92 Malignant neoplasm of unspecified part of left bronchus or lung (principal); J43.9 Emphysema, unspecified
CPT/HCPCS: 82565; 84520; 71260; 36415; Q9967